=== PATIENT | female | born 1965 | race Caucasian/White ===

== ENCOUNTER 2021-09-06 12:45 | Outpatient (CLI) | payer OTHER, SELFPAY ==
--- NOTE | ~2021-09-06 | XR_ITS ---
EXAM: XR hip BI wo pelvis HISTORY: PAIN LOW BACK INTO BOTH HIPS. NO INJ, SURG RT 2009, LT 2014 COMPARISON: None available FINDINGS: Uncomplicated bilateral hip arthroplasties. Degenerative changes in the bilateral SI joint s and pubic symphysis. No fracture. IMPRESSION: No acute osseous finding in the pelvis or hips. No hardware complication. Reviewed, dictated and finalized at location K.
--- NOTE | ~2021-09-06 | XR_ITS ---
EXAM: XR lumbar spine 2-3V HISTORY: PAIN LOW BACK INTO BOTH HIPS. NO INJ, LEFT SIDE HURTS WORSE COMPARISON: None available FINDINGS: 6 nonrib-bearing lumbar-type vertebral bodies. Pedicles intact. 3 mm anterolisthesis of L5 on L6, otherwise normal vertebral body alignment. Vertebral body heights preserved. Multilevel disc narrowing and osteophytosis, severe at L3-4. Multilevel facet arthropathy. 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 Multilevel degenerative disc disease and facet arthropathy. Reviewed, dictated and finalized at location K. 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 Multilevel deg enerative disc disease and facet arthropathy.
== END 2021-09-06 12:46 | disposition home or self-care (01) ==
PROVIDERS: PCP Family Medicine; Visit Provider Nurse Practitioner Family
DX: M54.50 Low back pain, unspecified (principal); M25.551 Pain in right hip; M25.552 Pain in left hip; M51.36 Other intervertebral disc degeneration, lumbar region; Q76.49 Other congenital malformations of spine, not associated with scoliosis; Z96.643 Presence of artificial hip joint, bilateral
CPT/HCPCS: 72100; 73521

== ENCOUNTER 2021-10-25 12:30 | Outpatient (RCR) | payer OTHER, SELFPAY ==
--- NOTE | 2021-09-27 13:44 | PTOPEVAL ---
PHYSICAL THERAPY EVALUATION AND PLAN OF CARE Thank you for referring Syeda Christian to [facility].? The patient is scheduled to be seen for therapy? 2x/week for 4 weeks. Please review, sign, date and return this plan of care HARINDER. I agree with and certify that the following plan of care is medically necessary. Referring Physician Date Attending Provider: VIOLET Dumont Diagnosis low back pain, sciatica Onset 2months ago Subjective Information reports an acute on chronic Query Text:As Reported By Patient/ episode of low back pain that Family this time has persisted and even worsened. Muscle relaxors do not help. She has a 6th lumbar vertebrae and arthritic changes throughout. Most of the pain is on the left side of sacrum and she will get tingling all the way down the leg and pain, almost cramping, in the back of the leg and calf. Standing increases leg symptoms after just a couple of minutes. Walking can be better than standing still. has had bilateral hip replacement, left was performed second and she states that she was walking so terribly before the surgery. she is not working on losing weight to have the left knee replaced. Self Report Pain Assessment Left Spine, Lumbar Reported Pain Level 4 Pain Frequency Chronic,Continuous Greatest Pain Intensity 8 Pain Score Lumbar ROM Lumbar Flexion Active Mid Scherer Query Text:Hands to: Lumbar Comments reverse lumbopelvic rhythm; extension hinging at L2 Hip Strength Left Hip Flexion Strength 3 Fair Hip Extension Strength 3 Fair Hip Abduction Strength 3 Fair Hip Strength Comments generally poor motor recruitment secondary to pain Right Hip Flexion Strength 4 Good Hip Extension Strength 3+ Fair + Hip Abduction Strength 3+ Fair + Leg Length Discrepancy left leg appears shorter at ankle and knee and iliac crest is rotated anteriorly Palpation significant muscle spasm to left
--- NOTE | 2021-09-29 12:44 | PCPTNOTE ---
Patient called & cancelled scheduled appointment this date due to watching grandchild.
--- NOTE | 2021-10-19 14:42 | PCPTNOTE ---
Patient called & cancelled scheduled appointment this date due to not feeling well.
--- NOTE | 2021-10-25 13:06 | PTOPEVAL ---
PHYSICAL THERAPY DISCHARGE NOTE Thank you for referring Syeda Christian to [facility].?Please review, sign, date and return this plan of care HARINDER. I agree with and certify that the following plan of care is medically necessary. Referring Physician Date Attending Provider: Bindu Earl, VIOLET Diagnosis low back pain, sciatica Onset 2months ago Subjective Information States that she is feeling Query Text:As Reported By Patient/ pretty good. She is liking the Family shoe lift and it feels like it is really helping. She has been doing walking in the pool and exercises in the pool. Self Report Pain Assessment Left Spine, Lumbar Reported Pain Level 2 Pain Score Pain Score 2: Self Report Interventions Used Interventions Used By Clinicians Education,Exercise Pain Relief Interventions Used By Inactivity/Rest,Position Patient Change Cervical and Lumbar ROM Lumbar ROM Lumbar Flexion Active Mid Scherer Query Text:Hands to: Lumbar Comments reverse lumbopelvic rhythm; extension hinging at L2 Lower Extremity Muscle Strength Testing Hip Strength Left Hip Flexion Strength 4- Good - Hip Extension Strength 3+ Fair + Hip Abduction Strength 4- Good - Hip Strength Comments generally poor motor recruitment secondary to pain Right Hip Flexion Strength 5 Normal Hip Extension Strength 4 Good Hip Abduction Strength 4 Good Palpation continues to have moderate trigger points to left glutes; PT Clinical Summary Christine was referred to outpatient physical therapy with acute on chronic left sided low back pain with radicular symptoms to left calf. She is no longer experiencing radicular symptoms and reports ability to stand and wash dishes and walk. She presents with improved lumbar ROM and improved overall strength. She does continue to have a deficit to left LE. She is understanding of HEP performs it independently. She will d/c from PT at this time.
== END 2021-10-26 08:32 | disposition home or self-care (01) ==
LOC: ANHPT 12:30
PROVIDERS: PCP Family Medicine; Visit Provider Nurse Practitioner Family
DX: M54.32 Sciatica, left side (principal)
CPT/HCPCS: 97110; 97112; 97140; 97162

== ENCOUNTER 2022-07-09 16:59 | Outpatient (CLI) | payer OTHER, SELFPAY ==
--- NOTE | ~2022-07-09 | XR_ITS ---
EXAMINATION: XR chest 2V DATE: 07/09/2022 17:20 INDICATION: Chronic cough TECHNIQUE: Frontal and lateral views of the chest are obtained COMPARISON: None available FINDINGS: The lungs are free of acute opacities. No pleural effusion or pneumothorax. The cardiomedia stinal silhouette is normal. There is moderate thoracic spondylosis. Surgical clips in the right uppe r quadrant are likely from prior cholecystectomy. IMPRESSION: 1. No acute cardiopulmonary abnormality. Reviewed, dictated and finalized at location A. TRIMMER
== END 2022-07-09 17:00 | disposition home or self-care (01) ==
LOC: ANHIMG 17:01
PROVIDERS: PCP Family Medicine; Visit Provider Physician Assistant
DX: R05.3 Chronic cough (principal)
CPT/HCPCS: 71046

== ENCOUNTER 2022-09-25 11:00 | Outpatient (RCR) | payer OTHER, SELFPAY ==
--- NOTE | 2022-08-27 12:21 | STOPEVAL1 ---
Assessment and note entered by Ena Goodwin, ACOUSTICAL TILE PATTERNMAKER Evaluation Information Assessment Status Evaluation Diagnosis Dysphonia Onset approximately 6 months Subjective Information Patient reports she had COVID last November and with that, had a cough. She stated that those symptoms cleared up however she noted that it was after the COVID symptoms, she began noticing a voice problem. Due to the persistent voice disorder, she went to her primary care physician who sent her to the ENT who scoped her and found a vocal nodule that is contributing to voice disorder. Reported Pain Level Pain Score 0: Self Report Assessment ST Clinical Summary VOICE EVALUATION This patient was seen for a voice evaluation at the request of her physician. She reports that last summer, she contracted COVID and began to exhibit a frequent cough but her voice disorder was noted noticed until around [place] when a relative pointed out her voice sounded as if she had a cold. Patient then saw her primary care physician and then had an endoscopy to examine her vocal cords and she was diagnosed with one vocal nodule. Patient reports that she takes care of her disabled daughter, babysits two young grandchildren, and is training two puppies at this time, all of which contribute to constant speaking and yelling at the animals at times. Patient reports voice is both raspy and hoarse at all times with very infrequent and brief moments when she feels her voice sounded normal. Today the patient exhibited vocal loudness and pitch range to be within normal limits however her vocal quality was judged to be moderate hoarse and moderate-severe raspy. Also diplophonia was observed on several occasions. Patient was instructed in the use of vocal hygiene program, gastroesophageal reflux guidelines, and vocal cord/neck/shoulder relaxation techniques. Patient voiced good understanding of recommendations and reported that she does not follow these guidelines at this time but agreed to try. Patient will be seen
--- NOTE | 2022-08-28 16:53 | STOPEVAL1 ---
Assessment and note entered by Ena Goodwin, VALVE ASSEMBLER Assessment ST Clinical Summary VOICE EVALUATION This patient was seen for a voice evaluation at the request of her physician. She reports that last summer, she contracted COVID and began to exhibit a frequent cough but her voice disorder was noted noticed until around [place] when a relative pointed out her voice sounded as if she had a cold. Patient then saw her primary care physician and then had an endoscopy to examine her vocal cords and she was diagnosed with one vocal nodule. Patient reports that she takes care of her disabled daughter, babysits two young grandchildren, and is training two puppies at this time, all of which contribute to constant speaking and yelling at the animals at times. Patient reports voice is both raspy and hoarse at all times with very infrequent and brief moments when she feels her voice sounded normal. Today the patient exhibited vocal loudness and pitch range to be within normal limits however her vocal quality was judged to be moderate hoarse and moderate-severe raspy. Also diplophonia was observed on several occasions. Patient was instructed in the use of vocal hygiene program, gastroesophageal reflux guidelines, and vocal cord/neck/shoulder relaxation techniques. Patient voiced good understanding of recommendations and reported that she does not follow these guidelines at this time but agreed to try. Patient will be seen twice weekly for four weeks for direct voice treatment to instruct the patient in the use of vocal relaxation techniques while speaking. Patient agreed to continue direct Speech Therapy. Thank you for this referral. Plan of Care Interventions Treatment of Voice ST Services Indicated Yes Treatment Frequency and 2xwk/4weeks Duration These treatments will address the objective and functional deficits as defined above. The patient will be advanced safely and appropriately in order for the patient to
--- NOTE | 2022-09-13 15:36 | PCSTNOTE ---
Rehab treatment not completed this week as patient's has shingles and aj has chicken pox and patient did not want to expose staff and other patients to chicken pox virus. Resume next week.
--- NOTE | 2022-09-25 12:40 | STOPPROG ---
Assessment and note entered by Ena Goodwin, DELIVERY SPECIALIST Evaluation Information Assessment Status Progress Assessment ST Clinical Summary VOICE TREATMENT SESSION AND PROGRESS NOTE Patient was seen for a voice evaluation on 08/27 and then 3 treatment sessions to address moderate vocal hoarseness and moderate/severe raspy vocal quality. She had to miss several scheduled treatment sessions due to her own illness but then also for illness in the family, not wanting to risk infecting the elderly at this treatment facility. Patient was instructed in the use of a vocal hygiene program to reduce voice abuse and negative behaviors that could lend themselves to a poor voice quality, but also instructed in the use of gastroesophageal guidelines in order to prevent any risk for a hoarse voice due to reflux into the pharynx/larynx. Patient was instructed in the use of the yawn-sigh technique to promote easy onset of voicing and she was also instructed in the use of breathing/relaxation techniques, again, to reduce the stress on the voice/vocal cords. Patient reports she has considered all recommendations and practices them daily. Today, the patient was instructed in the use of changing pitch by elevating pitch to reduce the stress on the vocal cords and given 5-6 syllable sentences, patient was 80% accurate for clear speech with no observation of pitch breaks or squealing/raspy vocal quality. When sentence length was increased to 9-10 syllables, clear voice was noted only 20% of the time. Patient was instructed to, in general, keep sentences shorter in length, inhale, use easy onset including use of blowing or /h/ sound initially when speaking, and to break longer sentences in several parts as needed to avoid squeaking or the sound of a pitch break. She was given sentences of 5-9 words in length and requested to practice but to not overdo practicing as over-practicing may contribute to vocal cord irritation. Patient voiced understanding. Patient expressed that now that she has seen some improvement in her voicing (by raising the pitch level), she wants to continue one time weekly at this time to reinforce use of good voicing
--- NOTE | 2022-09-25 13:50 | OPREHPOC ---
Outpatient Therapy Plan of Care This is a Multidisciplinary Plan of Care that may contain components documented by all disciplines (PT, OT, and ST.) ST Problem 1 ST Problem #[address] Goal 1 Goal Demonstrate good understanding of vocal hygiene program, tasks to reduce symptoms of gastroesophageal reflux, and use of yawn-sigh and changing pitch techniques in order to reduce vocal cord irritation. Target Visit [address] Problem #[address] Goal 1 Goal Patient will utilize all components of clear speech including yawn-sigh technique and changing pitch technique to reduced stress on the vocal cords and therefore improving vocal quality 90% of the time in sentences 5-9 words in length. Target Visit 4 ST Goal 2 Goal Patient will utilize all components of clear speech including yawn-sigh technique and changing pitch technique to reduced stress on the vocal cords and therefore improving vocal quality 90% of the time at the conversational level. Target Visit 4
--- NOTE | 2022-10-09 11:59 | PCSTNOTE ---
Patientdid not show or call to cancel today's session/re-evaluation. Therapist contacted patient and left message but no response yet.
--- NOTE | 2022-11-01 13:10 | STOPDC ---
Assessment and note entered by Ena Goodwin SERVICE ORDER DISPATCHER CHIEF Evaluation Information Assessment Status Discharge - Pt Not Presen Assessment ST Clinical Summary DISCHARGE SUMMARY/NOT PRESENT This patient was seen for an initial voice evaluation on 08/27 secondary to presence of vocal nodule(s). Speech Therapy was recommended twice weekly for four weeks however her attendance was sporadic secondary to illness/family illnesses and other reasons. She was instructed in the use of vocal hygiene program, strategies to reduce evidence of gastroesophageal reflux, and then easy onset and yawn-sign strategies to reduce vocal tension. Patient voiced understanding, used her puppies and grandchildren as reasons why she could not consistently practice use of the strategies or techniques. She did return for a re- evaluation on 09/25 and she did see improvement when raising pitch was practiced. At that time she agreed to return one time weeklyx4 weeks however she never returned after that visit nor did she respond to speech pathologist's calls or contacts. She was discharged with goals not achieved. Plan of Care ST Services Indicated No
== END 2022-11-02 13:12 | disposition home or self-care (01) ==
LOC: ANHST 11:00
PROVIDERS: PCP Family Medicine; Visit Provider Otolaryngology
DX: J38.2 Nodules of vocal cords (principal)
CPT/HCPCS: 92507; 92524; 99199

== ENCOUNTER 2022-11-02 14:02 | Outpatient (CLI) | payer OTHER, SELFPAY ==
--- NOTE | 2022-11-02 14:07 | ECG_ITS ---
Measurements Intervals [place] Rate: 50 P: 40 TX: 141 QRS: -15 QRSD: 87 T: -4 QT: 425 QTc: 389 Interpretive Statements SINUS BRADYCARDIA LOW QRS VOLTAGE IN PRECORDIAL LEADS [QRS DEFLECTION < 1.0 mV IN CHEST LEADS] POOR R-WAVE PROGRESSION BORDERLINE ECG NO PREVIOUS ECG AVAILABLE FOR COMPARISON Electronically Signed On 11-02-2022 17:20:40 CDT by Kike Kline M.D.
== END 2022-11-02 14:03 | disposition home or self-care (01) ==
PROVIDERS: PCP Family Medicine; Visit Provider Otolaryngology
DX: R00.1 Bradycardia, unspecified (principal)
CPT/HCPCS: 93005

== ENCOUNTER 2022-11-05 04:02 | Day surgery (SDC) | payer OTHER, SELFPAY ==
[2022-10-30 08:43] VITALS: BMI 45.1
--- NOTE | 2022-10-30 08:50 | PC.NURSE ---
Report to the Outpatient Waiting Room, entrance under the green pavilion located off [facility], at time 6:30 on date 11/05/22. Planned Procedure Time: 8:30. Time changes happen often and if your time is changed the preop area will call you the afternoon before. - You and your visitor will be asked to self-screen and do not enter if you have any COVID symptoms. - A mask is optional within the hospital at this time. Patients may have clear liquids (water, carbonated beverages, clear teas, apple juice) until 3 hours prior to surgery (5:30) with a maximum of 20 ounces. - No food from midnight until time of surgery Take the following medications with a SIP of water the morning of surgery: LEXAPRO, METOPROLOL DO NOT STOP ANY OF YOUR OTHER PRESCRIPTION MEDICATIONS PRIOR TO SURGERY ?EXCEPT THE FOLLOWING Medications to discontinue per physician: VITAMINS/SUPPLEMENTS Date to take last dose: 11/01/22 Please no make-up, nail iranian, hairspray, perfume, deodorant, or body powder the day of surgery. No jewelry (including any body piercings) or valuables the day of surgery, leave them at home. Please take a shower or bath the night before, or the morning of, surgery with an antibacterial soap. Wear comfortable, loose fitting clothing. - Jewelry must be removed prior to entering the operating room. Rings and piercings that are not removed may be cut off. - The hospital will not accept responsibility for valuables. - Please leave all valuables, including medications, at home the day of surgery. If you are going home after surgery, a licensed caterpillar driver must drive you home. - NO public transportation without another adult if you receive anesthesia. - We recommend that an adult stay with you for 24 hours following discharge. - We also recommend that you do not drive, make important decision, drink alcoholic beverages, or take any drugs that were not prescribed by your health care provider for at least 24 hours after your discharge time. Follow any additional instructions given to you from your surgeon. If you or anyone in your household have experienced Covid symptoms in the past week, please notify your surgeon or the nurse liaison at the phone number below for possible testing. Telephone instructions given to PT - KENDALL DE LA TORRE and asked if any additional questions and then verbalized understanding. Patient advised to call surgeon office or pre surgery nurse liaison [phone] if any additional questions.
--- NOTE | 2022-11-02 17:26 | PM.IMHP ---
H&P: HPI History of Present Illness Date/Time: 11/02/22 17:26 Chief Complaint: Hoarse voice vocal cord cyst Narrative: planned procedure Review of Systems Review of Systems: All systems reviewed & are unremarkable except as noted in HPI and below [facility] Past Medical History Medical History Anxiety Depression Essential (primary) hypertension Gastroesophageal reflux disease without esophagitis HLD (hyperlipidemia) IFG (impaired fasting glucose) Osteoarthritis of left knee PCOS (polycystic ovarian syndrome) Primary osteoarthritis involving multiple joints Surgical History Surgical History History of arthroscopy of left knee (~1992) History of arthroscopy of right knee (~1993) History of cholecystectomy (~10/1991) History of total left hip arthroplasty (~02/2016) History of total right hip arthroplasty (~10/2010) Status post delivery (~07/1990) Twins Family History Family History Father Hypertension Depression Mother Cerebrovascular accident Family history of diabetes mellitus in first degree relative Family history of coronary artery disease Cancer Diabetes mellitus Hypertension Depression Sibling Alcoholism Depression Son Depression Social History Social History Smoking status: Never smoker Second hand tobacco smoke exposure: No Alcohol intake: never Substance use: never Substance use type: does not use Lack of Transportation: No Lack of Food: Never True Current Housing: I Have Housing Concerned About Future Housing: No Difficulty Paying Gas/Electric Bills: No Difficulty Paying for Meds: No Currently Unemployed: No Education: High School Diploma/GED Difficulty w/ Childcare or Family Care: No Living arrangements: with family Occupation/Education: unemployed Gender identity (if verbalized by the patient): Female Sexual Orientation (if Verbalized by the Patient): Straight or Heterosexual Spiritual care concerns: No Meds Home Medications and Allergies Home Medications Medication Instructions Recorded Confirmed Type pantoprazole 40 mg tablet,delayed 40 mg PO QAM #90 tabs 06/01/22 11/02/22 Rx release gabapentin 300 mg capsule 300 mg PO QHS #30 caps 06/26/22 11/02/22 Rx ergocalciferol (vitamin D2) 1,250 1,250 mcg PO WEEKLY #12 caps 06/29/22 11/02/22 Rx mcg (50,000 unit) capsule escitalopram oxalate 20 mg tablet 20 mg PO DAILY #90 tabs 08/20/22 11/02/22 Rx (Lexapro) meloxicam 15 mg tablet See Rx Instructions .Route 08/21/22 11/02/22 Rx .COMPLEX #90 tabs metoprolol succinate 25 mg 25 mg PO DAILY #90 tabs 10/15/22 11/02/22 Rx tablet,extended release 24 hr azelastine 137 mcg (0.1 %) nasal 1 spray intranasal Q12H #30 mL 11/02/22 11/02/22 Rx spray aerosol Allergies Allergy/AdvReac Type Severity Reaction Status Date / Time No Known Allergies Allergy Verified 11/02/22 15:04 Exam Narrative: normal ENT exam Assessment and Plan Assessment and plan (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 Total operative time of 30 minutes. Risks were discussed including bleeding infection damage to vocal cords damage to any surrounding structures damage to jaw dislocation of jaw damaged teeth. Persistent hoarse voice necessitating prolonged speech therapy vocal cord stricture scarring damage to vocal cord. Patient voiced understanding and agreed. (2) Hoarseness: Code(s): R49.0 - Dysphonia Status: Acute
[2022-11-05] VITALS (8 sets, daily range): BP systolic 110–155; BP diastolic 56–85; PULSE 54–78; RESP 13–20; TEMP 36.3–36.4; O2SAT 92–99
--- NOTE | 2022-11-05 07:07 | WPDANESEPPF ---
Anes - Initial Pre Proc Eval Procedure: Operation Date: 11/05/22 08:30 Proposed Procedures p Micro Laryngoscopy, Excision Right Vocal Cord Polyp - Srinivasan Amezcua MD Date/Time: 11/05/22 07:07 Surgeon: Srinivasan Amezcua MD Pre Op Diagnosis: right vocal cord polyp Patient Data Age: 57 Gender: F Height: 1.7 m Weight: 130.65 kg Allergies Allergy/AdvReac Type Severity Reaction Status Date / Time No Known Allergies Allergy Verified 11/05/22 08:05 Home Medications Medication Instructions Recorded Confirmed Type pantoprazole 40 mg tablet,delayed 40 mg PO QAM #90 tabs 06/01/22 11/02/22 Rx release gabapentin 300 mg capsule 300 mg PO QHS #30 caps 06/26/22 11/02/22 Rx ergocalciferol (vitamin D2) 1,250 1,250 mcg PO WEEKLY #12 caps 06/29/22 11/02/22 Rx mcg (50,000 unit) capsule escitalopram oxalate 20 mg tablet 20 mg PO DAILY #90 tabs 08/20/22 11/02/22 Rx (Lexapro) meloxicam 15 mg tablet See Rx Instructions .Route 08/21/22 11/02/22 Rx .COMPLEX #90 tabs metoprolol succinate 25 mg 25 mg PO DAILY #90 tabs 10/15/22 11/02/22 Rx tablet,extended release 24 hr azelastine 137 mcg (0.1 %) nasal 1 spray intranasal Q12H #30 mL 11/02/22 11/02/22 Rx spray aerosol Patient hx anesthesia problems: none Family hx anesthesia problems: none Results Review: All pre-operative results and documents have been reviewed as part of the pre-operative evaluation. [facility] Past Medical History Medical History Anxiety Depression Essential (primary) hypertension Gastroesophageal reflux disease without esophagitis HLD (hyperlipidemia) IFG (impaired fasting glucose) Osteoarthritis of left knee PCOS (polycystic ovarian syndrome) Primary osteoarthritis involving multiple joints Surgical History Surgical History History of arthroscopy of left knee (~1992) History of arthroscopy of right knee (~1993) History of cholecystectomy (~10/1991) History of total left hip arthroplasty (~02/2016) History of total right hip arthroplasty (~10/2010) Status post delivery (~07/1990) Twins Family History Family History Father Hypertension Depression Mother Cerebrovascular accident Family history of diabetes mellitus in first degree relative Family history of coronary artery disease Cancer Diabetes mellitus Hypertension Depression Sibling Alcoholism Depression Son Depression Social History Social History Smoking status: Never smoker Second hand tobacco smoke exposure: No Alcohol intake: never Substance use: never Substance use type: does not use Lack of Transportation: No Lack of Food: Never True Current Housing: I Have Housing Concerned About Future Housing: No Difficulty Paying Gas/Electric Bills: No Difficulty Paying for Meds: No Currently Unemployed: No Education: High School Diploma/GED Difficulty w/ Childcare or Family Care: No Living arrangements: with family Occupation/Education: unemployed Gender identity (if verbalized by the patient): Female Sexual Orientation (if Verbalized by the Patient): Straight or Heterosexual Spiritual care concerns: No Anes - Eval Final PreProcedure Day of Procedure 11/05/22 07:07 Patient weight: morbidly obese Heart: regular rate and rhythm Lungs: clear to auscultation Airway: Mallampati scale class III Neurological: alert and oriented Last oral intake: >/= 8 hours ASA classification: III Emergent: no Anesthetic plan: proceed Anesthesia type and monitoring: general ETT and standard monitoring Results Review: All pre-operative results and documents have been reviewed as part of the pre-operative evaluation. Informed Consent: The patient's anesthetic plan and its attendant risks and benefits were discuss
--- NOTE | 2022-11-05 07:22 | WPDHPUPDATE1 ---
History and Physical Update Update Date/Time: 11/05/22 07:22 History and Physical has been reviewed, including an updated exam of the patient. There are NO changes in the patient's condition. Risks, benefits, and alternatives have been discussed and questions answered. Patient agrees to proceed with procedure.
[2022-11-05] MEDS: LACTATED RINGERS 1,000 ML 30 ML IV CONT (08:00)
[2022-11-05] MEDS: OXYMETAZOLINE HCL 0.05% NAS 15 ML BTL (*BKC) 1 SPRAY XX (08:49)
--- NOTE | 2022-11-05 09:25 | P.OP_ITS ---
Procedure Note - Detailed Date of Procedure 11/05/22 Pre-op Diagnosis right vocal cord polyp/ cyst, or some voice hoarse not some Post-op Diagnosis Same Procedure Performed Microdirect laryngoscopy with excision of right vocal cord cyst Surgeon Srinivasan Amezcua MD Anesthesia General Indications see above Findings anterior based right vocal cord cyst excised with a small amount of squamous epithelium around its base. Description of Procedure Patient identified consent verified. Patient brought operating room. Time- out performed. General anesthesia induced endotracheal tube secured 1 size lower than normal. Patient prepped draped positioned. Procedure confirmed. Second time-out performed. Laryngoscope inserted into the patient's airway after the placement of a maxillary tooth mouth guard. Airway brought into view. Patient placed in suspension. Cyst visualized described above. Excise grasped with cup forceps facing to the right this was done under microscopic guidance cut with up-biting small scissors a small amount of epithelium was taken out. This was sent for pathologic analysis. Patient tolerated the procedure well this Afrin-soaked pledgets were placed for 5 minutes then removed cyst was gone. Deep structures were not damaged McIvor mouth or the laryngoscope was removed mouth gag removed patient tolerated the procedure very very well equipment was all accounted for. Blood loss less than 1 cc. I performed all dictated portions of procedure. Care the patient was given Anesthesiology. Patient taken to PACU. Estimated Blood Loss 1 Drains No Packing No Pathology Yes Complications No immediate complications Condition Stable Disposition PACU [facility] Billing Surgery - Charge Forward: Surgery Billing
== END 2022-11-05 10:38 | disposition home or self-care (01) ==
PROVIDERS: PCP Family Medicine; Visit Provider Otolaryngology
PROC: 0CJS8ZZ Inspection of Larynx, Via Natural or Artificial Opening Endoscopic (ICD-10-PCS; CPT 31541; principal; 2022-11-05 08:30)
DX: J38.3 Other diseases of vocal cords (principal); R49.0 Dysphonia; I10 Essential (primary) hypertension; E78.5 Hyperlipidemia, unspecified; E28.2 Polycystic ovarian syndrome; F41.9 Anxiety disorder, unspecified; F32.A Depression, unspecified; K21.9 Gastro-esophageal reflux disease without esophagitis; M15.9 Polyosteoarthritis, unspecified
CPT/HCPCS: 31541; 88305; A9270; J0330; J2250; J2405; J2704; J3010; J7120

== ENCOUNTER 2023-05-29 10:12 | Outpatient (CLI) | payer OTHER, SELFPAY ==
--- NOTE | ~2023-05-29 | MM_ITS ---
EXAMINATION: MM screening heather BI w zakia HISTORY: Screening mammogram TECHNIQUE: Craniocaudal and mediolateral oblique 3-D tomosynthesis images were obtained and synthetic 2-D images were generated. CAD analysis was submitted and interpreted. COMPARISON: 09/24/2018 BREAST PARENCHYMAL COMPOSITION: There are scattered areas of fibroglandular density. FINDINGS: No suspicious mass, calcification, or architectural distortion are identified in either blake ast to suggest malignancy. There has been no suspicious interval change. IMPRESSION: 1. No mammographic evidence of malignancy. 2. Recommend routine screening mammography in one year. BI-RADS Category 1: Negative Reviewed, dictated and finalized at location A. [employer]
== END 2023-05-29 10:13 | disposition home or self-care (01) ==
LOC: ANHIMG 10:14
PROVIDERS: PCP Family Medicine; Visit Provider Physician Assistant
DX: Z12.31 Encounter for screening mammogram for malignant neoplasm of breast (principal)
CPT/HCPCS: 77063; 77067

== ENCOUNTER 2024-02-01 11:11 | Outpatient (CLI) | payer OTHER, SELFPAY ==
[2024-02-01 11:39] LABS: Hemoglobin 13.3 g/dL (12.0-15.0)
[2024-02-01 11:47] LABS: Hemoglobin A1C 5.1 % (<5.7)
[2024-02-01 11:48] LABS: Albumin Level 3.8 g/dL (3.5-5.1); Estimated Glomerular Filt Rate > 60; Glucose 93 mg/dL (65-110)
== END 2024-02-01 11:12 | disposition home or self-care (01) ==
PROVIDERS: PCP Family Medicine; Visit Provider Orthopaedic Surgery
DX: R73.01 Impaired fasting glucose (principal); I10 Essential (primary) hypertension; E55.9 Vitamin D deficiency, unspecified
CPT/HCPCS: 36415; 82040; 82565; 82947; 83036; 85014; 85018

== ENCOUNTER 2024-02-06 09:00 | Outpatient (RCR) | payer OTHER, SELFPAY ==
--- NOTE | 2024-01-08 09:34 | OPREHPOC ---
Outpatient Therapy Plan of Care This is a Multidisciplinary Plan of Care that may contain components documented by all disciplines (PT, OT, and ST.) PT Problem 1 PT Problem #1 Knowledge Deficit PT Goal 1 Goal / Goal Update *indep with HEP *eduation for TKR post op PT protocol Target Visit 6 PT Problem 2 PT Problem #2 Pain PT Goal 1 Goal / Goal Update 1* pain L knee at worst of 8/10 with increased strengthening and activity Target Visit 6 PT Problem 3 PT Problem #3 Impaired Strength PT Goal 1 Goal / Goal Update increase strength of L hip and knee, to improve stability to knee joint and prepare for surgery 1* pt perform with 2# ankle wt, 15 reps of mat strengthening exercises 2* 2 minute walking test distance of 325' Target Visit 6
--- NOTE | 2024-01-08 09:34 | PTOPEVAL1 ---
Assessment and note entered by Roseanna Vizcaino, PT Evaluation Information Assessment Status Evaluation ICD-10 Condition Codes (PT) Repeated falls R29.6,Difficulty Walking R26.2,R26. 9,Weakness R53.1 Other ICD-10 Condition Codes ( M17.12 L knee OA PT) Subjective Information having more pain and weakness of L LE, have had 2 falls due to knee giving out; use cane PRN; have a wheeled walker, but not use it. to have TKR, but not yet scheduled; Activity: at home with family; assist with in home care of her disabled daughter and babysit 2 & 3 yr old grand children; trying to walk for fitness due to bariatric surgery have lost 60#; does not go into her basement for laundry due to knee giving out-- family does laundry. discussed aquatic therapy for fitness activity- she likes water exercises and did after her THR. Reported Pain Level Pain Score 0: Self Report Additional Pain Score Comments pain increase to 8/10 with walking 6-7 minutes; decrease pain: sit, rest have not been taking any pain meds/tylenol not help; is not using ice- instruct on PRN use does have swelling in knee- instruct on elevation and ice for swelling; Assessment PT Clinical Summary Malgorzata has the diagnosis of L knee OA and is planning to have a TKR, but not yet scheduled. Her walking is limited to about 6-7 minute tolerance due to pain and knee is buckling and giving out, caused her to fall 2x. She is using a cane and pushing her daughters' w/c for support with walking distances. With the evaluation; she has good ROM of knee, decreased strength of L LE--mat exercises 10-15 reps; 2 minute walking test distance of 275' with pain increase to 5/10; Skilled PT services are indicated for modalities to decrease pain, therapeutic exercises to increase L LE strength and education for HEP and to prep pt for TKR surgery, to have better outcome
--- NOTE | 2024-02-06 09:55 | PTOPDC ---
Assessment and note entered by [facility] Evaluation Information Assessment Status Discharge ICD-10 Condition Codes (PT) Repeated falls R29.6,Difficulty Walking R26.2, Weakness R53.1 Other ICD-10 Condition Codes ( M17.12 L knee OA PT) Subjective Information Pt. reports she is stronger since beginning therapy. She states that she is doing exercise at home daily. She reports that pain continues to fluctuate in the left knee and depends on how much standing she does. She reports that she will be undergoing knee replacement in April. She reports that she will continue with her HEP and is ready for discharge at this time. Reported Pain Level Pain Score 5: Self Report Assessment PT Clinical Summary Mrs. Christian attended a total of 6 treatment sessions focusing on mobility latter-day and l.e. strength. She demonstrates improved mobility and gait efficiency, despite continued pain. Educated pt. thoroughly in regards to importance of continued exercise to assist with improving her outcome with knee replacement. She is encouraged to continue with her HEP and will be discharged from our care at this time. Plan of Care PT Services Indicated No
== END 2024-02-06 15:09 | disposition home or self-care (01) ==
LOC: ANHPT 09:00
PROVIDERS: PCP Family Medicine; Visit Provider Orthopaedic Surgery
DX: M17.12 Unilateral primary osteoarthritis, left knee (principal)
CPT/HCPCS: 97110; 97161; 97530

== ENCOUNTER 2024-03-27 11:55 | Outpatient (CLI) | payer OTHER, SELFPAY ==
[2024-03-27 14:03] LABS: Basophils Absolute Auto 0.1 K/mm3 (0.0-0.1); Basophils Percent Auto 0.7 % (0.2-1.2); Eosinophils Absolute Auto 0.1 K/mm3 (0-0.3); Eosinophils Percent Auto 0.8 % (0-4.4); Hematocrit 39.8 % (37.0-47.0); Immature Granulocyte Absolute 0.03 K/mm3 (0.00-0.031); Immature Granulocyte Percent A 0.4 % (0-0.5); Lymphocytes Absolute Auto 0.78 K/mm3 (0.9-3.2); Lymphocytes Percent Auto 10.3 % (18.3-44.2); Mean Corpuscular HGB Conc 32.7 g/dl (32-36); Mean Corpuscular Hemoglobin 30.2 pg (26-34); Mean Corpuscular Volume 92.6 fl (80-100); Mean Platelet Volume 10.8 fl (7.4-10.4); Monocytes Absolute Auto 0.4 K/mm3 (0.1-0.6); Monocytes Percent Auto 5.4 % (2.6-8.5); Neutrophils Absolute Auto 6.2 K/mm3 (1.3-6.7); Neutrophils Percent Auto 82.4 % (45.5-73.1); Platelet Count Result 246 k/mm3 (150-375); Red Cell Distribution Width 14.9 % (11.5-14.5); White Blood Count 7.6 K/mm3 (4.5-10.0)
[2024-03-27 14:27] LABS: Albumin Level 4.1 g/dL (3.5-5.1); Estimated Glomerular Filt Rate > 60; Glucose 94 mg/dL (65-110)
[2024-03-27 15:03] LABS: Urine Cotinine NEGATIVE
[2024-03-27 15:16] LABS: MRSA (PCR) NOT DETECTED (NOT DETECTE)
== END 2024-03-27 11:56 | disposition home or self-care (01) ==
LOC: ANHSURGERY 12:05
PROVIDERS: PCP Family Medicine; Visit Provider Orthopaedic Surgery
DX: Z01.818 Encounter for other preprocedural examination (principal); M17.12 Unilateral primary osteoarthritis, left knee
CPT/HCPCS: 80307; 82040; 82565; 82947; 85025; 87641

== ENCOUNTER 2024-04-20 00:34 | Day surgery (SDC) | payer OTHER, SELFPAY ==
[2024-03-27 12:13] VITALS: BMI 36.3
--- NOTE | 2024-03-27 12:43 | PC.NURSE ---
Report to the Outpatient Waiting Room, entrance under the green pavilion located off [facility], at time ___10:00AM____ on date ____04/20/24___. Planned Procedure Time: ___12:00PM .? Time changes happen often and if your time is changed the preop area will call you the afternoon before. - You and your visitor will be asked to self-screen and do not enter if you have any COVID symptoms. Please call surgeon if you need to reschedule. - A mask is optional within the hospital at this time. Patients may have clear liquids (water, carbonated beverages, clear teas, apple juice) until 3 hours prior to surgery with a maximum of 20 ounces. - No food from midnight until time of surgery and no smoking. This includes no chewing gum, candy or mints. Take only the following medications with a SIP of water on the morning of surgery: ESCITALOPRAM, METOPROLOL DO NOT STOP ANY OF YOUR OTHER PRESCRIPTION MEDICATIONS PRIOR TO SURGERY EXCEPT THE FOLLOWING Medications to discontinue per physician ___HOLD ALL VITAMINS/SUPPLEMENTS 3 DAYS PRE-OP PER ANESTHESIA Date to take last dose 04/16/24 Please no make-up, nail djiboutian, hairspray, perfume, deodorant, or body powder the day of surgery.? No jewelry (including any body piercings) or valuables the day of surgery, leave them at home.? Please take a shower or bath the night before, or the morning of, surgery with an antibacterial soap.? Wear comfortable, loose fitting clothing.? - Jewelry must be removed prior to entering the operating room.? Rings and piercings that are not removed may be cut off. - The hospital will not accept responsibility for valuables.? - Please leave all valuables, including medications, at home the day of surgery. If you are going home after surgery, a licensed truck driver helper must drive you home.? - NO public transportation without another adult if you receive anesthesia. - We recommend that an adult stay with you for 24 hours following discharge. - We also recommend that you do not drive, make important decision, drink alcoholic beverages, or take any drugs that were not prescribed by your health care provider for at least 24 hours after your discharge time. Follow any additional instructions given to you from your surgeon. Telephone instructions given to ___PATIENT & SON and asked if any additional questions and then verbalized understanding. Patient advised to call surgeon office or pre surgery nurse liaison [phone] if any additional questions.
[2024-03-27 13:07] VITALS: BP 116/66; PULSE 65; RESP 16; TEMP 37.7; O2SAT 99
[2024-04-20] VITALS (9 sets, daily range): BP systolic 107–124; BP diastolic 58–67; PULSE 49–81; RESP 14–16; TEMP 36.8–36.9; O2SAT 92–100
--- NOTE | ~2024-04-20 | XR_ITS ---
EXAMINATION: [id number] DATE: 04/20/2024 17:07 DENSITOMETER READER INDICATION: Left knee arthroplasty TECHNIQUE: 2 views left knee FINDINGS: There is a left total knee arthroplasty in expected position. Subcutaneous gas with fluid and air in the joint are consistent with recent surgery. No evidence of periprosthetic fracture. IMPRESSION: 1. Recent left total knee arthroplasty. Reviewed, dictated and finalized at location B. ITOMETER READER
--- NOTE | 2024-04-20 07:50 | WPDANESEPPF ---
Anes - Initial Pre Proc Eval Procedure: Operation Date: 04/20/24 12:00 Proposed Procedures p Left Total Knee Arthroplasty - Max Zee MD Date/Time: 04/20/24 07:50 Surgeon: Max Zee MD Pre Op Diagnosis: primary OA left knee Patient Data Age: 59 Gender: F Height: 1.65 m Weight: 99.1 kg Last Vital Signs Temp 37.7 C H 03/27/24 13:07 Pulse 65 03/27/24 13:07 Resp 16 03/27/24 13:07 BP 116/66 03/27/24 13:07 Pulse Ox 99 03/27/24 13:07 O2 Del Method Room Air 03/27/24 13:07 Allergies Allergy/AdvReac Type Severity Reaction Status Date / Time No Known Allergies Allergy Verified 03/27/24 12:05 Home Medications ?Medication ?Instructions ?Recorded ?Confirmed ?Type pantoprazole 40 mg tablet,delayed 40 mg PO QAM #90 tabs 05/20/23 03/27/24 Rx release gabapentin 300 mg capsule 300 mg PO QHS #90 caps 12/16/23 03/27/24 Rx ergocalciferol (vitamin D2) 1,250 1,250 mcg PO WEEKLY #12 caps 01/21/24 03/27/24 Rx mcg (50,000 unit) capsule metoprolol tartrate 25 mg tablet 12.5 mg (1/2 x 25 mg) PO BID #90 02/24/24 03/27/24 Rx tabs acetaminophen 500 mg capsule 1,000 mg PO Q6H PRN Pain 03/27/24 03/27/24 History calcium carbonate (Calcium 500) 500 mg PO TID 03/27/24 03/27/24 History cetirizine 10 mg capsule 10 mg PO HS 03/27/24 03/27/24 History escitalopram oxalate 20 mg tablet 20 mg PO QAM 03/27/24 03/27/24 History (Lexapro) [id number]-[id number] 45 mg-folic 1 cap PO DAILY 03/27/24 03/27/24 History acid 800 mcg-vit K 120 mcg capsule (Bariatric Multivitamins) Patient hx anesthesia problems: none Family hx anesthesia problems: none Results Review: All pre-operative results and documents have been reviewed as part of the pre-operative evaluation. [facility] Past Medical History Medical History (Updated 04/20/24 @ 11:29 by Shahid Tran DO) Post-operative pain Osteoarthritis of left knee Anxiety Depression Gastroesophageal reflux disease without esophagitis HLD (hyperlipidemia) IFG (impaired fasting glucose) PCOS (polycystic ovarian syndrome) Primary osteoarthritis involving multiple joints Surgical History Surgical History (Updated 04/20/24 @ 07:51 by Shahid Tran DO) History of gastric bypass 10/2023 History of arthroscopy of right knee (~1993) History of arthroscopy of left knee (~1992) History of total left hip arthroplasty (~02/2016) History of total right hip arthroplasty (~10/2010) History of cholecystectomy (~10/1991) Status post delivery (~07/1990) Twins Family History Family History Father Hypertension Depression Mother Cerebrovascular accident Family history of diabetes mellitus in first degree relative Family history of coronary artery disease Cancer Diabetes mellitus Hypertension Depression Sibling Alcoholism Depression Son Depression Social History Social History Smoking status: Never smoker Second hand tobacco smoke exposure: No Alcohol intake: current Substance use: never Substance use type: does not use Do You Feel Safe in your Home?: Yes Lack of Transportation: No Lack of Food: Never True Current Housing: I Have Housing Concerned About Future Housing: No Difficulty Paying Gas/Electric Bills: No Difficulty Paying for Meds: No Currently Unemployed: No Education: High School Diploma/GED Difficulty w/ Childcare or Family Care: No Living arrangements: with family Additional living arrangements comments: [employer] Occupation/Education: unemployed Gender identity (if verbalized by the patient): Female Sexual Orientation (if Verbalized by the Patient): Straight or Heterosexual Spiritual care concerns: No Anes - Eval Final PreProcedure Day of Procedure 04/20/24 07:50 Patient weight: obese Heart: regular rate and rhythm Lungs: clear to auscultation Airway: Mallampati scale class II Neurological: alert and oriented Last oral intake: >/= 8 hours ASA classification: II Emergent: no Anesthetic plan: proceed Anesthesia type and monitoring: general LMA and standard monitoring Results Review: All pre-operative results and documents have been reviewed as part of the pre-operative evaluation. Informed Consent: The patient's anesthetic plan and its attendant risks and benefits were discussed with the patient/family/POA. Questions were solicited and answers provided to the satisfaction of the patient/family/POA.
[2024-04-20] MEDS: ACETAMINOPHEN 500 MG TABLET 1000 MG PO (11:00)
[2024-04-20] MEDS: LACTATED RINGERS 1,000 ML 30 ML IV CONT ×2 (11:15→14:52)
[2024-04-20] MEDS: TRANEXAMIC ACID 1,000MG/ISO100 1,000 MG/100 ML BAG 200 MG IVPB (11:15)
--- NOTE | 2024-04-20 12:04 | WPDHPUPDATE1 ---
History and Physical Update Update Date/Time: 04/20/24 12:04 History and Physical has been reviewed, including an updated exam of the patient. There are NO changes in the patient's condition. Risks, benefits, and alternatives have been discussed and questions answered. Patient agrees to proceed with procedure.
[2024-04-20] MEDS: SODIUM CHLORIDE 0.9% IV 37.7 ML, MORPHINE SULFATE INJ (*CRX) 2 MG, ROPivacaine HCL 1% 2... INFILTRATE (12:14)
[2024-04-20] MEDS: ceFAZolin 2 GM/D5W 50 ML 2 GM/50 ML BAG IVPB (12:14)
[2024-04-20] MEDS: GENTAMICIN BONE CEMENT REFOBACIN 1 EACH TOPICAL (13:57)
--- NOTE | 2024-04-20 16:00 | P.OP_ITS ---
Procedure Note - Detailed Date of Procedure 04/20/24 Pre-op Diagnosis Left knee degenerative arthritis. Post-op Diagnosis Same Procedure Performed Calipered, kinematically aligned total knee replacement left knee. Surgeon Max Zee MD [employer] Program Internship Sharmila Lanier PA-C Anesthesia General Findings According to the calipered kinematic alignment principles, the knee was balanced by the following verification checks incorporating 6 caliper measurements, using an insert goniometer to select the insert thickness, and adjusting the tibial resection following the kinematic alignment algorithm (see figure 160.10 published in [employer] chapter on kinematic alignment total knee a rthroplasty.) The steps verified the femoral and tibial components were kinematically aligned coincident to the patient's pre arthritic joint lines, which closely restored the pilot point tibial compartment forces and ligament laxities without ligament release. The deliciousacta CREATETHE GROUPK SperiKA knee, designed specifically for kinematic alignment, fit optimally. Partial PCL at the proximal tibia required. No other releases. The record of verification checks were documented and scanned into the chart. Distal Femoral Resection: Distal Medial 6 mm(cartilage worn), Distal Lateral 8 mm Target thickness of 8mm Unworn, 6mm Worn (No Cartilage). Posterior Femoral Resection: Posterior Medial 5 mm(cartilage worn), Posterior Lateral 7 mm. Target thickness of 7mm Unworn, 5mm Worn (No Cartilage). Description of Procedure General anesthesia was administered. A well-padded tourniquet was placed high on the thigh. The limb was prepped and draped in the usual sterile fashion. The limb was exsanguinated and the tourniquet inflated to 300 mmHgduring exposure and cementation. A longitudinal incision was created over the midline of the knee. Sharp dissection was taken through subcutaneous tissues. Electrocautery was used for hemostasis. A trivector approach to the knee joint was performed. The ACL, anterior horns of the menisci, and fat pad were excised, and a subperiosteal dissection was carried along the posterior medial border of the tibia. The thickness of the pilot point patella was measured with a caliper. The patella was resected using the oscillating saw. The best fitting anatomic patella button was selected. The fixation holes were drilled. When the patella and patella buttons combined thickness was thicker than the pilot point patella, the patella was recut. Starting midway between the top of the notch in the anterior femoral cortex, I drilled a 9 mm diameter hole parallel to the anterior cortex to minimize flexion of the femoral component and promote patella tracking. I verified the existence of a 5-10 mm bone bridge between the posterior aspect of the hole and the anterior limit of the intercondylar notch. An intraosseous positioning jayson was inserted 10 cm into the femur perpendicular to the distal joint line and parallel to the anterior cortex. I used a distal femoral referencing guide that compensated 2 mm when the cartila ge was worn on the distal medial femoral condyle, and 2 mm when the cartilage was worn on the distal lateral femoral condyle. The basis for setting the distal and posterior femoral resection guide is knowing that the varus and valgus grade II to IV Kellegren-Prem osteoarthritic knees have negligible bone wear at 0? and 90? and that the mean full-thickness cartilage wear approximates 2 mm. I measured the thickness of distal femoral resections with a caliper to +/- 0.5 mm. The thickness of each resection was adjusted to match the thickness of the respective condyle of the femoral component within 0.5 mm of target after compensating for cartilage wear and kerf. When the distal resection was 1-2 mm too thin, a recut guide was used to adjust the cut. When the distal resection was too thick, a 1 or 2 mm thick washer was fixed to the back of the 4-in-1 chamfer block to yomaira a corrective gap between the femoral component and distal femur. I set posterior femoral referencing guide at 0? orientation to position the pin holes for the 4 in 1 chamfer block. The michlele wing measured the width of the distal femoral resection and selected the size of the 4 in 1 chamfer block and femoral component. The AP sizer confirmed the size. I measured the thickness of the posterior femoral resections with a caliper before making the anterior and chamfer cuts. I adjusted the thicknesses of each resection to match the thickness of the respective condyle of the femoral component within +/-0.5 mm after compensating for cartilage wear and curve. When a posterior resection femoral resection was 1-2 mm too thick or thin a corrective correction was made by shifting or rotating the 4 in 1 chamfer block as needed. The chamfer block was secured in the correct position with compression screws. The anterior and chamfer femoral resections were made. These caliper measurements and corrections verified that the femoral component was set coincident with the patient's pre-arthritic distal and posterior femoral joint lines. I removed all the medial and lateral femoral and tibial osteophytes to restore the pre arthritic length of the medial and lateral collateral ligaments. I remigio AP lines along the major axis of the lateral tibial plateau in between the tibial spines which identified the flexion extension plane of the knee. A conventional extramedullary tibial resection guide was applied to the ankle. An michelle wing was placed medially in the saw slot. The varus valgus angle of the tibial resection guide was adjusted until the guide paralleled the proximal tibial articular surface after compensating for cartilage and bone wear. The slope of flexion extension angle of the tibial resection guide was adjusted until the michelle wing paralleled the slope of the medial tibia after compensating for wear. The AP axis of the tibial resection guide was adjusted parallel to the two lines. The proximal tibia was resected, partially releasing the insertion of the posterior cruciate ligament. The thickness of the medial and lateral lateral tibial condyle was measured at the base of the tibial spines. I visually verified the slope of the medial border of the resection was parallel to the patient's pre arthritic slope after compensating for cartilage and bone wear. I removed the remnants of the posterior horns of the menisci and posterior osteophytes and cauterized the inferior lateral genicular vessels. The Aquamantys bipolar device was also used to for additional hemostasis. When the knee had a preoperative flexion contracture of 20? or more I teased the capsule off the posterior femur with a curved 3 quarter-inch osteotome. I administered the posterior femoral periosteal injection by delivering 10 cc using a 20 gauge spinal needle at the most medial and 10 cc at the most lateral femoral spur surface which reduced the risk of injury to the posterior neurovascular structures. I followed 6 options in a decision tree to fine tune the varus valgus and posterior slope orientation of the tibial component to restore the patient's pre arthritic tibial joint line and limb alignment. First, I adjusted the varus- valgus orientation of the proximal tibia resection working in 1 degree to 2 degree increments until there was negligible medial and lateral lift off of the distal femoral and proximal tibial resection from the spacer block during a varus valgus laxity assessment in extension. I selected the largest anatomic shape trial tibial base plate that fit within the cortical boundary of the proximal tibial resection. The base plate was best fit parallel to the cortical boundary which set the Internal-external orientation of the anterior to posterior and medial to lateral positions. The best fit method set the AP axis of the tibial base plate and insert parallel to the flexion extension plane of the pre arthritic knee. I pinned the trial tibial base plate, prepared the cruciate slot, and fixed the base plate to the tibia with the cruciate stem. I inserted the trial femoral component. The knee was placed in full extension. Varus valgus laxity is of the knee with trial components were assessed. When asymmetric laxity was observed a 1-2 deg ree varus or valgus recut guide was used to fine tune the tibial resection until the laxity was 1 degree or less in full extension like the pilot point knee. The following steps determined the optimal insert thickness within +/-1 mm. First I inserted an insert goniometer that matched the thickness of the spacer block. I reduced the patella and then with the knee in maximum extension, I verified the knee hyperextended a few degrees and had negligible varus valgus laxity, like the pre arthritic knee. Next, I measured the external tibial orientation which was the angle the insert goniometer intersected the sagittal line on the medial condyle of the femoral trial component. Then with the knee in 15-30 degrees flexion I verified a 3-4 mm gap in the lateral compartment and no gap in the medial compartment during a 2nd varus valgus laxity test. Next, I placed the knee in 90? of flexion and the foot resting on the operating table and measured the internal tibial orientation. I repeated the steps until I identified the insert thickness that provided the highest external tibia orientation in extension and the highest internal tibial orientation at 90? flexion without anterior lift-off of the insert from the tibial base plate. The insert with this thickness was implanted. I applied a posterior drawer test with the tibia distracted by gravity and verified no posterior subluxation of the tibia relative to the femur. The patella remained centered on the trochlea and tracked well throughout the entire arc of flexion and extension. I used pulse lavage to clean the bony surfaces of debris and dried bone. I cemented the tibial, femoral, and patellar components using 1 bag of methylmethacrylate with Gentamycin, then rechecked the stability at full extension, 15-30 degrees, and 90? flexion and verified adventist of the entire arc of motion of the knee. The circulating nurse confirmed the sponge and needle counts were correct. I used pulse lavage to rinse the joint and wound. The extensor mechanism was closed with interrupted #1 Vicryl suture and #1 running Stratafix suture. The subcutaneous layer was closed with interrupted #1 Vicryl suture followed by 2-0 Stratafix and 3-0 Stratafix. Steri-Strips placed on the skin. Silver impregnated occlusive dressing applied to the wound. A light gauze wrap and Miguelito bandage were placed. The patient was transferred to the recovery room in stable condition. There were no complications. Implants Medacta GMK spheriKA Femoral component SpheriKA size 3, tibial component size 3, vitamin-E flex insert, thickness 14mm, Anatomic patella implant size 2. Estimated Blood Loss 200 Drains No Pathology None sent Complications No immediate complications Condition Stable Disposition PACU [facility] Billing Surgery - Charge Forward: Surgery Billing
--- OUTSIDE RECORDS SUMMARY | 2024-04-25 09:30 | XMS_ITS | Encounter Summary ---
Author Organization [facility] Address [address] [place] [address] Care Team Providers Care Last Scourer Name Role Phone Howard Damon MD Primary Care Provider [phone] Encounter Details Date Type Department Care Team (Latest Contact Info) Description 10/28/2023 Travel Social History Tobacco Use Types Packs/Day Years Used Date Smoking Tobacco: Never Smokeless Tobacco: Never Alcohol Use Standard Drinks/Week Comments Never 0 (1 standard drink = 0.6 oz pur e alcohol) AUDIT-C Answer Date Recorded Q1: How often do you have a drink containing alcohol? Never 10/28/2023 Q2: How many drinks containi ng alcohol do you have on a typical day when you are drinking? Patient does not drink Q3: How often do you have si x or more drinks on one occasion? Never 10/28/2023 Overall Financial Resource Strain (CARDIA) Answe r Date Recorded How hard is it for you to pa y for the very basics like food, housing, medical care, and heating? Not hard at all 10/28/2023 [facility] [employer] [facility] Occupat ional [facility] - Occupational Stress Questionnaire Answer Date Recorded Do you feel stress - tense, restless, nervous, or anxious, or unable to sleep at night because your mind is troubled all the time - these days? Not at all 10/28/2023 Hunger Vital Sign Answer Date Recorded Within the past 12 months, y ou worried that your food would run out before you got the money to buy more. Never true 10/28/19 Within the past 12 months, t he food you bought just didn't last and you didn't have money to get more. Never true 10/28/2023 PRAPARE - Transportation Answer Date Re corded In the past 12 months, has l ack of transportation kept you from medical appointments or from getting medications? No 10/05 In the past 12 months, has l ack of transportation kept you from meetings, work, or from getting things needed for daily living? No 10/28/2023 Housing Stability Vital Sign Answer Armando e Recorded In the last 12 months, was t here a time when you were not able to pay the mortgage or rent on time? No 10/28/2023 In the last 12 months, how many places have you lived? 1 10/28/2023 In the last 12 months, was t here a time when you did not have a steady place to sleep or slept in a half-way (including now)? No 10/28/2023 Sex and Gender Information Value Date Recorded Sex Assigned at Not on file Gender Identity Not on file Sexual Orientation Not on file documented as of this encounter Functional Status Functional Status Response Date of Assess ment Is person deaf or have serious hearing difficult y? No 10/28/2023 Is person blind or have serious difficulty seein g? No 10/28/2023 Does person have serious dif ficulty walking/climbing stairs? No 10/28/2023 Does person have difficulty dressing/bathing? No 10/28/2023 Does person have difficulty doing errands alone? No 10/28/2023 Cognitive Status Response Date of Assessm ent Does person have difficulty concentrating/remembering/making decisions? No 10/28/2023 documented as of this encounter Plan of Treatment Upcoming Encounters Date Type Department Care Team (Late st Contact Info) Description 05/01/2024 1:30 PM [employer] C[employer] INSULATOR Office Visit [facility] [address] [place] [address], [facility] [address] [place] [address] Melisa Fortune APRN-SOLAR ENERGY ADVISOR [id number] [facility] [address] [place] [address] 10/27/2024 1:30 PM CDT Office Visit [facility] [id number] [place] [address], [address] [place] [address] Melisa Fortune, ASSISTANT GUEST SERVICES MANAGER-SOLAR ENERGY ADVISOR [id number] [place] [id number] documented as of this encounter Visit Diagnoses Not on filedocumented in this encounter Care Teams Last Scourer Relationship Specialty Start Date End Date Howard Damon MD [address] [place] [address] PCP - General Family Medicine 03/08/23 documented as of this encounter
--- OUTSIDE RECORDS SUMMARY | 2024-04-25 09:30 | XMS_ITS | Encounter Summary ---
Author Organization [facility] Address [address] [place] [address] Care Team Providers Care Health Worker Name Role Phone Howard Damon MD Primary Care Provider [phone] Reason for Visit * Auth/Cert (Routine) Specialty Diagnoses / Procedures Referred By Contac t Referred To Contact Diagnoses Morbid (severe) obesity due to excess calories (HCC) Diaphragmatic hernia without obstruction or gangrene Procedures OK LAP GASTR RSTRCIV PROC; GASTR BYPS & THEODORA-EN-Y OK LAP PARAESOPHAG VAMSI REPAIR Referral ID Status Reason Start Date Expiration Date Visits Re quested Visits Authorized [id number] 1 1 Encounter Details Date Type Department Care Team (Late st Contact Info) Description 10/28/2023 10:30 AM CDT - 10/28/2023 1:40 PM CDT Surgery [facility] - Perioperative Surgery [address] [place] [address] [place] [address] [facility] [address] [place] [address] LAPAROSCOPIC GASTRIC BYPASS, LAPAROSCOPIC HIATAL HERNIA REPAIR Surgery Details Date/Time Status Location OR Service Patient Class Case Class Case Type Trauma Case? 10/28/2023 10:30 AM Posted [facility] MAIN OR OR 06 Bariatric Hoe Runner Admit Surgical Elective > 5 days Panel 1 Procedure LRB Anes Op Region Wound Class Comments LAPAROSCOPIC GASTRIC BYPASS, LAPAROSCOPIC HIATAL HERNIA REPAIR N/A General Abdomen Clean C ontaminated Surgeon Surgeon Role Service Panel Michael Pedraza MD Primary Bariatric 1 documented in this encounter Social History Tobacco Use Types Packs/Day Years [...] and heating? Not hard at all 10/28/2023 [facility] [place] [facility] - Occupational Stress [...] place to sleep or slept in a correction (including now)? No 10/28/2023 Sex and Gender Information Value Date Recorded Sex Assigned at Not on file Gender Identity Not on file Sexual Orientation Not on file documented as of this encounter Last Filed Vital Signs Vital Sign Reading Time Taken Comments Blood Pressure 147/92 10/28/2023 1:30 PM CDT Pulse 59 10/28/2023 1:30 PM CDT Temperature 36.1 ??C (96.9 ??F) 10/28/2023 12:52 PM C DT Respiratory Rate 15 10/28/2023 1:30 PM CDT Oxygen Saturation 99% 10/28/2023 1:30 PM CDT Inhaled Oxygen Concentration - - Weight 120.2 kg (265 lb) 10/28/2023 8:54 AM CDT Height 165.1 cm (5' 5 ) 10/28/2023 8:54 AM CDT Body Mass Index 44.1 10/28/2023 8:54 AM CDT documented in this encounter Functional Status Functional Status Response [...] No 10/28/2023 documented as of this encounter Discharge Summaries * Melisa Fortune APRN-CNP - 10/29/2023 2:57 PM CDT Images from the original note were not included. Physician Discharge Summary PCP: Howard Damon MD, Admit date: 10/28/2023 Discharge date: 10/29/2023 Admitting Physician: Michael Pedraza MD Attending Physician: Michael Pedraza MD Discharge Provider : REED Castro Admission weight: Weight: 120.2 kg (265 lb) (10/28/23853) Most recent weight: Weight: 120.2 kg (265 lb) (10/28/2354) 10/29/2023 [id number] Admitting Diagnosis Clinically Severe Obesity with multiple co-morbidities Body mass index is 44.1 kg/m??. Past Medical History: Diagnosis Date Cardiac arrhythmia tachycardia GERD (gastroesophageal reflux disease) Neuropathy Osteoarthritis Discharge Diagnosis: Same Consults : Hospitalist Diagnostic Studies UGI Principal Procedures Performed: 1. Laparoscopic Theodora-en-Y Gastric Bypass 2. Laparoscopic Hiatal Hernia Repair Hospital Course The patient underwent the procedures noted above on the day of admission. Following surgery, the patient was taken from the operating room to the recovery room, and later to hospital room. Vital signs were carefully monitored. The patient was started on a phase I bariatric diet. The patient underwent an UGI study which demonstrated no evidence of gastric leak or obstruction. Preoperative medication was administered when indicated by either an oral or parenteral route. Additional assessments of the patient's vital signs, laboratory values and level of pain were performed throughout the patient's hospitalization. The patient was also followed by a hospitalist to manage comorbid conditions. Onthe day of discharge, the patient was instructed on diet and medication, as well as on wound care. The patient was given a prescription for pain medication and told to take a PPI daily. Patient was educated and instructions given on vitamin supplement and when to begin. Showers were allowed, but the patient was told not to submerge in water. The patient was instructed on constipation management if needed. Finally, the patient was printed discharge instructions. We are to see the patient in the office in 1 week and this appointment has been arranged. The patient is to call if fever occurred, nausea persisted, emesis occurred or if there was excessive redenss at the wound sites. Patient Instructions Current Discharge Medication List START taking these medications Instructions Authorizing Provider acetaminophen 160 MG/5ML solution Commonly known as: Tylenol Take 31.25 mL by mouth every 8 hours REED Castro * magnesium hydroxide 400 MG/5ML suspension Commonly known as: Milk Of Magnesia Take 15 mL by mouth as needed REED Castro * magnesium hydroxide 400 MG/5ML suspension Commonly known as: Milk Of Magnesia Take 15 mL by mouth as needed for Constipation REED Castro metoprolol tartrate IR 25 MG tablet Commonly known as: Lopressor Quantity Dispensed: 30 tablet Take 0.5 (one-half) tablet by mouth 2 times daily Dana Lewis MD ondansetron (disintegrating) 4 MG tablet Commonly known as: Zofran ODT Quantity Dispensed: 20 tablet Take 1 (one) tablet by mouth every 6 hours as needed for Nausea/Vomiting Allow tablet to dissolve on the tongue REED Castro oxyCODONE 5 MG/5ML oral solution Commonly known as: Roxicodone Quantity Dispensed: 120 mL Take 5 mL by mouth every 6 hours as needed for Pain Michael Pedraza MD senna-docusate 8.6-50 MG tablet Commonly known as: Senokot-S Take 1 (one) tablet by mouth 2 times daily as needed for Constipation REED Castro * This list has 2 medication(s) that are the same as other medications prescribed for you. Read thedirections carefully, and ask your doctor or other care provider to review them with you. CONTINUE taking these medications which have NOT CHANGED Instructions Authorizing Provider cetirizine 10 MG tablet Commonly known as: ZyrTEC Take 1 (one) tablet by mouth once daily escitalopram 20 MG tablet Commonly known as: Lexapro Take 1 (one) tablet by mouth at bedtime gabapentin 300 MG capsule Commonly known as: Neurontin at bedtime pantoprazole EC 40 MG tablet Commonly known as: Protonix Take 1 (one) tablet by mouth at bedtime vitamin D (ergocalciferol) 1.25 MG (95103 UT) capsule Commonly known as: Drisdol Take 1 (one) capsule by mouth every 7 days Mondays STOP taking these medications meloxicam 15 MG tablet Commonly known as: Mobic metoprolol succinate XL 24hr 25 MG tablet Commonly known as: Toprol XL Discharge Procedure Orders Why you were hospitalized Order Specific Question Answer Comments Your discharge diagnosis is: Bariatric surgery status [V45.86.ICD-9-CM] Activity as tolerated -- Walk at least four times a day. -- If you are driving for longer than an hour, stop and walk for ten minutes every hour during the drive. No heavy lifting Do not lift anything over 15 pounds until cleared by Dr. Pedraza.. Shower with incision uncovered -- Remove dressings before showering, then replace dressing afterwards. -- Leave dressings off after 48 hours. No tub baths Until your incision(s) are completely healed. Incentive spirometer Continue to use your incentive spirometer four times a day for two more weeks. Return to work -- You may return to work after you are cleared by Dr. Pedraza.. Follow up with Primary Care Provider (PCP) Our records show your Primary Care Provider (PCP) is Howard Damon MD. Additional Scheduling Instructions: Readmission Risk Score: 4. End of Life Score: 3 Score Follow up Visit 0-18 Discharge Visit 5-10 days 19 or higher Discharge Visit within 5 days Post-Acute Care Facility Post-acute care team to determine timing of discharge visit Order Specific Question Answer Comments Follow Up Instructions for Patient: Within 5-10 Days from Discharge Follow up with provider Additional Scheduling Instructions: Readmission Risk Score: 4. End of Life Score: 3 Score Follow up Visit 0-18 Discharge Visit 5-10 days 19 or higher Discharge Visit within 5 days Post-Acute Care Facility Post-acute care team to determine timing of discharge visit Order Specific Question Answer Comments Follow Up Instructions for Patient: Other (See Comment) 1 week Medication instructions Upon discharge from the hospital you may take capsules and regular pills (nothing larger than the size of an aspirin). Bariatric vitamins Patient not to take bariatric multivitamin or calcium supplement until your 1 month follow up Ok to take Prilosec No aspirin or NSAID's Until cleared by Dr. Pedraza.. -- Aspirin may be found in other medications, such as Excedrin or Anacin. -- Non-steroidal Anti-inflammatories (NSAID's) are found in many other medications, such as ibuprofen, Motrin, Aleve, or naproxen. -- Please ask if you are unsure about any medications. For relief of pain Take prescribed pain medications for relief of pain or discomfort. Diet instructions No alcoholic drinks Until cleared by Dr. Pedraza. When to call your provider Call Dr. Pedraza if you have questions or concerns, or for any of the following issues: -- heart rate over 100 -- temperature higher than 101 F -- increased shortness of breath -- pain that gets worse or does not get better after taking your pain medication(s) as directed. Severe abdominal pain is defined as 8-10 on the pain scale. -- nausea or vomiting or cannot eat or drink -- bleeding from your incision or IV site -- if your incision or IV site looks infected (red, swollen, warm to the touch, or non-clear, foul-smelling drainage) documented in this encounter Discharge Instructions * Discharge Instructions* Katherine Manzo, RD/LD - 10/29/2023 10:06 AM CDT Bariatric Surgery Guidelines Daily Protein Goal: Men - 80 gm Daily Fluid Goal: 64 oz (includes protein drinks) Women - 60 gm In hospital start sipping slowly 1 to 2 oz/hour increasing to goal of 4 to 6 oz/hour Initial Diet Guidelines After Surgery: Ice chips/water when ordered by physician. Phase 1 diet once tolerating ice chips/water. Phase 1 Diet - Sugar-free Clear Liquids + Protein supplements(4-6oz/hr for 64oz daily) Includes clear broth, tea/coffee (only 2 cups of caffeine per day), sugar-free gelatin, sugar-free Crystal Light/Sukumar-Aid, sugar-free fruit ices, sugar-free popsicles, low-carbohydrate sports drinks (with 50 calories or less per serving), juice diluted 1:1 with water (limit to 3 servings daily - nocitrus), skim milk with protein powder and/or protein supplements, unsweetened soy or almond milk. At 1 to 1 ?? weeks (after follow-up appointment with MD): Phase 2 Diet - Semi-soft foods (3 meals per day - ?? cup food per meal) Includes cooked cereal ( cream of wheat, cream of rice or blended oatmeal), low- fat or fat-free cottage cheese, low-fat/low sugar yogurt, boiled/mashed potato, blended soups (chicken noodle, chicken rice, cream of chicken, cream of mushroom, turkey noodle, vegetarian vegetable, cream of potato, andcream of tomato), sugar-free pudding Refer to Bariatric Nutrition Guide for further information on diet progression. Vitamin/Mineral Supplementation (For Life) Multivitamin - Bariatric formula chewable multivitamin recommended. Gastric sleeve / Theodora-en-Y : 1/day multivitamin Duodenal Switch : 3/day capsule or 2/day chewable multivitamin Calcium Citrate 1500mg daily - take 500mg TID for optimal absorption. Additional B12 &/or Vitamin D may be needed depending on your lab values. NOTE: Begin vitamins when instructed by MD (typically 1 month post op). You may take regular pills and capsules as long as they are no bigger than a regular aspirin. Normal sized pills or capsules can be resumed after the first month per physician's order. Use chewable or open capsule if instructedto take multivitamin in first month. Additional herbs or supplements must be cleared by your physician. Reminders No alcohol for one year, unless directed otherwise by physician No carbonated beverages or flat soda No shredded coconut Avoid high fat foods and simple sugars Chew foods thoroughly and take small bites Stop drinking liquids 15 min. before meals and do not resume drinking until 30 min. after meals Eat protein foods first. Do not lie down 1 hour after eating Support Group: Saturday of the month from 5:30PM to 7:00PM Contact Information: [facility]: [phone] email: [email or web address]: [phone] Weight Management Program: [phone] [facility]: [phone] High Protein Supplements Options High Protein Supplement Calories* Carbohydrate* Protein* Acceptable for Lactose Intolerance Atkins Advantage (11 oz) (www.atkins.[employer]) 160 7 15 No Ensure Max Protein (11 oz) (www.abbottnutrition.com) 150 6 30 Yes Muscle Milk (14 oz) (www.DoYouBuzzacost.[employer] or Ynvisible) 170 11 25 Yes Optisource (8 oz) (www.Haoxiangni Jujube IndustrytorSKURA.[employer]) 200 12 24 Yes Bariatric Advantage High Protein Meal Replacement Powder 160 11 27 No Advanced Nutrition Slim Fast (11oz) (www.Smart Lunches.[employer] or Ynvisible) 180 7 20 Yes Fairlife Core Power 170 8 26 Yes Fairlife High Protein Shake 150 3 30 Yes Bariatric Advantage Clearly Protein (16.9 oz) ([facility] or Bariatric Advantage Website) 80 0 20 No Hejcpzk49 Water (dolredbwngbf63.[employer]) 70 7 15 Yes Premier Protein Shake (11oz) (CostGate2Play or Loudie) 160 5 30 No Unjury Protein Powder (per 1 Scoop) (www.unjury.[employer]) 100 3 21 Yes *Calories, Carbohydrate, and Protein amounts may vary slightly with each different flavor. Supplements must contain at least twice the protein amount as carbohydrate. High Protein Recipes High Protein Fruit Punch Instructions: In a sweeping compound blender, mix: 6 ounces sugar-free powdered fruit Drink (such as Crystal Light or Sugar-free Sukumar Aid) 2 scoops(ounce) protein powder 4 ice cubes This recipe provides: 110 calories 20 grams protein 4 grams carbohydrate High Protein Cream Soup Instructions: Mix: 1/3 cup nonfat dry milk powder 1 teaspoon chicken or beef bouillon 3 tablespoons protein powder Add enough hot water to equal 1 cup. Mix well. Eat soup when it is lukewarm. This recipe provides: 200calories 24grams protein 20 grams carbohydrate documented in this encounter Medications at Time of Discharge Medication Sig Dispensed Refills Start Date End Date acetaminophen (Tylenol) 160 MG/5ML solution Take 31.25 mL by mouth every 8 hours 10/29/2023 cetirizine (ZyrTEC) 10 MG tablet Take 1 (one) tablet by mouth once daily escitalopram (Lexapro) 20 MG tablet Take 1 (one) tablet by mouth at bedtime 02/08/2023 gabapentin (Neurontin) 300 MG capsule at bedtime 12/23/2022 metoprolol tartrate IR (Lopressor) 25 MG tablet Take 0.5 (one-half) tablet by mouth 2 times daily 30 tablet 10/29/2023 vitamin D, ergocalciferol, (Drisdol) 1.25 MG (24245 UT) capsule Take 1 (one) capsule by mouth every 7 days Mondays02/27/2023 magnesium hydroxide (Milk Of Magnesia) 400 MG/5ML suspension Take 15 mL by mouth as needed 10/29/2023 11/04/2023 magnesium hydroxide (Milk Of Magnesia) 400 MG/5ML suspension Take 15 mL by mouth as needed for Constipation 10/29/2023 11/04/2023 ondansetron, disintegrating, (Zofran ODT) 4 MG tablet DISSOLVE 1 TABLET ON THE TONGUE EVERY 6 HOURS NEEDED FOR NAUSEA AND VOMITING 20 tablet 10/29/2023 11/29/2023 ondansetron, disintegrating, (Zofran ODT) 4 MG tablet Take 1 (one) tablet by mouth every 6 hours as needed for Nausea/Vomiting Allow tablet to dissolve on the tongue 20 tablet 10/29/2023 11/29/2023 oxyCODONE (Roxicodone) 5 MG/5ML oral solutionIndications:M orbid obesity (HCC) Take 5 mL by mouth every 6 hours as needed for Pain 120 mL 10/29/2023 11/29/2023 pantoprazole EC (Protonix) 40 MG tablet Take 1 (one) tablet by mouth at bedtime 02/20/2023 11/29/2023 senna-docusate (Senokot-S) 8.6-50 MG tablet Take 1 (one) tablet by mouth 2 times daily as needed for Constipation 10/29/2023 11/04/2023 documented as of this encounter Progress Notes * Max Pettit PharmD - 10/29/2023 2:57 PM CDT Images from the original note were not included. Clinical Pharmacist Discharge Medication Reconciliation Review Patient's home medication list and inpatient orders were reviewed and compared to the discharge order summary and the AVS placed by the provider. Patients MAR, progress notes, recent labs, micro, vitals, procedural results, etc. reviewed as necessary. READMISSION RISK SCORE is 5 at 2:58 PM 10/29/2023. Readmission risk score > 18 are considered high risk for readmission. ASSESSMENT Medication discrepancies identified or potential areas for Intervention: None PLAN No medication adjustments were made after physician's discharge medication reconciliation. MEDICATION RECONCILIATION REVIEW * Dana Lewis MD - 10/29/2023 11:45 AM CDT Admit Date: 10/28/2023 8:16 AM Hospital Day: 1 Clinical Course 58 y/o admitted after LRYGB New Symptoms No new complaints Exam Vitals: 10/28/23 1507 10/28/23 1939 10/28/23 2331 10/29/23 0729 BP: 116/53 115/49 110/49 109/61 Pulse: 51 44 56 51 Resp: 17 17 18 18 Temp: 98 ??F (36.7 ??C) 97.4 ??F (36.3 ??C) 97.9 ??F (36.6 ??C) 97.9 ??F (36.6 ??C) SpO2: 96% 97% 93% 92% Weight: Height: General appearance: alert, cooperative, no distress Lungs: breath sounds normal and symmetric; no rales or wheezes Heart: regular rhythm, normal S1 and S2 Abdomen: soft without mass, appropriately tender Extremities: no clubbing, cyanosis or edema Data Intake/Output Summary (Last 24 hours) at 10/29/2023 1145 Last data filed at 10/29/2023 0836 Gross per 24 hour Intake 1450 ml Output 1200 ml Net 250 ml My review of labs, imaging, notes and other tests is significant for Recent Labs Component Name 10/29/23 1012 10/29/23 0207 10/16/23 1107 WBC 13.0* 10.8* 8.5 HGB 12.7 11.8* 13.1 HCT 38.9 35.7 40.7 PLTCOUNT 290 255 250 Recent Labs Component Name 10/29/23 0207 10/16/23 1107 SODIUM 139 142 POTASSIUM 4.5 4.4 CHLORIDE 109* 108* CO2 22 26 BUN 22 21 CREATININE 0.88 0.87 GLUCOSE 148* 86 CALCIUM 9.0 9.4 MEDICATIONS FOR CURRENT ENCOUNTER: SCHEDULED MEDICATIONS: And 0.9% NaCl IV 500 mL with multivitamin (Infuvite) 10 mL infusion, Intravenous, QDAY acetaminophen (Tylenol) solution 1,000 mg, Oral, q8h escitalopram (Lexapro) tablet 20 mg, Oral, AT BEDTIME gabapentin (Neurontin) capsule 300 mg, Oral, AT BEDTIME heparin injection 5,000 Units, Subcutaneous, BID hyoscyamine (Levsin SL) sublingual tablet 0.125 mg, Sublingual, q6h ketorolac (Toradol) injection 15 mg, Intravenous, q8h magnesium hydroxide (Milk Of Magnesia) suspension 15 mL, Oral, QDAY metoclopramide (Reglan) injection 10 mg, Intravenous, q6h metoprolol tartrate IR (Lopressor) tablet 12.5 mg, Oral, BID ondansetron (Zofran) injection 4 mg, Intravenous, q6h pantoprazole (Protonix) injection 40 mg, Intravenous, QDAY scopolamine (Transderm-Scop) 1 patch, Transdermal, q72h scopolamine patch placement confirmation, Transdermal, BID [COMPLETED] dexAMETHasone (Decadron) injection 10 mg, Intravenous, Once [COMPLETED] iopamidol (Isovue 370) 76 % contrast, Oral, Once CONTINUOUS MEDICATIONS: 0.45% NaCl with potassium chloride 20 mEq in 1000 mL premix infusion, Intravenous, Continuous PRN MEDICATIONS: acetaminophen (Tylenol) solution 500 mg, Oral, QDAY PRN oxyCODONE (Roxicodone) oral solution 5 mg, Oral, q6h PRN prochlorperazine (Compazine) injection 10 mg, Intravenous, q6h PRN Assessment and Plan Tachycardia - toprol XL changed to metoprolol 12.5 BID Neuropathy - gabapentin resumed Depression - lexapro resumed Morbid obesity Body mass index is 44.1 kg/m??. S/p lap gastric bypass 10/27 Follow post op orders DVT prophylaxis per surgeon preference Portions of this note were carried over from previous note, EHR template. I reviewed and updated asnecessary Peripheral IV Left Wrist (Active) Placement Date/Time: 10/28/23 0900 Size (Gauge): 18 G Orientation: Left Location: Wrist Site Prep: Chlorhexidine Local Anesthetic Used?: Injectable Technique: Anatomical Landmarks Number of days: 1 Procedural Site (Incision) Abdomen (Active) Date/Time: 10/28/23 1052 Location: Abdomen Multiple Sites: Laparoscopic Wound/Incision Description:trocar sites Number of days: 1 READMISSION RISK SCORE is 4 at 11:45 AM 10/29/2023. * Katherine Manzo RD/ROSEMARY - 10/29/2023 10:07 AM CDT Nutrition: Nutrition consult completed. Pt reports tolerating phase 1 diet. Bariatric diet education and nutrition guidelines per Weight Management Services discussed. See Education section for details. Diet order accuracy Current diet order: Bariatric Phase 1 Nutrition recommendation: agree with current nutrition order P.O.Intake for the past 48 hrs:% Meal Taken Av % Min: 0 % Max: 0 % Height: 165.1 cm (5' 5 ) Weight: 120.2 kg (265 lb) Body mass index is 44.1 kg/m??.BMI Range: Morbidly Obese Class 3 Laboratory values reviewed. Medications noted. No acute nutrition issues identified at this time. Recommendations: Continue Phase 1 diet Monitor nutrition per nutrition guidelines. * Max Pettit, Minh - 10/29/2023 9:52 AM CDT [facility] Pharmacy Services Admission Medication Review Syeda Christian is a 58 year old female I have reviewed patient's home medication list with the patient and the electronic medical record. The medication list review was after the physician has seen and acted upon, and is now ready for re-review/order by physician. Medication List Revisions Medications removed: meloxicam Medications were modified to correct dosage or frequencies: SIG added to cetirizine Thank you for the opportunity to take part of Syeda Christian's care. Max Pettit, Minh Bariatric Surgery Pharmacy Service Subjective Syeda Christian is a 58 year old female Height: 5' 5 (165.1 cm) Weight: 120.2 kg (265 lb) BMI (Calculated): 44.1 Type of Bariatric Surgery: LRYGB Recommendations Due to size restriction and absorption changes, it is recommend for the first four weeks postop, all medications be changed to liquid when possible, controlled release (CR/ER/XR, etc) products be changed to immediate release, and to crush medications larger than an aspirin or M&M. NSAIDS (otherthan aspirin for cardiac benefit) are not recommended post surgery in bariatric patients. Changes during inpatient admission -Recommend converting the following controlled release (CR, DR, XL) medications to immediate release (IR) formulations: metoprolol succinate 25 mg daily = metoprolol tartrate 12.5 mg BID -Recommend holding all vitamins from home medication list x 1 month. -Recommend opening the following capsules prior to administration due to size: gabapentin -All other home medications can be safely swallowed whole due to small size, and do not require adjustment for this admission. Education performed -Discussed above recommendations. -Use of daily bariatric MVI + UpCal calcium packets three times daily. Hold vitamins x 1 month post-op. Separate MVI and calcium by 2 hours. -Use of daily PPI. Patient already has this medication at home. -Importance of avoiding NSAIDs., Importance of avoiding any medications larger than the size of an aspirin or M&M, and prescription pain medication + common side effects will be discussed during discharge education class. -Importance of avoiding NSAIDs. Acetaminophen (Tylenol) should be the only OTC medication used for break-through pain. -Importance of avoiding any medications larger than the size of an aspirin or M&M. -Prescription pain medication + common side effects. Thank you for including pharmacy in the care of this patient, Max Pettit PharmD 10/29/2023 9:52 AM * Lauren Novak RN - 10/29/2023 8:42 AM CDT Problem: Pain/Discomfort Goal: Patient exhibits reduced pain/discomfort as evidenced by pain scores Outcome: Progressing Monitoring pain scores * Melisa Fortune APRN-GUSSET STITCHER - 10/29/2023 8:39 AM CDT Bariatric Surgery Progress Note Syeda Christian Admit Date: 10/28/2023 8:16 AM Hospital Day: 1 Follow Up for Procedure: 1. Laparoscopic Theodora-en-Y Gastric Bypass 2. Laparoscopic Hiatal Hernia Repair POD#1 Overnight Events: None Subjective: Pain well controlled with medications, no nausea or emesis, ambulated, Tolerating Phase I diet well Denies CP or SOB + flatus, no BM Data Vitals: 10/28/23 1507 10/28/23 1939 10/28/23 2331 10/29/23 0729 BP: 116/53 115/49 110/49 109/61 Pulse: 51 44 56 51 Resp: 17 17 18 18 Temp: 98 ??F (36.7 ??C) 97.4 ??F (36.3 ??C) 97.9 ??F (36.6 ??C) 97.9 ??F (36.6 ??C) SpO2: 96% 97% 93% 92% Weight: Height: Intake/Output Summary (Last 24 hours) at 10/29/2023 0840 Last data filed at 10/29/2023 0836 Gross per 24 hour Intake 1550 ml Output 1200 ml Net 350 ml My review of labs, imaging, notes and other tests shows no new significant findings. MEDICATIONS FOR CURRENT ENCOUNTER: SCHEDULED MEDICATIONS: And 0.9% NaCl IV 500 mL with multivitamin (Infuvite) 10 mL infusion, Intravenous, QDAY acetaminophen (Tylenol) solution 1,000 mg, Oral, q8h heparin injection 5,000 Units, Subcutaneous, BID hyoscyamine (Levsin SL) sublingual tablet 0.125 mg, Sublingual, q6h iopamidol (Isovue 370) 76 % contrast, Oral, Once ketorolac (Toradol) injection 15 mg, Intravenous, q8h magnesium hydroxide (Milk Of Magnesia) suspension 15 mL, Oral, QDAY metoclopramide (Reglan) injection 10 mg, Intravenous, q6h ondansetron (Zofran) injection 4 mg, Intravenous, q6h pantoprazole (Protonix) injection 40 mg, Intravenous, QDAY scopolamine (Transderm-Scop) 1 patch, Transdermal, q72h scopolamine patch placement confirmation, Transdermal, BID [COMPLETED] acetaminophen (Tylenol) tablet 1,000 mg, Oral, Once [COMPLETED] ceFAZolin (Ancef) 3 g in 0.9% NaCl IV 100 mL IVPB, Intravenous, Once [COMPLETED] dexAMETHasone (Decadron) injection 10 mg, Intravenous, Once CONTINUOUS MEDICATIONS: 0.45% NaCl with potassium chloride 20 mEq in 1000 mL premix infusion, Intravenous, Continuous PRN MEDICATIONS: acetaminophen (Tylenol) solution 500 mg, Oral, QDAY PRN oxyCODONE (Roxicodone) oral solution 5 mg, Oral, q6h PRN prochlorperazine (Compazine) injection 10 mg, Intravenous, q6h PRN Recent Labs Component Name 10/29/23 0207 10/16/23 1107 SODIUM 139 142 POTASSIUM 4.5 4.4 CHLORIDE 109* 108* CO2 22 26 BUN 22 21 CREATININE 0.88 0.87 GLUCOSE 148* 86 CALCIUM 9.0 9.4 Recent Labs Component Name 10/29/2310/15/24 1107 WBC 10.8* 8.5 HGB 11.8* 13.1 HCT 35.7 40.7 PLTCOUNT 255 250 UGI: pending Physical Exam A+O x 3, NAD ABD soft, ND, appropriate TTP, incisions C/D/I Neg BLE edema Assessment/Plan: S/P 1. Laparoscopic Theodora-en-Y Gastric Bypass 2. Laparoscopic Hiatal Hernia Repair POD #1 Neuro: PO pain control PULM: aggressive IS, ambulation, OOBTC CV: stable GI: Cont Phase I diet, PPI, UGI pending FEN: wean IVF : adequate UOP HEME: hgb dropped some from 13.1 to 11.8, no sign of active bleeding, will repeat CBC at 1000 ID: afebrile, no abx DVT: cont SCD and heparin Dispo: Keep in house, continue with pain and nausea management, await UGI results, monitor oral intake Melisa Fortune, DIRECT MARKETING SPECIALIST-GUSSET STITCHER * Nadine Chiu RN - 10/28/2023 3:30 PM CDT Care Coordination Initial Assessment Anticipated Discharge Date: 10/30/23 Transportation at Discharge: Family Anticipated level of care at discharge: Home Anticipated level of care provider: None Prior to admission level of care: Home Prior to admit provider: None Comments: LAPAROSCOPIC GASTRIC BYPASS, LAPAROSCOPIC HIATAL HERNIA REPAIR today Lives with: Alone Physical Limitations: None Requires Assistance With: None Preferred Pharmacy: [id number] - [address] [facility] [id number] [facility] [address] [facility] [id number] Advance Directive: No Advance Directive Information Given: Refused Information Would you like assistance on completing and executing or revising an Advance Directive?: No READMISSION RISK SCORE is 4 at 3:39 PM 10/28/2023. Met with patient Family Support (name and phone): Extended Emergency Contact Information Primary Emergency Contact: YUSUF CHRISTIAN Mobile Relation: Spouse Patient or customer support representative requests care coordination reach out to family or caregiver listed above regarding discharge planning and at time of discharge? Yes Patient/Family provided with list of resources? Yes Preferred Provider / High Quality Network List given?: No Reason for provider choice: Pt. choice - Physician driven Equipment at Home: None List DME pt. requires but does not have.: None Back Hoe Operator Referral: No Will continue to follow. For any questions or needs please contact: Automotive Sales Manager Name/Phone number: Nadine Chiu RN [phone] documented in this encounter H&P Notes * Michael Pedraza MD - 10/28/2023 7:16 AM CDT BARIATRIC EVALUATION HISTORY & PHYSICAL Height: 165.1 cm (5' 5 ) Weight: 120.2 kg (265 lb) BMI (Calculated): 44.1 Chief Complaint: Morbid Obesity HPI: Pt is a 58 year old year old female with a hx of morbid obesity who presents for surgical tx. Pt has attempted multiple weight loss regimens in the past including medical, exercise and dietary without longterm success. Pt has developed multiple comorbid conditions that include Gastroesophageal reflux disease, Heart trouble, Multiple arthropathies, Depression and Osteoarthritis. These comorbid condition(s) have progressively worsened due to the patients morbid obesity and no other contributing factors. Pt has now attained a BMI (Calculated): 44.1 and has failed multiple non surgical weight loss regimens for >5yrs. BMI: Body mass index is 44.1 kg/m??. Traphill body weight: 57 kg (125 lb 10.6 oz) Adjusted ideal body weight: 82.3 kg (181 lb 6.4 oz) Medical: no new medical changes Review of previous provider notes in [facility] Everywhere was performed on the day of service. Past Medical History: Diagnosis Date Cardiac arrhythmia tachycardia GERD (gastroesophageal reflux disease) Neuropathy Osteoarthritis Past Surgical History: Procedure Laterality Date Cholecystectomy, Laparoscopic ENDOSCOPY, UPPER 04/04/2023 ENDOSCOPY, UPPER N/A 04/04/2023 N/A; ESOPHAGOGASTRODUODENOSCOPY (EGD) DIAGNOSTIC HAND SURGERY Right Hip Replacement Bilateral KNEE, LATERAL RELEASE Bilateral LARYNGEAL POLYPECTOMY Tonsillectomy PATIENT MEDICAL HISTORY SCREENING: Morbid Obesity............................................. Yes Diabetes....................................................... No Hypertension................................................ No Hypercholesterolemia.................................. No Gastroesophageal reflux disease................ Yes - pantoprazole - once a day, long time, controls symptoms Sleep apnea................................................. No - tested negative COPD/Emphysema ..................................... No Asthma......................................................... No Dyspnea on exertion..................................... No Thyroid problems.......................................... No Renal Disease.............................................. No Chest pain.................................................... No Heart trouble................................................ Yes -beta mel for irregular heartbeat - tachycardia - treated by PCP Stress incontinence...................................... No Multiple arthropathies................................... Yes - left knee, hands, has had bilateralhip replacement, back Blood clots................................................... No Depression................................................... Yes -treated by pcp Anesthetic Complications............................. No Positive history of MRSA.............................. No Immune suppression medication.................. No Including, but not limited to prednisone, humira, methotrexate, plaquenil, imuran, sweeney, enbrel, remicade Significant Allergies...................................... No Other................................................. multivitamin, CBD oil FAMILY HISTORY SCREENING: Significant for obesity....................... Yes - mom - had VBG Blood clots........................................ No Anesthetic Complications................. No Other................................................. none Current Facility-Administered Medications Medication ceFAZolin (Ancef) 3 g in 0.9% NaCl IV 100 mL IVPB insulin regular human (HumuLIN R; NovoLIN R) 100 UNIT/ML injection 0-6 Units lactated ringers infusion lidocaine PF (Xylocaine MPF) 1 % injection 0.2 mL scopolamine (Transderm-Scop) 1 patch And scopolamine patch placement confirmation No Known Allergies Social History Smoking status: Never Smokeless tobacco: Never Alcohol use: Never Drug use: Never Sexual activity: Not on file Family History Problem Relation Name Age of Onset Diabetes - Type 2 Mother Renal Disease Mother Cancer - Breast Neg Hx Cancer - Thyroid Neg Hx All past medical, family, and social history was reviewed and updated today. Review of Systems: Constitutional: denies recent significant weight loss HEENT: Denies headaches, vision or auditory changes Cardiovascular: Denies chest pain, orthopnea or palpitations Respiratory: Denies cough, hemoptysis. Oxygen dependent : No Gastrointestinal: denies abdominal pain, no melena or hematemesis Genitourinary: denies hematuria, dysuria Musculoskeletal: denies muscle weakness, reports joint pains Endocrine: denies diabetes mellitus, denies thyroid issues Allergic / Immuno: Normal Neuro / Psych: hx of depression, denies SI/SA Skin: denies open wounds, skin infections Functional Health Status prior to surgery : Independent- The patient does not require assistance from another person for any ADLs.. Physical Examination: BP 125/86 (BP Location: Right arm, Patient Position: Sitting) Pulse 70 Temp 98.9 ??F (37.2 ??C)(Temporal) Resp 16 Ht 1.651 m (5' 5 ) Wt 120.2 kg (265 lb) SpO2 95% Constitutional: well-developed, well-nourished, and in no distress. ENMT: pink, mosit oral mucosa Head: Normocephalic and atraumatic. Eyes: EOM are normal. No scleral icterus. Neck: No tracheal deviation present. Pulmonary/Chest: Effort normal. No stridor. No respiratory distress. Abdominal: Soft, nontender, nondistended Musculoskeletal: Normal range of motion. Exhibits no tenderness. Neurological: Alert and oriented. Gross motor nerves intact. Skin: Skin is warm. No erythema. Psychiatric: Mood and affect normal. Recent Labs Component Name 10/16/23 1107 SODIUM 142 POTASSIUM 4.4 CHLORIDE 108* CO2 26 BUN 21 CREATININE 0.87 GLUCOSE 86 CALCIUM 9.4 Recent Labs Component Name 10/16/23 1107 WBC 8.5 HGB 13.1 HCT 40.7 PLTCOUNT 250 Risk / Benefits: Risks and benefits were reviewed with patient including but not limited to , blood clots of the extremities or the lungs, enteral leaks, hemorrhage, damage to organs, infections, non guaranteed weight loss results among others. There are also risks of vitamin deficiencies that can generate vitamin deficiency symptoms. There are also risks of additional procedures or operations in the perioperative and termite treater periods. Questions were answered. Surgical risks and benefits rediscussed today Covid Discussion: Because the nature of the virus is not yet completely understood, the risks associated with COVID-19 infections have not been fully identified and there may be additional risks which are not known atthis time. In addition, the impact of COVID-19 infections on the known risks associated with the vikki atment/procedure/surgery have not been identified and there may be additional or increased risks associated with the treatment/procedure/surgery that are not known at this time. Risks of surgery during COVID19 pandemic was discussed. Discussed that testing would be done prior to operation. Questions were answered. Bariatric Surgery Patient Education: The patient was informed of other factors that are necessary to achieve weight loss in addition to surgery. Specifically, the patient was informed of the different surgical procedures, including the duodenal switch, the theodora y gastric bypass, the sleeve gastrectomy and the adjustable gastric band. It was explained that bariatric surgery is part of the overall weight loss program which includes a low calorie nutritional program with nutritional and vitamin supplementation, a frequent and consistent exercise program and a social support program or network. The patient will experience successfuland termite treater weight loss when these components along with bariatric surgery are followed. The patient has had the above discussions with multiple program team members including surgeon, mechanical engineering professor, bariatric nurse and mental health broadcast operations manager and the patient will continue to have these discussions through the perioperative program. Impression: Morbid obesity with above listed comorbidities. Multiple failed diet attempts. Plan: Based on discussion with the patient and consideration of the patients medical history and diagnosis of morbid obesity the patient is an appropriate candidate for bariatric surgery. Recommendation isfor: Laparoscopic Gastric Bypass and Laparoscopic Hiatal Hernia Repair Pre-op Plan: Liquid Protein Diet: Yes for 1 Week Supervisor Waterproofing: Yes Additional Testing: Yes GI: hx of GERD, on PPI and morbid obesity with increased risk of silent heartburn and hiatal hernia -EGD: Milo - gastritis, EOE, HH 2 cm, hill 3, H pylori - NEG -UGI: no HH, no reflux, rapid transit to colon CV: hx of tachycardia, metabolic syndrome -pcp clearance Pulmonary: none Renal: none Endocrine: no diabetes Heme: no family hx of DVT / PE, no personal hx of DVT/PE, routine VTE risk -Standard post operative anticoagulation Other: none Psych/Social: -Pt has no history of drug use, alcohol use for greater than one year or treatment for alcohol or drug use for greater than one year -Pt has not smoked for at least 6 weeks Preoperative Labs: CBC, CMP, B1, B12 Preoperative weight loss: Yes -decrease from baseline as class, initial 288, final 275, DOS 265 Weight check at Class: Yes Comments: Hospitalist Consult: Yes Other Consults: No Schedule:any Standard incision, 2S, no patricio, 2 day stay Patient was seen today day of procedure Patient reports no new medical symptoms or changes since last seen in the office Planned procedure was discussed with patient and questions answered Patient voiced understanding of risks and benefits and is agreeable to proceed Michael Pedraza MD 10/28/2023 documented in this encounter Consult Notes * Jian Do MD - 10/28/2023 1:41 PM CDT Initial Hospitalist Consult Note Date of Consult: 10/28/2023 Patient's Primary Care Physician: Howard Damon MD Physician Requesting Consult: Michael Pedraza MD Reason for Consultation: Evaluation of patient's medical problems, Name: Syeda Christian Age: [age] year old Race: Sex: female Chief Complaint/History of Present Illness Patient is , a 58 year old female, who is being admitted to the surgical unit after a successful gastric bypass . Patient is sleepy. No complains of nausea or vomiting, chest pain or shortness of breath. No recentfevers or chills. No headache or blurred vision. No weight gain or loss. No falls, seizures or lossof consciousness . No cough with expectoration. No diplopia, tinnitus. No abdominal pain. Past Medical History: Diagnosis Date Cardiac arrhythmia tachycardia GERD (gastroesophageal reflux disease) Neuropathy Osteoarthritis Past Surgical History: Procedure Laterality Date Cholecystectomy, Laparoscopic ENDOSCOPY, UPPER 04/04/2023 ENDOSCOPY, UPPER N/A 04/04/2023 N/A; ESOPHAGOGASTRODUODENOSCOPY (EGD) DIAGNOSTIC HAND SURGERY Right Hip Replacement Bilateral KNEE, LATERAL RELEASE Bilateral LARYNGEAL POLYPECTOMY OTHER SURGERY 10/28/2023 LAPAROSCOPIC GASTRIC BYPASS, LAPAROSCOPIC HIATAL HERNIA REPAIR Tonsillectomy Family History Problem Relation Name Age of Onset Diabetes - Type 2 Mother Renal Disease Mother Cancer - Breast Neg Hx Cancer - Thyroid Neg Hx Social History Occupational History Not on file Tobacco Use Smoking status: Never Smokeless tobacco: Never Vaping Use Vaping Use: Never used Substance and Sexual Activity Alcohol use: Never Drug use: Never Sexual activity: Not on file Medications Prior to Admission Medication Sig Dispense Refill cetirizine (ZyrTEC) 10 MG tablet escitalopram (Lexapro) 20 MG tablet Take 1 (one) tablet by mouth at bedtime gabapentin (Neurontin) 300 MG capsule at bedtime meloxicam (Mobic) 15 MG tablet Take 1 (one) tablet by mouth once daily metoprolol succinate XL 24hr (Toprol XL) 25 MG tablet Take 1 (one) tablet by mouth at bedtime pantoprazole EC (Protonix) 40 MG tablet Take 1 (one) tablet by mouth at bedtime vitamin D, ergocalciferol, (Drisdol) 1.25 MG (49216 UT) capsule Take 1 (one) capsule by mouth every7 days Mondays No Known Allergies Review of Systems A 14 point review of systems was negative except as described in HPI. Exam Vitals: 10/28/23 1252 10/28/23 1300 10/28/23 1315 10/28/23 1330 BP: 141/65 128/88 142/74 147/92 Pulse: 63 61 54 59 Resp: 14 16 15 15 Temp: 96.9 ??F (36.1 ??C) SpO2: (!) 87% 93% 97% 99% Weight: Height: General appearance: sleepy, no distress Eyes: conjugate gaze, no redness ENT: overall appearance of nose and ears without deformity or lesions Neck supple Heart: regular rhythm, normal S1 and S2, without murmurs, Lungs: breath sounds shallow and symmetric; no wheezes Abdomen: soft, with normal bowel sounds Extremities: no cyanosis or edema BRAKE LININGS COATER. Grossly non-focal Psychiatric: Does not appear anxious Skin: no rashes Data I have reviewed the patient's labs and the review is significant for: Recent Labs Component Name 10/16/23 1107 WBC 8.5 HGB 13.1 HCT 40.7 PLTCOUNT 250 Recent Labs Component Name 10/16/23 1107 SODIUM 142 POTASSIUM 4.4 CHLORIDE 108* CO2 26 BUN 21 CREATININE 0.87 GLUCOSE 86 CALCIUM 9.4 Assessment and Plan Records available in chart ( paper and electronic) were reviewed. Home medications were reviewed GERD PPI Hypertension Hold oral medications Monitor BP Offer PRN NTP Neuropathy Gabapentin to resume tomorrow Depression SSRI on hold today Morbid obesity Body mass index is 44.1 kg/m??. S/p lap gastric bypass 10/27 Follow post op orders DVT prophylaxis per surgeon preference CC: Howard Damon MD, Michael Pedraza MD documented in this encounter OR Notes * Operative - Michael Pedraza MD - 10/28/2023 10:52 AM CDT [facility] Operative Report OPERATIVE REPORT PATIENT:Syeda Christian MR#: [id number] ADMIT DATE: 10/28/2023 8:16 AM DATE OF SURGERY: 10/28/2023 : 1965 PHYSICIAN: Michael Pedraza MD 58 yrs Body mass index is 44.1 kg/m??. PREOPERATIVE DIAGNOSES: Morbid Obesity, Body mass index is 44.1 kg/m??. Past Medical History: Diagnosis Date Cardiac arrhythmia tachycardia GERD (gastroesophageal reflux disease) Neuropathy Osteoarthritis POSTOPERATIVE DIAGNOSES: SAME PROCEDURES PERFORMED: 1. Laparoscopic Theodora-en-Y Gastric Bypass 2. Laparoscopic Hiatal Hernia Repair SURGEON: Michael Pedraza MD DOCUMENTATION SUPERVISOR: Patrick CASILLAS ANESTHESIA: General endotracheal. PROCEDURE: After informed consent was obtained the patient was brought to the operating suite. Pt was supine on the operating room table. After adequate general anesthesia was provided the patient was intubatedwithout complications. IV antibiotics were administered 1 hour prior to incision. Bilateral lower ex tremity sequential compression devices were placed. Patient was prepped and draped in the usual sterile fashion. A periumbilical incision was made and a 5 mm optical port was placed into the peritoneal cavity under direct vision using a 0-deg 5mm laparoscope. Pneumoperitoneum was obtained to 15 mmHg pressure. The laparoscope was reinserted and there was no blood, fluid, or evidence of intra-abdominal injury. Two additional 5mm ports were placed, one in the right upper quadrant and one in the left upper quadrant region. A 12-mm port was placed in the right mid abdomen. An abdominal wall block with liposomestabilized injectable suspension was placed in the preperitoneal space spanning the abdomen beginning in the right lateral abdomen and ending in the left abdomen. The transverse colon mesentery was elevated and ligament of Treitz identified. Beginning at the ligament of Treitz, the proximal jejunum was run for 100 cm and divided with the linear stapler and appropriate amount of mesentery taken down with the ultrasonic scalpel. The distal stump of the transected jejunum was run distally for another 150 cm and brought to the previous proximal staple line with a 2-0 silk stay suture. Using an ultrasonic scalpel, enterotomies were created in each limb of thebowel, and [id number] anastomosis was performed using a linear stapler. The common enterotomy wasclosed using a two layered 3-0 vicryl suture. The inner layer with full thickness tissue bites and the outer layer with running seromuscular lembert tissue approximation. The mesenteric defect was closed with running 2-0 silk sutures to approximate the edges of the mesentery from the base to the mesenteric edge of the small bowel. The omentum was elevated at its inferior edge and divided with an ultrasonic scalpel to the level of the transverse colon. The patient was now placed in steep reverse Trendelenburg position. The left lobe of the liver was elevated using a lizeth liver retractor that was placed through the abdominal wall through a subxiphoid incision. The angle of His was dissected bluntly without difficulty. There was a paraesophageal hiatal hernia that was moderate in size, noted upon inspection ofthe esophageal hiatus. The upper stomach and fundus appeared to be in the hernia, above the level of the diaphragm. Beginning at the gastrohepatic membrane, blunt dissection along with limited use ofthe ultrasonic scalpel was used to dissect out the hiatal hernia from its attachments. The right and left janeth were mobilized from the esophagus in a circumferential fashion. The hernia sac contents were reduced below the level of the diaphragm including bringing down the upper stomach. The dissection included mobilization of the mid and lower esophagus from the surrounding mediastinal structures. This allowed complete evaluation of what was a 3cm hiatal hernia defect. A posterior retroesophageal dissection was also performed to completely mobilize the distal esophagus into the abdomen by 2cmlength. The anterior and posterior vagus nerves were identified and preserved. 2-0 ethibond sutureswere placed anteriorly and posteriorly to approximate the right and left janeth and to close the hernia defect around the esophagus. This completed the hiatal hernia repair portion of the procedure. The gastric calibration tube was identified within the lumen of the stomach. With the aid of the anesthesiologist the calibration tube was moved up and down the upper segment of stomach along the lesser curve. The tube was used to approximate a distance of 5cm from the hiatus for the length of the future gastric pouch. The ultrasonic scalpel was the used to take down a limited amount of the gastrohepatic membrane along the lesser curve. Blunt dissection was then performed to create a retrogastric tunnel. The laparoscopic linear stapler was then introduced and articulated in a manner that the stapler was at an almost 90 deg angle to the calibration tubing within the upper stomach. This firstfiring created the lower aspect of the gastric pouch. Additional retrogastric dissection was performed to the previously dissected angle of his. Additional firings of the linear stapler were performed utilizing the gastric tube as a guide. The final staple firing was at the angle of his completely excluding the fundus of the stomach. There was no evidence of bleeding at the gastric staple line. The proximal theodora limb was then brought up and placed adjacent to the gastric pouch. A 3-0 vicryl suture was then used to create the outer and posterior suture layer of the gastrojejunostomy. The calibration tube was then pushed back and forth against the transverse edge of the gastric pouch stapleline to approximate the site and size of the gastrotomy. The ultrasonic scalpel was then used to create gastrotomy which as made about 15mm in size. The ultrasonic scalpel was used to create an enterotomy at the corresponding location of the theodora limb. The enterotomy and gastrotomy were then brought together to verify linear opposition with the calibration tube easily passing between both the new giulherme pouch and the theodora limb. The calibration tube was then withdrawn to just proximal to the gastrotomy. A 3-0 vicryl suture was then used to create the inner layer of the two layer gastrojejunostomyanastomosis beginning posteriorly. The suture was run circumferentially around the calibration tubewhich was positioned into the theodora limb as a guide. The previously placed outer vicryl suture was then used to complete the 2nd layer of the gastrojejunostomy anteriorly. The patient was placed in the supine position. A 2-0 silk suture was then used to close the petersens space defect created by the small intestinal theodora limb crossing the transverse colon. The closurebegan at the base of the transverse mesocolon and approximated the mesentery of the small bowel Theodora limb. The gastrojejunal anastomosis and pouch were submerged under saline solution and the calibration tube was withdrawn to just proximal to the newly formed GJ anastomosis for preparation of the leak test. Oxygen was insufflated at 1 liter per minute with the Theodora limb clamped distally. There was no evidence of air bubbles indicating no anastomotic leak. The irrigation fluid was suctioned. The liver retractor was removed. The trocars were removed under direct vision with no evidence of any bleeding. Pneumoperitoneum was expelled. [id number] port site fascia was closed with a 2-0 Vicryl suture using the transfascial suture passer. The skin incisions were closed using 4-0 vicryl suture in a subcuticular fashion. All sponge, needle, and instrument counts were correct at the end of the care. The patient tolerated the procedure well, and was taken to the recovery room in stable condition. The family was informed of the the findings. FINDINGS: Handsewn anastomosis performed using 3-0 vicryl suture two layers. No e/o leak on leak test. DRAINS: None EBL: <15 ml SPECIMEN: none COMPLICATIONS: None. Michael Pedraza MD documented in this encounter Plan of Treatment Upcoming Encounters Date Type Department Care Team (Late st Contact Info) Description 05/01/2024 1:30 PM CONTINUOUS PROCESS [employer] Office Visit [facility] [address] [place] [address], [address] [address] Melisa Fortune APRN-GUSSET STITCHER [id number] [address] [phone] 10/27/2024 1:30 PM CDT Office Visit [facility] [address] [place] [address], [address] [address] Melisa Fortune APRN-GUSSET STITCHER [address] [address] [phone] documented as of this encounter Procedures Procedure Name Priority Date/Time Associated Diagnosis Comments GLUCOSE - POINT OF CARE Routine 10/29/2023 11:03 AM CDT CBC W AUTO DIFFERENTIAL Timed 10/29/2023 10:12 AM CDT FL UGI SERIES Routine 10/29/2023 9:02 AM CDT Morbid obesity (HCC) GLUCOSE - POINT OF CARE Routine 10/29/2023 6:44 AM CDT VITAMIN D 25-HYDROXY AM Draw 10/29/2023 2:07 AM CDT CBC W AUTO DIFFERENTIAL AM Draw 10/29/2023 2:07 AM CDT BASIC METABOLIC PANEL (CALCIUM TOTAL) AM Draw 10/29/2023 2:07 AM CDT GLUCOSE - POINT OF CARE Routine 10/28/2023 3:06 PM CDT GLUCOSE - POINT OF CARE Routine 10/28/2023 1:21 PM CDT OK LAP GASTR RSTRCIV PROC; GASTR BYPS & THEODORA-EN-Y 10/28/2023 10:08 AM CDT documented in this encounter Results * (ABNORMAL) GLUCOSE - POINT OF CARE (10/29/2023 11:03 AM CDT) Glucose WB/POC 127(H) 70 - 106 mg/dL 10/29/2023 6:26 PM CDT [facility] Specimen Type Cap Fingerstick 2023 6:26 PM CDT [facility] Blood BLOOD SPECIMEN / Unknown 10/29/2023 11:03 AM CDT 10/29/2023 6:26 PM CDT Michael Pedraza MD LAB - POINT OF CARE ORDERABLES [facility] [address] [place] [address] * (ABNORMAL) CBC W AUTO DIFFERENTIAL (10/29/2023 10:12 AM CDT) WBC 13.0(H) 4.0 - 10.7 x10E9/L 10/29/2023 10:31 AM CDT [facility] RBC Count 4.43 3.90 - 5.20 x10E12/L 10/29/2023 10:31 AM CDT [facility] Hemoglobin 12.7 11.9 - 15.8 g/dL 10/29/2023 10:31 AM CDT [facility] Hematocrit 38.9 34.8 - 46.1 % 10/29/2023 10:31 AM CDT [facility] MCV 87.8 80.0 - 98.0 fL 10/29/2023 10:31 AM CDT [facility] MCH 28.7 26.7 - 33.6 pg 10/29/2023 10:31 AM CDT [facility] MCHC 32.6 31.7 - 36.3 g/dL 10/29/2023 10:31 AM CDT [facility] RDW-CV 14.0 11.3 - 14.8 % 10/29/2023 10:31 AM CDT [facility] Platelet Count 290 150 - 420 x10E9/L 10/29/2023 10:31 AM CDT [facility] MPV 10.2 7.8 - 11.4 fL 10/29/2023 10:31 AM T [facility] Neutrophil % 94.1(H) 41.0 - 74.0 % 10/29/2023 10:31 AM CDT [facility] Lymphocyte % 4.1(L) 17.0 - 47.0 % 10/29/2023 10:31 AM CDT [facility] Monocyte % 1.0(L) 3.0 - 11.0 % 10/29/2023 10:31 AM CDT [facility] Eosinophil % 0.2 0.0 - 7.0 % 10/29/2023 10:31 AM CDT [facility] Basophil % 0.3 0.0 - 1.6 % 10/29/2023 10:31 AM T [facility] Immature Granulocytes % 0.3 0.0 - 1.0 % 10/29/2023 10:31 AM CDT [facility] Neutrophil Absolute 12.28(H) 1.60 - 7.50 x10E9/L 10/29/2023 10:31 AM CDT [facility] Lymphocyte Absolute 0.53(L) 1.00 - 4.40 x10E9/L 10/29/2023 10:31 AM CDT [facility] Monocyte Absolute 0.13(L) 0.15 - 1.00 x10E9/L 10/29/2023 10:31 AM CDT [facility] Eosinophil Absolute 0.02 0.00 - 0.60 x10E9/L 10/29/2023 10:31 AM CDT [facility] Basophil Absolute 0.04 0.00 - 0.13 x10E9/L 10/29/2023 10:31 AM CDT [facility] Blood BLOOD SPECIMEN / Unknown Venipuncture / Unknown 10/29/2023 10:12 AM CDT 10/29/2023 10:24 AM CDT Michael Pedraza MD LAB - HEMATOLOGY ORD ERABLES [facility] [address] [place] [address] * FL UGI SERIES WO KUB (10/29/2023 9:02 AM CDT) Anatomical Region Laterality Modality Abdomen Radiographic Michell ging 10/29/2023 9:37 AM CDT Impressions 10/29/2023 9:39 AM CDT IMPRESSION: NO EVIDENCE OF ??LEAK OR OBSTRUCTION. > Interpreting Provider: Haroon Corona MD on 10/29/2023 9:39 AM Narrative 10/29/2023 9:39 AM CDT Fluoroscopic upper GI with KUB Indication: Morbid obesity, status post Theodora-en-Y gastric bypass surgery, gastric leak. Findings: Multiple fluoroscopic images of the upper GI tract were obtained following ingestion of water-soluble oral contrast media. There is no evidence of leak. There is prompt emptying into the Theodora loop. Theodora loop normal in shape and morphology. Jejunal-jejunal anastomosis widely patent. FLUOROSCOPY DOSE: ??5.27 1.02 minutes. Reference air kerma (ka,r). The total fluoroscopy time was 1.02 minutes. 3 fluoroscopic images were obtained. Cineradiography was also performed. Procedure Note Haroon Corona MD - 10/29/2023 Fluoroscopic upper GI with KUB Indication: Morbid obesity, status post Theodora-en-Y gastric bypasssurgery, gastric leak. Findings: Multiple fluoroscopic images of the upper GI tract were obtainedfollowing ingestion of water-soluble oral contrast media. There is no evidence of leak. There is prompt emptying into the Rouxloop. Theodora loop normal in shape and morphology. Jejunal-jejunal anastomosis widely patent. FLUOROSCOPY DOSE: 5.27 1.02 minutes. Reference air kerma (ka,r). Thetotal fluoroscopy time was 1.02 minutes. 3 fluoroscopic images were obtained. Cineradiography was also performed. IMPRESSION: NO EVIDENCE OF LEAK OR OBSTRUCTION. > Interpreting Provider: Haroon Corona MD on 10/29/2023 9:39 AM Michael Pedraza MD FLUOROSCOPY ORDERABL ES * GLUCOSE - POINT OF CARE (10/29/2023 6:44 AM CDT) Pathologist [facility] Glucose WB/POC 80 70 - 106 mg/dL 10/29/2023 6:45 AM CDT [facility] Specimen Type Cap Fingerstick 2023 6:45 AM CDT [facility] Blood BLOOD SPECIMEN / Unknown 10/29/2023 6:44 AM CDT 10/29/2023 6:45 AM CDT Michael Pedraza MD LAB - POINT OF CARE ORDERABLES [facility] [address] [place] [address] * (ABNORMAL) CBC W AUTO DIFFERENTIAL (10/29/2023 2:07 AM CDT) Pathologist [facility] WBC 10.8(H) 4.0 - 10.7 x10E9/L 10/29/2023 2:17 AM CDT [facility] RBC Count 4.08 3.90 - 5.20 x10E12/L 10/29/2023 2:17 AM CDT [facility] Hemoglobin 11.8(L) 11.9 - 15.8 g/dL 10/29/2023 2:17 AM CDT [facility] Hematocrit 35.7 34.8 - 46.1 % 10/29/2023 2:17 AM CDT [facility] MCV 87.5 80.0 - 98.0 fL 10/29/2023 2:17 AM CDT [facility] MCH 28.9 26.7 - 33.6 pg 10/29/2023 2:17 AM CDT [facility] MCHC 33.1 31.7 - 36.3 g/dL 10/29/2023 2:17 AM CDT [facility] RDW-CV 13.8 11.3 - 14.8 % 10/29/2023 2:17 AM CDT [facility] Platelet Count 255 150 - 420 x10E9/L 10/29/2023 2:17 AM CDT [facility] MPV 10.0 7.8 - 11.4 fL 10/29/2023 2:17 AM CDT [facility] Neutrophil % 88.9(H) 41.0 - 74.0 % 10/29/2023 2:17 AM CDT [facility] Lymphocyte % 5.7(L) 17.0 - 47.0 % 10/29/2023 2:17 AM CDT [facility] Monocyte % 4.6 3.0 - 11.0 % 10/29/2023 2:17 AM CDT [facility] Eosinophil % 0.3 0.0 - 7.0 % 10/29/2023 2:17 AM CDT [facility] Basophil % 0.2 0.0 - 1.6 % 10/29/2023 2:17 AM CDT [facility] Immature Granulocytes % 0.3 0.0 - 1.0 % 10/29/2023 2:17 AM CDT [facility] Neutrophil Absolute 9.57(H) 1.60 - 7.50 x10E9/L 10/29/2023 2:17 AM CDT [facility] Lymphocyte Absolute 0.61(L) 1.00 - 4.40 x10E9/L 10/29/2023 2:17 AM CDT [facility] Monocyte Absolute 0.49 0.15 - 1.00 x10E9/L 10/29/2023 2:17 AM CDT [facility] Eosinophil Absolute 0.03 0.00 - 0.60 x10E9/L 10/29/2023 2:17 AM CDT [facility] Basophil Absolute 0.02 0.00 - 0.13 x10E9/L 10/29/2023 2:17 AM CDT [facility] Blood BLOOD SPECIMEN / Unknown Venipuncture / Unknown 10/29/2023 2:07 AM CDT 10/29/2023 2:12 AM CDT Michael Pedraza MD LAB - HEMATOLOGY ORD SHEILA Performing Organization Address City/[facility]/ZIP Co de Phone Number [facility] [address] [place] [address] * (ABNORMAL) BASIC METABOLIC PANEL (CALCIUM TOTAL) (10/29/2023 2:07 AM CDT) [facility] Glucose 148(H) 70 - 105 mg/dL 10/29/2023 2:38 AM CDT [facility] Sodium 139 136 - 145 mmol/L 10/29/2023 2:38 AM CDT [facility] Potassium 4.5 3.5 - 5.1 mmol/L 10/29/2023 2:38 AM CDT [facility] Chloride 109(H) 98 - 107 mmol/L 10/29/2023 2:38 AM CDT [facility] CO2 22 22 - 29 mmol/L 10/29/2023 2:38 AM CDT [facility] Calcium 9.0 8.4 - 10.4 mg/dL 10/29/2023 2:38 AM CDT [facility] Anion Gap 8 6 - 16 mmol/L 10/29/2023 2:38 AM CDT [facility] BUN 22 7 - 26 mg/dL 10/29/2023 2:38 AM CDT [facility] Creatinine 0.88 0.57 - 1.11 mg/dL 10/29/2023 2:38 AM CDT [facility] eGFR by CKD-EPI 76(L) >=90 mL/min/1.7 3 m2 10/29/2023 2:38 AM CDT [facility] Blood BLOOD SPECIMEN / Unknown Venipuncture / Unknown 10/29/2023 2:07 AM CDT 10/29/2023 2:12 AM CDT Michael Pedraza MD LAB - CHEMISTRY JUAN JOSE JENSEN Performing Organization Address [facility]/ZIP Co de Phone Number [facility] [address] [place] [address] * VITAMIN D 25-HYDROXY (10/29/2023 2:07 AM CDT) [facility] Vitamin D, 25 Hydroxy 38.9 30 - 80 ng/mL 10/29/2023 4:43 AM CDT [facility] Blood BLOOD SPECIMEN / Unknown Venipuncture / Unknown 10/29/2023 2:07 AM CDT 10/29/2023 2:12 AM CDT Narrative [facility] - 10/29/2023 4:43 AM CDT Vitamin D Status: ?Deficiency ? <20 ? ng/mL ?Insufficiency ?? 20-30 ??ng/mL ?Sufficiency ? 30-100 ng/mL ?Toxicity ? >100 ?ng/mL Michael Pedraza MD LAB - CHEMISTRY ORDE CAMILA Performing Organization Address [facility] de Phone Number [facility] [address] [place] [address] * (ABNORMAL) GLUCOSE - POINT OF CARE (10/28/2023 3:06 PM CDT) [facility] Glucose WB/POC 148(H) 70 - 106 mg/dL 10/28/2023 4:24 PM CDT [facility] Specimen Type Cap Fingerstick 2023 4:24 PM CDT [facility] Blood BLOOD SPECIMEN / Unknown 10/28/2023 3:06 PM CDT 10/28/2023 4:24 PM CDT Michael Pedraza MD LAB - POINT OF CARE ORDERABLES Performing Organization Address [facility] de Phone Number [facility] [address] [place], [place] [phone] * (ABNORMAL) GLUCOSE - POINT OF CARE (10/28/2023 1:21 PM CDT) Glucose WB/POC 149(H) 70 - 106 mg/dL 10/28/2023 1:21 PM CDT [facility] Specimen Type Venous 10/28/2023 1:21 PM CDT [facility] Blood BLOOD SPECIMEN / Unknown 10/28/2023 1:21 PM CDT 10/28/2023 1:21 PM CDT Michael Pedraza MD LAB - POINT OF CARE ORDERABLES [facility] [address] [place] [address] documented in this encounter Visit Diagnoses Not on filedocumented in this encounter Administered Medications Inactive Administered Medications - up to 3 most recent administrations Medication Order MAR Action Action Date Dose Rate Site 0.45% NaCl with potassium chloride 20 mEq in 1000 mL premix infusion at 75 mL/hr, Intravenous, CONTINUOUS, Starting on Sat10/28/23 at 1445, Until Sat10/29/23 at 1558, Do not infuse at same time as other fluids., Post-op Rate Change 10/29/2023 8:07 AM CDT 75 mL/hr $ New Bag/Syringe 10/29/2023 2:10 AM CDT 150 mL /hr $ New Bag/Syringe 10/28/2023 3:19 PM CDT 150 mL /hr 0.9% NaCl injection PRN, Starting on Sat10/28/23 at 1052, Until Sat10/28/23 at 1252, Intra-op $ Given 10/28/2023 10:52 AM CDT 40 mL Operative Site 0.9% NaCl irrigation solution PRN, Starting on Sat10/28/23 at 1056, Until Sat10/28/23 at 1252, Intra-op $ Given 10/28/2023 10:56 AM CDT 3,000 mL Operative Site 0.9% NaCl IV 500 mL with multivitamin (Infuvite) 10 mL infusion 125 mL/hr, Intravenous, DAILY, First dose (after last modification) on Sat10/29/23 at 0900, Until Discontinued, To be run over 4 hours. Do not infuse at same time as other IV fluids. , Post-op $ New Bag/Syringe 10/29/2023 9:33 AM CDT 125 mL/hr 125 mL/hr acetaminophen (Tylenol) solution 1,000 mg 1,000 mg, Oral, EVERY 8 HOURS, First dose on Sat10/28/23 at 1445, Until Discontinued, Patient preference for lesser PRN pain meds may be honored when the patient requests a less strong medication, a lower dose, or a less intrusive route of administration when the lesser drug, dose and route have been ordered for the patient. This patient request must be documented in the MAR. If both oral and IV options are ordered for the same pain severity, give oral first unless patient cannot tolerate oral intake, Post-op $ Given 10/29/2023 6:06 AM CDT 1,000 mg $ Given 10/28/2023 9:51 PM CDT 1,000 mg $ Given 10/28/2023 3:20 PM CDT 1,000 mg BUPivacaine liposome (Exparel) 1.3 % injection PRN, Starting on Sat10/28/23 at 1052, Until Sat10/28/23 at 1252, Intra-op $ Given 10/28/2023 10:52 AM CDT 20 mL Operative Site heparin injection 5,000 Units 5,000 Units, Subcutaneous, 2 TIMES DAILY, First dose on Sat10/28/23 at 1445, Until Discontinued, Post-op $ Given 10/29/2023 8:04 AM CDT 5,000 Units Abdominal Tissue $ Given 10/28/2023 9:52 PM CDT 5,000 Units A bd Right Lower Quadrant hyoscyamine (Levsin SL) sublingual tablet 0.125 mg 0.125 mg, Sublingual, EVERY 6 HOURS, First dose on Sat10/28/23 at 1445, Until Discontinued, Post-op $ Given 10/29/2023 6:06 AM CDT 0.125 mg $ Given 10/29/2023 12:29 AM CDT 0.125 mg $ Given 10/28/2023 3:20 PM CDT 0.125 mg ketorolac (Toradol) injection 15 mg 15 mg, Intravenous, EVERY 8 HOURS, 6 doses, First dose on Sat10/28/23 at 1445, Last dose on Sat10/30/23 at 0600, Given 8 hours from preop celebrex Do not give if GFR <60 Dose not to exceed 60mg daily Patient preference for lesser PRN pain meds may be honored when the patient requests a less strong medication, a lower dose, or a less intrusive route of administration when the lesser drug, dose and route have been ordered for the patient. This patient request must be documented in the MAR. If both oral and IV options are ordered for the same pain severity, give oral first unless patient cannot tolerate oral intake, Post-op $ Given 10/29/2023 6:07 AM CDT 15 mg $ Given 10/28/2023 9:52 PM CDT 15 mg $ Given 10/28/2023 3:15 PM CDT 15 mg magnesium hydroxide (Milk Of Magnesia) suspension 15 mL 15 mL, Oral, DAILY, First dose on Sat10/29/23 at 0900, Until Discontinued, Shake well before using. $ Given 10/29/2023 12:21 PM CDT 15 mL metoclopramide (Reglan) injection 10 mg 10 mg, Intravenous, EVERY 6 HOURS, First dose on Sat10/28/23 at 1445, Until Discontinued, Inject undiluted IV slowly over 1 to 2 minutes., Post-op $ Given 10/28/2023 3:15 PM CDT 10 mg ondansetron (Zofran) injection 4 mg 4 mg, Intravenous, EVERY 6 HOURS, First dose on Sat10/28/23 at 1445, Until Discontinued, Administer over 2 to 5 minutes., Post-op $ Given 10/29/2023 8:04 AM CDT 4 mg $ Given 10/28/2023 3:15 PM CDT 4 mg oxyCODONE (Roxicodone) oral solution 5 mg 5 mg, Oral, EVERY 6 HOURS PRN, Severe Pain, Starting on Sat10/28/23 at 1443, Until Sat10/29/23 at 1558, Patient preference for lesser PRN pain meds may be honored when the patient requests a less strong medication, a lower dose, or a less intrusive route of administration when the lesser drug, dose and route have been ordered for the patient. This patient request must be documented in the MAR. If both oral and IV options are ordered for the same pain severity, give oral first unless patient cannot tolerate oral intake, Allow a repeat dose for severe pain? No, Post-op $ Given 10/28/2023 3:19 PM CDT 5 mg pantoprazole (Protonix) injection 40 mg 40 mg, Intravenous, DAILY, First dose on Sat10/28/23 at 1445, Until Discontinued, For every 40 mg of pantoprazole mix with 10 mL Normal Saline (final concentration = 4 mg/mL). Inject SLOWLY over 2 min., Post-op $ Given 10/29/2023 8:04 AM CD T 40 mg $ Given 10/28/2023 3:14 PM CDT 40 mg scopolamine (Transderm-Scop) 1 patch 1 patch, Administer over 72 Hours, EVERY 72 HOURS, First dose on Sat10/28/23 at 1445, Until Discontinued, Apply patch behind the ear, do not cut patch, only 1 patch should be worn at a time and remove old patch before applying new patch.This patch may contain metal and is not compatible with MRI. Notify radiology of patch location upon arrival to MRI. Each patch contains 1.5 mg scopolamine base and is formulated to deliver 1 mg of scopolamine over 72 hours. scopolamine patch placement confirmation Transdermal, 2 TIMES DAILY, First dose on Sat10/28/23 at 1445, Until Discontinued, Patient has a patch to be confirmed on transition to inpatient and 2 times daily., Pre-op documented in this encounter Active and Recently Administered Medications Times are shown in CDT. Scheduled Medication Order 10/27/2023 10/28/2023 10/29/2023 0.9% NaCl IV 500 mL with multivitamin (Infuvite) 10 mL infusion 125 mL/hr, Intravenous, DAILY, First dose (after last modification) on Sat10/29/23 at 0900, Until Discontinued, To be run over 4 hours. Do not infuse at same time as other IV fluids. , Post-op 0933 ($ New Bag/Syri nge - Provider: Lauren Novak RN) acetaminophen (Tylenol) solution 1,000 mg 1,000 mg, Oral, EVERY 8 HOURS, First dose on Sat10/28/23 at 1445, Until Discontinued, Patient preference for lesser PRN pain meds may be honored when the patient requests a less strong medication, a lower dose, or a less intrusive route of administration when the lesser drug, dose and route have been ordered for the patient. This patient request must be documented in the MAR. If both oral and IV options are ordered for the same pain severity, give oral first unless patient cannot tolerate oral intake, Post-op 1520 ($ Given - Provider: Lauren Novak RN)2151 ($ Given - Provider: Silvana Jacobs) 0606 ($ Given - Provider: Silvana Jacobs)1400 (Due) acetaminophen (Tylenol) tablet 1,000 mg (COMPLETED) 1,000 mg, Oral, ONCE, 1 dose, On Sat10/28/23 at 0830, Patient preference for lesser PRN pain meds may be honored when the patient requests a less strong medication, a lower dose, or a less intrusive route of administration when the lesser drug, dose and route have been ordered for the patient. This patient request must be documented in the MAR. If both oral and IV options are ordered for the same pain severity, give oral first unless patient cannot tolerate oral intake, Pre-op 0847 ($ Given - Provider: Luis M Smith RN) ceFAZolin (Ancef) 3 g in 0.9% NaCl IV 100 mL IVPB (COMPLETED) 3 g, at 200 mL/hr, Intravenous, ONCE, 1 dose, On Sat10/28/23 at 0830, Administer??within 60 minutes??before surgical incision to ensure adequate antibiotic concentration at surgical sites at the time of incision.??Antibiotic infusion must be completed ZERO-TEN minutes??prior to incision, Indication for anti-infective therapy: Surgical prophylaxis, Pre-op 1048 ($ New Bag/Syringe - Provider: Mckenna Oviedo APRN-AIRCONDITIONING ENGINEER) celecoxib (CeleBREX) capsule 400 mg (COMPLETED) 400 mg, Oral, PRE-OP ONCE, 1 dose, On Sat10/28/23 at 0830, Patient preference for lesser PRN pain meds may be honored when the patient requests a less strong medication, a lower dose, or a less intrusive route of administration when the lesser drug, dose and route have been ordered for the patient. This patient request must be documented in the MAR. If both oral and IV options are ordered for the same pain severity, give oral first unless patient cannot tolerate oral intake, Pre-op 0848 ($ Given - Provider: Luis M Smith RN) dexAMETHasone (Decadron) injection 10 mg (COMPLETED) 10 mg, Intravenous, ONCE, 1 dose, On Sat10/29/23 at 0600, Post-op 0607 ($ Given - Provider: Silvana Jacobs) dextrose 5 % 500 mL with multivitamin (Infuvite) 10 mL infusion (CANCELED) 125 mL/hr, Intravenous, DAILY, First dose on Sat10/28/23 at 2100, Until Discontinued, To be run over 4 hours. Do not infuse at same time as other IV fluids. , Post-op 2200 ($ New Bag/Syringe - Provider: Silvana Jacobs) escitalopram (Lexapro) tablet 20 mg 20 mg, Oral, AT BEDTIME, First dose on Sat10/29/23 at 2100, Until Discontinued famotidine (Pepcid) injection 20 mg (COMPLETED) 20 mg, Intravenous, PRE-OP ONCE, 1 dose, On Sat10/28/23 at 0830, Give morning of surgery. Dilute with 0.9% NaCl, D5W solution, or SWI to a volume of 5 to 10 mL and administer over at least 2 minutes., Pre-op 0848 ($ Given - Provider: Luis M Smith RN) gabapentin (Neurontin) capsule 300 mg 300 mg, Oral, AT BEDTIME, First dose on Sat10/29/23 at 2100, Until Discontinued heparin injection 5,000 Units (COMPLETED) 5,000 Units, Subcutaneous, PRE-OP ONCE, 1 dose, On Sat10/28/23 at 0830, Pre-op 0847 ($ Given - Provider: Luis M Smith RN) heparin injection 5,000 Units 5,000 Units, Subcutaneous, 2 TIMES DAILY, First dose on Sat10/28/23 at 1445, Until Discontinued, Post-op 1528 (Not Administered - Provider: Lauren Novak RN - Reason: See Comments)2152 ($ Given - Provider: Silvana Jacobs) 0804 ($ Given - Provider: Lauren Novak, BHAVESH) hyoscyamine (Levsin SL) sublingual tablet 0.125 mg 0.125 mg, Sublingual, EVERY 6 HOURS, First dose on Sat10/28/23 at 1445, Until Discontinued, Post-op 1520 ($ Given - Provider: Lauren Novak RN)1831 (Not Administered - Provider: Lauren Novak RN - Reason: See Comments - Comment: Just given at 1530) 0029 ($ Given - Provider: Silvana Jacobs)0606 ($ Given - Provider: Silvana Jacobs)1222 (Not Administered - Provider: Lauren Novak RN - Reason: Refused-Patient) iopamidol (Isovue 370) 76 % contrast (COMPLETED) Oral, ONCE, 1 dose, On Sat10/29/23 at 0700 0857 ($ Given - Cont rast - Provider: Sachi Gómez, RT(R)) ketorolac (Toradol) injection 15 mg 15 mg, Intravenous, EVERY 8 HOURS, 6 doses, First dose on Sat10/28/23 at 1445, Last dose on Sat10/30/23 at 0600, Given 8 hours from preop celebrex Do not give if GFR <60 Dose not to exceed 60mg daily Patient preference for lesser PRN pain meds may be honored when the patient requests a less strong medication, a lower dose, or a less intrusive route of administration when the lesser drug, dose and route have been ordered for the patient. This patient request must be documented in the MAR. If both oral and IV options are ordered for the same pain severity, give oral first unless patient cannot tolerate oral intake, Post-op 1515 ($ Given - Provider: Lauren Novak RN)2152 ($ Given - Provider: Silvana Jacobs) 0607 ($ Given - Provider: Silvana Jacobs)1400 (Due) magnesium hydroxide (Milk Of Magnesia) suspension 15 mL 15 mL, Oral, DAILY, First dose on Sat10/29/23 at 0900, Until Discontinued, Shake well before using. 1221 ($ Given - Provider: Lauren Novak, BHAVESH) metoclopramide (Reglan) injection 10 mg 10 mg, Intravenous, EVERY 6 HOURS, First dose on Sat10/28/23 at 1445, Until Discontinued, Inject undiluted IV slowly over 1 to 2 minutes., Post-op 1515 ($ Given - Provider: Lauren Novak RN)1831 (Not Administered - Provider: Lauren Novak RN - Reason: See Comments - Comment: Just given at 1530) 0030 (Not Administered - Provider: Silvana Jacobs - Reason: Refused-Patient)0540 (Not Administered - Provider: Silvana Jacobs - Reason: Refused-Patient)1222 (Not Administered - Provider: Lauren Novak RN - Reason: Refused-Patient) metoprolol tartrate IR (Lopressor) tablet 12.5 mg 12.5 mg, Oral, 2 TIMES DAILY, First dose on Sat10/29/23 at 1215, Until Discontinued 1222 (Not Administer ed - Provider: Lauren Novak RN - Reason: Refused-Patient) ondansetron (Zofran) injection 4 mg 4 mg, Intravenous, EVERY 6 HOURS, First dose on Sat10/28/23 at 1445, Until Discontinued, Administer over 2 to 5 minutes., Post-op 1515 ($ Given - Provider: Lauren oNvak RN)1831 (Not Administered - Provider: Lauren Novak RN - Reason: See Comments - Comment: Just given at 1530) 0030 (Not Administered - Provider: Silvana Jacobs - Reason: Refused-Patient)0540 (Not Administered - Provider: Silvana Jacobs - Reason: Refused-Patient)0804 ($ Given - Provider: Lauren Novak RN)1222 (Not Administered - Provider: Lauren Novak RN - Reason: Refused-Patient) pantoprazole (Protonix) injection 40 mg 40 mg, Intravenous, DAILY, First dose on Sat10/28/23 at 1445, Until Discontinued, For every 40 mg of pantoprazole mix with 10 mL Normal Saline (final concentration = 4 mg/mL). Inject SLOWLY over 2 min., Post-op 1514 ($ Given - Provider: Lauren Novak RN) 0804 ($ Given - Provider: Lauren Novak RN) scopolamine (Transderm-Scop) 1 patch(Linked Group 1) 1 patch, Administer over 72 Hours, PRE-OP ONCE, 1 dose, On Sat10/28/23 at 0830, Apply patch behind the ear, do not cut patch, only 1 patch should be worn at a time and remove old patch before applying new patch.This patch may contain metal and is not compatible with MRI. Notify radiology of patch location upon arrival to MRI. Each patch contains 1.5 mg scopolamine base and is formulated to deliver 1 mg of scopolamine over 72 hours. 0847 ($ Applied - Provider: Luis M Smith RN) 6827 (Due: Removed - Provider: Generic, Auto Release - Comment: Time automatically adjusted from order being discontinued) scopolamine (Transderm-Scop) 1 patch(Linked Group 2) 1 patch, Administer over 72 Hours, EVERY 72 HOURS, First dose on Sat10/28/23 at 1445, Until Discontinued, Apply patch behind the ear, do not cut patch, only 1 patch should be worn at a time and remove old patch before applying new patch.This patch may contain metal and is not compatible with MRI. Notify radiology of patch location upon arrival to MRI. Each patch contains 1.5 mg scopolamine base and is formulated to deliver 1 mg of scopolamine over 72 hours. 1528 (Not Administered - Provider: Lauren Novak RN - Reason: See Comments - Comment: Applied in pre-op) scopolamine patch placement confirmation(Linked Group 2) Transdermal, 2 TIMES DAILY, First dose on Sat10/28/23 at 1445, Until Discontinued, Patient has a patch to be confirmed on transition to inpatient and 2 times daily., Pre-op 1529 (*Reviewed - Provider: Lauren Novak RN)2201 (*Reviewed - Provider: Silvana Jacobs) 0840 (*Reviewed - Provider: Lauren Novak RN) Continuous Medication Order 10/27/2023 10/28/2023 10/29/2023 0.45% NaCl with potassium chloride 20 mEq in 1000 mL premix infusion at 75 mL/hr, Intravenous, CONTINUOUS, Starting on Sat10/28/23 at 1445, Until Sat10/29/23 at 1558, Do not infuse at same time as other fluids., Post-op 1519 ($ New Bag/Syringe - Provider: Lauren Novak RN)2201 (Paused - Provider: Silvana Jacobs) 0210 ($ New Bag/Syringe - Provider: Silvana Jacobs)0807 (Rate Change - Provider: Lauren Novak RN) lactated ringers infusion (CANCELED) at 20 mL/hr, Intravenous, CONTINUOUS, Starting on Sat10/28/23 at 0830, Until Sat10/28/23 at 1442, Pre-op 0848 ($ New Bag/Syringe - Provider: Luis M Smith RN)1022 (Paused - Provider: CAMI Abel - Comment: Switch to gravity)1023 (Restarted - Provider: CAMI Abel)1215 (Anesthesia Volume Adjustment - Provider: CAMI Abel) PRN Medication Order 10/27/2023 10/28/2023 10/29/2023 0.9% NaCl injection (CANCELED) PRN, Starting on Sat10/28/23 at 1052, Until Sat10/28/23 at 1252, Intra-op 1052 ($ Given - Provider: Michael Pedraza MD - Comment: mixed with 20ml exparel) 0.9% NaCl irrigation solution (CANCELED) PRN, Starting on Sat10/28/23 at 1056, Until Sat10/28/23 at 1252, Intra-op 1056 ($ Given - Provider: Michael Pedraza MD) acetaminophen (Tylenol) solution 500 mg 500 mg, Oral, DAILY PRN, Moderate Pain, for moderate breakthrough pain given 4 hours after previous scheduled dose of tylenol, Starting on Sat10/28/23 at 1443, Until Sat10/29/23 at 1558, for moderate breakthrough pain given 4 hours after previous scheduled dose of tylenol Patient preference for lesser PRN pain meds may be honored when the patient requests a less strong medication, a lower dose, or a less intrusive route of administration when the lesser drug, dose and route have been ordered for the patient. This patient request must be documented in the MAR. If both oral and IV options are ordered for the same pain severity, give oral first unless patient cannot tolerate oral intake, Post-op BUPivacaine liposome (Exparel) 1.3 % injection (CANCELED) PRN, Starting on Sat10/28/23 at 1052, Until Sat10/28/23 at 1252, Intra-op 1052 ($ Given - Provider: Michael Pedraza MD - Comment: mixed with 40ml NS) fentaNYL (PF) (Sublimaze) injection 25 mcg (CANCELED) 25 mcg, Intravenous, EVERY 10 MIN PRN, Mild Pain, 4 doses, Starting on Sat10/28/23 at 1248, Until Sat10/28/23 at 1442, Maximum total of 4 doses. If patient reaches max total dose, please consult anesthesiologist prior to further administration of pain meds. Hold pain meds if there are signs of hypoventilation. Patient preference for lesser PRN pain meds may be honored when the patient requests a less strong medication, a lower dose, or a less intrusive route of administration when the lesser drug, dose and route have been ordered for the patient. This patient request must be documented in the MAR. If both oral and IV options are ordered for the same pain severity, give oral first unless patient cannot tolerate oral intake, PACU 1317 ($ Given - Provider: Sharri Amanda, RN)1349 ($ Given - Provider: Sharri Amnada RN) ondansetron (Zofran) injection 4 mg (COMPLETED) 4 mg, Intravenous, ONCE PRN, Nausea/Vomiting, 1 dose, Starting on Sat10/28/23 at 1248, Until Sat10/28/23 at 1257, First choice, PACU 1257 ($ Given - Provider: Sharri Amanda RN) oxyCODONE (Roxicodone) oral solution 5 mg 5 mg, Oral, EVERY 6 HOURS PRN, Severe Pain, Starting on Sat10/28/23 at 1443, Until Sat10/29/23 at 1558, Patient preference for lesser PRN pain meds may be honored when the patient requests a less strong medication, a lower dose, or a less intrusive route of administration when the lesser drug, dose and route have been ordered for the patient. This patient request must be documented in the MAR. If both oral and IV options are ordered for the same pain severity, give oral first unless patient cannot tolerate oral intake, Allow a repeat dose for severe pain? No, Post-op 1519 ($ Given - Provider: Lauren Novak, BHAVESH) prochlorperazine (Compazine) injection 10 mg (COMPLETED) 10 mg, Intravenous, ONCE PRN, Nausea/Vomiting, 1 dose, Starting on Sat10/28/23 at 1248, Until Sat10/28/23 at 1308, Second choice, use if first choice was ineffective., PACU 1308 ($ Given - Provider: Sharri Amanda RN) prochlorperazine (Compazine) injection 10 mg 10 mg, Intravenous, EVERY 6 HOURS PRN, Nausea/Vomiting, Starting on Sat10/28/23 at 1443, Until Tu10/29/23 at 1558, Max intravenous rate = 5 mg/min, Post-op Linked Groups Order Group 1: scopolamine (Transderm-Scop) 1 patchJump to med 1 patch, Administer over 72 Hours, PRE-OP ONCE, 1 dose, On Sat10/28/23 at 0830, Apply patch behind the ear, do not cut patch, only 1 patch should be worn at a time and remove old patch before applying new patch.This patch may contain metal and is not compatible with MRI. Notify radiology of patch location upon arrival to MRI. Each patch contains 1.5 mg scopolamine base and is formulated to deliver 1 mg of scopolamine over 72 hours. And scopolamine patch placement confirmation (CANCELED) Transdermal, 2 TIMES DAILY, 730 doses, First dose on Sat10/28/23 at 0900, Last dose on Sat10/26/24 at 2100, Patient has a patch to be confirmed on transition to inpatient and 2 times daily., Pre-op Group 2: scopolamine (Transderm-Scop) 1 patchJump to med 1 patch, Administer over 72 Hours, EVERY 72 HOURS, First dose on Sat10/28/23 at 1445, Until Discontinued, Apply patch behind the ear, do not cut patch, only 1 patch should be worn at a time and remove old patch before applying new patch.This patch may contain metal and is not compatible with MRI. Notify radiology of patch location upon arrival to MRI. Each patch contains 1.5 mg scopolamine base and is formulated to deliver 1 mg of scopolamine over 72 hours. And scopolamine patch placement confirmationJump to med Transdermal, 2 TIMES DAILY, First dose on Sat10/28/23 at 1445, Until Discontinued, Patient has a patch to be confirmed on transition to inpatient and 2 times daily., Pre-op documented in this encounter Care Teams Health Worker Relationship Specialty Start Date End Date Howard Damon MD [address] [place] [address] PCP - General Family Medicine 03/08/23 documented as of this encounter
--- OUTSIDE RECORDS SUMMARY | 2024-04-25 09:30 | XMS_ITS | Patient Health Summary ---
Author Organization [facility] [employer] Address [address] [place] [address] Care Team Providers Care Scada Technician Name Role Phone Howard Damon MD Primary Care Provider [phone] Note from [facility],non-owned Affiliates and Associated Physician Practices is amultiple site organization consisting of ambulatory clinics and hospital sitesin [place], [place], [place] and [place]. This disclosure is being madepursuant to the Care Everywhere program and may not contain all information available regarding this patient. Last updated 18.[facility] [employer] Allergies No known active allergies Medications * Be aware that medications may not be up to date on this document. Alwaysverify current medications with the patient. * vitamin D, ergocalciferol, (Drisdol) 1.25 MG (45905 UT) capsule(Started 02/27/2023) Take 1 (one) capsule by mouth every 7 days Mondays * escitalopram (Lexapro) 20 MG tablet(Started 02/08/2023) Take 1 (one) tablet by mouth at bedtime * gabapentin (Neurontin) 300 MG capsule(Started 12/23/2022) at bedtime * cetirizine (ZyrTEC) 10 MG tablet Take 1 (one) tablet by mouth once daily * acetaminophen (Tylenol) 160 MG/5ML solution(Started 10/29/2023) Take 31.25 mL by mouth every 8 hours * metoprolol tartrate IR (Lopressor) 25 MG tablet(Started 10/29/2023) Take 0.5 (one-half) tablet by mouth 2 times daily * Wheat Dextrin (BENEFIBER DRINK MIX PO) * pantoprazole EC (Protonix) 40 MG tablet(Started 11/29/2023) Take 1 (one) tablet by mouth 2 times daily 3 refills by 11/28/2024 Active Problems Problem Noted Date Diagnosed Date Morbid obesity 10/28/2023 Social History Tobacco Use Types Packs/Day Years Used Date Smoking Tobacco: Never Smokeless Tobacco: Never Tobacco Cessation:Counseling Given: Not Answered Alcohol Use Standard Drinks/Week Comments Never 0 [...] and heating? Not hard at all 10/28/2023 [facility] - Occupational Stress [...] money to buy more. Never true 10/28/19 24 Within the past 12 months, t he [...] place to sleep or slept in a fpc (including now)? No 10/28/2023 Sex and Gender Information Value Date Recorded Sex Assigned at Not on file Gender Identity Not on file Sexual Orientation Not on file Last Filed Vital Signs Vital Sign Reading Time Taken Comments Blood Pressure 120/72 11/29/2023 11:05 AM CDT Pulse 92 11/29/2023 11:05 AM CDT Temperature 36.2 ??C (97.1 ??F) 11/29/2023 11:05 AM C DT Respiratory Rate 18 10/29/2023 12:12 PM CDT Oxygen Saturation 97% 11/29/2023 11:05 AM CDT Inhaled Oxygen Concentration - - Weight 113.9 kg (251 lb) 11/29/2023 11:05 AM CDT Height 165 cm (5' 4.96 ) 11/29/2023 11:05 AM CDT Body Mass Index 41.82 11/29/2023 11:05 AM CDT Procedures * GLUCOSE - POINT OF CARE(Performed 10/29/2023) * CBC W AUTO DIFFERENTIAL(Performed 10/29/2023) * FL UGI SERIES(Performed 10/29/2023) Performed for Morbid obesity (HCC) * GLUCOSE - POINT OF CARE(Performed 10/29/2023) * VITAMIN D 25-HYDROXY(Performed 10/29/2023) * CBC W AUTO DIFFERENTIAL(Performed 10/29/2023) * BASIC METABOLIC PANEL (CALCIUM TOTAL)(Performed 10/29/2023) * GLUCOSE - POINT OF CARE(Performed 10/28/2023) * GLUCOSE - POINT OF CARE(Performed 10/28/2023) * ENDOTRACHEAL TUBE NOTE(Performed 10/28/2023) * GA LAP GASTR RSTRCIV PROC; GASTR BYPS & THEODORA-EN-Y(Performed 10/28/2023) * EKG 12-LEAD(Performed 10/16/2023) Performed for Preop examination * COMPREHENSIVE METABOLIC PANEL(Performed 10/16/2023) Performed for Preop examination * CBC W AUTO DIFFERENTIAL(Performed 10/16/2023) Performed for Preop examination * VITAMIN B12(Performed 10/16/2023) Performed for Preop examination * VITAMIN B1(Performed 10/16/2023) Performed for Preop examination * HELICOBACTER PYLORI UREASE (STL)(Performed 04/04/2023) Performed for Preop examination * GA ED EGD FLEX TRANSORAL DX(Performed 04/04/2023) * EGD(Performed 04/04/2023) Performed for Morbid obesity (HCC), Preop testing, BMI 45.0-49.9, adult (HCC), Gastroesophageal reflux disease, unspecified whether esophagitis present * FL UGI W AIR CONTRAST(Performed 04/01/2023) Performed for Morbid obesity (HCC), Preop testing, BMI 45.0-49.9, adult (HCC), Gastroesophageal reflux disease, unspecified whether esophagitis present Results * (ABNORMAL) GLUCOSE - POINT OF CARE (10/29/2023 11:03 AM CDT) Only the most recent of4 resultswithin the time period is included. [facility] Glucose WB/POC 127(H) 70 - 106 mg/dL 10/29/2023 6:26 PM CDT [facility] Specimen Type Cap Fingerstick 2023 6:26 PM CDT [facility] Blood BLOOD SPECIMEN / Unknown 10/29/2023 11:03 AM CDT 10/29/2023 6:26 PM CDT Michael Pedraza MD LAB - POINT OF CARE ORDERABLES [facility] [address] [place] [address] * (ABNORMAL) CBC W AUTO DIFFERENTIAL (10/29/2023 10:12 AM CDT) Only the most recent of3 resultswithin the time period is included. [facility] WBC 13.0(H) 4.0 - 10.7 x10E9/L 10/29/2023 10:31 AM CDT [facility] RBC Count 4.43 3.90 - 5.20 x10E12/L 10/29/2023 10:31 AM CDT [facility] Hemoglobin 12.7 11.9 - 15.8 g/dL 10/29/2023 10:31 AM CDT [facility] Hematocrit 38.9 34.8 - 46.1 % 10/29/2023 10:31 AM CDT [facility] MCV 87.8 80.0 - 98.0 fL 10/29/2023 10:31 AM CDT [facility] MCH 28.7 26.7 - 33.6 pg 10/29/2023 10:31 AM CDT [facility] MCHC 32.6 31.7 - 36.3 g/dL 10/29/2023 10:31 AM CDT [facility] RDW-CV 14.0 11.3 - 14.8 % 10/29/2023 10:31 AM CDT [facility] Platelet Count 290 150 - 420 x10E9/L 10/29/2023 10:31 AM CDT [facility] MPV 10.2 7.8 - 11.4 fL 10/29/2023 10:31 AM CDT [facility] Neutrophil % 94.1(H) 41.0 - 74.0 % 10/29/2023 10:31 AM CDT [facility] Lymphocyte % 4.1(L) 17.0 - 47.0 % 10/29/2023 10:31 AM CDT [facility] Monocyte % 1.0(L) 3.0 - 11.0 % 10/29/2023 10:31 AM CDT [facility] Eosinophil % 0.2 0.0 - 7.0 % 10/29/2023 10:31 AM CDT [facility] Basophil % 0.3 0.0 - 1.6 % 10/29/2023 10:31 AM CDT [facility] Immature Granulocytes % 0.3 0.0 - 1.0 % 10/29/2023 10:31 AM CDT [facility] Neutrophil Absolute 12.28(H) 1.60 - 7.50 x10E9/L 10/29/2023 10:31 AM CDT [facility] Lymphocyte Absolute 0.53(L) 1.00 - 4.40 x10E9/L 10/29/2023 10:31 AM CDT [facility] Monocyte Absolute 0.13(L) 0.15 - 1.00 x10E9/L 10/29/2023 10:31 AM CDT [facility] Eosinophil Absolute 0.02 0.00 - 0.60 x10E9/L 10/29/2023 10:31 AM CDT [facility] Basophil Absolute 0.04 0.00 - 0.13 x10E9/L 10/29/2023 10:31 AM CDT [facility] Blood BLOOD SPECIMEN / Unknown Venipuncture / Unknown 10/29/2023 10:12 AM CDT 10/29/2023 10:24 AM CDT Michael Pedraza MD LAB - HEMATOLOGY ORD ERABLES [facility] [address] [place] [address] * FL UGI SERIES WO KUB (10/29/2023 [...] Michael Pedraza MD FLUOROSCOPY ORDERABL ES * VITAMIN D 25-HYDROXY (10/29/2023 2:07 AM CDT) Vitamin D, 25 Hydroxy 38.9 30 - 80 ng/mL 10/29/2023 4:43 AM CDT [facility] Blood BLOOD SPECIMEN / Unknown Venipuncture / Unknown 10/29/2023 2:07 AM CDT 10/29/2023 2:12 AM CDT Narrative [facility] - 10/29/2023 4:43 AM CDT Vitamin D Status: ?Deficiency ? <20 ? ng/mL ?Insufficiency ?? 20-30 ??ng/mL ?Sufficiency ? 30-100 ng/mL ?Toxicity ? >100 ?ng/mL Michael Pedraza MD LAB - CHEMISTRY JUAN JOSE JENSEN [facility] [address] [place] [address] * (ABNORMAL) BASIC METABOLIC PANEL (CALCIUM TOTAL) (10/29/2023 2:07 AM CDT) Glucose 148(H) 70 - 105 mg/dL 10/29/2023 2:38 AM CDT [facility] Sodium 139 136 - 145 mmol/L 10/29/2023 2:38 AM CDT [facility] Potassium 4.5 3.5 - 5.1 mmol/L 10/29/2023 2:38 AM CDT [facility] Chloride 109(H) 98 - 107 mmol/L 10/29/2023 2:38 AM CDT [facility] CO2 22 22 - 29 mmol/L 10/29/2023 2:38 AM CDT [facility] Calcium 9.0 8.4 - 10.4 mg/dL 10/29/2023 2:38 AM CDT [facility] Anion Gap 8 6 - 16 mmol/L 10/29/2023 2:38 AM CDT [facility] BUN 22 7 - 26 mg/dL 10/29/2023 2:38 AM CDT [facility] Creatinine 0.88 0.57 - 1.11 mg/dL 10/29/2023 2:38 AM CDT [facility] eGFR by CKD-EPI 76(L) >=90 mL/min/1.7 3 m2 10/29/2023 2:38 AM CDT [facility] Blood BLOOD SPECIMEN / Unknown Venipuncture / Unknown 10/29/2023 2:07 AM CDT 10/29/2023 2:12 AM CDT Michael Pedraza MD LAB - CHEMISTRY JUAN JOSE JENSEN [facility] Organization Address City/State/ZIP Co de Phone Number [facility] [address] [place] [address] * ETT LINE PERFORMABLE (10/28/2023 11:10 AM CDT) Narrative Mckenna Oviedo APRN-CRNA - 10/28/2023 11:10 AM CDT Mckenna Oviedo APRN-CRNA ? 10/28/2023 11:11 AM Endotracheal Tube Placement: ? Patient Location: OR. Intubation Event Date/Time: ??10/28/2023 10:37 AM Procedure: intubation ([id number]) Procedure Section: ?? Sedation: under general anesthesia. Indications for Airway Management: ??anesthesia Induction: standard IV Patient Position: ??sniffing Mask Ventilation: easy with oral airway. Blade Type: Chad Blade Size: 3 Laryngoscopy View: grade 1 (full cords) Intubation Adjuncts: stylet Tube: endotracheal tube Placement: oral Tube type: cuff - inflated Tube Size (MM): 7 Depth of Insertion (CM): 22 Measured From: teeth Cuff volume (mL): ??5 Cuff Inflated With: air Number of Attempts: 1. Placement Verified By: direct visualization, bilateral breath sounds, chest auscultation, CO2 monitor and CO2 detector Tube secured with: ??adhesive tape. Dentition unchanged? ??Yes Difficult Airway? ??No. Procedure Start Time: 10/28/2023 10:37 AM. Procedure End Time: 10/28/2023 11:11 AM. Procedure Total Time: 34 ??minutes. Staff Section ? Anesthesia Provider: Mckenna Oviedo APRN-YESENIA, Performed the procedure Anuel English DO GENERAL ANESTHESIA O RDERABLES * EKG 12-LEAD (10/16/2023 11:15 AM CDT) Ventricular Rate 52 BPM [facility] Atrial Rate 52 BPM [facility] P-R Interval 140 ms [facility] QRS Duration ms 86 ms [facility] Q-T Interval ms 428 ms [facility] QTC Calculation (Bezet) 398 ms [facility] Calculated P [place] 28 degrees [facility] Calculated R [place] -21 degrees [facility] Calculated T [place] -12 degrees [facility] Interpretation EKG Sinus bradycardia Cannot rule out Anterior infarct , age undetermined Abnormal ECG No previous ECGs available Confirmed by ANTIONE RAMIREZ MD ([id number]) on 10/17/2023 1:33:40 PM [facility] 10/16/2023 11:1 5 AM CDT 10/17/2023 1:33 PM CDT Joy Loving DO ECG ORDERABLES [facility] * VITAMIN B1 (10/16/2023 11:07 AM CDT) Vitamin B1 Whole Blood 128.6 66.5 - 200.0 nmol/L 10/20/2023 11:06 PM CDT [facility] ([facility]) Blood BLOOD SPECIMEN / Unknown Venipuncture / Unknown 10/16/2023 11:07 AM CDT 10/16/2023 11:17 AM CDT Narrative [facility] ([facility]) - 10/20/2023 11:06 PM CDT Test(s) [id number]-Nyk. B1, Whole Blood was developed and its performance characteristics determined by [facility]. It has not been cleared or approved by the Food and Drug Administration. Performed at: ??01 - [facility] ??[id number] Cooler Deliverer: Erinn Gomez MD, Phone: ??[phone] Michael Pedraza MD LAB - CHEMISTRY [facility]AN JOSE JENSEN [facility]) [address] [place] [address] * (ABNORMAL) COMPREHENSIVE METABOLIC PANEL (10/16/2023 11:07 AM CDT) Glucose 86 70 - 105 mg/dL 10/16/2023 11:52 AM CDT [facility] Sodium 142 136 - 145 mmol/L 10/16/2023 11:52 AM CDT [facility] Potassium 4.4 3.5 - 5.1 mmol/L 10/16/2023 11:52 AM T [facility] Chloride 108(H) 98 - 107 mmol/L 10/16/2023 11:52 AM CDT [facility] CO2 26 22 - 29 mmol/L 10/16/2023 11:52 AM CDT [facility] Calcium 9.4 8.4 - 10.4 mg/dL 10/16/2023 11:52 AM T [facility] Anion Gap 8 6 - 16 mmol/L 10/16/2023 11:52 AM CDT [facility] BUN 21 7 - 26 mg/dL 10/16/2023 11:52 AM CDT [facility] Creatinine 0.87 0.57 - 1.11 mg/dL 10/16/2023 11:52 AM T [facility] Alkaline Phosphatase 44 40 - 150 U/L 10/16/2023 11:52 AM CDT [facility] ALT 14 0 - 55 U/L 10/16/2023 11:52 AM [facility] AST 15 5 - 34 U/L 10/16/2023 11:52 AM CDT [facility] Protein Total 6.6 6.4 - 8.3 gm/dL 10/16/2023 11:52 AM CDT [facility] Albumin 3.5 3.4 - 5.0 gm/dL 10/16/2023 11:52 AM CDT [facility] Bilirubin Total 0.5 0.2 - 1.2 mg/dL 10/16/2023 11:52 AM CDT [facility] eGFR by CKD-EPI 77(L) >=90 mL/min/1.7 3 m2 10/16/2023 11:52 AM CDT [facility] Blood BLOOD SPECIMEN / Unknown Venipuncture / Unknown 10/16/2023 11:07 AM CDT 10/16/2023 11:17 AM CDT Michael Pedraza MD LAB - CHEMISTRY JUAN JOSE JENSEN Performing Organization Address [facility] Co de Phone Number [facility] [address] [place] [address] * (ABNORMAL) VITAMIN B12 (10/16/2023 11:07 AM CDT) Vitamin B12 953(H) 213 - 816 pg/mL 10/16/2023 12:16 PM CDT [facility] Blood BLOOD SPECIMEN / Unknown Venipuncture / Unknown 10/16/2023 11:07 AM CDT 10/16/2023 11:17 AM CDT Michael Pedraza MD LAB - CHEMISTRY ORDRichi JENSEN Performing Organization Address [facility] Co de Phone Number [facility] [address] [place] [address] * HELICOBACTER PYLORI UREASE (STL) (04/04/2023 8:46 AM MANAGER MEETING) Helicobacter pylori Urease Initial Negative Negative 04/05/2023 9:43 AM MANAGER MEETING [facility] Helicobacter pylori Urease Final Negative Negative 04/05/2023 9:43 AM MANAGER MEETING [facility] Comment:This is an appended report. These results have been appended to a previously preliminary verified report. Microbiology GASTRIC ANTRAL BIOPSY SPECIMEN / Unknown 04/04/2023 8:46 AM MANAGER MEETING 04/04/2023 1:24 PM MANAGER MEETING Michael Pedraza MD LAB - MICROBIOLOGY O RDERABLES [facility] [address] [place] [address] * EGD (04/04/2023 8:21 AM MANAGER MEETING) Report Endoscopy POC __ _ Patient Name: Syeda Christian ?Procedure Date: 04/04/2023 8:21 AM ? Date of : 1965 ? Admit Type: Outpatient Age: 58 ? Gender: Female Attending MD: Michael Pedraza MD, ?? __ _ Procedure: ? Upper GI endoscopy Indications: ? Heartburn Providers: ? Michael Pedraza MD (Doctor) Referring MD: ?Hwoard Damon MD (Referring MD) Medicines: ? Monitored Anesthesia Care Complications: ? No immediate complications. __ _ Estimated Blood Loss: ? Estimated blood loss: none. Procedure: ? Pre-Anesthesia Assessment: ? - Prior to the procedure, a History and Physical was ? performed, and patient medications and allergies were ? reviewed. The patient's tolerance of previous ? anesthesia was also reviewed. The risks and benefits ? of the procedure and the sedation options and risks ? were discussed with the patient. All questions were ? answered, and informed consent was obtained. Prior ? Anticoagulants: The patient has taken no anticoagulant ? or antiplatelet agents. ASA Grade Assessment: III - A ? patient with severe systemic disease. After reviewing ? the risks and benefits, the patient was deemed in ? satisfactory condition to undergo the procedure. ? After obtaining informed consent, the endoscope was ? passed under direct vision. Throughout the procedure, ? the patient's blood pressure, pulse, and oxygen ? saturations were monitored continuously. The Endoscope ? was introduced through the mouth, and advanced to the ? second part of duodenum. The upper GI endoscopy was ? accomplished without difficulty. The patient tolerated ? the procedure well. ? Findings: ? The Z-line was regular and was found 36 cm from the incisors. ? Esophagogastric landmarks were identified: the Z-line was found at 36 cm ? and the site of hiatal narrowing was found at 38 cm from the incisors. ? The gastroesophageal flap valve was visualized endoscopically and ? classified as Hill Grade III (minimal fold, loose to endoscope, hiatal ? hernia likely). ? A 2 cm hiatal hernia was present. ? Mucosal changes including ringed esophagus were found in the lower third ? of the esophagus. ? Localized mild inflammation was found in the gastric antrum. Biopsies ? were taken with a cold forceps for Helicobacter pylori testing using ? CLOtest. Estimated blood loss: none. ? The first portion of the duodenum and second portion of the duodenum ? were normal. __ _ ? Impression: ?- Z-line regular, 36 cm from the incisors. ? - Esophagogastric landmarks identified. ? - Gastroesophageal flap valve classified as Hill Grade ? III (minimal fold, loose to endoscope, hiatal hernia ? likely). ? - 2 cm hiatal hernia. ? - Esophageal mucosal changes suggestive of ? eosinophilic esophagitis. ? - Gastritis. Biopsied. ? - Normal first portion of the duodenum and second ? portion of the duodenum. Recommendation: ?- Discharge patient to home. ? - Resume previous diet. ? - Continue present medications. ? - Await pathology results. ? Procedure Code(s): ? --- Professional --- ? 75024, Esophagogastroduode noscopy, flexible, transoral; with biopsy, ? single or multiple ? --- Technical --- ? 90989, Esophagogastroduode noscopy, flexible, transoral; with biopsy, ? single or multiple Diagnosis Code(s): ? --- Professional --- ? K44.9, Diaphragmatic hernia without obstruction or gangrene ? K22.89, Other specified disease of esophagus ? K29.70, Gastritis, unspecified, without bleeding ? R12, Heartburn ? --- Technical --- ? K44.9, Diaphragmatic hernia without obstruction or gangrene ? K22.89, Other specified disease of esophagus ? K29.70, Gastritis, unspecified, without bleeding ? R12, Heartburn CPT copyright 2020 [employer]. All rights reserved. The codes documented in this report are preliminary and upon family law legal assistant review may be revised to meet current compliance requirements. Michael Pedraza _ Michael Pedraza MD 04/04/2023 8:48:09 AM This report has been signed electronically. Number of Addenda: 0 Note Initiated On: 04/04/2023 8:21 AM [facility] 04/04/2023 8:21 AM MANAGER MEETING Narrative Procedure Note Michael Pedraza MD - 04/04/2023 8:48 AM CST EGD completed. Gastritis. Hill 3 valve, EOE, 2 cm HH. Biopsiespending. A full PDF copy of the report with photos is in the results and/or mediatab for your review. Please refer to this for full details of theprocedure. Pt to have Hiatal hernia repair added on to primary procedure Pt to follow up to discuss surgical options Michael Pedraza MD Michael Pedraza MD GI PROCEDURE ORDERAB LES [facility] [place] [address] * FL UGI W AIR CONTRAST (04/01/2023 10:20 AM MANAGER MEETING) Anatomical Region Laterality Modality Abdomen Radiographic Michell ging 04/01/2023 11:0 0 AM MANAGER MEETING Impressions 04/01/2023 1:20 PM MANAGER MEETING IMPRESSION: 1. Unremarkable upper GI examination. No abnormality is identified. > Interpreting Provider: Ayad Araya DO on 04/01/2023 1:20 PM Narrative 04/01/2023 1:20 PM MANAGER MEETING PROCEDURE: ??FL UGI SERIES DATE/TIME OF EXAM: ??04/01/2023 10:36 AM CLINICAL INFORMATION: Preoperative bariatric surgery. COMPARISON: None. TECHNIQUE: Patient ingested effervescent crystals. Fluoroscopic spot and cine images were obtained during the procedure. ??Patient subsequently drank thick and thin barium in various positions. 2 and 20 images including video format. 1 minute 40 seconds of fluoroscopy time. FINDINGS: Esophagus distended normally. No fixed narrowing, mucosal irregularity or annular constricting mass. No generalized esophageal dilation or focal diverticulum. No laryngeal penetration or tracheal aspiration was identified. Normal gastroesophageal junction. No hiatal hernia or gastroesophageal reflux was identified during the examination. Stomach distended appropriately. No rugal fold thickening. The duodenal sweep is unremarkable. No small bowel fold thickening. There is rapid transit to the colon with progression of contrast to the level of the splenic flexure. FLUOROSCOPY DOSE: ??13.01 mGy Reference air kerma (ka,r). Procedure Note Ayad Araya DO - 04/03/2023 PROCEDURE: FL UGI SERIES DATE/TIME OF EXAM: 04/01/2023 10:36 AM CLINICAL INFORMATION: Preoperative bariatric surgery. COMPARISON: None. TECHNIQUE: Patient ingested effervescent crystals. Fluoroscopic spot and cineimages were obtained during the procedure. Patient subsequently drank thickand thin barium in various positions. 2 and 20 images including video format. 1 minute 40 seconds offluoroscopy time. FINDINGS: Esophagus distended normally. No fixed narrowing, mucosal irregularityor annular constricting mass. No generalized esophageal dilation or focal diverticulum. No laryngeal penetration or tracheal aspiration was identified. Normal gastroesophageal junction. No hiatal hernia or gastroesophageal reflux was identified during the examination. Stomach distended appropriately. No rugal fold thickening. The duodenal sweep is unremarkable. No small bowel fold thickening. There is rapid transit to the colon with progression of contrast to the level of the splenic flexure. FLUOROSCOPY DOSE: 13.01 mGy Reference air kerma (ka,r). IMPRESSION: 1. Unremarkable upper GI examination. No abnormality is identified. > Interpreting Provider: Ayad Araya DO on 04/01/2023 1:20 PM Michael Pedraza MD FLUOROSCOPY ORDERABL ES Care Teams Scada Technician Relationship Specialty Start Date End Date Howard Damon MD [address] [place] [address] PCP - General Family Medicine 03/08/23
--- OUTSIDE RECORDS SUMMARY | 2024-04-25 09:30 | XMS_ITS | Encounter Summary ---
Author Organization [facility] Address [address] [place] [address] Phone Care Team Providers Care Block Operator Name Role Phone Howard Damon MD Primary Care Provider Encounter Details Date Type Department Care Team (Late st Contact Info) Description 11/28/2020 11:40 AM CDT Telemedicine [facility] Diabetes and Nutrition Services [address] [facility] [address] [facility] [address] [place] [address] Joy Angeles MD [address] [place], [place] [id number] Weight loss counseling, encounter for (Primary Dx); Metabolic and nutritional disorder; Class 3 severe obesity due to excess calories without serious comorbidity with body mass index (BMI) of 45.0 to 49.9 in adult (HCC) Social History Tobacco Use Types Packs/Day Years Used Date Smoking Tobacco: Never Alcohol Use Standard Drinks/Week Comments Yes 0 (1 standard drink = 0.6 oz pur e alcohol) Comments Unknown Sex and Gender Information Value Date Recorded Sex Assigned at Not on file Legal Sex 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 1 pen 11/28/2020 12/31/2020 documented in this encounter Progress Notes * Joy Angeles MD - 11/28/2020 11:40 AM CDT This was a telemedicine visit with Syeda K Landrybertha alone which took place via Real-time video connection (InTouch, Zoom or similar). During the visit, I was located at home and the patient was located at home in the state of [place]. The patient visit started at 11:45 AM and ended at 12:05 PM. My totalencounter time on 11/28/2020 was 22 minutes which was spent in the activities documented in the note. This includes time spent prior to the visit and after the visit in direct care of the patient. This time does not include time spent in any separately reportable services.. The patient: has been informed that the visit may not be secure and acknowledged the information. The option of participating in a telephone or video visit during the [facility] [place] [address] emergencywas explained to them. After being given an opportunity to ask questions about and discuss this type of visit, they verbally consented to proceeding with the telephone/video visit and understand thatthis service replaces an office visit. Visit #/CC: Medical weight management follow-up. Interval History: Doing well. Weight is down -- 285 lb. Current Diet: LCLG. Has been tracking. Still working on getting enough protein. Weight Loss Medications: Metformin recently stopped by PCP -- pt was concerned because of mom's history of CKD. Physical Activity: Same No Known Allergies Current Outpatient Medications Medication Sig Dispense Refill ??? ascorbic acid (ascorbic acid with jon hips) 500 mg tablet,chewable Take 1 tab by oral route two times daily until finished. 30 0 ??? docusate sodium (COLACE) 100 mg capsule take 1 capsule by oral route twice daily as needed for constipation 30 1 ??? escitalopram (LEXAPRO) 20 mg tablet take 1 tablet by oral route every day 0 0 ??? HYDROcodone-acetaminophen (NORCO) 5-325 mg per tablet take 1-2 tablets by oral route ever 4-6 hours PRN 43 0 ??? meloxicam (MOBIC) 15 mg tablet take 1 tablet by oral route every day 30 1 ??? metoprolol (LOPRESSOR) 50 mg tablet take 1 tablet by oral route 2 times every day with meals 0 0 ??? naproxen (NAPROSYN) 500 mg tablet take 1 tablet by oral route every day with food 90 3 ??? promethazine (PHENERGAN) 25 mg tablet take 1 tablet by oral route every 4 - 6 hours as needed 30 1 No current facility-administered medications for this visit. Medical Conditions Diagnosis ??? Weight loss counseling, encounter for ??? Metabolic and nutritional disorder ??? Primary osteoarthritis of knee ??? Class 3 severe obesity due to excess calories without serious comorbidity with body mass index (BMI) of 45.0 to 49.9 in adult ([facility]) ??? Fatigue Review of Systems Constitutional: Negative for chills, fever and malaise/fatigue. Respiratory: Negative for shortness of breath. Cardiovascular: Negative for chest pain and palpitations. Gastrointestinal: Negative for abdominal pain, nausea and vomiting. Neurological: Negative for headaches. Psychiatric/Behavioral: Negative for depression and suicidal ideas. There were no vitals taken for this visit. Physical Exam Constitutional: No distress. Pulmonary/Chest: Effort normal. No respiratory distress. Neurological: Alert and oriented; normal speech Psychiatric: Mood and affect normal. Assessment and Plan: Weight loss counseling, encounter for Reviewed calorie restriction based on BMR as previously detailed. Reviewed recommendation/goal of >/= 150 minutes/week moderate-intensity aerobic exercise. Asked to keep detailed food diary for at least 1 week and bring to next visit and/or continue tracking on phone. Metabolic and nutritional disorder Reviewed labs with her. Continue low-carb (<150 g/day), low-glycemic diet. Discussed options andwill add GLP-1 analog. Discussed risks, benefits, alternatives, potential side effects. No personalor family history of MTC or MEN2. Reviewed dosing/titration. Referred to websites for additional ins tructions/info/video. Start semaglutide. Reviewed importance of adequate protein intake of 1-1.2 g/kg IBW/day. Class 3 severe obesity due to excess calories without serious comorbidity with body mass index (BMI) of 45.0 to 49.9 in adult ([facility]) Obesity is improving with lifestyle modifications. Commended on weight loss to date and discussed anticipated health benefits/risk reduction with this degree (~5%) of loss. Diet interventions: as noted. Regular aerobic exercise program discussed. Pharmacotherapy as ordered. documented in this encounter Miscellaneous Notes * Assessment & Plan Note - Joy Angeles MD - 11/28/2020 12:24 PM CDT Associated Problem(s): Class 3 severe obesity due to excess calories without serious comorbidity with body mass index (BMI) of 45.0 to 49.9 in adult (HCC) Obesity is improving with lifestyle modifications. Commended on weight loss to date and discussed anticipated health benefits/risk reduction with this degree (~5%) of loss. Diet interventions: as noted. Regular aerobic exercise program discussed. Pharmacotherapy as ordered. * Assessment & Plan Note - Joy Angeles MD - 11/28/2020 12:23 PM CDT Associated Problem(s): Metabolic and nutritional disorder Reviewed labs with her. Continue low-carb (<150 g/day), low-glycemic diet. Discussed options andwill add GLP-1 analog. Discussed risks, benefits, alternatives, potential side effects. No personalor family history of MTC or MEN2. Reviewed dosing/titration. Referred to websites for additional ins tructions/info/video. Start semaglutide. Reviewed importance of adequate protein intake of 1-1.2 g/kg IBW/day. * Assessment & Plan Note - Joy Angeles MD - 11/28/2020 12:22 PM CDT Associated Problem(s): Weight loss counseling, encounter for Reviewed calorie restriction based on BMR as previously detailed. Reviewed recommendation/goal of >/= 150 minutes/week moderate-intensity aerobic exercise. Asked to keep detailed food diary for at least 1 week and bring to next visit and/or continue tracking on phone. documented in this encounter Plan of Treatment Not on file documented as of this encounter Visit Diagnoses Diagnosis Weight loss counseling, encounter for- Primary Metabolic and nutritional disorder Class 3 severe obesity due to excess calories without serious comorbidity with body mass index (BMI) of 45.0 to 49.9 in adult (HCC) documented in this encounter Care Teams Block Operator Relationship Specialty Start Date End Date Howard Damon MD [address] [facility] [address] [place] [address] PCP - General Family Medicine 08/21/18 documented as of this encounter
--- OUTSIDE RECORDS SUMMARY | 2024-04-25 09:30 | XMS_ITS | Encounter Summary ---
Author Organization [facility] Address [address] [place] [address] Care Team Providers Care Multiskill Operator Name Role Phone Howard Damon MD Primary Care Provider [phone] Encounter Details Date Type Department Care Team (Latest Contact Info) Description 08/09/2023 Travel Social History Tobacco Use Types Packs/Day Years Used Date Smoking Tobacco: Never Smokeless Tobacco: Never Alcohol Use Standard Drinks/Week Comments Never 0 (1 standard drink = 0.6 oz pur e alcohol) Sex and Gender Information Value Date Recorded Sex Assigned at Not on file Gender Identity Not on file Sexual Orientation Not on file documented as of this encounter Plan of Treatment Upcoming Encounters Date Type Department Care Team (Late st Contact Info) Description 05/01/2024 1:30 PM TOUR SALES REPRESENTATIVE Office Visit [facility] Health Weight Management Services [address] [place] [address] Melisa Fortune, HYSTER DRIVER-COMPENSATION SPECIALIST [address] [address] 10/27/2024 1:30 PM CDT Office Visit [facility] Weight [facility] [address] [place] [address] Melisa Fortune APRN-COMPENSATION SPECIALIST [address] [address] [address] documented as of this encounter Visit Diagnoses Not on filedocumented in this encounter Care Teams Multiskill Operator Relationship Specialty Start Date End Date Howard Damon MD [address] [place] [address] PCP - General Family Medicine 03/08/23 documented as of this encounter
--- OUTSIDE RECORDS SUMMARY | 2024-04-25 09:30 | XMS_ITS | Encounter Summary ---
Author Organization [facility] Address [address] [facility] [place] [address] Care Team Providers Care Supervisor Crack Off Name Role Phone Howard Damon MD Primary Care Provider [phone] Reason for Visit * Radiology Services (Routine) - Closed Specialty Diagnoses / Procedures Referred By Francineac t Referred To Contact Diagnoses Morbid obesity (HCC) Preop testing BMI 45.0-49.9, adult (HCC) Gastroesophageal reflux disease, unspecified whether esophagitis present Procedures FL UGI W AIR CONTRAST [place] [address] [place] [address] Referral ID Status Reason Start Date Expiration Date Visits Re quested Visits Authorized [id number] Closed 03/08/2023 03/07/2024 1 1 Encounter Details Date Type Department Care Team (Latest Contact Info) Description 04/01/2023 10:00 AM MAJOR APPLIANCE ASSEMBLY SUPERVISOR - 04/01/2023 11:59 PM MAJOR APPLIANCE ASSEMBLY SUPERVISOR Hospital Encounter [facility] Imaging Services - Radiology [id number] [place] [address] [place] [address] [place] [address] Discharge Disposition: Home or Self Care Social History Tobacco Use Types Packs/Day Years Used Date Smoking Tobacco: Never Smokeless Tobacco: Never Sex and Gender Information Value Date Recorded Sex Assigned at Not on file Gender Identity Not on file Sexual Orientation Not on file documented as of this encounter Medications at Time of Discharge Medication Sig Dispensed Refills Start Date End Date escitalopram (Lexapro) 20 MG tablet Take 1 (one) tablet by mouth at bedtime 02/08/2023 gabapentin (Neurontin) 300 MG capsule at bedtime 12/23/2022 vitamin D, ergocalciferol, (Drisdol) 1.25 MG (90559 UT) capsule Take 1 (one) capsule by mouth every 7 days Mondays02/27/2023 meloxicam (Mobic) 15 MG tablet Take 1 (one) tablet by mouth once daily 02/08/2023 10/29/2023 metoprolol succinate XL 24hr (Toprol XL) 25 MG tablet Take 1 (one) tablet by mouth at bedtime 01/19/2023 10/29/2023 pantoprazole EC (Protonix) 40 MG tablet Take 1 (one) tablet by mouth at bedtime 02/20/2023 11/29/2023 documented as of this encounter Plan of Treatment Upcoming Encounters Date Type Department Care Team (Late st Contact Info) Description 05/01/2024 1:30 PM MAJOR APPLIANCE ASSEMBLY SUPERVISOR Office Visit [facility] Management Services [address] [place] [address], [address] [address] Melisa Fortune, ANIMAL CONTROL OFFICER-CORPORATE RECYCLING MANAGER [address] [address] 10/27/2024 1:30 PM CDT Office Visit [facility] [address] [place] [address], [address] [address] Melisa Fortune, ANIMAL CONTROL OFFICER-CORPORATE RECYCLING MANAGER [address] [place] [address] documented as of this encounter Procedures Procedure Name Priority Date/Time Associated Diagnosis Comments FL UGI W AIR CONTRAST Routine 04/01/2023 10:20 AM MAJOR APPLIANCE ASSEMBLY SUPERVISOR Morbid obesity (HCC) Preop testing BMI 45.0-49.9, adult (HCC) Gastroesophageal reflux disease, unspecified whether esophagitis present documented in this encounter Results * FL UGI W AIR CONTRAST (04/01/2023 10:20 AM MAJOR APPLIANCE ASSEMBLY SUPERVISOR) Anatomical Region Laterality Modality Abdomen Radiographic Michell ging 04/01/2023 11:0 0 AM MAJOR APPLIANCE ASSEMBLY SUPERVISOR Impressions 04/01/2023 1:20 PM MAJOR APPLIANCE ASSEMBLY SUPERVISOR IMPRESSION: 1. Unremarkable upper GI examination. No abnormality is identified. > Interpreting Provider: Ayad Araya DO on 04/01/2023 1:20 PM Narrative 04/01/2023 1:20 PM MAJOR APPLIANCE ASSEMBLY SUPERVISOR PROCEDURE: ??FL UGI SERIES DATE/TIME OF EXAM: [...] PM Michael Pedraza MD FLUOROSCOPY ORDERABL ES documented in this encounter Visit Diagnoses Diagnosis Morbid obesity (HCC) Morbid obesity Preop testing Preoperative examination, unspecified BMI 45.0-49.9, adult (HCC) Body Mass Index 45.0-49.9, adult Gastroesophageal reflux disease, unspecified whether esophagitis present documented in this encounter Care Teams Supervisor Crack Off Relationship Specialty Start Date End Date Howard Damon MD [address] [place] [address] PCP - General Family Medicine 03/08/23 documented as of this encounter
--- OUTSIDE RECORDS SUMMARY | 2024-04-25 09:30 | XMS_ITS | Encounter Summary ---
Author Organization [facility] Address [address] [place] [address] Care Team Providers Care Data Keyer Name Role Phone Howard Damon MD Primary Care Provider [phone] Reason for Visit * Reason Onset Date Comments Encounter Opened In Error 03/26/2023 Encounter Details Date Type Department Care Team ([facility] Contact Info) Description 03/26/2023 Telephone [facility] Weight Management Services [address] [facility] [address] [place] [address] Michael Pedraza MD [address] [place] [address] Encounter Opened In Error Social History Tobacco Use Types Packs/Day Years Used Date Smoking Tobacco: Never Smokeless Tobacco: Never Sex and Gender Information Value Date Recorded Sex Assigned at Not on file Gender Identity Not on file Sexual Orientation Not on file documented as of this encounter Miscellaneous Notes * Telephone Encounter - Daphne Winters - 03/26/2023 2:29 PM CST Syeda Gino encounter was opened in error. Please disregard any activity associated with this encounter. GER CASE MANAGEMENT documented in this encounter Plan of Treatment Upcoming Encounters Date Type Department Care Team (Late Contact Info) Description 05/01/2024 1:30 PM MANAGER CASE MANAGEMENT Office Visit [facility] [address] [facility] [place] [address] Melisa Fortune, DIAGNOSTIC RADIOLOGIST-HOTEL FRONT DESK CLERK [address] [place] [phone] 10/27/2024 1:30 PM CDT Office Visit [facility] Weight Management [facility] [address] [facility] [place] [address] Melisa Fortune, DIAGNOSTIC RADIOLOGIST-HOTEL FRONT DESK CLERK [address] [place] [phone] documented as of this encounter Visit Diagnoses Diagnosis ERRONEOUS ENCOUNTER--DISREGARD- Primary documented in this encounter Care Teams Data Keyer Relationship Specialty Start Date End Date Howard Damon MD [address] [place] [address] PCP - General Family Medicine 03/08/23 documented as of this encounter
--- OUTSIDE RECORDS SUMMARY | 2024-04-25 09:30 | XMS_ITS | Encounter Summary ---
Author Organization [facility] Address [address] [place] [address] Care Team Providers Care Jail Manager Name Role Phone Howard Damon MD Primary Care Provider [phone] Reason for Visit * Auth/Cert (Routine) Specialty Diagnoses / Procedures Referred By Contac t Referred To Contact Diagnoses Morbid (severe) obesity due to excess calories (HCC) Diaphragmatic hernia without obstruction or gangrene Procedures [place] LAP GASTR RSTRCIV PROC; GASTR BYPS & THEODORA-EN-Y [place] LAP PARAESOPHAG VAMSI REPAIR Referral ID Status Reason Start Date Expiration Date Visits Re quested Visits Authorized [id number] 1 1 Encounter Details Date Type Department Care Team (Late st Contact Info) Description 10/28/2023 10:24 AM CDT Anesthesia Event [facility] - Perioperative Surgery [address] [place] [address] Anuel English, DO [address] [place] [id number] Mckenna Oviedo APRN-AGENCY DIRECTOR [address] [place] [address] Anesthesia Record Procedure Summary Procedure Name Responsible Anesthesiologist Anesthesia Start Time Anesthesia Stop Time LAPAROSCOPIC GASTRIC BYPASS, LAPAROSCOPIC HIATAL HERNIA REPAIR (Abdomen) Anuel English DO 10/28/23 1024 10/28/23 1259 Events Date Time Event Comment 10/28/2023 0850 1024 An Start 1028 An Start Data 1031 PT Reassessment 1033 Stop ABX 1035 An Induction 1037 An Intubation 1052 Timeout Anesthesia part icipated in timeout at the time documented in the record by nursing. 1248 An Emergence 1248 Extubation 1249 Electnc Sig This record is electronically signed by the providers listed under staff. 1249 an stop data 1249 ANPTO2 1259 An Stop Meds Name Total midazolam 2 mg/2mL injection 2 mg fentaNYL 100 mcg/2mL injection 100 mcg lidocaine 1% (PF) injection (50 mg/5mL) 50 mg propofol 200 mg/20mL injection 200 mg rocuronium 50 mg/5mL injection 80 mg ondansetron 4 mg/2mL injection 8 mg dexamethasone 4 mg/mL injection 8 mg ceFAZolin (Ancef) 3 g in 0.9% NaCl IV 10 0 mL IVPB 3 g sugammadex 200 mg/2mL injection 200 mg lactated ringers infusion 1,000 mL * Agents Name Exp. Sevoflurane Exp. N2O O2 Flow - Auxiliary Insp. Sevoflurane * Blood No blood administrations on file. Lines, Drains, and Airways Type Details Placement Removal Peripheral IV Date: 10/28/23; Time : 0900; Orientation: Left; Location: Wrist; Gauge: 18 G 10/28/23 0900 by Luis M Smith RN 10/29/23 1228 by Lauren Novak RN ETT Date: 10/28/23; Time : 1037; Placed By: CAMI Abel; Vent: easy with oral airway mask; Induction: Standard IV; Blade Type: Chad; Blade Size: 3; Laryngoscopy View: Grade 1 (full cords); Intubation Adjuncts: Stylet; Tube: Endotracheal Tube; Placement: Oral; Tube Type: Cuffed-inflated; Tube Size(mm): 7 MM; Depth of Insertion: 22 CM; Measured From: teeth; Attempts: 1; Cuff Infated: Air; Cuff Vol(mL): 5 mL; Verified By: Direct visualization, Bilateral breath sounds, Chest Auscultation, CO2 Monitor, CO2 Detector 10/28/23 1037 by Mckenna Oviedo APRN-CRNA 10/28/23 1248 by Mckenna Oviedo APRN-CRNA Procedural Site (Incision) 10/28/23; 1052; Abdomen; Laparoscopic; trocar sites; 10/29/23; 205710/28/23 1052 by Jennifer Garcia RN 10/29/232057 by Generic, Auto Release documented in this encounter Social History Tobacco [...] and heating? Not hard at all 10/28/2023 [facility] [place] [facility] - Occupational Stress [...] place to sleep or slept in a fdc (including now)? No 10/28/2023 Sex and Gender [...] No 10/28/2023 documented as of this encounter Progress Notes * Mckenna Oviedo APRN-CRNA - 10/28/2023 12:59 PM CDT ANESTHESIA POSTOP EVALUATION NOTE Procedure: LAPAROSCOPIC GASTRIC BYPASS, LAPAROSCOPIC HIATAL HERNIA REPAIR (Abdomen) Syeda Christian is a 58 year old female Patient Vitals for the past 6 hrs: BP Temp Pulse Resp SpO2 Pain Rating Score #1 Pain Scale/Observation 10/28/23 0854 125/86 98.9 ??F (37.2 ??C) 70 16 95 % 0 N Anesthesia Type: general ETT * No Diagnosis Codes entered * Mental Status: awake, alert and oriented Neuro Status: No numbness, tingling or visual disturbances Respiratory Function: natural Cardiac Function: stable Postop Pain: adequate Postop Hydration: adequate Postop Nausea: none Assessment: no apparent anesthetic complications, patient tolerated procedure well and no evidence of recall Patient Disposition: Release from Anesthesia Care NOTABLE EVENTS: No notable events documented. * Anuel English DO - 10/28/2023 8:49 AM CDT ANESTHESIA PREOPERATIVE EVALUATION NOTE Procedure: LAPAROSCOPIC GASTRIC BYPASS, LAPAROSCOPIC HIATAL HERNIA REPAIR (Abdomen) Vitals: No data found. LMP: No LMP recorded. Patient is postmenopausal. OB Status: Postmenopausal ANESTHESIA PRE-EVALUATION NOTE Physical Exam: Orientation X3 Airway/Mallampati Score: III Mouth Opening Distance: 3 fingerwidths Neck ROM: full TM Distance: > 3 FB Teeth: normal and chipped Heart: normal - S1 S2 Lungs: clear to ausculation bilaterally Abdomen Exam: obese Review of Systems: History of anesthetic complications: No Sleep Apnea Risk: Yes, Large neck circumference Malignant Hyperthermia: No GERD: No Recent Chest Pain: No Shortness of Breath: No AICD/Pacemaker: No Renal Disease: No Diagnostic Tests: Lab(s) reviewed: Yes. ANESTHESIA PLAN ASA Score: 3 NPO Status: No solids since midnight and No liquids within 2 hours Anesthesia Plan: general ETT Planned Induction: intravenous Planned Postop Destination: PACU Anesthetic plan was discussed with: patient Anesthetic Plan discussion was: Consented The patient's procedural Anesthetic Plan was discussed with the anesthesiologist. BMI, Height, Weight Tobacco History Estimated body mass index is 45.92 kg/m?? as calculated from the following: Height as of 10/16/23: 1.65 m (5' 4.96 ). Weight as of 10/16/23: 125 kg (275 lb 9.6 oz). Social History Tobacco Use Smoking Status Never Smokeless Tobacco Never Alcohol History Drug History Social History Substance and Sexual Activity Alcohol Use Never Social History Substance and Sexual Activity Drug Use Never Outpatient Medications: Inpatient Medications: No outpatient medications have been marked as taking for the 10/28/23 encounter (Hospital Encounter). Current Facility-Administered Medications Medication Dose Last Admin ceFAZolin 3 g insulin regular (HumuLIN R; NovoLIN R) 100 units/mL subcutaneous injection 0-6 Units lactated ringers New Bag at 10/28/23 0848 lidocaine 0.2 mL scopolamine 1 patch 1 patch at 10/28/23 0847 And scopolamine patch placement confirmation Allergies: No Known Allergies Relevant Problems Problem List: There are no problems to display for this patient. 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 Patient is postmenopausal. Postmenopausal OB History No obstetric history on file. Covid Vaccine: Lab Results: Recent Labs Component Name 10/16/23 1107 WBC 8.5 RBC 4.55 HCT 40.7 HGB 13.1 PLTCOUNT 250 MCV 89.5 MCH 28.8 MCHC 32.2 MPV 10.0 Recent Labs Component Name 10/16/23 1107 SODIUM 142 POTASSIUM 4.4 CALCIUM 9.4 CHLORIDE 108* CO2 26 GLUCOSE 86 BUN 21 CREATININE 0.87 No results found for requested labs within last 120 days. Recent Labs Result Component Current Result Albumin 3.5 (10/16/2023) Alkaline Phosphatase 44 (10/16/2023) ALT 14 (10/16/2023) Anion Gap 8 (10/16/2023) AST 15 (10/16/2023) Bilirubin Total 0.5 (10/16/2023) eGFR by CKD-EPI 77 (L) (10/16/2023) documented in this encounter Procedure Notes * Mckenna Oviedo APRN-CRNA - 10/28/2023 11:10 AM CDTAssociated Order(s): ETT Placement Endotracheal Tube Placement: Patient Location: OR. Intubation Event Date/Time: 10/28/2023 10:37 AM Procedure: intubation (09075) Procedure Section: Sedation: under general anesthesia. Indications for Airway Management: anesthesia Induction: standard IV Patient Position: sniffing Mask Ventilation: easy with oral airway. Blade Type: Chad Blade Size: 3 Laryngoscopy View: grade 1 (full cords) Intubation Adjuncts: stylet Tube: endotracheal tube Placement: oral Tube type: cuff - inflated Tube Size (MM): 7 Depth of Insertion (CM): 22 Measured From: teeth Cuff volume (mL): 5 Cuff Inflated With: air Number of Attempts: 1. Placement Verified By: direct visualization, bilateral breath sounds, chest auscultation, CO2 monitor and CO2 detector Tube secured with: adhesive tape. Dentition unchanged? Yes Difficult Airway? No. Procedure Start Time: 10/28/2023 10:37 AM. Procedure End Time: 10/28/2023 11:11 AM. Procedure Total Time: 34 minutes. Staff Section Anesthesia Provider: Mckenna Oviedo APRN-CRNA, Performed the procedure documented in this encounter Miscellaneous Notes * Anesthesia Transfer of Care - Mckenna Oviedo YUSEF-AGENCY DIRECTOR - 10/28/2023 12:55 PM CDT ANESTHESIA TRANSFER OF CARE NOTE Today's Date: 10/28/2023 Date of : 1965 Patient: Syeda Christian Procedure(s): LAPAROSCOPIC GASTRIC BYPASS, LAPAROSCOPIC HIATAL HERNIA REPAIR Surgeon(s): Primary: Michael Pedraza MD Preop Diagnosis: * No Diagnosis Codes entered * Pre-op Meds (From admission, onward) Start Stop Status Route Frequency Ordered 10/28/23 0830 acetaminophen (Tylenol) tablet 1,000 mg 10/28/23 0847 Completed PO ONCE 10/28/23 0822 10/28/23 1248 albuterol-ipratropium (Duo-Neb) nebulizer solution 3 mL -- Verified IN EVERY 4 HOURS PRN 10/28/23 1248 10/28/23 0830 ceFAZolin (Ancef) 3 g in 0.9% NaCl IV 100 mL IVPB 10/28/23 1048 Completed IV ONCE 10/28/23 0822 10/28/23 0830 celecoxib (CeleBREX) capsule 400 mg 10/28/23 0848 Completed PO PRE-OP ONCE 10/28/23 0822 10/28/23 1042 dexAMETHasone (Decadron) injection -- Sent IV PRN 10/28/23 1102 10/28/23 1248 diphenhydrAMINE (Benadryl) injection 25 mg -- Verified IV ONCE PRN 10/28/23 1248 10/28/23 0830 famotidine (Pepcid) injection 20 mg 10/28/23 0848 Completed IV PRE-OP ONCE 10/28/23 0822 10/28/23 1030 fentaNYL (PF) (Sublimaze) injection -- Sent IV PRN 10/28/23 1102 10/28/23 1248 fentaNYL (PF) (Sublimaze) injection 25 mcg -- Verified IV EVERY 10 MIN PRN 10/28/23 1248 10/28/23 1248 fentaNYL (PF) (Sublimaze) injection 50 mcg -- Verified IV EVERY 10 MIN PRN 10/28/23 1248 10/28/23 0830 heparin injection 5,000 Units 10/28/23 0847 Completed SC PRE-OP ONCE 10/28/23 0822 10/28/23 1248 hydrALAZINE (Apresoline) injection 5 mg -- Verified IV POST-OP MULTIPLE 10/28/23 1248 10/28/23 0822 insulin regular human (HumuLIN R; NovoLIN R) 100 UNIT/ML injection 0-6 Units -- Verified IV EVERY 2 HOURS PRN 10/28/23 0822 10/28/23 1248 insulin regular human (HumuLIN R; NovoLIN R) 100 UNIT/ML injection 0-6 Units -- Verified IV ONCE PRN 10/28/23 1248 10/28/23 1248 labetalol (Normodyne; Trandate) injection 5 mg -- Verified IV POST-OP MULTIPLE 10/28/23 1248 10/28/23 0830 lactated ringers infusion 10/27/24 0829 Dispensed IV CONTINUOUS 10/28/23 0822 10/28/23 1300 lactated ringers infusion -- Dispensed IV CONTINUOUS 10/28/23 1248 10/28/23 1035 lidocaine PF (Xylocaine MPF) 1 % injection -- Sent IV PRN 10/28/23 1102 10/28/23 0830 lidocaine PF (Xylocaine MPF) 1 % injection 0.2 mL 10/28/23 2029 Verified INFILTRATION PRE-OP ONCE 10/28/23 0822 10/28/23 1026 midazolam (Versed) injection -- Sent IV PRN 10/28/23 1101 10/28/23 1248 morphine injection 2 mg -- Verified IV EVERY 15 MIN PRN 10/28/23 1248 10/28/23 1248 naloxone (Narcan) injection 0.04 mg -- Verified IV POST-OP MULTIPLE 10/28/23 1248 10/28/23 1239 ondansetron (Zofran) injection -- Sent IV PRN 10/28/23 1258 10/28/23 1248 ondansetron (Zofran) injection 4 mg 10/28/23 1257 Completed IV ONCE PRN 10/28/23 1248 10/28/23 1248 prochlorperazine (Compazine) injection 10 mg -- Verified IV ONCE PRN 10/28/23 1248 10/28/23 1035 propofol (Diprivan) injection -- Sent IV PRN 10/28/23 1102 10/28/23 1121 rocuronium (Zemuron) injection -- Sent IV PRN 10/28/23 1124 10/28/23 0830 scopolamine (Transderm-Scop) 1 patch See Hyperspace for full Linked Orders Report. 10/31/23 0847 Dispensed TD PRE-OP ONCE 10/28/23 0822 10/28/23 0900 scopolamine patch placement confirmation See Hyperspace for full Linked Orders Report. 10/27/24 0859 Verified TD 2 TIMES DAILY 10/28/23 0822 10/28/23 1239 sugammadex (Bridion) injection -- Sent IV PRN 10/28/23 1258 * No Diagnosis Codes entered * . No Known Allergies Vitals: No data found. Lines, Drains, and Airways Type Details Placement Removal Peripheral IV Date: 10/28/23; Time: 0900; Orientation: Left; Location: Wrist; Gauge: 18 G; Locals: Injectable 10/28/23 0900 by Luis M Smith RN ETT Date: 10/28/23; Time: 1037; Placed By: CAMI Abel; Vent: easy with oral airway mask; Induction: Standard IV; Blade Type: Chad; Blade Size: 3; Laryngoscopy View: Grade 1 (fullcords); Intubation Adjuncts: Stylet; Tube: Endotracheal Tube; Placement: Oral; Tube Type: Cuffed-inflated; Tube Size(mm): 7 MM; Depth of Insertion: 22 CM; Measured From: teeth; Attempts: 1; Cuff Infated: Air; Cuff Vol(mL): 5 mL; Verified By: Direct visualization, Bilateral breath sounds, Chest Auscultation, CO2 Monitor, CO2 Detector 10/28/23 1037 by Mckenna Oviedo APRN-CRNA 10/28/23 1248 by Mckenna Oviedo APRN-CRNA Intraprocedure I/O Totals Intake lactated ringers infusion 1000.00 mL ceFAZolin (Ancef) 3 g in 0.9% NaCl IV 100 mL IVPB 100.00 mL Total Intake 1100 mL Patient Transfer Location: PACU Transport Airway: spontaneous respirations and supplemental O2 Complications: None Handoff Given? Yes Checklist or Protocol - The rogers handoff elements that must be included in the transfer of care checklist include: 1. Identification of patient. 2. Identification of responsible practitioner (PACU nurse or advanced practitioner). 3. Discussion of pertinent medical history. 4. Discussion of the surgical/procedure course (procedure, reason for surgery, procedure performed). 5. Intraoperative anesthetic management and issue/concerns. 6. Expectations/Plans for the early post-procedure period. 7. Opportunity for questions and acknowledgement of understanding of report from the receiving PACUteam. CAMI Abel documented in this encounter Plan of Treatment Upcoming Encounters Date Type Department Care Team (Late st Contact Info) Description 05/01/2024 1:30 PM [employer] Office Visit [facility] [address] [place] [address], [address] [place] [id number] Melisa Fortune APRN-AFTER SCHOOL COUNSELOR [address] [address] [address] [address] [place] [address] 10/27/2024 1:30 PM CDT Office Visit [facility] [address] [place] [address], [address] [place] [address] Melisa Fortune APRN-AFTER SCHOOL COUNSELOR [address] [facility] [address] [address] [place] [address] documented as of this encounter Procedures Procedure Name Priority Date/Time Associated Diagnosis Comments ENDOTRACHEAL TUBE NOTE Routine 10/28/2023 11:10 AM CDT documented in this encounter Results * ETT LINE PERFORMABLE (10/28/2023 11:10 AM CDT) Narrative Mckenna Oviedo APRN-CRNA - 10/28/2023 11:10 AM CDT Mckenna Oviedo APRN-CRNA ? 10/28/2023 11:11 AM Endotracheal Tube Placement: ? Patient Location: OR. Intubation Event Date/Time: ??10/28/2023 10:37 AM Procedure: intubation (45915) Procedure Section: ?? Sedation: under general anesthesia. [...] Anuel English DO GENERAL ANESTHESIA O RDERABLES documented in this encounter Visit Diagnoses Not on filedocumented in this encounter Administered Medications Inactive Administered Medications - up to 3 most recent administrations Medication Order MAR Action Action Date Dose Rate Site ceFAZolin (Ancef) 3 g in 0.9% NaCl IV 100 mL IVPB 3 g, at 200 mL/hr, Intravenous, ONCE, 1 dose, On Sat10/28/23 at 0830, Administer??within 60 minutes??before surgical incision to ensure adequate antibiotic concentration at surgical sites at the time of incision.??Antibiotic infusion must be completed ZERO-TEN minutes??prior to incision, Indication for anti-infective therapy: Surgical prophylaxis, Pre-op $ New Bag/Syringe 10/28/2023 10:48 AM CDT 3 g dexAMETHasone (Decadron) injection Intravenous, PRN, Starting on Sat10/28/23 at 1042, Until Sat10/28/23 at 1259, Anesthesia Intra-op $ Given 10/28/2023 10:42 AM CDT 8 mg fentaNYL (PF) (Sublimaze) injection Intravenous, PRN, Starting on Sat10/28/23 at 1030, Until Sat10/28/23 at 1259, Anesthesia Intra-op $ Given 10/28/2023 11:40 AM CDT 50 mcg $ Given 10/28/2023 10:30 AM CDT 50 mcg lactated ringers infusion at 20 mL/hr, Intravenous, CONTINUOUS, Starting on Sat10/28/23 at 0830, Until Sat10/28/23 at 1442, Pre-op Restarted 10/28/2023 10:23 AM CDT $ New Bag/Syringe 10/28/2023 8:48 AM CDT 20 mL/ hr lidocaine PF (Xylocaine MPF) 1 % injection Intravenous, PRN, Starting on Sat10/28/23 at 1035, Until Sat10/28/23 at 1259, Anesthesia Intra-op $ Given 10/28/2023 10:35 AM CDT 50 mg midazolam (Versed) injection Intravenous, PRN, Starting on Sat10/28/23 at 1026, Until Sat10/28/23 at 1259, Anesthesia Intra-op $ Given 10/28/2023 10:26 AM CDT 2 mg ondansetron (Zofran) injection Intravenous, PRN, Starting on Sat10/28/23 at 1239, Until Sat10/28/23 at 1259, Anesthesia Intra-op $ Given 10/28/2023 12:39 PM CDT 8 mg propofol (Diprivan) injection Intravenous, PRN, Starting on Sat10/28/23 at 1035, Until Sat10/28/23 at 1259, Anesthesia Intra-op $ Given 10/28/2023 10:35 AM CDT 200 mg rocuronium (Zemuron) injection Intravenous, PRN, Starting on Sat10/28/23 at 1121, Until Sat10/28/23 at 1259, Anesthesia Intra-op $ Given 10/28/2023 12:08 PM CDT 10 mg $ Given 10/28/2023 11:21 AM CDT 20 mg $ Given 10/28/2023 10:35 AM CDT 50 mg sugammadex (Bridion) injection Intravenous, PRN, Starting on Sat10/28/23 at 1239, Until Sat10/28/23 at 1259, Anesthesia Intra-op $ Given 10/28/2023 12:39 PM CDT 200 mg documented in this encounter Care Teams Jail Manager Relationship Specialty Start Date End Date Howard Damon MD [address] [place] [address] PCP - General Family Medicine 03/08/23 documented as of this encounter
--- OUTSIDE RECORDS SUMMARY | 2024-04-25 09:30 | XMS_ITS | Encounter Summary ---
Author Organization [facility] Address [address] [place] [address] Care Team Providers Care Cook Fast Food Name Role Phone Howard Damon MD Primary Care Provider [phone] Encounter Details Date Type Department Care Team (Latest Contact Info) Description 10/16/2023 10:27 AM CDT - 10/16/2023 11:59 PM CDT Hospital Encounter [facility] [address] [place] [address] [place] [address] [place] [address] Discharge Disposition: Home or Self [...] Sign Reading Time Taken Comments Blood Pressure 109/77 10/16/2023 11:24 AM CDT Pulse 58 10/16/2023 11:24 AM CDT Temperature 36.5 ??C (97.7 ??F) 10/16/2023 11:24 AM C DT Respiratory Rate - - Oxygen Saturation 98% 10/16/2023 11:24 AM CDT Inhaled Oxygen Concentration - - Weight - - Height - - Body Mass Index - - documented in this encounter Discharge Instructions * Patient Instructions* Jessi Ferrell RN - 10/16/2023 11:33 AM CDT Date of surgery: 10/28/23 Arrival Time: 830am Time of surgery: 1030am You will be notified if your arrival time changes Please report to the [facility] Building. Take the elevators across from outpatient registration to the second floor, exit left out of the elevator and enter the Outpatient Surgery waiting room on the left hand side. Sign in and be seated. Bring a copy of your living will or power of county attorney form if we do not have a current copy. Day of surgery instructions Do not eat or drink anything after midnight unless directed by your surgeon (no gum, mints, or candy). You may brush your teeth, swish and spit. No tobacco products after midnight and avoid alcohol 24 hours prior to surgery. If you use a CPAP/BiPAP machine, please bring it with you on the day of surgery (for overnight stay). If you use home oxygen continuously or intermittently, please bring your home O2 tank with you to the hospital. Do not bring or wear jewelry (including body piercings). Leave valuables at home Bring your eyeglasses. Do not wear contacts. Take a shower using the antibacterial soap, following the instructions given. Dress in clean clothing appropriate to wear after your surgery. Arrange for a responsible adult to bring you to the hospital, and to drive you home. 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 Leave weapons at home (pocket knives, sharps, guns, pepper spray, etc.). If you are having any problems on the day of surgery, please call the Ambulatory Surgery desk at [phone]. When you arrive to the hospital the day of your surgery you will enter the [facility]. Masking optional and no longer required. VISITOR GUIDELINES: Visiting hours once/if you are admitted to the hospital after surgery are from 8AM-8PM. PREOPERATIVE CHLORHEXIDINE (CHG) ? BATHING INSTRUCTIONS Before surgery, you can play an important role in your own health. Because skin is not sterile,we need to be sure that your skin is as free of germs as possible before surgery. You can reduce the number of germs on your skin by carefully washing before surgery. Following these instructions will help you be sure that your skin is clean before surgery IMPORTANT: You will need to shower with a special soap called Chlorohexidine gluconate (CHG) ?. A common brand name for this soap is Hibiclens, but any brand is acceptable to use. The soap will come in a liquid. This may be purchased at any local pharmacy. If you are allergic to Chlorohexidine use Dial antibacterial soap for your shower/bath. Shower or bathe with CHG? the night before and the morning of surgery. Do not shave the area of your body where surgery will be performed. Wash your hair usual with your normal shampoo. Rinse your hair and body thoroughly after you shampoo remove all shampoo residues. Apply the CHG? to the entire body ONLY FROM THE NECK DOWN. Do not use CHG? near your eyes or ears to avoid permanent injury to those areas. Wash thoroughly, paying special attention to the area where surgery will be performed. Turn the water off to prevent rinsing the soap off too soon. Wash your body gently for five (5) minutes. Do not scrub your skin too hard. Do not wash with your regular soap after CHG? is used. Turn the water back on and rinse your body thoroughly. Pat yourself dry with a clean, soft towel. Do not use lotion, cream, or powder. Make sure clean linens are on your bed the night prior to surgery. Wear clean clothes. Repeat this process the morning of surgery using ONLY CHG soap. * Not to be used by people allergic to Chlorhexidine INCENTIVE SPIROMETER The following provides an overview of how you will use the spirometer after your surgery. Our goal is for you to become familiar with usage prior to your surgery date, as this improves the ability touse properly. Please attempt to use 2-3 times daily in the week leading up to your surgery date. DO NOT bring this spirometer with you the day of surgery, as you will be provided a new one after your surgery. Using your incentive spirometer after surgery will help your lungs clear and will help keep your lungs active throughout the recovery process, as if you were performing your daily activities. How to use the incentive spirometer: 1. Sit on the edge of your bed if possible, or sit up as far as you can in bed. 2. Hold the incentive spirometer in an upright position. 3. Place the mouthpiece in your mouth and seal your lips tightly around it. 4. Breathe in slowly and as deeply as possible. Notice the blue piston rising toward the top of thecolumn. The blue indicator on the right should float between the two blue arrows. 5. Hold your breath as long as possible. Then exhale slowly and allow the piston to fall to fall tothe bottom of the column. 6. Rest for a few seconds and repeat steps one to 5 at least 10 times every hour. 7. Position the blue indicator on the left side of the spirometer to show your best effort. Use theindicator as a goal to work toward during each slow deep breath. 8. After each set of 10 deep breaths. Cough to be sure your lungs are clear. If you have an incision, support your incision when coughing by placing a pillow firmly against it. 9. Once you are able to get out of bed safely, take frequent walks and practice the cough. Medication Instructions for Surgery Current Outpatient Medications Medication Sig Note Dispense Refill cetirizine (ZyrTEC) 10 MG tablet escitalopram (Lexapro) 20 MG tablet Take 1 (one) tablet by mouth at bedtime gabapentin (Neurontin) 300 MG capsule at bedtime meloxicam (Mobic) 15 MG tablet Take 1 (one) tablet by mouth once daily 10/16/2023: Stop 10 days before surgery metoprolol succinate XL 24hr (Toprol XL) 25 MG tablet Take 1 (one) tablet by mouth at bedtime pantoprazole EC (Protonix) 40 MG tablet Take 1 (one) tablet by mouth at bedtime vitamin D, ergocalciferol, (Drisdol) 1.25 MG (20326 UT) capsule Take 1 (one) capsule by mouth every7 days Mondays If you are taking any NSAIDs (Advil, Ibuprofen, Naproxen, Aleve, Motrin, Meloxicam, etc.), please stop 10 days prior to surgery as these are considered blood thinning medications. documented in this encounter Medications at Time [...] 10/29/2023 vitamin D, ergocalciferol, (Drisdol) 1.25 MG (00275 UT) capsule Take 1 (one) capsule by mouth every 7 days Mondays02/27/2023 magnesium hydroxide (Milk Of Magnesia) 400 MG/5ML suspension Take 15 mL by mouth as needed 10/29/2023 11/04/2023 magnesium hydroxide (Milk Of Magnesia) 400 MG/5ML suspension Take 15 mL by mouth as needed for Constipation 10/29/2023 11/04/2023 meloxicam (Mobic) 15 MG tablet Take 1 (one) tablet by mouth once daily 02/08/2023 10/29/2023 metoprolol succinate XL 24hr (Toprol XL) 25 MG tablet Take 1 (one) tablet by mouth at bedtime 01/19/2023 10/29/2023 ondansetron, disintegrating, (Zofran ODT) 4 MG tablet Take 1 (one) tablet by mouth every 6 hours as needed for Nausea/Vomiting Allow tablet to dissolve on the tongue 20 tablet 10/29/2023 11/29/2023 pantoprazole EC (Protonix) 40 MG tablet Take 1 (one) tablet by mouth at bedtime 02/20/2023 11/29/2023 senna-docusate (Senokot-S) 8.6-50 MG tablet Take 1 (one) tablet by mouth 2 times daily as needed for Constipation 10/29/2023 11/04/2023 documented as of this encounter Plan of Treatment Upcoming Encounters Date Type Department Care Team (Late st Contact Info) Description 05/01/2024 1:30 PM HARDWOOD FLOOR SANDER Office Visit [facility] [address] [place] [address], [place] [id number] Melisa Fortune, CO DIRECTOR-WORKERS COMPENSATION SPECIALIST [address] [facility] [address] [place] [address] 10/27/2024 1:30 PM CDT Office Visit [facility] [address] [facility], [address] [place], [place] [id number] Melisa Fortune APRN-WORKERS COMPENSATION SPECIALIST [address] [facility] [address] [place] [address] documented as of this encounter Procedures Procedure Name Priority Date/Time Associated Diagnosis Comments EKG 12-LEAD Routine 10/16/2023 11:15 AM CDT Preop examination VITAMIN B1 Routine 10/16/2023 11:07 AM CDT Preop examination CBC W AUTO DIFFERENTIAL Routine 10/16/2023 11:07 AM CDT Preop examination COMPREHENSIVE METABOLIC PANEL Routine 10/16/2023 11:07 AM CDT Preop examination VITAMIN B12 Routine 10/16/2023 11:07 AM CDT Preop examination documented in this encounter Results * EKG 12-LEAD (10/16/2023 11:15 AM CDT) Ventricular Rate 52 BPM [facility] Atrial Rate 52 BPM [facility] P-R Interval 140 ms [facility] QRS Duration ms 86 ms [facility] Q-T Interval ms 428 ms [facility] QTC Calculation (Bezet) 398 ms [facility] Calculated P [place] 28 degrees [facility] Calculated R [place] -21 degrees [facility] Calculated T [place] -12 degrees [facility] Interpretation EKG Sinus bradycardia Cannot rule out Anterior infarct , age undetermined Abnormal ECG No previous ECGs available Confirmed by ANTIONE RAMIREZ MD ([id number]) on 10/17/2023 1:33:40 PM [facility] 10/16/2023 11:1 5 AM CDT 10/17/2023 1:33 PM CDT Joy Radha Louis DO ECG ORDERABLES [facility] * (ABNORMAL) COMPREHENSIVE METABOLIC PANEL (10/16/2023 11:07 AM CDT) Glucose 86 70 - 105 mg/dL 10/16/2023 11:52 AM CDT [facility] Sodium 142 136 - 145 mmol/L 10/16/2023 11:52 AM CDT [facility] Potassium 4.4 3.5 - 5.1 mmol/L 10/16/2023 11:52 AM CDT [facility] Chloride 108(H) 98 - 107 mmol/L 10/16/2023 11:52 AM CDT [facility] CO2 26 22 - 29 mmol/L 10/16/2023 11:52 AM CDT [facility] Calcium 9.4 8.4 - 10.4 mg/dL 10/16/2023 11:52 AM CDT [facility] Anion Gap 8 6 - 16 mmol/L 10/16/2023 11:52 AM CDT [facility] BUN 21 7 - 26 mg/dL 10/16/2023 11:52 AM CDT [facility] Creatinine 0.87 0.57 - 1.11 mg/dL 10/16/2023 11:52 AM CDT [facility] Alkaline Phosphatase 44 40 - 150 U/L 10/16/2023 11:52 AM CDT [facility] ALT 14 0 - 55 U/L 10/16/2023 11:52 AM CDT [facility] AST 15 5 - 34 U/L 10/16/2023 11:52 AM CDT [facility] Protein Total 6.6 6.4 - 8.3 gm/dL 10/16/2023 11:52 AM CDT [facility] Albumin 3.5 3.4 - 5.0 gm/dL 10/16/2023 11:52 AM CDT [facility] Bilirubin Total 0.5 0.2 - 1.2 mg/dL 10/16/2023 11:52 AM CDT [facility] eGFR by CKD-EPI 77(L) >=90 mL/min/1.7 3 m2 10/16/2023 11:52 AM CDT [facility] Blood BLOOD SPECIMEN / Unknown Venipuncture / Unknown 10/16/2023 11:07 AM CDT 10/16/2023 11:17 AM CDT Michael Pedraza MD LAB - CHEMISTRY [facility] JOSE [facility]ENS[facility] Organization Address City/State/ZIP Co de Phone Number [facility] [address] [place] [address] * (ABNORMAL) CBC W AUTO DIFFERENTIAL (10/16/2023 11:07 AM CDT) WBC 8.5 4.0 - 10.7 x10E9/L 10/16/2023 11:27 AM CDT [facility] RBC Count 4.55 3.90 - 5.20 x10E12/L 10/16/2023 11:27 AM CDT [facility] Hemoglobin 13.1 11.9 - 15.8 g/dL 10/16/2023 11:27 AM CDT [facility] Hematocrit 40.7 34.8 - 46.1 % 10/16/2023 11:27 AM CDT [facility] MCV 89.5 80.0 - 98.0 fL 10/16/2023 11:27 AM CDT [facility] MCH 28.8 26.7 - 33.6 pg 10/16/2023 11:27 AM CDT [facility] MCHC 32.2 31.7 - 36.3 g/dL 10/16/2023 11:27 AM CDT [facility] RDW-CV 13.8 11.3 - 14.8 % 10/16/2023 11:27 AM CDT [facility] Platelet Count 250 150 - 420 x10E9/L 10/16/2023 11:27 AM CDT [facility] MPV 10.0 7.8 - 11.4 fL 10/16/2023 11:27 AM CDT [facility] Neutrophil % 78.3(H) 41.0 - 74.0 % 10/16/2023 11:27 AM CDT [facility] Lymphocyte % 12.5(L) 17.0 - 47.0 % 10/16/2023 11:27 AM CDT [facility] Monocyte % 5.7 3.0 - 11.0 % 10/16/2023 11:27 AM CDT [facility] Eosinophil % 2.2 0.0 - 7.0 % 10/16/2023 11:27 AM CDT [facility] Basophil % 0.9 0.0 - 1.6 % 10/16/2023 11:27 AM CDT [facility] Immature Granulocytes % 0.4 0.0 - 1.0 % 10/16/2023 11:27 AM CDT [facility] Neutrophil Absolute 6.63 1.60 - 7.50 x10E9/L 10/16/2023 11:27 AM CDT [facility] Lymphocyte Absolute 1.06 1.00 - 4.40 x10E9/L 10/16/2023 11:27 AM CDT [facility] Monocyte Absolute 0.48 0.15 - 1.00 x10E9/L 10/16/2023 11:27 AM CDT [facility] Eosinophil Absolute 0.19 0.00 - 0.60 x10E9/L 10/16/2023 11:27 AM CDT [facility] Basophil Absolute 0.08 0.00 - 0.13 x10E9/L 10/16/2023 11:27 AM CDT [facility] Blood BLOOD SPECIMEN / Unknown Venipuncture / Unknown 10/16/2023 11:07 AM CDT 10/16/2023 11:17 AM CDT Michael Pedraza MD LAB - HEMATOLOGY ORD ERABLES Performing Organization Address City/State/[facility] Co de Phone Number [facility] [address] [place] [address] * (ABNORMAL) VITAMIN B12 (10/16/2023 11:07 AM CDT) [facility] Vitamin B12 953(H) 213 - 816 pg/mL 10/16/2023 12:16 PM CDT [facility] Blood BLOOD SPECIMEN / Unknown Venipuncture / Unknown 10/16/2023 11:07 AM CDT 10/16/2023 11:17 AM CDT Michael Pedraza MD LAB - CHEMISTRY JUAN JOSE JENSEN [facility] [address] [place] [id number] * VITAMIN B1 (10/16/2023 11:07 AM CDT) Vitamin B1 Whole Blood 128.6 66.5 - 200.0 nmol/L 10/20/2023 11:06 PM CDT [facility] ([facility]) Blood BLOOD SPECIMEN / Unknown Venipuncture / Unknown 10/16/2023 11:07 AM CDT 10/16/2023 11:17 AM CDT Narrative [facility] ([facility]) - 10/20/2023 11:06 PM CDT Test(s) [id number]. B1, Whole Blood was developed and its performance characteristics determined by [facility]. It has not been cleared or approved by the Food and Drug Administration. Performed at: ??01 - [facility] ??[id number] Immersion Metalcleaner: Erinn Gomez MD, Phone: ??[phone] Michael Pedraza MD LAB - CHEMISTRY JUAN JOSE JENSEN Performing Organization Address [facility] Co de Phone Number [facility] ([facility]) [address] [place] [address] documented in this encounter Visit Diagnoses Diagnosis Preop examination- Primary Preoperative examination, unspecified documented in this encounter Care Teams Cook Fast Food Relationship Specialty Start Date End Date Howard Damon MD [address] [place] [address] PCP - General Family Medicine 03/08/23 documented as of this encounter
--- OUTSIDE RECORDS SUMMARY | 2024-04-25 09:30 | XMS_ITS | Encounter Summary ---
Author Organization [facility] Address [address] [place] [address] Care Team Providers Care Provider Relations Manager Name Role Phone Howard Damon MD Primary Care Provider [phone] Encounter Details Date Type Department Care Team (Latest Contact Info) Description 05/17/2023 Travel Social History Tobacco Use Types Packs/Day [...] st Contact Info) Description 05/01/2024 1:30 PM FERMENTATION OPERATOR Office Visit [facility] [address] [place] [address] Melisa Fortune, MACHINE CANDLE MOLDER-TELEPHONE OPERATORS SUPERVISOR [address] [address] [address] 10/27/2024 1:30 PM CDT Office Visit [facility] [address] [place] [address] Melisa Fortune APRN-TELEPHONE OPERATORS SUPERVISOR [address] [address] [address] documented as of this encounter Visit Diagnoses Not on filedocumented in this encounter Care Teams Provider Relations Manager Relationship Specialty Start Date End Date Howard Damon MD [address] [place] [address] PCP - General Family Medicine 03/08/23 documented as of this encounter
--- OUTSIDE RECORDS SUMMARY | 2024-04-25 09:30 | XMS_ITS | Clinical Summary ---
Author Organization [facility] Care Team Providers Care Service Tech/Welder Name Role Phone Unavailable Primary Care Provider Unavailabl e Medications escitalopram (LEXAPRO) 20 MG Tablet Take 1 Tab by mouth daily. 30 Tab 5 03/18/2015 Active Social History Tobacco Use Types Packs/Day Years Used Date Smoking Tobacco: Never Assessed Comments Unknown Sex and Gender Information Value Date Recorded Sex Assigned at Not on file Legal Sex Female 10:13 PM CDT Gender Identity Not on file Sexual Orientation Not on file Plan of Treatment Health Maintenance Due Date Last Done Comments Hepatitis C Virus (HCV) Screening 1965 TdaP Immunization 1964 Hepatitis B Immunization (1 of 3 - 19+ 3-dose series) 1983 Pap Smear 1985 Cervical Cancer Screening (CCS) 1994 HPV/Cotest 1994 Colonoscopy 2009 Colorectal Cancer Screening 2009 Cologuard 2014 Immunochemical Fecal Occult Blood 2014 Mammogram 2014 Zoster Immunization (1 of 2) 2014 SARS-COV-2 Immunization ( season) 2023 Influenza Immunization (Seas on Ended) 2024 Meningococcal Immunization (ACWY) Aged Out No longer eligible based on patient's age to complete this topic Pneumococcal Immunization Combined Aged Out No longer eligible based on patient's age to complete this topic Rotavirus Immunization Aged Out No lo nger eligible based on patient's age to complete this topic
--- OUTSIDE RECORDS SUMMARY | 2024-04-25 09:30 | XMS_ITS | Encounter Summary ---
Author Organization [facility] Address [address] [place] [address] Care Team Providers Care Technical Internship Name Role Phone Howard Damon MD Primary Care Provider [phone] Reason for Visit * Reason Comments Diet Encounter Details Date Type Department Care Team (Latest Contact Info) Description 03/08/2023 12:15 PM CDT Clinical Support [facility] [address] [place] [address] [phone] Morbid obesity (HCC) Social History Tobacco Use Types Packs/Day Years Used Date Smoking Tobacco: Never Smokeless Tobacco: Never Sex and Gender Information Value Date Recorded Sex Assigned at Not on file Gender Identity Not on file Sexual Orientation Not on file documented as of this encounter Last Filed Vital Signs Vital Sign Reading Time Taken Comments Blood Pressure - - Pulse - - Temperature - - Respiratory Rate - - Oxygen Saturation - - Inhaled Oxygen Concentration - - Weight 131 kg (288 lb 12.8 oz) 03/08/2023 11:41 AM CDT Height 165 cm (5' 4.96 ) 03/08/2023 11:41 AM CDT Body Mass Index 48.12 03/08/2023 11:41 AM CDT documented in this encounter Progress Notes * Alona Garcia RD/PATIENCE - 03/08/2023 11:40 AM CDT Weight Management Medical Nutrition Therapy Session 1 Date: 03/08/2023 Patient: Syeda Christian Date of : 1965 (58 year old) PCP Physician: Howard Damon MD Referring Physician: Michael Pedraza MD Assessment: Pt planning RYGB or sleeve-dependent on testing. She Does not smoke and very rarely drinks alcohol, does not drink soda. She drinks 16 oz of coffee with creamer-aware to find a sugar freeversion which she plans to try out various ones. Water intake is about 40 oz but she is aware of 64oz goal- discussed questions surrounding using the sugar free packets. She has a protein shake she likes but does not meet the criteria by one carb gram. Discussed other options such as Premier, Fairlife, and Core Power, along with protein powders. She does not typically eat breakfast-discussed using a protein shake to replace for the missed meal. She does not like ugandan yogurt, avocado, oatmeal, eggs, chacho, rice. She likes most fruits and vegetables-as long as they are raw and not cooked. She uses unsweet vanilla almond milk. Discussed rogers diet principles, balanced bariatric plate, provided bariatric nutrition guide. B: none, coffee L: protein bar, low sugar/fat yogurt D: something fixed at home or picked up Past Medical History: Diagnosis Date ??? GERD (gastroesophageal reflux disease) ??? Osteoarthritis Diets patient has tried: Calorie Counting and Medications(Phentermine)- was going to try Ozempic but was not covered under insurance. Patient participates in exercise: 0 times per week Patient is participating in the following exercise program: ADLs-walks the dogs around the block and walking around the house-she needs a knee replacement which makes it difficult to walk for long periods of time Pertinent Nutrition Medications: Reviewed Pertinent Nutrition Labs: Reviewed Clinical Data: Height: 165 cm (5' 4.96 ) Weight: 131 kg (288 lb 12.8 oz) BMI (Calculated): 48.12 Diagnostic Statement: Obesity related to excess energy intake and decreased physical activity AEB elevated BMI. Interventions: Bariatric Nutrition Guide provided and reviewed, including: previous food records, proper eating habits/behavior modification tips, adequate hydration, no alcohol/carbonation, protein requirements, recommended protein supplements, portion control and goals Materials Provided: Bariatric Nutrition Guide, Food and Activity Guide, Support Group Schedule, High Protein Liquid Supplement Handout, Fitness Center Membership Information and Vitamin Option Handout Behavior and Lifestyle Modifications Discussed: Eat 3 meals daily with 1-2 high protein snacks as needed Choose low fat/low sugar items Eat 60-80 gm protein per day Eliminate caloric beverages, carbonated beverages and limit caffeine Perform 30 minutes of cardiovascular exercise per day, most days of the week as able and approved by physician Do not graze between meals Incorporate fruits and vegetables Include whole grain foods Take 15-20 minutes to eat meals Reduce stress and emotional eating Portion control Recipe modifications/cooking methods Monitoring: Pt encouraged to call RD with questions and/or concerns. Pt verbalizes understanding of expectation of gradual weight loss or weight maintenance prior to surgery. Evaluation of Overall Compliance Potential: Good Pt very pleasant, receptive, making positive changes, verbalized understanding of nutrition education. Asked appropriate questions prn. Pt has reviewed pre-operative weight management contract, and verbalizes understanding of program expectations: yes Goals for this month: 1. Start looking for sugar free creamer 2. Add a protein shake to breakfast Nutritional Review ?? Cleared, no additional RD visits required ___ ?? Not cleared, additional RD visit(s) required ___ ?? Continue with Medically Managed Diet visits _x__ ?? Bariatric Case Conference review required ___ Session Information Session date: 03/08/2023 Session total minutes: [address]/PATIENCE documented in this encounter Plan of Treatment Upcoming Encounters Date Type Department Care Team (Late st Contact Info) Description 05/01/2024 1:30 PM RETAIL BUSINESS ANALYST Office Visit [facility] [address] [place] [address], [address] [id number] Melisa Fortune, YUSEF-MANUFACTURING TEST ENGINEER [id number] [place] [phone] 10/27/2024 1:30 PM CDT Office Visit [facility] [address] [place] [address], [address] [place] [address] Melisa Fortune APRN-MANUFACTURING TEST ENGINEER [id number] [place] [phone] documented as of this encounter Visit Diagnoses Diagnosis Morbid obesity (HCC)- Primary Morbid obesity documented in this encounter Care Teams Technical Internship Relationship Specialty Start Date End Date Howard Damon MD [address] [place] [address] PCP - General Family Medicine 03/08/23 documented as of this encounter
--- OUTSIDE RECORDS SUMMARY | 2024-04-25 09:30 | XMS_ITS | Encounter Summary ---
Author Organization [facility] Address [address] [facility] [place] [address] Care Team Providers Care Poly Area Supervisor Name Role Phone Howard Damon MD Primary Care Provider [phone] Encounter Details Date Type Department Care Team (Latest Contact Info) Description 03/08/2023 Travel Social History Tobacco Use Types Packs/Day Years Used Date Smoking Tobacco: Never Smokeless Tobacco: Never Sex and Gender Information Value Date Recorded Sex Assigned at Not on file Gender Identity Not on file Sexual Orientation Not on file documented as of this encounter Plan of Treatment Upcoming Encounters Date Type Department Care Team (Late st Contact Info) Description 05/01/2024 1:30 PM RESIDENT SERVICE COORDINATOR Office Visit [facility] [address] [place] [phone] Melisa Fortune, NAIL SETTER-COMPUTER METEOROLOGIST [address] [phone] 10/27/2024 1:30 PM CDT Office Visit [facility] [id number] [place] [address], [address] [address] Melisa Fortune, NAIL SETTER-COMPUTER METEOROLOGIST [address] [phone] documented as of this encounter Visit Diagnoses Not on filedocumented in this encounter Care Teams Poly Area Supervisor Relationship Specialty Start Date End Date Howard Damon MD [address] [place], [place] [id number] PCP - General Family Medicine 03/08/23 documented as of this encounter
--- OUTSIDE RECORDS SUMMARY | 2024-04-25 09:30 | XMS_ITS | Encounter Summary ---
Author Organization [facility] Address [address] [place] [address] Phone Care Team Providers Care Pipe Finisher Name Role Phone Howard Damon MD Primary Care Provider Encounter Details Date Type Department Care Team (Late st Contact Info) Description 09/29/2020 10:20 AM CDT Telemedicine [facility] [address] [facility] [address] [place] [address] Joy Angeles MD [address] [place], [place] [id number] Weight loss counseling, encounter for (Primary Dx); Metabolic and nutritional disorder; Class 3 severe obesity due to excess calories without serious comorbidity with body mass index (BMI) of 45.0 to 49.9 in adult (CMS/HCC); Fatigue, unspecified type; Family history of diabetes mellitus Social History Tobacco Use Types Packs/Day Years Used Date Smoking Tobacco: Never Alcohol Use Standard Drinks/Week Comments Yes 0 (1 standard drink = 0.6 oz pur e alcohol) Comments Unknown Sex and Gender Information Value Date Recorded Sex Assigned at Not on file Legal 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 Gender Identity Not on file Sexual Orientation Not on file documented as of this encounter Last Filed Vital Signs Vital Sign Reading Time Taken Comments Blood Pressure - - Pulse - - Temperature - - Respiratory Rate - - Oxygen Saturation - - Inhaled Oxygen Concentration - - Weight 135.6 kg (299 lb) 09/29/2020 10:34 AM CDT Height 170.2 cm (5' 7 ) 09/29/2020 10:47 AM CDT Body Mass Index 46.83 09/29/2020 10:34 AM CDT documented in this encounter Patient Instructions * Patient Instructions* Joy Angeles MD - 09/29/2020 10:20 AM CDT Food: Your daily energy expenditure is about 2600 kilocalories per day. Calorie restriction - 1900 kcal/day to lose approximately 1 lb per week; 1100 kcal/day to lose about 2 lb per week Carbohydrates - no more than 150 grams/day Protein requirement - at least 75 grams/day [x] Low glycemic [] Low sodium (< 2000 mg/day) [] Low fat [] Mediterranean [x] Diabetic Physical Activity: Medication: Other: Please call [phone] to schedule a follow up appointment in 1-2 months. Both virtual andin-office visits are available. Labs should be done in the AM, fasting. Orders are in the system for [facility]. Food/Activity Tracking Apps -- My Fitness Pal; Lose It; Pyramid Analytics Calorie Quinn - Book, Pili, Website (www.International Youth Organization) Christina Martinez - ???The Complete Book of Food Counts?? ARE YOU INTERESTED IN PARTICIPATING IN A WEIGHT LOSS STUDY? The [facility] at the [facility] conducts a wide array of clinical studies evaluating approaches to diet, nutrition and disease prevention. We are currently recruiting subjects for multiple clinical trials. If you are interested please call [phone]. Useful Websites: [] [facility] Surgery [facility] -- https://weightlosssurgery.[facility] [place] [place]/ -- clickon ???Am I a Candidate?? and then ???Attending a seminar?? [] [facility]ariat[facility] Endoscopy Program -- https://gastro.[facility] [place]/patient-care/bariatric-endoscopy/ [] [place] Diabetes Association - www.diabetes.org * search for ???glycemic index?? , ???protein sources?? , ???diabetes superfoods?? and more [] [place] [employer] - www.health.[place].edu ??? A Good Guide to Good Carbs -- the Glycemic Index ??? Glycemic Index for 60+ Foods ??? https://www.[facility] er.[place].edu/nutritionsource/healthy-weight/diet-reviews/ [] Up to Date - Current, reliable information on a variety of topics https://www.[employer]B ([place]/contents/yegrb-vg-qglqblug/patient-education [] [facility] Body Weight Commanding Officer Motorized Squad -- https://www.niddk.nih.gov/health-information/weight-management/eldj-sbcoiy-icmwl er [] Bearch resources https://www.Radialogica.ConnectToHome/MyPlate https://www.Simpirica Spine.gov/media/blog//qpxuxpy-ulqbby-ubpudn https://www.fns.usda.gov/cnpp/jpolzob-nvvewnhxil-aiwjgkmuh Https://www.Radialogica.gov/myplatekitchen https://www.fda.gov/food/gpq-yfekyqxjp-zqalt-label/nhu-vankewcqkr-ohg-use-nutrit xmj-lywcl-oeivl [] Cookbook - ???Good and Cheap: Eat Well on $4/Day?? ; Ayaka Israel https://www.DataParenting/cookbooks/ Meal Prep/Delivery Services ??? Pure Plates -- https://Advanced Accelerator Applications/ ??? Fit Flavors -- https://Infogram.MashON/ ??? Metabolic Meals -- https://www.PROVENTIX SYSTEMSals.MashON/ documented in this encounter Progress Notes * Joy Angeles MD - 09/29/2020 10:20 AM CDT This was a telemedicine visit with Syeda sanabria which took place via Real-time video connection (Chicisimouch, Zoom or similar). During the visit, I was located at home and the patient was located at home in the [facility]. The patient visit started at 10:25 AM and ended at 11:05 AM. My totalencounter time on 09/29/2020 was 45 minutes which was spent in the activities [...] a telephone or video visit during the [facility] [place] [address] emergencywas explained to them. After being given an opportunity to ask questions about and discuss this type of visit, they verbally consented to proceeding with the telephone/video visit and understand thatthis service replaces an office visit. CC: Wants to lose weight in order to improve current health conditions and prevent development of new problems. Has been unsuccessful or had weight regain with prior attempts at weight loss. Referredby orthopedic surgeon -- needs to get down to 250-260 lb in order to have knee replacement. See scanned new patient information/history packet for additional details. Medical, family histories reviewed and updated. Weight history, eating habits, physical activity, sleep history all reviewed. Weight History: Normal weight/similar to peers as a child. Started to gain weight/struglle with herweight after her first at age 19. Gained 60/75/30 lb with pregnancies (2nd was twins), noGDM. Takes metformin for PCOS. Current weight is her highest -- has been at or close to this weightfor a few years. Previous Diets/Weight Loss Programs: see packet Current/Past Weight Loss Medications: Physical Activity/Exercise: No routine exercise -- in significant part limited by pain. Surgery planned: Current Outpatient Medications Medication Sig Dispense Refill [...] No current facility-administered medications for this visit. No Known Allergies Patient Active Problem List Diagnosis ??? Weight loss counseling, encounter for ??? Metabolic and nutritional disorder ??? Primary osteoarthritis of knee ??? Class 3 severe obesity due to excess calories without serious comorbidity with body mass index (BMI) of 45.0 to 49.9 in adult (CMS/HCC) ??? Fatigue Past Medical History: Diagnosis Date ??? HX OTHER MEDICAL abnormal heartbeat Past Surgical History: Procedure Laterality Date ??? SECTION 1990 section ??? HIP ARTHROPLASTY Right 2010 Hip arthroplasty ??? OTHER SURGICAL HISTORY cmc arthroplasty No family history on file. Social History Tobacco Use Smoking Status Never Smoker Social History Substance and Sexual Activity Alcohol Use Yes The patient-completed Review of Systems was reviewed and was scanned as an attachment to this encounter. Not rested in the AM -- says she only snores when she has a cold. Wakes 1-2 times to use BR. Cough -- chronic, persistent -- has been told it is due to acid reflux. Heartburn has been very well-controlled with pantoprazole -- only has Sx with very spicy food; cough has not improved with PPI. Cough worse when she is hot; sometimes at night. Rapid HR -- Holter years ago -- heart races when she is stressed, etc. Ht 170.2 cm (5' 7 ) Wt 135.6 kg (299 lb) BMI 46.83 kg/m?? Physical Exam Constitutional: Well-developed, well-nourished, and in no distress. HENT: Head: Normocephalic. Eyes: Conjunctivae are normal. Pulmonary/Chest: Effort normal. No respiratory distress. Neurological: Alert and oriented to person, place, and time. Normal speech; CN grossly intact Skin: No rash noted. Psychiatric: Mood and affect normal. Assessment and Plan: Calculated Energy Needs Using Equations Weight Used for Equation Calculations (RD Determined): 135.6 kg (299 lb) Height: 170.2 cm (5' 7 ) [place]- [place] Jeor Equation (Overweight or Obese Patients): 1978 [place] Equation: 1985 Activity Factor: 1.3 Total Energy Needs using [place]-St. Jeor: 2572.7 Total Energy Needs using [place]: 2581.8 Weight loss counseling, encounter for .Discussed that significant health benefits/risk reduction may be seen with even 5% weight loss. Discussed that weight loss will require calorie deficit. Calculated basal metabolic rate and estimatedtotal energy expenditure; discussed 500-1000 kcal/day deficit to lose 1-2 lb per week. Asked to keep detailed food diary for at least 1 week and bring to next visit. Discussed relatively small, although significant, role of exercise in weight loss; greater importance in weight maintenance as shown in Look Ahead study and National Weight Control Registry. Discussed recommendation/goal for 150 minutes per week moderate- intensity aerobic exercise. Metabolic and nutritional disorder Labs. Discussed increased risk for DM in setting of obesity and FHx DM. Discussed insulin resistance including effect on weight and risk for progression to diabetes. Recommended low-carb, low-glycemic diet; choose whole grains and avoid more highly processed carbohydrates. Discussed potential benefits of this w/r/t gut microbiome. Referred to ADA and Hidden Radio websites for additional information on topics including glycemic index/carbohydrate choices, protein sources. Reviewed importance of adequate protein intake of 1-1.2 g/kg IBW/day. Primary osteoarthritis of knee Discussed potential for diminished pain, improved function and reduced progression with weight loss. Class 3 severe obesity due to excess calories without serious comorbidity with body mass index (BMI) of 45.0 to 49.9 in adult (CMS/[facility]) Obesity is unchanged. General weight loss/lifestyle modification strategies discussed (elicit support from others; identify saboteurs; non-food rewards, etc). Diet interventions: as noted. Informal exercise measures discussed, e.g. taking stairs instead of elevator. Regular aerobic exercise program discussed. More detailed recommendations pending review of labs, food record. Fatigue Labs. Consider sleep study. documented in this encounter Miscellaneous Notes * Assessment & Plan Note - Joy Angeles MD - 09/29/2020 11:00 AM CDT Associated Problem(s): Fatigue Labs. Consider sleep study. * Assessment & Plan Note - Joy Angeles MD - 09/29/2020 10:55 AM CDT Associated Problem(s): Class 3 severe obesity due to excess calories without serious comorbidity with body mass index (BMI) of 45.0 to 49.9 in adult (HCC) Obesity is unchanged. General weight loss/lifestyle modification strategies discussed (elicit support from others; identify saboteurs; non-food rewards, etc). Diet interventions: as noted. Informal exercise measures discussed, e.g. taking stairs instead of elevator. Regular aerobic exercise program discussed. More detailed recommendations pending review of labs, food record. * Assessment & Plan Note - Joy Angeles MD - 09/29/2020 10:53 AM CDT Associated Problem(s): Primary osteoarthritis of knee Discussed potential for diminished pain, improved function and reduced progression with weight loss. * Assessment & Plan Note - Joy Angeles MD - 09/29/2020 10:52 AM CDT Associated Problem(s): Metabolic and nutritional disorder Labs. Discussed increased risk for DM in setting of obesity and FHx DM. Discussed insulin resistance including effect on weight and risk for progression to diabetes. Recommended low-carb, low-glycemic diet; choose whole grains and avoid more highly processed carbohydrates. Discussed potential benefits of this w/r/t gut microbiome. Referred to ADA and [employer] websites for additional information on topics including glycemic index/carbohydrate choices, protein sources. Reviewed importance of adequate protein intake of 1-1.2 g/kg IBW/day. * Assessment & Plan Note - Joy Angeles MD - 09/29/2020 10:51 AM CDT Associated Problem(s): Weight loss counseling, encounter for .Discussed that significant health benefits/risk reduction may be seen with even 5% weight loss. Discussed that weight loss will require calorie deficit. Calculated basal metabolic rate and estimatedtotal energy expenditure; discussed 500-1000 kcal/day deficit to lose 1-2 lb per week. Asked to keep detailed food diary for at least 1 week and bring to next visit. Discussed relatively small, although significant, role of exercise in weight loss; greater importance in weight maintenance as shown in Look Ahead study and National Weight Control Registry. Discussed recommendation/goal for 150 minutes per week moderate- intensity aerobic exercise. documented in this encounter Plan of Treatment Not on file documented as of this encounter Procedures Procedure Name Priority Date/Time Associated Diagnosis Comments THYROID FUNCTION CASCADE Routine 10/01/2020 10:45 AM CDT Metabolic and nutritional disorder Class 3 severe obesity due to excess calories without serious comorbidity with body mass index (BMI) of 45.0 to 49.9 in adult ([facility]) Fatigue, unspecified type Family history of diabetes mellitus VITAMIN D 25 HYDROXY Routine 10/01/2020 10:45 AM CDT Metabolic and nutritional disorder Class 3 severe obesity due to excess calories without serious comorbidity with body mass index (BMI) of 45.0 to 49.9 in adult ([facility]) Fatigue, unspecified type Family history of diabetes mellitus INSULIN, TOTAL Routine 10/01/2020 10:45 AM CDT Metabolic and nutritional disorder Class 3 severe obesity due to excess calories without serious comorbidity with body mass index (BMI) of 45.0 to 49.9 in adult ([facility]) Fatigue, unspecified type Family history of diabetes mellitus CBC WITHOUT DIFFERENTIAL Routine 10/01/2020 10:45 AM CDT Metabolic and nutritional disorder Class 3 severe obesity due to excess calories without serious comorbidity with body mass index (BMI) of 45.0 to 49.9 in adult ([facility]) Fatigue, unspecified type Family history of diabetes mellitus HEMOGLOBIN A1C Routine 10/01/2020 10:45 AM CDT Metabolic and nutritional disorder Class 3 severe obesity due to excess calories without serious comorbidity with body mass index (BMI) of 45.0 to 49.9 in adult ([facility]) Fatigue, unspecified type Family history of diabetes mellitus FOLATE Routine 10/01/2020 10:45 AM CDT Metabolic and nutritional disorder Class 3 severe obesity due to excess calories without serious comorbidity with body mass index (BMI) of 45.0 to 49.9 in adult (CMS/HCC) Fatigue, unspecified type Family history of diabetes mellitus FERRITIN Routine 10/01/2020 10:45 AM CDT Metabolic and nutritional disorder Class 3 severe obesity due to excess calories without serious comorbidity with body mass index (BMI) of 45.0 to 49.9 in adult ([facility]) Fatigue, unspecified type Family history of diabetes mellitus VITAMIN B12 Routine 10/01/2020 10:45 AM CDT Metabolic and nutritional disorder Class 3 severe obesity due to excess calories without serious comorbidity with body mass index (BMI) of 45.0 to 49.9 in adult ([facility]) Fatigue, unspecified type Family history of diabetes mellitus LIPID PANEL Routine 10/01/2020 10:45 AM CDT Metabolic and nutritional disorder Class 3 severe obesity due to excess calories without serious comorbidity with body mass index (BMI) of 45.0 to 49.9 in adult ([facility]) Fatigue, unspecified type Family history of diabetes mellitus COMPREHENSIVE METABOLIC PANEL Routine 10/01/2020 10:45 AM CDT Metabolic and nutritional disorder Class 3 severe obesity due to excess calories without serious comorbidity with body mass index (BMI) of 45.0 to 49.9 in adult ([facility]) Fatigue, unspecified type Family history of diabetes mellitus documented in this encounter Results * CBC without differential (10/01/2020 10:45 AM CDT) WBC 8.1 3.8 - 10.8 Thousand/uL [facility] RBC, POC 4.32 3.80 - 5.10 Million/uL [facility] Hgb 12.4 11.7 - 15.5 g/dL [facility] Hct 38.1 35.0 - 45.0 % [facility] MCV 88.2 80.0 - 100.0 fL [facility] MCH 28.7 27.0 - 33.0 pg [facility] MCHC 32.5 32.0 - 36.0 g/dL [facility] Rdw 13.7 11.0 - 15.0 % [facility] Platelets 300 140 - 400 Thousand/uL [facility] MPV 10.3 7.5 - 12.5 fL [facility] Blood specimen (specimen) 10/01/2020 10:45 AM CDT 10/01/2020 10:53 AM CDT Narrative [facility] - 10/04/2020 12:12 PM CDT FASTING:YES FASTING: YES Joy Angeles MD LAB BLOOD ORDERABLES Fin al Result Performing Organization Address [facility] Co de Phone Number [facility] [address] [place] [address] * Ferritin (10/01/2020 10:45 AM CDT) [facility] Ferritin 31 16 - 232 ng/mL [facility] Blood specimen (specimen) 10/01/2020 10:45 AM CDT 10/01/2020 10:53 AM CDT Narrative [facility] - 10/04/2020 12:12 PM CDT FASTING:YES FASTING: YES Joy Angeles MD LAB BLOOD ORDERABLES Fin al Result Performing Organization Address [facility] Co de Phone Number [facility] [address] [place] [address] * Folate (10/01/2020 10:45 AM CDT) Folate, Serum 11.3 ng/mL [facility] Comment: ? Reference Range ? Low: ? <3.4 ? Borderline: ?3.4-5.4 ? Normal: ?>5.4 Blood specimen (specimen) 10/01/2020 10:45 AM CDT 10/01/2020 10:53 AM CDT Narrative [facility] - 10/04/2020 12:12 PM CDT FASTING:YES FASTING: YES Joy Angeles MD LAB BLOOD ORDERABLES Fin al Result Performing Organization Address [place] de Phone Number [facility] [address] [place] [address] * TSH reflex to free T4 (10/01/2020 10:45 AM CDT) [facility] TSH 1.60 0.40 - 4.50 mIU/L [facility] Blood specimen (specimen) 10/01/2020 10:45 AM CDT 10/01/2020 10:53 AM CDT Narrative [facility] - 10/04/2020 12:12 PM CDT FASTING:YES FASTING: YES Joy Angeles MD LAB BLOOD ORDERABLES Fin al Result Performing Organization Address [facility] de Phone Number [facility] [address] [place] [address] * Vitamin B12 (10/01/2020 10:45 AM CDT) Pathologist [facility] Vitamin B12 749 200 - 1,100 pg/mL [facility] Blood specimen (specimen) 10/01/2020 10:45 AM CDT 10/01/2020 10:53 AM CDT Narrative [facility] - 10/04/2020 12:12 PM CDT FASTING:YES FASTING: YES Joy Angeles MD LAB BLOOD ORDERABLES Fin al Result Performing Organization Address [facility]/ZIP Co de Phone Number ALIYA [facility] [address] [place] [address] * (ABNORMAL) Vitamin D 25 hydroxy (10/01/2020 10:45 AM CDT) Pathologist [facility] Vitamin D 25-OH 17(L) 30 - 100 ng/mL [facility] Comment: Vitamin D Status ? 25-OH Vitamin D: Deficiency: ?<20 ng/mL Insufficiency: ? 20 - 29 ng/mL Optimal: ? > or = 30 ng/mL For 25-OH Vitamin D testing on patients on D2-supplementation and patients for whom quantitation of D2 and D3 fractions is required, the [facility]TM) 25-OH VIT D, (D2,D3), LC/MS/MS is recommended: order code 31876 (patients >2yrs). See Note 1 Note 1 For additional information, please refer to http://education.iMove.MashON/faq/VEL593 (This link is being provided for informational/ educational purposes only.) Blood specimen (specimen) 10/01/2020 10:45 AM CDT 10/01/2020 10:53 AM CDT Narrative [facility] - 10/04/2020 12:12 PM CDT FASTING:YES FASTING: YES Joy Angeles MD LAB BLOOD ORDERABLES Fin al Result Performing Organization Address City/[facility]/ZIP Co de Phone Number ALIYA [facility] [address] [facility] [place] [address] * (ABNORMAL) Lipid panel (10/01/2020 10:45 AM CDT) Cholesterol 208(H) <200 mg/dL [facility] HDL 42(L) > OR = 50 mg/dL [facility] Triglycerides 110 <150 mg/dL [facility] LDL 143(H) mg/dL (calc) [facility] Comment: Reference range: <100 Desirable range <100 mg/dL for primary prevention; ?? <70 mg/dL for patients with CHD or diabetic patients with > or = 2 CHD risk factors. LDL-C is now calculated using the Ramses calculation, which is a validated novel method providing better accuracy than the Friedewald equation in the estimation of LDL-C. He ZEE et al. MONALISA. 2013;310(19): 0014-8825 (http://education.MeBeam/faq/VNG380) Chol/HDL ratio 5.0(H) <5.0 (calc) [facility] Non-HDL, (LDL+VLDL) 166(H) <130 mg/dL (calc) [facility] Comment: For patients with diabetes plus 1 major ASCVD risk factor, treating to a non-HDL-C goal of <100 mg/dL (LDL-C of <70 mg/dL) is considered a therapeutic option. Blood specimen (specimen) 10/01/2020 10:45 AM CDT 10/01/2020 10:53 AM CDT Narrative [facility] - 10/04/2020 12:12 PM CDT FASTING:YES FASTING: YES us Joy Angeles MD LAB BLOOD ORDERABLES Fin al Result ALIYA [facility] [address] [place] [address] * Insulin, total (10/01/2020 10:45 AM CDT) Pathologist [facility] INSULIN 9.9 uIU/mL [facility] Comment: ? Reference Range ??< or = 19.6 ? Risk: ? Optimal ?< or = 19.6 ? Moderate ? NA ? High ? >19.6 ? Adult cardiovascular event risk category ? cut points (optimal, moderate, high) ? are based on [employer] population ? data from 04/2011. ? This insulin assay shows strong cross-reactivity for some insulin analogs (lispro, aspart, and glargine) and much lower cross-reactivity with others (detemir, glulisine). Blood specimen (specimen) 10/01/2020 10:45 AM CDT 10/01/2020 10:53 AM CDT Narrative [facility] - 10/04/2020 12:12 PM CDT FASTING:YES FASTING: YES Joy Angeles MD LAB BLOOD ORDERABLES Fin al Result Performing Organization Address [facility] Co de Phone Number [facility] [address] [place] [address] * Hemoglobin A1c (10/01/2020 10:45 AM CDT) Hgb A1C 5.3 <5.7 % of total Hgb [facility] Comment: ? Your request to have a duplicate copy faxed has been acknowledged. ?Queued to: ??[id number] Blood specimen (specimen) 10/01/2020 10:45 AM CDT 10/01/2020 10:53 AM CDT Narrative [facility] - 10/04/2020 12:12 PM CDT FASTING:YES FASTING: YES Joy Angeles MD LAB BLOOD ORDERABLES Fin al Result [facility] [address] [place] [address] * (ABNORMAL) Comprehensive metabolic panel (10/01/2020 10:45 AM CDT) Glucose 87 65 - 99 mg/dL [facility] Comment: ? Fasting reference interval BUN 20 7 - 25 mg/dL [facility] Creatinine 0.78 0.50 - 1.05 mg/dL [facility] Comment: For patients >49 years of age, the reference limit for Creatinine is approximately 13% higher for people identified as -[place]. eGFR NON-AFR. SYRIAN 85 > OR = 60 mL/min/1 .73m2 [facility] EGFR 98 > OR = 60 mL/min/1 .73m2 [facility] BUN/creat ratio NOT APPLICABLE 6 - 22 (calc) [facility] Sodium 143 135 - 146 mmol/L [facility] Potassium, pl 4.5 3.5 - 5.3 mmol/L [facility] Chloride 108 98 - 110 mmol/L [facility] CO2 28 20 - 32 mmol/L [facility] Calcium 8.9 8.6 - 10.4 mg/dL [facility] Protein, sr 6.0(L) 6.1 - 8.1 g/dL [facility] Albumin 3.7 3.6 - 5.1 g/dL [facility] GLOBULIN 2.3 1.9 - 3.7 g/dL (calc) [facility] Alb/glob ratio 1.6 1.0 - 2.5 (calc) [facility] Bilirubin, total 0.3 0.2 - 1.2 mg/dL [facility] Alk phos 46 37 - 153 U/L [facility] AST 12 10 - 35 U/L [facility] ALT (SGPT) 10 6 - 29 U/L [facility] Blood specimen (specimen) 10/01/2020 10:45 AM CDT 10/01/2020 10:53 AM CDT Narrative [facility] - 10/04/2020 12:12 PM CDT FASTING:YES FASTING: YES us Joy Angeles MD LAB BLOOD ORDERABLES Fin al Result [facility] [address] [place] [address] documented in this encounter Visit Diagnoses Diagnosis Weight loss counseling, encounter for- Primary Metabolic and nutritional disorder Class 3 severe obesity due to excess calories without serious comorbidity with body mass index (BMI) of 45.0 to 49.9 in adult (HCC) Fatigue, unspecified type Family history of diabetes mellitus documented in this encounter Care Teams Pipe Finisher Relationship Specialty Start Date End Date Howard Damon MD [address] [place] [address] [address] PCP - General Family Medicine 08/21/18 documented as of this encounter
--- OUTSIDE RECORDS SUMMARY | 2024-04-25 09:30 | XMS_ITS | Encounter Summary ---
Author Organization [facility] Address [address] [facility] [place] [address] Care Team Providers Care Baseball Hand Sewer Name Role Phone Howard Damon MD Primary Care Provider [phone] Reason for Visit * Reason Onset Date Comments Surgery Scheduling 10/08/2023 Encounter Details Date Type Department Care Team (Late st Contact Info) Description 10/08/2023 Telephone [facility] Management Services [id number] [place] [address] [address] [place] [address] [place] [address] [facility] [address] [place] [address] Surgery Scheduling Social History Tobacco Use Types Packs/Day Years [...] encounter Miscellaneous Notes * Telephone Encounter - Flora Chandler RN - 10/08/2023 2:18 PM CDT Called to discuss surgery dates and verify surgery type with patient. Patient is now scheduled for laparoscopic Agapito-en-Y gastric bypass with hiatal hernia repair by Michael Pedraza MD on 10/28/23 at [facility]. Patient to schedule SEC appointment for evaluation and testing, given centralized schedulingphone number: [phone]. Patient is scheduled to attend preoperative education class presented by bariatric team on 10/16/23. Instructed of 1 week liquid diet requirement- to start 10/21/23 . Instructed patient to start bariatric MVI with liquid diet or 1 week before surgery. Instructed patient preop consult weight was 288. Instructed patient that they will be weighed on class day and that they are expected to be below or at preop consult weight. Reminded pt to stop any blood thinners to include plavix, asa, coumadin, omega3, fish oil, NSAIDS 5-7 days prior to surgery, except for prescribed daily dose of asa 81mg. Patient aware to stop Mobic one week before surgery. Reminded female patients should be avoided for 18 months following surgery, and must stopEstrogen containing control 2 weeks before and 4 weeks after surgery. Instructed pt to write 1- 4 (or 5 if needs 2nd consult) 1. Surgery date 10/28/23 2. Pre op class date 10/16/23 3. SEC date TBD 4. Pre op liquid diet start date 10/21/23 5. 2nd consult if required 10/16/23 Pt denies questions at this time. The following clearances/testing were obtained on this patient: PCP Clearance is in [employer] on 04/18/23 documented in this encounter Plan of Treatment Upcoming Encounters Date Type Department Care Team (Late st Contact Info) Description 05/01/2024 1:30 PM FINANCIAL COMPLIANCE OFFICER Office Visit [facility] [address] [place] [address], [address] [address] Melisa Fortune APRN-STATEMENT PROCESSOR [address] [place] [address] 10/27/2024 1:30 PM CDT Office Visit [facility] [address] [place] [address], [address] [address] Melisa Fortune APRN-STATEMENT PROCESSOR [address] [place] [address] documented as of this encounter Visit Diagnoses Not on filedocumented in this encounter Care Teams Baseball Hand Sewer Relationship Specialty Start Date End Date Howard Damon MD [address] [place] [address] PCP - General Family Medicine 03/08/23 documented as of this encounter
--- OUTSIDE RECORDS SUMMARY | 2024-04-25 09:30 | XMS_ITS | Encounter Summary ---
Author Organization [facility] Address [address] [facility] [place] [address] Care Team Providers Care Pastry Assistant Name Role Phone Howard Damon MD Primary Care Provider [phone] Reason for Visit * Reason Onset Date Comments ECG 10/18/2023 Encounter Details Date Type Department Care Team (Late st Contact Info) Description 10/18/2023 [facility]phone [facility] [place] [id number] [place] [address] [address] [place] [address] Radha Mar, RN ECG Social History Tobacco Use Types Packs/Day Years [...] encounter Miscellaneous Notes * Telephone Encounter - Radha Mar RN - 10/18/2023 9:57 AM CDT ----- Message from Ajit Pereyra MD sent at 10/18/2023 9:44 AM CDT ----- EKG and chart reviewed. Proceed to surgery. Ajit Pereyra MD ----- Message ----- From: Jessi Ferrell RN Sent: 10/17/2023 5:17 PM CDT To: hc Pat Optimization Nurse Pool; # Please review abnormal EKG and reply once reviewed. History:HTN Prior Testing:yes PCP Clearance: Cardiac Clearance: Was patient instructed to get PCP clearance at SEC visit?no documented in this encounter Plan of Treatment Upcoming Encounters Date Type Department Care Team (Late st Contact Info) Description 05/01/2024 1:30 PM EARLY CHILDHOOD Office Visit [facility] [address] [place] [address], [address] [place] [address] Melisa Fortune, COLLECTIONS CURATOR-HEALTH SAFETY SPECIALIST [address] [place] [address] 10/27/2024 1:30 PM CDT Office Visit [facility] [id number] [place] [address], [address] [place] [address] Melisa Fortune, COLLECTIONS CURATOR-HEALTH SAFETY SPECIALIST [address] [place] [address] documented as of this encounter Visit Diagnoses Not on filedocumented in this encounter Care Teams Pastry Assistant Relationship Specialty Start Date End Date Howard Damon MD [address] [place] [address] PCP - General Family Medicine 03/08/23 documented as of this encounter
--- OUTSIDE RECORDS SUMMARY | 2024-04-25 09:30 | XMS_ITS | Encounter Summary ---
Author Organization [facility] Address [address] [facility] [place] [address] Care Team Providers Care Director Trade Name Role Phone Howard Damon MD Primary Care Provider [phone] Encounter Details Date Type Department Care Team (Latest Contact Info) Description 11/29/2023 Travel Social History Tobacco Use Types Packs/Day [...] and heating? Not hard at all 10/28/2023 [facility] Occupat ional Health - Occupational Stress [...] st Contact Info) Description 05/01/2024 1:30 PM DIRECTOR OF PROMOTIONS Office Visit [facility] Health Weight Management Services [address] [place] [address], [facility] [address] [place] [address] Melisa Fortune APRN-FIELD SUPPORT ENGINEER [address] [facility] [address] [place] [address] 10/27/2024 1:30 PM CDT Office Visit [facility] Health Weight Management Services [address] [place] [address], [address] [place] [address] Melisa Fortune, DOVETAILER-FIELD SUPPORT ENGINEER [address] [place] [phone] documented as of this encounter Visit Diagnoses Not on filedocumented in this encounter Care Teams Director Trade Relationship Specialty Start Date End Date Howard Damon MD [address] [place] [address] PCP - General Family Medicine 03/08/23 documented as of this encounter
--- OUTSIDE RECORDS SUMMARY | 2024-04-25 09:30 | XMS_ITS | Encounter Summary ---
Author Organization [facility] Address [address] [facility] [place] [address] Care Team Providers Care Secondary Special Education Teacher Name Role Phone Howard Damon MD Primary Care Provider [phone] Reason for Visit * Reason Onset Date Comments Diet 11/12/2023 Encounter Details Date Type Department Care Team (Late st Contact Info) Description 11/12/2023 Telephone [facility] Management Services [address] [place] [address], [facility] [address] [place] [address] Alona Garcia, RAFY/ROSEMARYN Diet Social History Tobacco Use Types Packs/Day Years [...] and heating? Not hard at all 10/28/2023 [facility] - Occupational Stress [...] place to sleep or slept in a prison (including now)? No 10/28/2023 Sex and Gender [...] No 10/28/2023 documented as of this encounter Miscellaneous Notes * Telephone Encounter - Alona Garcia RD/PATIENCE - 11/12/2023 2:52 PM CDT Called patient post operatively to check on status. Reviewed recommended fluid and protein goals. Confirmed follow up appointment. Pt denied further questions. Pt verbalized understanding of all instructions given. documented in this encounter Plan of Treatment Upcoming Encounters Date Type Department Care Team (Late st Contact Info) Description 05/01/2024 1:30 PM APPOINTMENT MANAGER Office Visit [facility] Services [address] [facility], [address] [place] [address] Melisa Fortune APRN-CREATIVE ENGAGEMENT DIRECTOR [address] [place] [address] 10/27/2024 1:30 PM CDT Office Visit [facility] [address] [facility], [address] [place] [address] Melisa Fortune AUTOMATION QA ANALYST-CREATIVE ENGAGEMENT DIRECTOR [address] [place] [address] documented as of this encounter Visit Diagnoses Not on filedocumented in this encounter Care Teams Secondary Special Education Teacher Relationship Specialty Start Date End Date Howard Damon MD [address] [place] [address] PCP - General Family Medicine 03/08/23 documented as of this encounter
--- OUTSIDE RECORDS SUMMARY | 2024-04-25 09:30 | XMS_ITS | Encounter Summary ---
Author Organization [facility] Address [address] [place] [address] Phone Care Team Providers Care Record Systems Analyst Name Role Phone Howard Damon MD Primary Care Provider Reason for Visit * Reason Onset Date Comments Prior Auth 01/02/2021 Encounter Details Date Type Department Care Team (Late st Contact Info) Description 01/02/2021 Telephone [facility] [address] [facility] [address] [place] [phone] Laura Mao LPN Prior Auth Social History Tobacco Use Types Packs/Day Years Used Date Smoking Tobacco: Never Alcohol Use Standard Drinks/Week Comments Yes 0 (1 standard drink = 0.6 oz pur e alcohol) Comments Unknown Sex and Gender Information Value Date Recorded Sex Assigned at Not on file Legal Sex Female 3:12 AM QUARRY MANAGER Gender Identity Not on file Sexual Orientation Not on file documented as of this encounter Miscellaneous Notes * Telephone Encounter - Joy Angeles MD - 02/20/2021 6:47 AM CDT Reviewed -- will discuss at upcoming appointment * Telephone Encounter - Laura Rae LPN - 01/30/2021 1:24 PM CDT Please see below * Telephone Encounter - Rena Lerner CPhT - 01/30/2021 11:38 AM CDT For this medication the patient has to have a diagnosis of type 2 diabetes. Any other diagnosis are not covered under the plan. * Telephone Encounter - Joy Angeles MD - 01/29/2021 6:13 PM CDT Diagnosis is insulin resistance. Is there an exclusion in the absence of a diagnosis of diabetes? * Telephone Encounter - Laura Rae LPN - 01/10/2021 10:52 AM CDT See Denial below * Telephone Encounter - Shelby Shah MA - 01/04/2021 11:36 AM CDT [facility] Oliveriobelsus 3mg Prior Auth Status: Denied [employer] is non coverage for weight loss. * Telephone Encounter - Shelby Shah MA - 01/02/2021 1:05 PM CDT Called [facility] for form * Telephone Encounter - Laura Rae LPN - 01/02/2021 11:53 AM CDT PA needed for [facility] [phone] documented in this encounter Plan of Treatment Not on file documented as of this encounter Visit Diagnoses Not on filedocumented in this encounter Care Teams Record Systems Analyst Relationship Specialty Start Date End Date Howard Damon MD [address] [facility] [address] [place] [id number] PCP - General Family Medicine 08/21/18 documented as of this encounter
--- OUTSIDE RECORDS SUMMARY | 2024-04-25 09:30 | XMS_ITS | Encounter Summary ---
Author Organization [facility] Address [address] [facility] [place] [address] Care Team Providers Care Airplane Pilot Photogrammetry Name Role Phone Howard Damon MD Primary Care Provider [phone] Encounter Details Date Type Department Care Team (Late st Contact Info) Description 04/26/2023 10:00 AM PIGMENT WEIGHER Video Visit [facility] [address] [place] [address], [facility] [address] [place] [address] Morbid obesity (HCC) Social History Tobacco Use Types Packs/Day Years Used Date Smoking Tobacco: Never Smokeless Tobacco: Never Alcohol Use Standard Drinks/Week Comments Never 0 (1 standard drink = 0.6 oz pur e alcohol) Sex and Gender Information Value Date Recorded Sex Assigned at Not on file Gender Identity Not on file Sexual Orientation Not on file documented as of this encounter Progress Notes * Dominga Murguia, [facility] - 04/25/2023 11:49 AM CST Today's visit was conducted virtually. The patient has given verbal consent to have today's visit conducted virtually and understands the risks, benefits and alternatives associated with telemedicine. Patient location: Home This encounter was performed using: audio and video Total time spent on visit on date of encounter is: 45 minutes spent in medical discussion. Name: Syeda Christian Date of : 63 Surgeon: Michael Pedraza Date: 04/26/23 Reason for visit: Pre-Surgery Psychological Evaluation, Completion Surgical decision: RYGB Current Weight: 284 lbs 12.8 oz per last OV BMI: 47.45 per last OV Weight and Drpyyc-Ussn-Ayequbm History: Family Hx of Obesity: yes on maternal side especially. Mother had bariatric surgery twice but gained all of her weight back Patient Obese since: After having her first born. She gained 60 lbs and was very difficult to get that weight off afterwards. This is also when she discovered she had PCOS. High school weight: Size 16 Heaviest Weight Since 20: 301 lbs Lowest weight in the past 2-3 years: 271 lbs Previous Weight Loss Efforts: seeing a drawing tender, counting carbs and calories, protein drinks, exercise in pool, restriction Most Weight Ever lost: 50 lbs, when she had to have her second hip replacement as it was required (she got down to 250 lbs and this was about 7 years ago) Exercise and other sources of physical activity: she tries to walk as much as she can but it is difficult with her knee pain. Provider suggested chair exercises and she does have sport bands The patient feels that the biggest contributor to her weight issue was traveling a lot with her kids. She noted that her son played select ball since second grade up through college and this led to alot of eating out. She noted even when they were home, there was a lot of fast food due to their schedules. The pt feels that the biggest barrier to losing weight on her own is the foods that her family likes her to cook. She noted she is too tired to cook something different for herself but is hopeful that as she loses weight, she wont be so tired and she will have more energy to do the things she needs to, such as cooking for herself. She noted her family likes a lot of fried foods and greasyfoods. She noted her one son who lives with her knows how to cook and eat healthy and he is planning to help the pt with healthy meals. When asked how the surgery is going to be different from any previous attempts at weight loss, the pt stated that it will be different because it will help with portion sizes and she feels that it will help her to look at what she is eating better now too. Per RD note, Pt appears to be making positive changes towards surgery. Pt states she has read through the entire Nutrition Guide. She states she has tried some protein shakes and enjoys several flavors of Premier, which she has been trying to have for breakfast. She has switched to a sugar-free creamer and has been working to increase her intake of water, 40-45 oz per day. Pt notes she does not drink as much water as she had initially thought. She has been eating more at home and trying to be more aware of how she is eating. Discussed protein requirements, protein bars, high protein foods, measuring protein intake, and navigating holiday, social events, etc. after surgery. All pt questionswere answered at this time. ?? B: protein shake L: protein bar, adult lunchable, yogurt, fruit D: chicken, burger no bun, raspberries, lunch meat, cheese The pt stated she is needing to work on slowing down her eating. She is drinking crystal light and propel. She does not like breakfast so she is now having a protein shake instead of skipping it. Pt stated she used to be a grazer but does not often snack any longer. She has used a written food journal but was not consistent. She tries to weigh herself every Saturday morning. Patterns of Distorted Eating: Enemas/Laxatives/Diuretic Misuse: never Purging/induced Vomiting: never Anorexia/Restricting: never Emotional Eating: Denies but occasionally with boredom Food screenin. Within the past 12 months, you worried that your food would run out before you got the money to buy more: Never 2. Within the past 12 months, the food you bought just didn't last and you didn't have the money toget some more: Never Realistic verse unrealistic expectations for weight loss, the surgery and adjustment after surgery were discussed. Making manageable, realistic changes was encouraged. The concept of backsliding and the reasons how a backslide could occur were discussed with patient.Keeping a food journal, taking pictures, meal planning, weighing regularly and attending support groups were suggested as strategies for preventing or reducing backsliding behaviors. Patient was informed about possible hair thinning, loose skin and recommended post op recommended appointments. Patient is not currently and has been counseled to avoid for a minimum of one (1) year following bariatric surgery. Surgery Perspective/Understanding: Patient appears informed regarding the post-op dietary requirements and appears to have ample understanding of the consequences of not following all post-op requirements exactly as prescribed. She reports realistic surgical goals and expectations; and appears to understand the surgical logistics and risks associated with the bariatric surgery. Mental Status Patient appearance: appropriate Orientation: Time, Place, Person, Situation Behavior: Within normal limits Speech: appropriate Affect: appropriate Mood: euthymic Memory: in tact Mental Awareness: clear Intelligence: average Attitude: cooperative Attention: focused Reasoning: good Judgement: good Impulse Control: good Insight: good Self-perception: realistic Thought Process: Logical Thought Content: Within Normal Limits DSM-5: E66.01 Obesity Summery/Recommendations Patient appears to be a low surgical risk and an appropriate candidate for this surgery based on this interview. Patient noted no current compliance issues or any anticipated issues that would prevent adherence to protocol after surgery. There do not appear to be any contraindications. Psychological Clearance is therefore granted. Dominga Murguia LPC, [facility] Licensed Professional Counselor Board Certified Bariatric Counselor Psychological Review ?? Cleared_X_ ?? Not cleared, additional visit(s) required ___ ?? Bariatric Case Conference review required ___ ?? Follow up scheduled ____ ENT WEIGHER documented in this encounter Plan of Treatment Upcoming Encounters Date Type Department Care Team (Late st Contact Info) Description 05/01/2024 1:30 PM PIGMENT WEIGHER Office Visit [facility] [address] [place] [address], [address] [address] Melisa Fortune, YUSEF-ASSET PROTECTION PROFESSIONAL [address] [address] 10/27/2024 1:30 PM CDT Office Visit [facility] [address] [place] [address], [address] [address] Melisa Fortune, YUSEF-ASSET PROTECTION PROFESSIONAL [address] [place] [address] documented as of this encounter Visit Diagnoses Diagnosis Morbid obesity (HCC)- Primary Morbid obesity documented in this encounter Care Teams Airplane Pilot Photogrammetry Relationship Specialty Start Date End Date Howard Damon MD [address] [place] [address] PCP - General Family Medicine 03/08/23 documented as of this encounter
--- OUTSIDE RECORDS SUMMARY | 2024-04-25 09:30 | XMS_ITS | Encounter Summary ---
Author Organization [facility] Address [address] [facility] [place] [address] Care Team Providers Care Power Bender Operator Name Role Phone Howard Damon MD Primary Care Provider [phone] Reason for Visit * Reason Onset Date Comments Pre Authorization 10/11/2023 DOS UPDATE Encounter Details Date Type Department Care Team (Late st Contact Info) Description 10/11/2023 Telephone [facility] Management Services [address] [facility] [address] [place] [address] Amarilis Dowell Pre Authorization (DOS UPDATE) Social History Tobacco Use Types Packs/Day Years [...] encounter Miscellaneous Notes * Telephone Encounter - Amarilis Dowell - 10/11/2023 3:26 PM CDT I was transferred to a nurse by the name of Michael and had to leave a voicemail to update dos to 10/28/23. Auth# [id number] I left my phone and fax# to return call and send new letter documented in this encounter Plan of Treatment Upcoming Encounters Date Type Department Care Team (Late Contact Info) Description 05/01/2024 1:30 PM QUALITATIVE RESEARCHER Office Visit [facility] Management Services [address] [facility], [address] [place] [address] Melisa Fortune, CONTACT LENS BLOCKER AND CUTTER-FINGERNAIL TECHNICIAN [address] [place] [address] 10/27/2024 1:30 PM CDT Office Visit [facility] Services [address] [facility], [address] [place] [address] Melisa Fortune, CONTACT LENS BLOCKER AND CUTTER-FINGERNAIL TECHNICIAN [address] [facility] [address] [place] [phone] documented as of this encounter Visit Diagnoses Not on filedocumented in this encounter Care Teams Power Bender Operator Relationship Specialty Start Date End Date Howard Damon MD [address] [place] [address] PCP - General Family Medicine 03/08/23 documented as of this encounter
--- OUTSIDE RECORDS SUMMARY | 2024-04-25 09:30 | XMS_ITS | Clinical Summary ---
Author Organization [facility] [address] Address [address] [place] [address] Care Team Providers Care Cotton Bag Clipper Name Role Phone Howard Damon MD Primary Care Provider Allergies No known active allergies Medications metoprolol (LOPRESSOR) 50 mg tablet take 1 tablet by oral route 2 times every day with meals 0 0 4 Active escitalopram (LEXAPRO) 20 mg tablet take 1 tablet by oral route every day 0 0 4 Active meloxicam (MOBIC) 15 mg tablet take 1 tablet by oral route every day 30 1 5 Active promethazine (PHENERGAN) 25 mg tablet take 1 tablet by oral route every 4 - 6 hours as needed 30 1 6 Active docusate sodium (COLACE) 100 mg capsule take 1 capsule by oral route twice daily as needed for constipation 30 1 6 Active HYDROcodone-eric taminophen (NORCO) 5-325 mg per tablet take 1-2 tablets by oral route ever 4-6 hours PRN 43 0 6 Active ascorbic acid (ascorbic acid with jon hips) 500 mg tablet,chewable Take 1 tab by oral route two times daily until finished. 30 0 6 Active naproxen (NAPROSYN) 500 mg tablet take 1 tablet by oral route every day with food 90 3 6 Active semaglutide (Rybelsus) 3 mg tablet Take 1 tablet (3 mg total) by mouth daily 30 tablet 1 Active Active Problems Problem Noted Date Diagnosed Date Weight loss counseling, encounter for 09/29/2020 Assessment & Plan (11/28/2020 12:22 PM CDT): Reviewed calorie restriction based on BMR as previously detailed. Reviewed recommendation/goal of >/= 150 minutes/week moderate-intensity aerobic exercise. Asked to keep detailed food diary for at least 1 week and bring to next visit and/or continue tracking on phone. Assessment & Plan (09/29/2020 10:51 AM CDT): .Discussed that significant health benefits/risk reduction may be seen with even 5% weight loss. Discussed that weight loss will require calorie deficit. Calculated basal metabolic rate and estimated total energy expenditure; discussed 500-1000 kcal/day deficit to lose 1-2 lb per week. Asked to keep detailed food diary for at least 1 week and bring to next visit. Discussed relatively small, although significant, role of exercise in weight loss; greater importance in weight maintenance as shown in Look Ahead study and National Weight Control Registry. Discussed recommendation/goal for 150 minutes per week moderate-intensity aerobic exercise. Metabolic and nutritional disorder 09/29/2020 Overview (11/28/2020): H/O PCOS FEDE-IR 2.1 Assessment & Plan (11/28/2020 12:23 PM CDT): Reviewed labs with her. Continue low-carb (<150 g/day), low-glycemic diet. Discussed options and will add GLP-1 analog. Discussed risks, benefits, alternatives, potential side effects. No personal or family history of MTC or MEN2. Reviewed dosing/titration. Referred to websites for additional instructions/info/video. Start semaglutide. Reviewed importance of adequate protein intake of 1-1.2 g/kg IBW/day. Assessment & Plan (09/29/2020 10:52 AM CDT): Labs. Discussed increased risk for DM in setting of obesity and FHx DM. Discussed insulin resistance including effect on weight and risk for progression to diabetes. Recommended low-carb, low-glycemic diet; choose whole grains and avoid more highly processed carbohydrates. Discussed potential benefits of this w/r/t gut microbiome. Referred to ADA and [employer] [facility] websites for additional information on topics including glycemic index/carbohydrate choices, protein sources. Reviewed importance of adequate protein intake of 1-1.2 g/kg IBW/day. Primary osteoarthritis of knee 09/29/2020 Assessment & Plan (09/29/2020 10:53 AM CDT): Discussed potential for diminished pain, improved function and reduced progression with weight loss. Class 3 severe obesity due t o excess calories without serious comorbidity with body mass index (BMI) of 45.0 to 49.9 in adult 09/29/2020 Assessment & Plan (11/28/2020 12:24 PM CDT): Obesity is improving with lifestyle modifications. Commended on weight loss to date and discussed anticipated health benefits/risk reduction with this degree (~5%) of loss. Diet interventions: as noted. Regular aerobic exercise program discussed. Pharmacotherapy as ordered. Assessment & Plan (09/29/2020 10:56 AM CDT): Obesity is unchanged. General weight loss/lifestyle modification strategies discussed (elicit support from others; identify saboteurs; non-food rewards, etc). Diet interventions: as noted. Informal exercise measures discussed, e.g. taking stairs instead of elevator. Regular aerobic exercise program discussed. More detailed recommendations pending review of labs, food record. Fatigue 09/29/2020 Assessment & Plan (09/29/2020 11:01 AM CDT): Labs. Consider sleep study. Surgical History Surgery Date Site/Laterality Comments HIP ARTHROPLASTY 2010 Right Hip arthroplasty SECTION 1990 section OTHER SURGICAL HISTORY cmc arthroplasty Medical History Medical History Date Comments Hx Other Medical abnormal heartb eat Family History Medical History Relation Name Comments Diabetes Mother chronic kidney disease Mother Relation Name Status Comments Mother Social History Tobacco Use Types Packs/Day Years Used Date Smoking Tobacco: Never Alcohol Use Standard Drinks/Week Comments Yes 0 (1 standard drink = 0.6 oz pur e alcohol) Personal Safety Answer Date Recorded Getting School Help Needed Not on file 07/20 Comments Unknown Sex and Gender Information Value Date Recorded Sex Assigned at Not on file 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 Gender Identity Not on file Sexual Orientation Not on file Obstetrics History Last Filed Vital Signs Vital Sign Reading Time Taken Comments Blood Pressure 93/52 03/01/2016 11:19 AM CDT Pulse 53 03/01/2016 11:19 AM CDT Temperature - - Respiratory Rate - - Oxygen Saturation 95% 03/01/2016 11:19 AM CDT Inhaled Oxygen Concentration - - Weight 135.6 kg (299 lb) 09/29/2020 10:34 AM CDT Height 170.2 cm (5' 7 ) 09/29/2020 10:47 AM CDT Body Mass Index 46.83 09/29/2020 10:34 AM CDT Plan of Treatment Not on file Insurance [employer] SIG [id number] [facility] Care Teams Cotton Bag Clipper Relationship Specialty Start Date End Date Howard Damon MD [address] [facility] [address] [place] [address] PCP - General Family Medicine 08/21/18
--- OUTSIDE RECORDS SUMMARY | 2024-04-25 09:30 | XMS_ITS | Encounter Summary ---
Author Organization [facility] Address [address] [place] [address] Care Team Providers Care Framing Mill Operator Helper Name Role Phone Howard Damon MD Primary Care Provider [phone] Reason for Visit * Reason Onset Date Comments Diet 11/25/2023 Encounter Details Date Type Department Care Team (Late st Contact Info) Description 11/25/2023 Telephone [facility] [address] [place] [id number] Alona Garcia, RAFY/ROSEMARYN Diet Social History [...] and heating? Not hard at all 10/28/2023 [facility] - Occupational Stress [...] place to sleep or slept in a [place] [facility] [place] facility (including now)? No 10/28/2023 Sex and Gender [...] Telephone Encounter - Alona Garcia RD/PATIENCE - 11/25/2023 1:41 PM CDT Pt called with question about moving to the next phase-today is the start of Week 5 for Phase 3. Confirmed to go ahead and move forward with Phase 3 if she is tolerating everything on Phase 2. Pt hasfollow up with surgeon on 11/28. documented in this encounter Plan of Treatment Upcoming Encounters Date Type Department Care Team (Late st Contact Info) Description 05/01/2024 1:30 PM CEMENT STORAGE WORKER Office Visit [facility] [id number] [place] [address], [address] [place] [address] Melisa Fortune, PULP DRIER FIRER-CABLE ARMORER [address] [place] [address] 10/27/2024 1:30 PM CDT Office Visit [facility] [address] [facility], [address] [place] [address] Melisa Fortune, PULP DRIER FIRER-CABLE ARMORER [address] [place] [address] documented as of this encounter Visit Diagnoses Not on filedocumented in this encounter Care Teams Framing Mill Operator Helper Relationship Specialty Start Date End Date Howard Damon MD [address] [place] [address] PCP - General Family Medicine 03/08/23 documented as of this encounter
--- OUTSIDE RECORDS SUMMARY | 2024-04-25 09:30 | XMS_ITS | Encounter Summary ---
Author Organization [facility] Address [address] [place] [address] Phone Care Team Providers Care Streetcar Motorman Name Role Phone Howard Damon MD Primary Care Provider Reason for Visit * Reason Onset Date Comments review labs 10/05/2020 Encounter Details Date Type Department Care Team (Late st Contact Info) Description 10/05/2020 Telephone [facility] [address] [place] [address] Karli Licea RMA review labs Social History Tobacco Use Types Packs/Day Years Used Date Smoking Tobacco: Never Alcohol Use Standard Drinks/Week Comments Yes 0 (1 standard drink = 0.6 oz pur e alcohol) Comments Unknown Sex and Gender Information Value Date Recorded Sex Assigned at Not on file 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 Please advise. documented in this encounter Plan of Treatment Not on file documented as of this encounter Visit Diagnoses Not on filedocumented in this encounter Care Teams Streetcar Motorman Relationship Specialty Start Date End Date Howard Damon MD [address] [facility] [address] [place] [address] PCP - General Family Medicine 08/21/18 documented as of this encounter
--- OUTSIDE RECORDS SUMMARY | 2024-04-25 09:30 | XMS_ITS | Encounter Summary ---
Author Organization [facility] Address [address] [place] [address] Care Team Providers Care Upholstery Bundler Name Role Phone Howard Damon MD Primary Care Provider [phone] Reason for Referral * (Routine) - Open Specialty Diagnoses / Procedures Referred By Simona rojas Referred To Contact Procedures Follow up with provider Melisa Fortune APRN-CNP [address] [facility] [address] [place] [address] [place] [address] [facility] [address] [place] [address] Referral ID Status Reason Start Date Expiration Date Visits Re quested Visits Authorized [id number] Open 10/29/2023 10/28/2024 1 1 Reason for Visit * Auth/Cert (Routine) Specialty Diagnoses / Procedures Referred By Simona rojas Referred To Contact Diagnoses Morbid (severe) obesity due to excess calories (HCC) Diaphragmatic hernia without obstruction or gangrene Procedures [place] LAP GASTR RSTRCIV PROC; GASTR BYPS & THEODORA-EN-Y [place] LAP PARAESOPHAG VAMSI REPAIR Referral ID Status Reason Start Date Expiration Date Visits Re quested Visits Authorized [id number] 1 1 Encounter Details Date Type Department Care Team (Latest Contact Info) Description 10/28/2023 8:16 AM CDT - 10/29/2023 2:57 PM CDT Hospital Encounter [facility] 2S SURG/BARIATRIC [address] [place] [address] [place] [address] [place] [address] Surgery General Discharge Disposition: Home or Self Care Social [...] and heating? Not hard at all 10/28/2023 [facility] - Occupational Stress [...] Sign Reading Time Taken Comments Blood Pressure 116/67 10/29/2023 12:12 PM CDT Pulse 51 10/29/2023 12:12 PM CDT Temperature 37 ??C (98.6 ??F) 10/29/2023 12:12 PM CDT Respiratory Rate 18 10/29/2023 12:12 PM CDT Oxygen Saturation 99% 10/29/2023 12:12 PM CDT Inhaled Oxygen Concentration - - [...] Pedraza MD Discharge Provider : REED Castro Kopsie Admission weight: Weight: 120.2 kg (265 lb) (10/28/23853) Most recent weight: Weight: 120.2 kg (265 lb) (10/28/23853) 10/29/2023 [id number] Admitting Diagnosis Clinically Severe Obesity with [...] at bedtime vitamin D (ergocalciferol) 1.25 MG (90258 UT) capsule Commonly known as: Drisdol Take [...] 1 ?? weeks (after follow-up appointment with ): Phase 2 Diet - Semi-soft foods (3 [...] to 7:00PM Contact Information: DOMINICK Crooks Dietitians: [phone] email: [email or web address] [facility] Express Pharmacy: [phone] Weight Management Program: [phone] [facility] Program: [phone] High Protein Supplements Options High Protein Supplement Calories* Carbohydrate* Protein* Acceptable for Lactose Intolerance Atkins Advantage (11 oz) (www.atkins.Blue Badge Style) 160 7 15 No Ensure Max Protein (11 oz) (www.abbottnutrition.com) 150 6 30 Yes Muscle Milk (14 oz) (www.Gigaomacost.Blue Badge Style or 9GAG) 170 11 25 Yes Optisource (8 oz) (www.My Study Rewards.Blue Badge Style) 200 12 24 Yes Bariatric Advantage High Protein Meal Replacement Powder 160 11 27 No Advanced Nutrition Slim Fast (11oz) (www.Zeetl or 9GAG) 180 7 20 Yes Fairlife Core Power 170 8 26 Yes Fairlife High Protein Shake 150 3 30 Yes Bariatric Advantage Clearly Protein (16.9 oz) ([facility] or Bariatric Advantage Website) 80 0 20 No Ikjwevr71 Water (utisuqehwspq54.Blue Badge Style) 70 7 15 Yes Premier Protein Shake (11oz) ([employer]co or Guru's) 160 5 30 No Unjury Protein Powder (per 1 Scoop) (www.Amara) 100 3 21 Yes *Calories, Carbohydrate, and Protein amounts may vary slightly with each different flavor. Supplements must contain at least twice the protein amount as carbohydrate. High Protein Recipes High Protein Fruit Punch Instructions: In a hair blender, mix: 6 ounces sugar-free powdered fruit [...] 10/29/2023 vitamin D, ergocalciferol, (Drisdol) 1.25 MG (18194 UT) capsule Take 1 (one) capsule by [...] 4 at 11:45 AM 10/29/2023. * Katherine Manzo, RAFY/LD - 10/29/2023 10:07 AM CDT Nutrition: Nutrition [...] Monitor nutrition per nutrition guidelines. * Max Pettit PharmD - 10/29/2023 9:52 AM CDT [facility] Pharmacy Services Admission Medication Review Syeda Christian [...] Progressing Monitoring pain scores * Melisa Fortune APRN-HUMAN INSIGHTS LEAD ADS MARKETING - 10/29/2023 8:39 AM CDT Bariatric Surgery [...] CALCIUM 9.0 9.4 Recent Labs Component Name 10/29/23 0207 10/16/23 1107 WBC 10.8* 8.5 HGB 11.8* 13.1 [...] UGI results, monitor oral intake Melisa Fortune, FLOOR TRADER-HUMAN INSIGHTS LEAD ADS MARKETING * Nadine Chiu RN - 10/28/2023 3:30 [...] None Requires Assistance With: None Preferred Pharmacy: [id number] - [address] [facility] [phone] [facility] [address] [facility] [address] Advance Directive: No Advance Directive Information Given: Refused Information Would you like assistance on completing and executing or revising an Advance Directive?: No READMISSION RISK SCORE is 4 at 3:39 PM 10/28/2023. Met with patient Family Support (name and phone): Extended Emergency Contact Information Primary Emergency Contact: YUSUF CHRISTIAN Mobile Relation: Spouse Patient or liability claims representative requests care coordination reach out to family or caregiver listed above regarding discharge planning and at time of discharge? Yes Patient/Family provided with list of resources? Yes Preferred Provider / High Quality Network List given?: No Reason for provider choice: Pt. choice - Physician driven Equipment at Home: None List DME pt. requires but does not have.: None First Responder Referral: No Will continue to follow. For any questions or needs please contact: Community Product Specialist Name/Phone number: Nadine Chiu RN [phone] documented in this encounter H&P Notes * [...] past including medical, exercise and dietary without residential success. Pt has developed multiple comorbid conditions that include Gastroesophageal reflux disease, Heart trouble, Multiple arthropathies, Depression and Osteoarthritis. These comorbid condition(s) have progressively worsened due to the patients morbid obesity and no other contributing factors. Pt has now attained a BMI (Calculated): 44.1 and has failed multiple non surgical weight loss regimens for >5yrs. BMI: Body mass index is 44.1 kg/m??. Diggs body weight: 57 kg (125 lb 10.6 oz) Adjusted ideal body weight: 82.3 kg (181 lb 6.4 oz) Medical: no new medical changes Review of previous provider notes in [facility]/Care Everywhere was performed on the day of [...] procedures or operations in the perioperative and residential periods. Questions were answered. Surgical risks and [...] or network. The patient will experience successfuland bed bug exterminator weight loss when these components along with bariatric surgery are followed. The patient has had the above discussions with multiple program team members including surgeon, law instructor, bariatric nurse and mental health staff accountant and the patient will continue to have [...] Liquid Protein Diet: Yes for 1 Week Floor Care Technician: Yes Additional Testing: Yes GI: hx of GERD, on PPI and morbid obesity with increased risk of silent heartburn and hiatal hernia -EGD: Schwoerer - gastritis, EOE, HH 2 cm, hill [...] bedtime vitamin D, ergocalciferol, (Drisdol) 1.25 MG (86338 UT) capsule Take 1 (one) capsule by [...] bowel sounds Extremities: no cyanosis or edema HAND FINISHER. Grossly non-focal Psychiatric: Does not appear anxious [...] Pedraza MD - 10/28/2023 10:52 AM CDT [facility] Operative Report OPERATIVE REPORT PATIENT:Syeda Christian MR#: [id number] ADMIT DATE: 10/28/2023 8:16 AM DATE OF [...] Hiatal Hernia Repair SURGEON: Michael Pedraza MD MINE BOSS: Patrick CASILLAS ANESTHESIA: General endotracheal. PROCEDURE: After [...] created in each limb of thebowel, and pxri-mg-ghci anastomosis was performed using a linear stapler. [...] tube easily passing between both the new guilherme pouch and the theodora limb. The calibration [...] evidence of any bleeding. Pneumoperitoneum was expelled. [id number] port site fascia was closed with a [...] st Contact Info) Description 05/01/2024 1:30 PM HOUSEKEEPER HEAD Office Visit [facility] [address] [place] [address], [address] [address] Melisa Fortune APRN-CNP [address] [place] [phone] 10/27/2024 1:30 PM CDT Office Visit [facility] [address] [place] [address], [address] [address] Melisa Fortune APRN-HUMAN INSIGHTS LEAD ADS MARKETING [address] [place] [phone] documented as of this encounter Procedures [...] OF CARE Routine 10/28/2023 1:21 PM CDT [place] LAP GASTR RSTRCIV PROC; GASTR BYPS & THEODORA-EN-Y 10/28/2023 10:08 AM CDT documented in this encounter Results * (ABNORMAL) GLUCOSE - POINT OF CARE (10/29/2023 11:03 AM CDT) Glucose WB/POC 127(H) 70 - 106 mg/dL 10/29/2023 6:26 PM CDT [facility] Specimen Type Cap Fingerstick 2023 6:26 PM CDT [facility] Blood BLOOD SPECIMEN / Unknown 10/29/2023 11:03 AM CDT 10/29/2023 6:26 PM CDT Michael Pedraza MD LAB - POINT OF CARE ORDERABLES [facility] [address] [place] [address] * (ABNORMAL) CBC W AUTO DIFFERENTIAL (10/29/2023 10:12 AM CDT) WBC 13.0(H) 4.0 - 10.7 x10E9/L 10/29/2023 10:31 AM CDT [facility] RBC Count 4.43 3.90 - 5.20 x10E12/L 10/29/2023 10:31 AM CDT [facility] Hemoglobin 12.7 11.9 - 15.8 g/dL 10/29/2023 10:31 AM CDT [facility] Hematocrit 38.9 34.8 - 46.1 % 10/29/2023 10:31 AM CDT [facility] MCV 87.8 80.0 - 98.0 fL 10/29/2023 10:31 AM CDT [facility] MCH 28.7 26.7 - 33.6 pg 10/29/2023 10:31 AM CDT [facility] MCHC 32.6 31.7 - 36.3 g/dL 10/29/2023 10:31 AM CDT [facility] RDW-CV 14.0 11.3 - 14.8 % 10/29/2023 10:31 AM CDT [facility] Platelet Count 290 150 - 420 x10E9/L 10/29/2023 10:31 AM CDT [facility] MPV 10.2 7.8 - 11.4 fL 10/29/2023 10:31 AM CDT [facility] Neutrophil % 94.1(H) 41.0 - 74.0 % 10/29/2023 10:31 AM CDT [facility] Lymphocyte % 4.1(L) 17.0 - 47.0 % 10/29/2023 10:31 AM CDT [facility] Monocyte % 1.0(L) 3.0 - 11.0 % 10/29/2023 10:31 AM CDT [facility] Eosinophil % 0.2 0.0 - 7.0 % 10/29/2023 10:31 AM CDT [facility] Basophil % 0.3 0.0 - 1.6 % 10/29/2023 10:31 AM CDT [facility] Immature Granulocytes % 0.3 0.0 - 1.0 % 10/29/2023 10:31 AM CDT [facility] Neutrophil Absolute 12.28(H) 1.60 - 7.50 x10E9/L 10/29/2023 10:31 AM CDT [facility] Lymphocyte Absolute 0.53(L) 1.00 - 4.40 x10E9/L 10/29/2023 10:31 AM CDT [facility] Monocyte Absolute 0.13(L) 0.15 - 1.00 x10E9/L 10/29/2023 10:31 AM CDT [facility] Eosinophil Absolute 0.02 0.00 - 0.60 x10E9/L 10/29/2023 10:31 AM CDT [facility] Basophil Absolute 0.04 0.00 - 0.13 x10E9/L 10/29/2023 10:31 AM CDT [facility] Blood BLOOD SPECIMEN / Unknown Venipuncture / Unknown 10/29/2023 10:12 AM CDT 10/29/2023 10:24 AM CDT Michael Pedraza MD LAB - HEMATOLOGY ORD ERABLES [facility] [address] [place] [address] * FL UGI SERIES WO KUB (10/29/2023 [...] OF CARE (10/29/2023 6:44 AM CDT) Pathologist [facility] Glucose WB/POC 80 70 - 106 mg/dL 10/29/2023 6:45 AM CDT [facility] Specimen Type Cap Fingerstick 2023 6:45 AM CDT [facility] Blood BLOOD SPECIMEN / Unknown 10/29/2023 6:44 AM CDT 10/29/2023 6:45 AM CDT Michael Pedraza MD LAB - POINT OF CARE ORDERABLES [facility] [address] [place] [address] * (ABNORMAL) CBC W AUTO DIFFERENTIAL (10/29/2023 2:07 AM CDT) WBC 10.8(H) 4.0 - 10.7 x10E9/L 10/29/2023 2:17 AM CDT [facility] RBC Count 4.08 3.90 - 5.20 x10E12/L 10/29/2023 2:17 AM CDT [facility] Hemoglobin 11.8(L) 11.9 - 15.8 g/dL [...] - 420 x10E9/L 10/29/2023 2:17 AM CDT [facility] MPV 10.0 7.8 - 11.4 fL 10/29/2023 2:17 AM CDT [facility] Neutrophil % 88.9(H) 41.0 - 74.0 % 10/29/2023 2:17 AM CDT [facility] Lymphocyte % 5.7(L) 17.0 - 47.0 % 10/29/2023 2:17 AM CDT [facility] Monocyte % 4.6 3.0 - 11.0 % 10/29/2023 2:17 AM CDT [facility] Eosinophil % 0.3 0.0 - 7.0 % 10/29/2023 2:17 AM CDT [facility] Basophil % 0.2 0.0 - 1.6 % 10/29/2023 2:17 AM CDT [facility] Immature Granulocytes % 0.3 0.0 - 1.0 % 10/29/2023 2:17 AM CDT [facility] Neutrophil Absolute 9.57(H) 1.60 - 7.50 x10E9/L 10/29/2023 2:17 AM CDT [facility] Lymphocyte Absolute 0.61(L) 1.00 - 4.40 x10E9/L 10/29/2023 2:17 AM CDT [facility] Monocyte Absolute 0.49 0.15 - 1.00 x10E9/L 10/29/2023 2:17 AM CDT [facility] Eosinophil Absolute 0.03 0.00 - 0.60 x10E9/L 10/29/2023 2:17 AM CDT [facility] Basophil Absolute 0.02 0.00 - 0.13 x10E9/L 10/29/2023 2:17 AM CDT [facility] Blood BLOOD SPECIMEN / Unknown Venipuncture / Unknown 10/29/2023 2:07 AM CDT 10/29/2023 2:12 AM CDT Michael Pedraza MD LAB - HEMATOLOGY ORD ERABLES [facility] [address] [place] [address] * (ABNORMAL) BASIC METABOLIC PANEL (CALCIUM TOTAL) (10/29/2023 2:07 AM CDT) Glucose 148(H) 70 - 105 mg/dL 10/29/2023 2:38 AM CDT [facility] Sodium 139 136 - 145 mmol/L 10/29/2023 2:38 AM CDT [facility] Potassium 4.5 3.5 - 5.1 mmol/L 10/29/2023 2:38 AM CDT [facility] Chloride 109(H) 98 - 107 mmol/L 10/29/2023 2:38 AM CDT [facility] CO2 22 22 - 29 mmol/L 10/29/2023 2:38 AM CDT [facility] Calcium 9.0 8.4 - 10.4 mg/dL 10/29/2023 2:38 AM CDT [facility] Anion Gap 8 6 - 16 mmol/L 10/29/2023 2:38 AM CDT [facility] BUN 22 7 - 26 mg/dL 10/29/2023 2:38 AM CDT [facility] Creatinine 0.88 0.57 - 1.11 mg/dL 10/29/2023 2:38 AM T [facility] eGFR by CKD-EPI 76(L) >=90 mL/min/1.7 3 m2 10/29/2023 2:38 AM CDT [facility] Blood BLOOD SPECIMEN / Unknown Venipuncture / Unknown 10/29/2023 2:07 AM CDT 10/29/2023 2:12 AM CDT Michael Pedraza MD LAB - CHEMISTRY JUAN JOSE JENSEN Performing Organization Address [facility] Co de Phone Number [facility] [address] [place] [address] * VITAMIN D 25-HYDROXY (10/29/2023 2:07 AM CDT) Vitamin D, 25 Hydroxy 38.9 30 - 80 ng/mL 10/29/2023 4:43 AM CDT [facility] Blood BLOOD SPECIMEN / Unknown Venipuncture / Unknown 10/29/2023 2:07 AM CDT 10/29/2023 2:12 AM CDT Narrative [facility] - 10/29/2023 4:43 AM CDT Vitamin D Status: ?Deficiency ? <20 ? ng/mL ?Insufficiency ?? 20-30 ??ng/mL ?Sufficiency ? 30-100 ng/mL ?Toxicity ? >100 ?ng/mL Michael Pedraza MD LAB - CHEMISTRY JUAN JOSE JENSEN Performing Organization Address [facility] Co de Phone Number [facility] [address] [place] [address] * (ABNORMAL) GLUCOSE - POINT OF CARE (10/28/2023 3:06 PM CDT) Glucose WB/POC 148(H) 70 - 106 mg/dL 10/28/2023 4:24 PM CDT [facility] Specimen Type Cap Fingerstick 2023 4:24 PM CDT [facility] Blood BLOOD SPECIMEN / Unknown 10/28/2023 3:06 PM CDT 10/28/2023 4:24 PM CDT Michael Pedraza MD LAB - POINT OF CARE ORDERABLES Performing Organization Address City/[facility]/ZIP Co de Phone Number [facility] [address] [place] [address] * (ABNORMAL) GLUCOSE - POINT OF CARE (10/28/2023 1:21 PM CDT) Glucose WB/POC 149(H) 70 - 106 mg/dL 10/28/2023 1:21 PM CDT [facility] Specimen Type Venous 10/28/2023 1:21 PM CDT [facility] Blood BLOOD SPECIMEN / Unknown 10/28/2023 1:21 PM CDT 10/28/2023 1:21 PM CDT Michael Pedraza MD LAB - POINT OF CARE ORDERABLES Performing Organization Address [facility] Co de Phone Number [facility] [address] [place] [address] documented in this encounter Visit Diagnoses Diagnosis Morbid obesity (HCC)- Primary Morbid obesity Morbid obesity (HCC) Morbid obesity documented in this encounter Administered Medications Inactive Administered [...] PM CDT 150 mL /hr 0.9% NaCl IV 500 mL with multivitamin [...] Given 10/28/2023 3:20 PM CDT 1,000 mg acetaminophen (Tylenol) tablet 1,000 mg 1,000 mg, Oral, ONCE, 1 dose, On [...] unless patient cannot tolerate oral intake, Pre-op $ Given 10/28/2023 8:47 AM CDT 1,000 mg celecoxib (CeleBREX) capsule 400 mg 400 mg, Oral, PRE-OP ONCE, 1 dose, [...] unless patient cannot tolerate oral intake, Pre-op $ Given 10/28/2023 8:48 AM CDT 400 mg dexAMETHasone (Decadron) injection 10 mg 10 mg, Intravenous, ONCE, 1 dose, On Sat10/29/23 at 0600, Post-op $ Given 10/29/2023 6:07 AM CDT 10 mg dextrose 5 % 500 mL with multivitamin (Infuvite) 10 mL infusion 125 mL/hr, Intravenous, DAILY, First dose on Sat10/28/23 at 2100, Until Discontinued, To be run over 4 hours. Do not infuse at same time as other IV fluids. , Post-op $ New Bag/Syringe 10/28/2023 10:00 PM CDT 125 mL/hr 125 mL/hr famotidine (Pepcid) injection 20 mg 20 mg, Intravenous, PRE-OP ONCE, 1 dose, On Sat10/28/23 at 0830, Give morning of surgery. Dilute with 0.9% NaCl, D5W solution, or SWI to a volume of 5 to 10 mL and administer over at least 2 minutes., Pre-op $ Given 10/28/2023 8:48 AM CDT 20 mg fentaNYL (PF) (Sublimaze) injection 25 mcg 25 mcg, Intravenous, EVERY 10 MIN PRN, [...] unless patient cannot tolerate oral intake, PACU $ Given 10/28/2023 1:49 PM CDT 25 mcg $ Given 10/28/2023 1:17 PM CDT 25 mcg heparin injection 5,000 Units 5,000 Units, Subcutaneous, PRE-OP ONCE, 1 dose, On Sat10/28/23 at 0830, Pre-op $ Given 10/28/2023 8:47 AM CDT 5,000 Units Abdominal Tissue heparin injection 5,000 Units 5,000 Units, Subcutaneous, [...] Given 10/28/2023 3:20 PM CDT 0.125 mg iopamidol (Isovue 370) 76 % contrast Oral, ONCE, 1 dose, On Sat10/29/23 at 0700 $ Given - Contrast 10/29/2023 8:57 AM CDT 50 mL Mouth ketorolac (Toradol) injection 15 mg 15 mg, [...] Given 10/28/2023 3:15 PM CDT 15 mg lactated ringers infusion at 20 mL/hr, Intravenous, CONTINUOUS, Starting on Sat10/28/23 at 0830, Until Sat10/28/23 at 1442, Pre-op Restarted 10/28/2023 10:23 AM CDT $ New Bag/Syringe 10/28/2023 8:48 AM CDT 20 mL/ hr magnesium hydroxide (Milk Of Magnesia) suspension 15 [...] (Zofran) injection 4 mg 4 mg, Intravenous, ONCE PRN, Nausea/Vomiting, 1 dose, Starting on Sat10/28/23 at 1248, Until Sat10/28/23 at 1257, First choice, PACU $ Given 10/28/2023 12:57 PM CDT 4 mg ondansetron (Zofran) injection 4 mg 4 [...] Given 10/28/2023 3:14 PM CDT 40 mg prochlorperazine (Compazine) injection 10 mg 10 mg, Intravenous, ONCE PRN, Nausea/Vomiting, 1 dose, Starting on Sat10/28/23 at 1248, Until Sat10/28/23 at 1308, Second choice, use if first choice was ineffective., PACU $ Given 10/28/2023 1:08 PM CDT 10 mg scopolamine (Transderm-Scop) 1 patch 1 patch, Administer over 72 Hours, PRE-OP [...] 1 mg of scopolamine over 72 hours. $ Applied 10/28/2023 8:47 AM CDT 1 patch Behind Right Ear scopolamine (Transderm-Scop) 1 patch 1 patch, Administer [...] ($ New Bag/Syringe - Provider: Mckenna Oviedo APRN-INSEAM TRIMMER) celecoxib (CeleBREX) capsule 400 mg (COMPLETED) 400 [...] Jacobs) 0804 ($ Given - Provider: Lauren Novak RN) hyoscyamine (Levsin SL) sublingual tablet 0.125 mg [...] Applied - Provider: Luis M Smith RN) 1457 (Due: Removed - Provider: Generic, Auto Release [...] Silvana Jacobs)0807 (Rate Change - Provider: Lauren Novak, BHAVESH) lactated ringers infusion (CANCELED) at 20 mL/hr, Intravenous, CONTINUOUS, Starting on Sat10/28/23 at 0830, Until Sat10/28/23 at 1442, Pre-op 0848 ($ New Bag/Syringe - Provider: Luis M Smith, BHAVESH)1022 (Paused - Provider: CAMI Abel - Comment: [...] PACU 1317 ($ Given - Provider: Sharri Amanda RN)1349 ($ Given - Provider: Sharri Amanda RN) ondansetron (Zofran) injection 4 mg (COMPLETED) [...] Post-op 1519 ($ Given - Provider: Lauren Novak RN) prochlorperazine (Compazine) injection 10 mg (COMPLETED) 10 mg, Intravenous, ONCE PRN, Nausea/Vomiting, 1 dose, Starting on Sat10/28/23 at 1248, Until Sat10/28/23 at 1308, Second choice, use if first choice was ineffective., PACU 1308 ($ Given - Provider: Sharri Amanda RN) prochlorperazine (Compazine) injection 10 mg 10 mg, Intravenous, EVERY 6 HOURS PRN, Nausea/Vomiting, Starting on Sat10/28/23 at 1443, Until Sat10/29/23 at 1558, Max intravenous rate = 5 [...] Pre-op documented in this encounter Care Teams Upholstery Bundler Relationship Specialty Start Date End Date Howard Damon MD [address] [place] [address] PCP - General Family Medicine 03/08/23 documented as of this encounter
--- OUTSIDE RECORDS SUMMARY | 2024-04-25 09:30 | XMS_ITS | Encounter Summary ---
Author Organization [facility] Address [address] [place] [address] Care Team Providers Care Machine Cleaner Name Role Phone Howard Damon MD Primary Care Provider [phone] Encounter Details Date Type Department Care Team (Late st Contact Info) Description 05/17/2023 9:00 AM BOLTING MACHINE OPERATOR Office Visit [facility] Weight Management Services [id number] [place] [address] [address] [place] [address] [place] [address] [facility] [address] [place] [address] Morbid obesity (HCC) (Primary Dx); Preop testing; BMI 45.0-49.9, adult (HCC) Social History Tobacco Use Types [...] Sign Reading Time Taken Comments Blood Pressure 128/68 05/17/2023 9:00 AM BOLTING MACHINE OPERATOR Pulse 61 05/17/2023 9:00 AM BOLTING MACHINE OPERATOR Temperature 36.3 ??C (97.3 ??F) 05/17/2023 9:00 AM CS T Respiratory Rate - - Oxygen Saturation 94% 05/17/2023 9:00 AM BOLTING MACHINE OPERATOR Inhaled Oxygen Concentration - - Weight 128.8 kg (284 lb) 05/17/2023 9:00 AM BOLTING MACHINE OPERATOR Height - - Body Mass Index 45.1 05/10/2023 4:52 PM BOLTING MACHINE OPERATOR documented in this encounter Progress Notes * Michael Pedraza MD - 05/17/2023 9:00 AM CST BARIATRIC EVALUATION HISTORY & PHYSICAL Weight: 128.8 kg (284 lb) Chief Complaint: Morbid Obesity HPI: Pt is a 58 year old year old female with a hx of morbid obesity who presents for surgical tx. Pt has attempted multiple weight loss regimens in the past including medical, exercise and dietary without organizational psychologist success. Pt has developed multiple comorbid conditions that include Gastroesophageal reflux disease, Heart trouble, Multiple arthropathies, Depression and Osteoarthritis. These comorbid condition(s) have progressively worsened due to the patients morbid obesity and no other contributing factors. Pt has now attained a and has failed multiple non surgical weight loss regimens for >5yrs. BMI: Body mass index is 45.1 kg/m??. Seibert body weight: 60.5 kg (133 lb 7.1 oz) Adjusted ideal body weight: 87.8 kg (193 lb 10.7 oz) Medical: no new medical changes Review of previous provider notes in [facility] Everywhere was performed on the day of service. Past Medical History: Diagnosis Date ??? Cardiac arrhythmia ??? GERD (gastroesophageal reflux disease) ??? Neuropathy ??? Osteoarthritis Past Surgical History: Procedure Laterality Date ??? Cholecystectomy, Laparoscopic ??? ENDOSCOPY, UPPER 04/04/2023 ??? ENDOSCOPY, UPPER N/A 04/04/2023 N/A; ESOPHAGOGASTRODUODENOSCOPY (EGD) DIAGNOSTIC ??? Hip Replacement Bilateral PATIENT MEDICAL HISTORY SCREENING: Morbid Obesity............................................. Yes [...] No Anesthetic Complications................. No Other................................................. none Current Outpatient Medications Medication ??? escitalopram (Lexapro) 20 MG tablet ??? gabapentin (Neurontin) 300 MG capsule ??? meloxicam (Mobic) 15 MG tablet ??? metoprolol succinate XL 24hr (Toprol XL) 25 MG tablet ??? pantoprazole EC (Protonix) 40 MG tablet ??? vitamin D, ergocalciferol, (Drisdol) 1.25 MG (60515 UT) capsule No current facility-administered medications for this visit. No Known Allergies Social History Smoking status: Never Smokeless tobacco: Never Alcohol use: Never Drug use: Never Sexual activity: Not on file Family History Problem Relation Name Age of Onset ??? Diabetes - Type 2 Mother ??? Renal Disease Mother ??? Cancer - Breast Neg Hx ??? Cancer - Thyroid Neg Hx All past [...] person for any ADLs.. Physical Examination: BP 128/68 (BP SITE: LEFT ARM, BP POSITION: SITTING, BP Cuff Size: XL) Pulse 61 Temp 97.3 ??F (36.3 ??C) (Temporal) Wt 128.8 kg (284 lb) SpO2 94% Constitutional: well-developed, well-nourished, and in no distress. [...] No erythema. Psychiatric: Mood and affect normal. No results for input(s): SODIUM , POTASSIUM , CHLORIDE , CO2 , BUN , CREATININE , GLUCOSE , CALCIUM in the last 45099 hours. No results for input(s): WBC , HGB , HCT , PLTCOUNT in the last 85671 hours. Risk / Benefits: Risks and benefits were [...] procedures or operations in the perioperative and organizational psychologist periods. Questions were answered. Surgical risks and [...] surgical procedures, including the duodenal switch, the michael y gastric bypass, the sleeve gastrectomy and the adjustable gastric band. It was explained that bariatric surgery is part of the overall weight loss program which includes a low calorie nutritional program with nutritional and vitamin supplementation, a frequent and consistent exercise program and a social support program or network. The patient will experience successfuland long-term weight loss when these components along with bariatric surgery are followed. The patient has had the above discussions with multiple program team members including surgeon, hat finisher, bariatric nurse and mental health remediation technician and the patient will continue to have [...] Liquid Protein Diet: Yes for 1 Week Conservation Science Teacher: Yes Additional Testing: Yes GI: hx of [...] Yes -decrease from baseline as class, initial 288 Weight check at Class: Yes Comments: Hospitalist Consult: Yes Other Consults: No Schedule:any Standard incision, 2S, no patricio, 2 day stay Michael Pedraza MD 05/17/2023 ING MACHINE OPERATOR documented in this encounter Plan of Treatment Upcoming Encounters Date Type Department Care Team (Late st Contact Info) Description 05/01/2024 1:30 PM BOLTING MACHINE OPERATOR Office Visit [facility] Weight Management Services [address] [place] [address], [address] [place] [address] Melisa Fortune APRN-SURFACE MINER [address] [place] [address] 10/27/2024 1:30 PM CDT Office Visit [facility] Weight Management Services [address] [place] [address], [address] [place] [address] Melisa Fortune APRN-[address] [place] [address] documented as of this encounter Visit Diagnoses Diagnosis Morbid obesity (HCC)- Primary Morbid obesity Preop testing Preoperative examination, unspecified BMI 45.0-49.9, adult (HCC) Body Mass Index 45.0-49.9, adult documented in this encounter Care Teams Machine Cleaner Relationship Specialty Start Date End Date Howard Damon MD [address] [place] [id number] PCP - General Family Medicine 03/08/23 documented as of this encounter
--- OUTSIDE RECORDS SUMMARY | 2024-04-25 09:30 | XMS_ITS | Clinical Summary ---
Author Organization [facility] [employer] Address [address] [place] [address] Care Team Providers Care Pot Runner Name Role Phone Howard Damon MD Primary Care Provider [phone] Source Comments Communication [employer],non-owned Affiliates and Associated Physician Practices is amultiple site organization consisting of ambulatory clinics and hospital sitesin [place], [place], [place] and [place]. This disclosure is being madepursuant to the Care Everywhere program and may not contain all information available regarding this patient. Last updated 18.[employer] Allergies No known active allergies Medications * Be aware that medications may not be up to date on this document. Alwaysverify current medications with the patient. Medication Sig Dispensed Refills Start Date End Date Status vitamin D, ergocalciferol, (Drisdol) 1.25 MG (81544 UT) capsule Take 1 (one) capsule by mouth every 7 days Mondays02/27/2023 Active escitalopram (Lexapro) 20 MG tablet Take 1 (one) tablet by mouth at bedtime 02/08/2023 Active gabapentin (Neurontin) 300 MG capsule at bedtime 12/23/2022 Active cetirizine (ZyrTEC) 10 MG tablet Take 1 (one) tablet by mouth once daily Active acetaminophen (Tylenol) 160 MG/5ML solution Take 31.25 mL by mouth every 8 hours 10/29/2023 Active metoprolol tartrate IR (Lopressor) 25 MG tablet Take 0.5 (one-half) tablet by mouth 2 times daily 30 tablet 10/29/2023 Active Wheat Dextrin (BENEFIBER DRINK MIX PO) Active pantoprazole EC (Protonix) 40 MG tablet Take 1 (one) tablet by mouth 2 times daily 60 tablet 3 11/29/2023 Active Active Problems Problem Noted Date Diagnosed Date Morbid obesity 10/28/2023 Family History Medical History Relation Name Comments Diabetes - Type 2 Mother Renal Disease Mother Cancer - Breast Neg Hx Cancer - Thyroid Neg Hx Relation Name Status Comments Father Alive Mother Alive Social History Tobacco Use Types Packs/Day Years [...] and heating? Not hard at all 10/28/2023 [facility] [place] of Occupat ional Health - Occupational Stress [...] place to sleep or slept in a [facility] (including now)? No 10/28/2023 Sex and Gender [...] Mass Index 41.82 11/29/2023 11:05 AM CDT Plan of Treatment Upcoming Encounters Date Type Department Care Team (Late st Contact Info) Description 05/01/2024 1:30 PM CLINICAL ENGINEERING MANAGER Office Visit [facility] Health Weight Management Services [address] [place] [address], [address] [address] Melisa Fortune, CASINO FLOOR PERSON-E/M ENGINEER [address] [place] [address] 10/27/2024 1:30 PM CDT Office Visit [facility] Weight Management Services [address] [place] [address], [address] [place], [place] [id number] Melisa Fortune, CASINO FLOOR PERSON-E/M ENGINEER [address] [place] [address] Health Maintenance Due Date Last Done Comments COLOGUARD (AGES 45-75) - COLON CA SCREENING 1965 COLON MONITORING 1965 COLONOSCOPY - COLON CA SCREENING 1964 CT COLONOGRAPHY - COLON CA SCREENING 1965 Colorectal Cancer Screening 1965 FIT - COLON CA SCREENING 1965 FLEX SIG - COLON CA SCREENING 1965 LIPID TESTING 1965 MAMMOGRAM 1965 PAP SMEAR 1964 HIV SCREENING 1979 HEPATITIS C SCREENING 02/27/1982 DTAP/TDAP/TD VACCINES (1 - Tdap) 1983 ZOSTER VACCINE (1 of 2) 2014 DEPRESSION SCREENING 05/06/2023 COVID-19 VACCINE (1 - season) 2024 INFLUENZA VACCINE (#1) 2024 Respiratory Syncytial Virus (RSV) Vaccine Pt: or over 60 yrs (1 - Risk 60-74 years 1-dose series) 2024 SCREENING FOR DIABETES 10/28/2026 , 10/29/2023, 10/29/2023, Additional history exists HEPATITIS B VACCINE Aged Out No longe r eligible based on patient's age to complete this topic HIB VACCINE Aged Out No longer eligi ble based on patient's age to complete this topic HPV VACCINE Aged Out No longer eligi ble based on patient's age to complete this topic MENINGOCOCCAL VACCINE Aged Out No laura cherri eligible based on patient's age to complete this topic PNEUMOCOCCAL VACCINE Aged Out No long er eligible based on patient's age to complete this topic Procedures Procedure Name Priority Date/Time Associated Diagnosis Comments BASIC METABOLIC PANEL (CALCIUM TOTAL) AM Draw 10/29/2023 2:07 AM CDT from Last 3 Months or Most Recently Relevant to Health Maintenance Results * (ABNORMAL) BASIC METABOLIC PANEL (CALCIUM TOTAL) (10/29/2023 2:07 AM CDT) Glucose 148(H) 70 - 105 mg/dL 10/29/2023 2:38 AM CDT [facility] Sodium 139 136 - 145 mmol/L 10/29/2023 2:38 AM CDT [facility] Potassium 4.5 3.5 - 5.1 mmol/L 10/29/2023 2:38 AM CDT [facility] Chloride 109(H) 98 - 107 mmol/L 10/29/2023 2:38 AM CDT [facility] CO2 22 22 - 29 mmol/L 10/29/2023 2:38 AM CDT [facility] Calcium 9.0 8.4 - 10.4 mg/dL 10/29/2023 2:38 AM CDT [facility] Anion Gap 8 6 - 16 mmol/L 10/29/2023 2:38 AM CDT [facility] BUN 22 7 - 26 mg/dL 10/29/2023 2:38 AM CDT [facility] Creatinine 0.88 0.57 - 1.11 mg/dL 10/29/2023 2:38 AM CDT [facility] eGFR by CKD-EPI 76(L) >=90 mL/min/1.7 3 m2 10/29/2023 2:38 AM CDT [facility] Blood BLOOD SPECIMEN / Unknown Venipuncture / Unknown 10/29/2023 2:07 AM CDT 10/29/2023 2:12 AM CDT Michael Pedraza MD LAB - CHEMISTRY JUAN JOSE [facility] Organization Address City/State/ZIP Co de Phone Number [facility] [address] [place] [phone] from Last 3 Months or Most Recently Relevant to Health Maintenance Advance Directives * Full Code (Latest Code Status on File) Date Activated Date Inactivated Comments 10/28/2023 2:43 PM 10/29/2023 3:58 PM Care Teams Pot Runner Relationship Specialty Start Date End Date Howard Damon MD [address] [place], [place] [id number] PCP - General Family Medicine 03/08/23
--- OUTSIDE RECORDS SUMMARY | 2024-04-25 09:30 | XMS_ITS | Encounter Summary ---
Author Organization [facility] Address [address] [place] [address] Care Team Providers Care Gaming Cage Worker Name Role Phone Howard Damon MD Primary Care Provider [phone] Reason for Referral * Procedure (Routine) - Closed Specialty Diagnoses / Procedures Referred By Simona rojas Referred To Contact Gastroenterology Diagnoses Morbid obesity (HCC) Preop testing BMI 45.0-49.9, adult (HCC) Gastroesophageal reflux disease, unspecified whether esophagitis present Procedures EGD NM ED EGD FLEX TRANSORAL DX NM EGD FLEX TRANSORAL [place] [address] [place] [address] Referral ID Status Reason Start Date Expiration Date Visits Re quested Visits Authorized [id number] Closed 03/08/2023 03/07/2024 1 1 ET COMPANY MEMBER Reason for Visit * Auth/Cert (Routine) Specialty Diagnoses / Procedures Referred By Simona rojas Referred To Contact Procedures NM ED EGD FLEX TRANSORAL DX ESOPHAGOGASTRODUODENOSCOPY (EGD) DIAGNOSTIC Referral ID Status Reason Start Date Expiration Date Visits Re quested Visits Authorized [id number] 1 1 Encounter Details Date Type Department Care Team (Latest Contact Info) Description 04/04/2023 7:35 AM BALLET COMPANY MEMBER - 04/04/2023 9:25 AM BALLET COMPANY MEMBER Hospital Encounter [facility] - Endoscopy Services [address] [place] [address] [place] [address] [place] [id number] Surgery General Discharge Disposition: Home or Self [...] Sign Reading Time Taken Comments Blood Pressure 142/91 04/04/2023 9:00 AM BALLET COMPANY MEMBER Pulse 49 04/04/2023 9:05 AM BALLET COMPANY MEMBER Temperature 36.7 ??C (98 ??F) 04/04/2023 8:00 AM BALLET COMPANY MEMBER Respiratory Rate 18 04/04/2023 9:05 AM [employer]LET COMPANY MEMBER Oxygen Saturation 94% 04/04/2023 9:05 AM BALLET COMPANY MEMBER Inhaled Oxygen Concentration - - Weight 130.6 kg (288 lb) 04/04/2023 8:00 AM BALLET COMPANY MEMBER Height 165.1 cm (5' 5 ) 04/04/2023 8:00 AM [employer]LET [employer] MEMBER Body Mass Index 47.93 04/04/2023 8:00 AM BALLET COMPANY MEMBER documented in this encounter Medications at Time of Discharge Medication Sig Dispensed Refills Start Date End Date escitalopram (Lexapro) 20 MG tablet Take 1 (one) tablet by mouth at bedtime 02/08/2023 gabapentin (Neurontin) 300 MG capsule at bedtime 12/23/2022 vitamin D, ergocalciferol, (Drisdol) 1.25 MG (35636 UT) capsule Take 1 (one) capsule by [...] 02/20/2023 11/29/2023 documented as of this encounter H&P Notes * Michael Pedraza MD - 04/04/2023 7:47 AM CST ENDOSCOPY PRE-PROCEDURE MEDICAL HISTORY & PHYSICAL Syeda Christian 04/04/2023 There were no vitals taken for this visit. Past Medical History: Diagnosis Date ??? GERD (gastroesophageal reflux disease) ??? Osteoarthritis Past Surgical History: Procedure Laterality Date ??? Cholecystectomy, Laparoscopic ??? Hip Replacement Bilateral No current facility-administered medications on file prior to encounter. Current Outpatient Medications on File Prior to Encounter Medication Sig Dispense Refill ??? escitalopram (Lexapro) 20 MG tablet Take 1 (one) tablet by mouth once daily ??? gabapentin (Neurontin) 300 MG capsule TAKE 1 CAPSULE BY MOUTH EVERY DAY AT BEDTIME ??? meloxicam (Mobic) 15 MG tablet Take 1 (one) tablet by mouth once daily ??? metoprolol succinate XL 24hr (Toprol XL) 25 MG tablet Take 1 (one) tablet by mouth once daily ??? pantoprazole EC (Protonix) 40 MG tablet Take 1 (one) tablet by mouth every morning ??? vitamin D, ergocalciferol, (Drisdol) 1.25 MG (26424 UT) capsule Take 1 (one) capsule by mouth No Known Allergies Physicial Exam: General appearance: alert, cooperative, no distress Lungs: exam not performed Heart: exam not performed Abdomen: soft without mass, non-tender, with normal bowel sounds Extremities: no clubbing, no cyanosis ASA Evaluation and Anesthesia Plan: Anesthesia administered per Anesthesia Department Indication(s) for Procedure: Heartburn Procedure Planned: EGD Michael Pedraza MD [employer] MEMBER documented in this encounter Procedure Notes * Michael Pedraza MD - 04/04/2023 8:48 AM CSTAssociated Order(s): EGD EGD completed. Gastritis. Hill 3 valve, EOE, 2 cm HH. Biopsies pending. A full PDF copy of the report with photos is in the results and/or media tab for your review. Please refer to this for full details of the procedure. Pt to have Hiatal hernia repair added on to primary procedure Pt to follow up to discuss surgical options Michael Pedraza MD [employer] MEMBER documented in this encounter Plan of Treatment Upcoming Encounters Date Type Department Care Team (Late st Contact Info) Description 05/01/2024 1:30 PM BALLET COMPANY MEMBER Office Visit [facility] Weight Management Services [id number] [place] [address], [address] [place] [address] Melisa Fortune CARDING MACHINE FEEDER-AMMUNITION SPECIALIST [address] [place] [address] 10/27/2024 1:30 PM CDT Office Visit [facility] Weight Management Services [id number] [place] [address], [address] [place] [address] Melisa Fortune APRN-AMMUNITION SPECIALIST [address] [place] [address] documented as of this encounter Procedures Procedure Name Priority Date/Time Associated Diagnosis Comments HELICOBACTER PYLORI UREASE (STL) STAT 04/04/2023 8:46 AM [employer]LET COMPANY MEMBER Preop examination NM ED EGD FLEX TRANSORAL DX 04/04/2023 8:40 AM [employer]LET [employer] MEMBER EGD Routine 04/04/2023 8:21 AM [employer] MEMBER Morbid obesity (HCC) Preop testing BMI 45.0-49.9, adult (HCC) Gastroesophageal reflux disease, unspecified whether esophagitis present documented in this encounter Results * HELICOBACTER PYLORI UREASE (STL) (04/04/2023 8:46 AM BALLET COMPANY MEMBER) Helicobacter pylori Urease Initial Negative Negative 04/05/2023 9:43 AM BALLET COMPANY MEMBER [facility] Helicobacter pylori Urease Final Negative Negative 04/05/2023 9:43 AM BALLET [employer] MEMBER [facility] Comment:This is an appended report. These results have been appended to a previously preliminary verified report. Microbiology GASTRIC ANTRAL BIOPSY SPECIMEN / Unknown 04/04/2023 8:46 AM [employer]LET [employer] MEMBER 04/04/2023 1:24 PM BALLET [employer] MEMBER Michael Pedraza MD LAB - MICROBIOLOGY O RDERABLES [facility] [address] [facility] [address] [facility] [address] * EGD (04/04/2023 8:21 AM BALLET COMPANY MEMBER) Report Endoscopy POC __ _ Patient Name: Syeda Christian ?Procedure Date: 04/04/2023 8:21 AM ? Date of : 1965 ? Admit Type: Outpatient Age: 58 ? Gender: Female Attending MD: Michael Pedraza MD, ?? __ _ Procedure: ? Upper GI endoscopy Indications: ? Heartburn Providers: ? Michael Pedraza MD (Doctor) Referring MD: ?Howard Damon MD (Referring MD) Medicines: ? Monitored [...] Procedure Code(s): ? --- Professional --- ? 40860, Esophagogastroduode noscopy, flexible, transoral; with biopsy, ? single or multiple ? --- Technical --- ? 80435, Esophagogastroduode noscopy, flexible, transoral; with biopsy, ? [...] bleeding ? R12, Heartburn CPT copyright 2020 [employer]. All rights reserved. The codes documented in this report are preliminary and upon jewelry department supervisor review may be revised to meet current compliance requirements. Michael Pedraza _ Michael Pedraza MD 04/04/2023 8:48:09 AM This report has been signed electronically. Number of Addenda: 0 Note Initiated On: 04/04/2023 8:21 AM [facility] 04/04/2023 8:21 AM [employer] MEMBER Narrative Procedure Note Michael Pedraza MD - [...] Michael Pedraza MD GI PROCEDURE ORDERAB LES [facility] [place] [address] documented in this encounter Visit Diagnoses Diagnosis Morbid obesity (HCC) Morbid obesity Preop testing Preoperative examination, unspecified BMI 45.0-49.9, adult (HCC) Body Mass Index 45.0-49.9, adult Gastroesophageal reflux disease, unspecified whether esophagitis present Preop examination Preoperative examination, unspecified documented in this encounter Administered Medications Inactive Administered Medications - up to 3 most recent administrations Medication Order MAR Action Action Date Dose Rate Site 0.9% NaCl infusion at 20 mL/hr, Intravenous, CONTINUOUS, Starting on Cassandra 04/04/23 at 0800, Until Cassandra 04/04/23 at 1025, Pre-procedure (GI) $ New Bag/Syringe 04/04/2023 8:23 AM [employer] MEMBER 0.9% NaCl injection 3 mL 3 mL, Intracatheter, PRE-PROCEDURE MULTIPLE, Starting on Cassandra 04/04/23 at 0751, Until Cassandra 04/04/23 at 1025, For Saline Lock flushes if one is inserted for Bronchoscopy/Endoscopy procedure., Pre-procedure (GI) documented in this encounter Active and Recently Administered Medications Times are shown in [employer]. Scheduled Medication Order 04/02/2023 04/03/2023 04/04/2023 0.9% NaCl injection 3 mL 3 mL, Intracatheter, PRE-PROCEDURE MULTIPLE, Starting on Cassandra 04/04/23 at 0751, Until Cassandra 04/04/23 at 1025, For Saline Lock flushes if one is inserted for Bronchoscopy/Endoscopy procedure., Pre-procedure (GI) Continuous Medication Order 04/02/2023 04/03/2023 04/04/2023 0.9% NaCl infusion at 20 mL/hr, Intravenous, CONTINUOUS, Starting on Cassandra 04/04/23 at 0800, Until Cassandra 04/04/23 at 1025, Pre-procedure (GI) 0823 ($ New Bag/Syri nge - Provider: CAMI Chamorro)0845 (Anesthesia Volume Adjustment - Provider: CAMI Chamorro) documented in this encounter Care Teams Gaming Cage Worker Relationship Specialty Start Date End Date Howard Damon MD [address] [place] [address] PCP - General Family Medicine 03/08/23 documented as of this encounter
--- OUTSIDE RECORDS SUMMARY | 2024-04-25 09:30 | XMS_ITS | Encounter Summary ---
Author Organization [facility] Health Address [address] [place] [address] Care Team Providers Care Rate And Cost Analyst Name Role Phone Howard Damon MD Primary Care Provider [phone] Encounter Details Date Type Department Care Team (Late st Contact Info) Description 10/29/2023 Orders Only [facility] Management Services [address] [facility] [address] [place] [address] [place] [address] [facility] [address] [place] [address] Morbid (severe) obesity due to excess calories (HCC) Social History Tobacco Use Types Packs/Day [...] and heating? Not hard at all 10/28/2023 [facility] [place] of Occupat ional Health - Occupational Stress [...] place to sleep or slept in a skilled nursing (including now)? No 10/28/2023 Sex and Gender [...] st Contact Info) Description 05/01/2024 1:30 PM OPTOMETRIST OWNER Office Visit [facility] Weight Management Services [address] [facility], [address] [place] [address] Melisa Fortune, MARKETING PROJECT LEAD-CAFE COOK [address] [place] [address] 10/27/2024 1:30 PM CDT Office Visit [facility] Services [address] [facility], [address] [place] [address] Melisa Fortune, MARKETING PROJECT LEAD-CAFE COOK [address] [place] [address] documented as of this encounter Visit Diagnoses Diagnosis Morbid (severe) obesity due to excess calories (HCC) documented in this encounter Care Teams Rate And Cost Analyst Relationship Specialty Start Date End Date Howard Damon MD [address] [place] [address] PCP - General Family Medicine 03/08/23 documented as of this encounter
--- OUTSIDE RECORDS SUMMARY | 2024-04-25 09:30 | XMS_ITS | Encounter Summary ---
Author Organization [facility] Address [address] [place] [address] Care Team Providers Care Test Eng Name Role Phone Howard Damon MD Primary Care Provider [phone] Reason for Referral * Procedure (Routine) - Closed Specialty Diagnoses / Procedures Referred By Contac t Referred To Contact Gastroenterology Diagnoses Morbid obesity (HCC) Preop testing BMI 45.0-49.9, adult (HCC) Gastroesophageal reflux disease, unspecified whether esophagitis present Procedures EGD RI ED EGD FLEX TRANSORAL DX RI EGD FLEX TRANSORAL [place] [address] [place] [address] Referral ID Status Reason Start Date Expiration Date Visits Re quested Visits Authorized [id number] Closed 03/08/2023 03/07/2024 1 1 Reason for Visit * Reason Comments Pre-op Consult Encounter Details Date Type Department Care Team (Late st Contact Info) Description 03/08/2023 11:00 AM CDT Office Visit [facility] Weight Management Services [address] [facility], [address] [place] [address] [place] [address] [place] [address] Morbid obesity (HCC) (Primary Dx); Preop testing; BMI 45.0-49.9, adult (HCC); Gastroesophageal reflux disease, unspecified whether esophagitis present Social History Tobacco Use Types Packs/Day Years Used Date Smoking Tobacco: Never Smokeless Tobacco: Never Tobacco Cessation:Counseling Given: Not Answered Sex and Gender Information Value Date Recorded Sex Assigned at Not on file Gender Identity Not on file Sexual Orientation Not on file documented as of this encounter Last Filed Vital Signs Vital Sign Reading Time Taken Comments Blood Pressure 141/81 03/08/2023 10:55 AM CDT Pulse 52 03/08/2023 10:55 AM CDT Temperature 36.6 ??C (97.8 ??F) 03/08/2023 10:55 AM C DT Respiratory Rate 18 03/08/2023 10:55 AM CDT Oxygen Saturation 98% 03/08/2023 10:55 AM CDT Inhaled Oxygen Concentration - - Weight 131 kg (288 lb 12.8 oz) 03/08/2023 10:55 AM CDT Height 165 cm (5' 4.96 ) 03/08/2023 10:55 AM CDT Body Mass Index 48.12 03/08/2023 10:55 AM CDT documented in this encounter Progress Notes * Michael Pedraza MD - 03/08/2023 11:00 AM CDT BARIATRIC EVALUATION HISTORY & PHYSICAL Height: 165 cm (5' 4.96 ) Weight: 131 kg (288 lb 12.8 oz) BMI (Calculated): 48.12 Chief Complaint: Morbid Obesity HPI: Pt is a 58 year old year old female with a hx of morbid obesity who presents for surgical tx. Pt has attempted multiple weight loss regimens in the past including medical, exercise and dietary without rn long term care success. Pt has developed multiple comorbid conditions that include Gastroesophageal reflux disease, Heart trouble, Multiple arthropathies, Depression and Osteoarthritis. These comorbid condition(s) have progressively worsened due to the patients morbid obesity and no other contributing factors. Pt has now attained a BMI (Calculated): 48.12 and has failed multiple non surgical weight loss regimens for >5yrs. BMI: Body mass index is 48.12 kg/m??. [place] body weight: 56.9 kg (125 lb 7.4 oz) Adjusted ideal body weight: 86.5 kg (190 lb 12.8 oz) Medical: no new medical changes Review of previous provider notes in [facility] Everywhere was performed on the day of service. Past Medical History: Diagnosis Date ??? GERD (gastroesophageal reflux disease) ??? Osteoarthritis Past Surgical History: Procedure Laterality Date ??? Cholecystectomy, Laparoscopic ??? Hip Replacement Bilateral PATIENT MEDICAL HISTORY [...] ??? vitamin D, ergocalciferol, (Drisdol) 1.25 MG (63919 UT) capsule No current facility-administered medications for this visit. No Known Allergies Social History Smoking status: Not on file Smokeless tobacco: Not on file Alcohol use: Not on file Drug use: Unknown Sexual activity: Not on file Family History Problem Relation Name Age of Onset ??? Diabetes - Type 2 Mother ??? Cancer - Breast Neg Hx [...] person for any ADLs.. Physical Examination: BP 141/81 (BP SITE: LEFT ARM, BP POSITION: SITTING) Pulse 52 Temp 97.8 ??F (36.6 ??C) (Temporal) Resp 18 Ht 1.65 m (5' 4.96 ) Wt 131 kg (288 lb 12.8 oz) SpO2 98% Constitutional: well-developed, well-nourished, and in no distress. [...] , GLUCOSE , CALCIUM in the last 18668 hours. No results for input(s): WBC , HGB , HCT , PLTCOUNT in the last 31048 hours. Risk / Benefits: Risks and benefits [...] procedures or operations in the perioperative and rn long term care periods. Questions were answered. Covid Discussion: Because the nature of the [...] or network. The patient will experience successfuland penitentiary weight loss when these components along with bariatric surgery are followed. The patient has had the above discussions with multiple program team members including surgeon, band saw operator, bariatric nurse and mental health chemical equipment controller and the patient will continue to have these discussions through the perioperative program. Impression: Morbid obesity with above listed comorbidities. Multiple failed diet attempts. Plan: Based on discussion with the patient and consideration of the patients medical history and diagnosis of morbid obesity the patient is an appropriate candidate for bariatric surgery. Recommendation isfor: Laparoscopic Sleeve Gastrectomy and Laparoscopic Gastric Bypass Pre-op Plan: Liquid Protein Diet: Yes for 1 Week Multiple Drum Sander: Yes Additional Testing: Yes GI: hx of GERD, on PPI and morbid obesity with increased risk of silent heartburn and hiatal hernia -EGD: Schwoerer -UGI: ordered CV: hx of tachycardia, metabolic syndrome -pcp [...] patricio, 2 day stay Michael Pedraza MD 03/08/2023 documented in this encounter Plan of Treatment Upcoming Encounters Date Type Department Care Team (Late st Contact Info) Description 05/01/2024 1:30 PM GENERAL SALES MANAGER Office Visit [facility] Weight Management Services [address] [facility], [facility] [address] [place] [address] Melisa Fortune, TAPER PRINTED CIRCUIT LAYOUT-LOCAL GOVERNMENT LEGISLATOR [address] [facility] [address] [place] [address] 10/27/2024 1:30 PM CDT Office Visit [facility] Weight Management Services [address] [facility], [address] [place] [address] Melisa Fortune APRN-LOCAL GOVERNMENT LEGISLATOR [address] [facility] [address] [place] [address] documented as of this encounter Results * EGD (04/04/2023 8:21 AM GENERAL SALES MANAGER) Report Endoscopy POC __ _ Patient Name: Syeda Christian ?Procedure Date: 04/04/2023 8:21 AM ? Date of : 1965 ? Admit Type: Outpatient Age: 58 ? Gender: Female Attending MD: Michael Pedraza MD, ?? __ _ Procedure: ? Upper GI endoscopy Indications: ? Heartburn Providers: ? Michael Pedraza MD (Doctor) Referring MD: ?Hoawrd Damon MD (Referring MD) Medicines: ? Monitored [...] Procedure Code(s): ? --- Professional --- ? 62600, Esophagogastroduode noscopy, flexible, transoral; with biopsy, ? single or multiple ? --- Technical --- ? 51796, Esophagogastroduode noscopy, flexible, transoral; with biopsy, ? [...] bleeding ? R12, Heartburn CPT copyright 2020 [employer]. All rights reserved. The codes documented in this report are preliminary and upon director long term care review may be revised to meet current compliance requirements. Michael Pedraza _ Michael Pedraza MD 04/04/2023 8:48:09 AM This report has been signed electronically. Number of Addenda: 0 Note Initiated On: 04/04/2023 8:21 AM [facility] 04/04/2023 8:21 AM GENERAL SALES MANAGER Narrative Procedure Note Michael Pedraza MD - [...] Michael Pedraza MD GI PROCEDURE ORDERAB LES Performing Organization Address City/State/[facility] Co de Phone Number [facility] [place] [address] documented in this encounter Visit Diagnoses Diagnosis Morbid obesity (HCC)- Primary Morbid obesity Preop testing Preoperative examination, unspecified BMI 45.0-49.9, adult (HCC) Body Mass Index 45.0-49.9, adult Gastroesophageal reflux disease, unspecified whether esophagitis present Morbid obesity (HCC) Morbid obesity Preop testing Preoperative examination, unspecified BMI 45.0-49.9, adult (HCC) Body Mass Index 45.0-49.9, adult Gastroesophageal reflux disease, unspecified whether esophagitis present Preop examination Preoperative examination, unspecified documented in this encounter Care Teams Test Eng Relationship Specialty Start Date End Date Howard Damon MD [address] [place] [address] PCP - General Family Medicine 03/08/23 documented as of this encounter
--- OUTSIDE RECORDS SUMMARY | 2024-04-25 09:30 | XMS_ITS | Encounter Summary ---
Author Organization [facility] Address [address] [place] [address] Phone Care Team Providers Care Test Engineering Manager Name Role Phone Howard Damon MD Primary Care Provider Reason for Visit * Reason Onset Date Comments Prior Auth 11/30/2020 Encounter Details Date Type Department Care Team (Late st Contact Info) Description 11/30/2020 Telephone [facility] Diabetes and Nutrition Services [address] [facility] [address] [place] [address] Joy Angeles MD [address] [place], [place] [id number] Prior Auth Social History Tobacco Use Types Packs/Day Years Used Date Smoking Tobacco: Never Alcohol Use Standard Drinks/Week Comments Yes 0 (1 standard drink = 0.6 oz pur e alcohol) Comments Unknown Sex and Gender Information Value Date Recorded Sex Assigned at Not on file Legal Sex Female 3:12 AM DIRECTOR OF CONTRACTS Gender Identity Not on file Sexual Orientation Not on file documented as of this encounter Miscellaneous Notes * Telephone Encounter - Shelby Shah MA - 11/30/2020 9:43 AM CDT Duplicate request * Telephone Encounter - Sarah Padilla MA - 11/30/2020 8:16 AM CDT PA request [employer] MCKEON: [id number] documented in this encounter Plan of Treatment Not on file documented as of this encounter Visit Diagnoses Not on filedocumented in this encounter Care Teams Test Engineering Manager Relationship Specialty Start Date End Date Howard Damon MD [address] [facility] [address] [place] [id number] PCP - General Family Medicine 08/21/18 documented as of this encounter
--- OUTSIDE RECORDS SUMMARY | 2024-04-25 09:30 | XMS_ITS | Encounter Summary ---
Author Organization [facility] Address [address] [facility] [place] [address] Care Team Providers Care Claim Auditor Name Role Phone Howard Damon MD Primary Care Provider [phone] Reason for Visit * Reason Comments Diet Encounter Details Date Type Department Care Team (Late st Contact Info) Description 04/08/2023 4:15 PM PUMPMAN Video Visit [facility] Weight Management Services [address] [facility], [address] [place] [address] Morbid obesity (HCC) Social History Tobacco Use [...] - Inhaled Oxygen Concentration - - Weight 129.2 kg (284 lb 12.8 oz) 04/09/2023 6:03 AM PUMPMAN stated Height 165 cm (5' 4.96 ) 04/09/2023 6:03 AM PUMPMAN Body Mass Index 47.45 04/09/2023 6:03 AM PUMPMAN documented in this encounter Progress Notes * Destiny Duran RD/PATIENCE - 04/09/2023 6:03 AM CST Today's visit was conducted virtually. The patient has given verbal consent to have today's visit conducted virtually and understands the risks, benefits and alternatives associated with telemedicine. Patient location: Home This encounter was performed using: audio and video Total time spent on visit on date of encounter is: 45 minutes with 45 minutes spent in medical discussion. Weight Management Medical Nutrition Therapy Session 2 Date: 04/09/2023 Patient: Syeda Christian Date of : 1965 (58 year old) PCP Physician: Howard Damon MD Referring Physician: Michael Pedraza MD Progress towards previous goals: 1. Start looking for sugar free creamer- goal met 2. Add a protein shake to breakfast- goal met ?? Assessment: Pt planning RNY. 4 lb weight loss from previous visit / 4 lb net weight loss from initial RD visit. Pt appears to be making positive changes towards surgery. Pt states she has read through the entire Nutrition Guide. She states she has tried some protein shakes and enjoys several flavors of Premier, which she has been trying to have for breakfast. She has switched to a sugar- free creamer and has been working to increase [...] social events, etc. after surgery. All pt questions were answered at this time. B: protein shake L: protein bar, adult lunchable, yogurt, fruit D: chicken, burger no bun, raspberries, lunch meat, cheese Past Medical History: Diagnosis Date ??? Cardiac arrhythmia ??? GERD (gastroesophageal reflux disease) ??? Neuropathy ??? Osteoarthritis Patient participates in exercise: 0 times per week Patient is participating in the following exercise program: ADLs Pertinent Nutrition Medications: Reviewed Pertinent Nutrition Labs: Reviewed Clinical Data: Height: 165 cm (5' 4.96 ) Weight: 129.2 kg (284 lb 12.8 oz) (stated) BMI (Calculated): 47.[address] visit: 288.8 Diagnostic Statement: Obesity related to excess energy intake and decreased physical activity AEB elevated BMI. Interventions: Bariatric Nutrition Guide provided and reviewed, including: previous food records, proper eating habits/behavior modification tips, adequate hydration, protein requirements, high protein foods, recommended protein supplements and goals Materials Provided: Bariatric Nutrition Guide, Support Group Schedule, High Protein Liquid Supplement Handout, Fitness Center Membership Information and Vitamin Option Sheet Behavior and Lifestyle Modifications Discussed: Eat 3 meals daily with 1-2 high protein snacks as needed Choose low fat/low sugar items Eat 60-80+ gm protein per day Eliminate caloric beverages, [...] surgery. Evaluation of Overall Compliance Potential: Good Goals for this month: 1. Increase water to 64 oz 2. Track protein intake, aim for at least 80 grams per day 3. Eat slowly, take 20 minutes to consume a meal 4. Sample protein bars Nutritional Review ?? Cleared, no additional RD visits required ___ ?? Not cleared, additional RD visit(s) required ___ ?? Continue with Medically Managed Diet visits __x_ ?? Bariatric Case Conference review required ___ Session Information Session date: 04/09/2023 Session total minutes: [address]/PATIENCE MAN documented in this encounter Plan of Treatment Upcoming Encounters Date Type Department Care Team (Late st Contact Info) Description 05/01/2024 1:30 PM PUMPMAN Office Visit [facility] Weight Management Services [address] [place] [address], [address] [address] Melisa Fortune, ENTERTAINMENT DIRECTOR-ACCOUNTING SYSTEMS ANALYST [address] [place] [address] 10/27/2024 1:30 PM CDT Office Visit [facility] Weight Management Services [address] [place] [address], [address] [place] [address] Melisa Fortune APRN-ACCOUNTING SYSTEMS ANALYST [address] [place] [address] documented as of this encounter Visit Diagnoses Diagnosis Morbid obesity (HCC)- Primary Morbid obesity documented in this encounter Care Teams Claim Auditor Relationship Specialty Start Date End Date Howard Damon MD [address] [place] [address] PCP - General Family Medicine 03/08/23 documented as of this encounter
--- OUTSIDE RECORDS SUMMARY | 2024-04-25 09:30 | XMS_ITS | Encounter Summary ---
Author Organization [facility] Address [address] [facility] [place] [address] Care Team Providers Care Purchasing Clerk Name Role Phone Howard Damon MD Primary Care Provider [phone] Reason for Visit * Reason Comments Post-Op Encounter Details Date Type Department Care Team ([facility] Contact Info) Description 11/04/2023 10:40 AM CDT Office Visit [facility] Weight Management Services [address] [place] [address] [address] [place] [address] Melisa Fortune, PATIENT OMBUDSPERSON-[facility] [address] [facility] [address] [place] [address] Morbid obesity (HCC) (Primary Dx); Bariatric surgery status Social History Tobacco Use Types Packs/Day Years [...] and heating? Not hard at all 10/28/2023 [facility] [place] of Occupat ional Health - Occupational Stress [...] place to sleep or slept in a retirement (including now)? No 10/28/2023 Sex and Gender Information Value Date Recorded Sex Assigned at Not on file Gender Identity Not on file Sexual Orientation Not on file documented as of this encounter Last Filed Vital Signs Vital Sign Reading Time Taken Comments Blood Pressure 128/84 11/04/2023 10:44 AM CDT Pulse 62 11/04/2023 10:44 AM CDT Temperature 36.3 ??C (97.3 ??F) 11/04/2023 1 0:44 AM CDT Respiratory Rate - - Oxygen Saturation 99% 11/04/2023 10: 44 AM CDT Inhaled Oxygen Concentration - - Weight 119.4 kg (263 lb 3.2 oz) 024 10:44 AM CDT Height 165 cm (5' 4.96 ) 11/04/2023 10: 44 AM CDT Body Mass Index 43.85 11/04/2023 10:44 AM CDT documented in this encounter Functional [...] as of this encounter Progress Notes * Melisa Fortune, PATIENT OMBUDSPERSON-CRYSTAL SLICER - 11/04/2023 7:07 AM CDT Bariatric Surgery Clinic Note Syeda Christian CC: Morbid Obesity Previous Procedure: 1. Laparoscopic Agapito-en-Y Gastric Bypass 2. Laparoscopic Hiatal Hernia Repair (Milo) Date of Procedure: 10/28/2023 Initial Weight: 265 Todays Weight: 263 Weight Lost: 2 IBW: 154 EBW: 111 % of EBW loss 2% Subjective: Patient is here today for their 1 week post surgery follow up She reports overall she is doing well She is getting in all of the protein She is getting in all of the fluids She has not started on the recommended daily vitamins as instructed She has been up and ambulating. She denies any fevers, CP or SOB She denies any nausea, vomiting or reflux. She has started on the PPI as instructed Abdominal pain is minimal-taking Tylenol as needed She is moving her bowels without difficulty. Taking Benefiber daily Incisions: C/D/I Patient took about 0 doses of Roxicodone She took Zofran the first 2 days she was home, but none the last few days Data Vitals: 11/04/23 1044 BP: 128/84 Pulse: 62 Temp: 97.3 ??F (36.3 ??C) SpO2: 99% Weight: 119.4 kg (263 lb 3.2 oz) Height: 1.65 m (5' 4.96 ) BMI (Calculated): 43.85 Pain Assessment Pain Score: Zero Current Outpatient Medications Medication acetaminophen (Tylenol) 160 MG/5ML solution cetirizine (ZyrTEC) 10 MG tablet escitalopram (Lexapro) 20 MG tablet gabapentin (Neurontin) 300 MG capsule metoprolol tartrate IR (Lopressor) 25 MG tablet ondansetron, disintegrating, (Zofran ODT) 4 MG tablet oxyCODONE (Roxicodone) 5 MG/5ML oral solution pantoprazole EC (Protonix) 40 MG tablet vitamin D, ergocalciferol, (Drisdol) 1.25 MG (35917 UT) capsule Wheat Dextrin (BENEFIBER DRINK MIX PO) No current facility-administered medications for this visit. Recent Labs Component Name 10/29/23 0207 10/16/23 1107 SODIUM 139 142 POTASSIUM 4.5 4.4 CHLORIDE 109* 108* CO2 22 26 BUN 22 21 CREATININE 0.88 0.87 GLUCOSE 148* 86 CALCIUM 9.0 9.4 Recent Labs Component Name 10/29/23 1012 10/29/23 0207 10/16/23 1107 WBC 13.0* 10.8* 8.5 HGB 12.7 11.8* 13.1 HCT 38.9 35.7 40.7 PLTCOUNT 290 255 250 Physical Exam A+O x 3, NAD CTA B/L RRR ABD soft, ND, NT, incisions C/D/I, no e/o hernias Neg BLE edema Assessment/Plan: Pt s/p 1. Laparoscopic Agapito-en-Y Gastric Bypass 2. Laparoscopic Hiatal Hernia Repair (Milo) - we reviewed postoperative complications following bariatric surgery and when to call the office. Patient is to advance to phase 2 of the diet - phase 2 diet was reviewed. We discussed ways to achieve protein and fluids goals - patient is to continue on phase 2 diet for 3 weeks until seen back in the office - we discussed signs and symptoms of dehydration and when to call the office Incisional pain - pain has overall improved - patient is off pain medication - continue with ICE pack PRN - continue with abdominal binder - patient is to call the office with any worsening abdominal pain. Constipation : - add fiber daily - add stool softener 1-2 per day - add MOM or miralax daily PRN Patient is to advance activity to include light cardio,light weights and no heavy lifting over 15 lbs for the next 3 weeks until seen in the office. Patient is not to start on the recommended daily vitamins until the 1 month visit Vitamin D 50,000 units once a week for 12 weeks Patient is to follow up with PCP in 1-2 week Patient is to RTC in 3 weeks REED Castro documented in this encounter Plan of Treatment Upcoming Encounters Date Type Department Care Team (Late st Contact Info) Description 05/01/2024 1:30 PM TRAFFIC CONTROLLER CABLE Office Visit [facility] Weight Management Services [address] [place] [address], [address] [place] [address] Melisa Fortune APRN-CNP [address] [place] [address] 10/27/2024 1:30 PM CDT Office Visit [facility] Weight Management Services [address] [place] [address], [address] [place] [address] Melisa Fortune APRN-CNP [address] [place] [address] documented as of this encounter Visit Diagnoses Diagnosis Morbid obesity (HCC)- Primary Morbid obesity Bariatric surgery status documented in this encounter Care Teams Purchasing Clerk Relationship Specialty Start Date End Date Howard Damon MD [address] [place] [address] PCP - General Family Medicine 03/08/23 documented as of this encounter
--- OUTSIDE RECORDS SUMMARY | 2024-04-25 09:30 | XMS_ITS | Encounter Summary ---
Author Organization [facility] Address [address] [facility] [place] [address] Care Team Providers Care Equal Opportunity Counselor Name Role Phone Howard Damon MD Primary Care Provider [phone] Reason for Visit * Reason Comments Post-Op Encounter Details Date Type Department Care Team ([facility] Contact Info) Description 11/29/2023 11:00 AM CDT Office Visit [facility] Weight Management Services [id number] [place] [address] [address] [place] [address] [place] [address] [facility] [address] [place] [address] Morbid obesity (HCC) (Primary Dx); S/P bariatric surgery; Postoperative follow-up Social History Tobacco Use Types Packs/Day Years [...] and heating? Not hard at all 10/28/2023 [facility] [place] [facility] Occup[facility] ional [facility] - Occupational Stress [...] place to sleep or slept in a intermediate (including now)? No 10/28/2023 Sex and Gender [...] 11/29/2023 11:05 AM C DT Respiratory Rate - - Oxygen Saturation 97% 11/29/2023 11:05 AM CDT Inhaled Oxygen Concentration - - Weight 113.9 kg (251 lb) 11/29/2023 11:05 AM CDT Height 165 cm (5' 4.96 ) 11/29/2023 11:05 AM CDT Body Mass Index 41.82 11/29/2023 11:05 AM CDT documented in this encounter Functional [...] as of this encounter Progress Notes * Michael Pedraza MD - 11/29/2023 11:00 AM CDT Bariatric Surgery Clinic Note Syeda Mere Gino Height: 165 cm (5' 4.96 ) Weight: 113.9 kg (251 lb) BMI (Calculated): 41.82 Surgery: Laparoscopic Agapito-en-Y Gastric Bypass Laparoscopic hiatal hernia repair Date of Surgery: 10/28/23 Initial weight: 265 Today's weight: Weight: 113.9 kg (251 lb); Body mass index is 41.82 kg/m??. Total weight loss: 14 IBW: 154 EBW: 111 % of EBWL: 13% % of TBWL: 5% CC: Syeda Christian is here today for a 1 month postoperative follow up visit. Patient reports that overall they doing well Patient is happy with their weight loss and surgery she is getting in all of their protein she is getting in all of their fluids she has started the recommended vitamins as instructed. Patient denies any nausea, vomiting or abdominal pain. Patient denies any reflux and is continued on PPI. she is moving bowels Patient is continued on lexapro, neurontin, metoprolol, protonix, zyrtec Patient has been taken off none Current Outpatient Medications Medication acetaminophen (Tylenol) 160 MG/5ML solution cetirizine (ZyrTEC) 10 MG tablet escitalopram (Lexapro) 20 MG tablet gabapentin (Neurontin) 300 MG capsule metoprolol tartrate IR (Lopressor) 25 MG tablet pantoprazole EC (Protonix) 40 MG tablet vitamin D, ergocalciferol, (Drisdol) 1.25 MG (94144 UT) capsule Wheat Dextrin (BENEFIBER DRINK MIX PO) No current facility-administered medications for this visit. Past Medical History: Diagnosis Date Cardiac arrhythmia tachycardia GERD (gastroesophageal reflux disease) Neuropathy Osteoarthritis Review of Systems: HEENT: Normal Cardiovascular: Normal Respiratory: Normal Gastrointestinal: see above Genitourinary: Normal Musculoskeletal: Normal Skin / Breast / Axillae: Normal Endocrine: Normal Allergic / Immuno: Normal Neuro / Psych: Normal Has the patient been readmitted to the hospital since the last follow up ? Has the patient had any post bariatric surgical operations or interventions performed since the last follow up? Physical Exam: BP 120/72 Pulse 92 Temp 97.1 ??F (36.2 ??C) (Temporal) Ht 1.65 m (5' 4.96 ) Wt 113.9 kg (251 lb) SpO2 97% General: Awake, alert, oriented to person,place and time. In no distress Neck: Supple, no JVD Lung: nonlabored breathing Abdomen: Soft, nontender, nondistended, no hernias, incisions c/d/i Extremities: No edema x4, no erythema Assessment / Plan: S/P gastric bypass and HHR: Postoperative: -no issues Morbid Obesity: Diet: - Patient will be advanced to phase 3 of the diet. - phase 3 was reviewed and questions answered. - Continue with 80 gms of protein, 64 oz fluid daily - Eat slowly, taking 30 minutes to finish a meal - Drink liquid protein between meals for hunger - Follow dietary restrictions and progress through the diet phases as instructed Support Groups: Encouraged to attended Vitamins: - start/continue with the recommended daily bariatric multivitamin, - start/continue with Ca with D, 2087-0807 mg daily - continue on the prilosec 20 mg daily For the first 6 months Exercise: No further restrictions as far as surgery is concerned. We discussed how this will assistwith continued weight loss and maintaining weight loss Labs / malabsorption : Will be checked at 6 months, 1 year and then annually Malabsorption: managed with serial lab work and vitamin supplementation -labs ordered GERD: None but on PPI for 6 months HTN: On metoprolol - followed by pcp Other: Having left knee issues, ok with work up for replacement - if patient is started on ASA or celebrexwill need to be on PPI twice a day - Follow up: In 5 months with routine labs Michael Pedraza MD documented in this encounter Plan of Treatment Upcoming Encounters Date Type Department Care Team (Late st Contact Info) Description 05/01/2024 1:30 PM POLICE DEPARTMENT SECRETARY Office Visit [facility] Health Weight Management Services [address] [place] [address], [facility] [address] [place] [address] Melisa Fortune, PIERCING ARTIST-ORGANIZATIONAL DEVELOPMENT SPECIALIST [address] [place] [address] 10/27/2024 1:30 PM CDT Office Visit [facility] Health Weight Management Services [address] [facility], [address] [place] [address] Melisa Fortune APRN-ORGANIZATIONAL DEVELOPMENT SPECIALIST [address] [facility] [address] [address] [place] [address] documented as of this encounter Visit Diagnoses Diagnosis Morbid obesity (HCC)- Primary Morbid obesity S/P bariatric surgery Bariatric surgery status Postoperative follow-up Follow-up examination, following unspecified surgery documented in this encounter Care Teams Equal Opportunity Counselor Relationship Specialty Start Date End Date Howard Damon MD [address] [place] [address] PCP - General Family Medicine 03/08/23 documented as of this encounter
--- OUTSIDE RECORDS SUMMARY | 2024-04-25 09:30 | XMS_ITS | Encounter Summary ---
Author Organization [facility] Address [address] [place] [address] Care Team Providers Care Consumer Loan Specialist Name Role Phone Howard Damon MD Primary Care Provider [phone] Reason for Visit * Auth/Cert (Routine) Specialty Diagnoses / Procedures Referred By Contac t Referred To Contact Procedures ID ED EGD FLEX TRANSORAL DX ESOPHAGOGASTRODUODENOSCOPY (EGD) DIAGNOSTIC Referral ID Status Reason Start Date Expiration Date Visits Re quested Visits Authorized [id number] 1 1 Encounter Details Date Type Department Care Team (Late st Contact Info) Description 04/04/2023 8:34 AM RUNNER MAN Anesthesia Event [facility] [address] [place] [address] Howard Mcghee MD [address] [place] [address] Zaid Giron, SECURITY GUARD SUPERVISOR-HIDE TRIMMER [address] [place] [address] Anesthesia Record Procedure Summary Procedure Name Responsible Anesthesiologist Anesthesia Start Time Anesthesia Stop Time ESOPHAGOGASTRODUODENOSCOPY ( EGD) DIAGNOSTIC Howard Mcghee MD 04/04/23 0834 04/04/23 0847 Events Date Time Event Comment 04/04/2023 0804 0834 An Start 0835 Out OR Start Data 0835 PT Reassessment 0835 Electnc Sig This record is electronically signed by the providers listed under staff. 0840 Timeout Anesthesia part icipated in timeout at the time documented in the record by nursing. 0847 Out OR Stop Data 0847 An Stop Meds Name Total propofol (DIPRIVAN) injection 10mg/ml (E NDO USE) 12 mL 0.9% NaCl infusion 300 mL * Agents Name Exp. N2O O2 * Blood No blood administrations on file. Lines, Drains, and Airways Type Details Placement Removal Peripheral IV Date: 04/04/23; Time : 08; Orientation: Right; Placed By: Louis PATTERSON; Tolerance: Well 04/04/23 0812 by Jacquelyn Ronquillo RN 04/04/23 0908 by Taryn Montemayor RN documented in this encounter Social History Tobacco [...] as of this encounter Progress Notes * Zaid Giron APRN-CRNA - 04/04/2023 8:52 AM CST ANESTHESIA POSTOP EVALUATION NOTE Procedure: ESOPHAGOGASTRODUODENOSCOPY (EGD) DIAGNOSTIC Syeda Christian is a 58 year old female Patient Vitals for the past 6 hrs: BP Temp Pulse Resp SpO2 Pain Rating Score #1 Pain Scale/Observation Pulse - (SPO2/Cuff) 04/04/23 0800 101/72 98 ??F (36.7 ??C) 69 19 97 % 0 N 56 bpm 04/04/23 0837 -- -- -- -- 99 % -- -- -- 04/04/23 0841 129/92 -- -- -- -- -- -- -- 04/04/23 0842 -- -- -- -- 100 % -- -- -- 04/04/23 0845 -- -- -- -- 100 % -- -- -- Anesthesia Type: MAC * No Diagnosis Codes entered * Mental Status: awake, alert, oriented, arousable, sufficiently recovered from acute administration of anesthesia to participate in the evaluation, neurologic status has returned to preoperative leveland neurologic status has returned to expected level of consciousness Neuro Status: No numbness, tingling or visual disturbances Respiratory Function: natural Cardiac Function: stable Postop Pain: adequate Postop Hydration: adequate Postop Nausea: none Assessment: no apparent anesthetic complications, patient tolerated procedure well and no evidence of recall Patient Disposition: Release from Anesthesia Care NOTABLE EVENTS: No notable events documented. ER MAN * Manuel Munson MD - 04/04/2023 8:01 AM CST ANESTHESIA PREOPERATIVE EVALUATION NOTE Procedure: ESOPHAGOGASTRODUODENOSCOPY (EGD) DIAGNOSTIC Vitals: No data found. LMP: No LMP recorded. OB Status: unknown ANESTHESIA PRE-EVALUATION NOTE The patient is a current non-smoker. Physical Exam: Orientation X3 Airway/Mallampati Score: II Mouth Opening Distance: 3 fingerwidths Neck ROM: full TM Distance: > 3 FB Teeth: normal Heart: regular rate rhythm Lungs: normal Abdomen Exam: obese Review of Systems: History of anesthetic complications: No Sleep Apnea Risk: No Malignant Hyperthermia: No GERD: No Poor Exercise Tolerance: No Recent Chest Pain: No ANESTHESIA PLAN ASA Score: 3 NPO Status: No solids since midnight Anesthesia Plan: MAC Planned Induction: intravenous Planned Postop Destination: endo Anesthetic plan was discussed with: patient Anesthetic Plan discussion was: Consented BMI, Height, Weight Tobacco History Estimated body mass index is 48.12 kg/m?? as calculated from the following: Height as of 03/08/23: 1.65 m (5' 4.96 ). Weight as of 03/08/23: 131 kg (288 lb 12.8 oz). Social History Tobacco Use Smoking Status Never Smokeless Tobacco Never Alcohol History Drug History Social History Substance and Sexual Activity Alcohol Use None Social History Substance and Sexual Activity Drug Use Never Outpatient Medications: Inpatient Medications: No outpatient medications have been marked as taking for the 04/04/23 encounter (Hospital Encounter). Current Facility-Administered Medications Medication Dose Last Admin ??? 0.9% NaCl IV ??? 0.9% NaCl 3 mL Allergies: No Known Allergies Relevant Problems Problem List: There are no problems to display for this patient. Medical History: Past Medical History: Diagnosis Date ??? GERD (gastroesophageal reflux disease) ??? Osteoarthritis Surgical History: Past Surgical History: Procedure Laterality Date ??? Cholecystectomy, Laparoscopic ??? Hip Replacement Bilateral WASTE RECYCLER Status: No LMP recorded. unknown OB History No obstetric history on file. Covid Vaccine: Lab Results: No results found for requested labs within last 120 days. No results found for requested labs within last 120 days. ER MAN documented in this encounter Miscellaneous Notes * Anesthesia Transfer of Care - Zaid Giron APRN-YESENIA - 04/04/2023 8:48 AM CST ANESTHESIA TRANSFER OF CARE NOTE Today's Date: 04/04/2023 Date of : 1965 Patient: Syeda Christian Procedure(s): ESOPHAGOGASTRODUODENOSCOPY (EGD) DIAGNOSTIC Surgeon(s): Primary: Michael Pedraza MD Preop Diagnosis: * No Diagnosis Codes entered * Pre-op Meds (From admission, onward) Start Stop Status Route Frequency Ordered 04/04/23 0800 0.9% NaCl infusion 04/03/24 0759 Dispensed IV CONTINUOUS 04/04/23 0751 04/04/23 0751 0.9% NaCl injection 3 mL 04/03/24 0750 Dispensed IK PRE-PROCEDURE MULTIPLE 04/04/23 0751 * No Diagnosis Codes entered * . No Known Allergies Vitals: Patient Vitals for the past 3 hrs: BP Temp Pulse Resp SpO2 Pain Rating Score #1 04/04/23 0845 -- -- -- -- 100 % -- 04/04/23 0842 -- -- -- -- 100 % -- 04/04/23 0841 129/92 -- -- -- -- -- 04/04/23 0837 -- -- -- -- 99 % -- 04/04/23 0800 101/72 98 ??F (36.7 ??C) 69 19 97 % 0 Lines, Drains, and Airways Type Details Placement Removal Peripheral IV Date: 04/04/23; Time: 811; Orientation: Right; Location: Hand; Placed By: Louis PATTERSON; Gauge: 20 Gauge; Locals: None; Tolerance: Well 04/04/23 08 by Jacquelyn Ronquillo RN Intraprocedure I/O Totals Intake propofol (DIPRIVAN) injection 10mg/ml (ENDO USE) 12.00 mL 0.9% NaCl infusion 300.00 mL Total Intake 312 mL Patient Transfer Location: Endo Recovery Transport Airway: spontaneous respirations Complications: None Handoff Given? Yes Checklist or [...] of report from the receiving PACUteam. CAMI Chamorro ER MAN documented in this encounter Plan of Treatment Upcoming Encounters Date Type Department Care Team (Late st Contact Info) Description 05/01/2024 1:30 PM RUNNER MAN Office Visit [facility] Weight Management Services [address] [place] [address], [address] [address] Melisa Fortune APRN-WARP PICKER [phone] [place] [phone] 10/27/2024 1:30 PM CDT Office Visit [facility] Weight Management Services [address] [place] [address], [address] [place] [address] Melisa Fortune APRN-WARP PICKER [address] [place] [phone] documented as of this encounter Visit Diagnoses Not on filedocumented in this encounter Administered Medications Inactive Administered Medications - up to 3 most recent administrations Medication Order MAR Action Action Date Dose Rate Site 0.9% NaCl infusion at 20 mL/hr, Intravenous, CONTINUOUS, Starting on Cassandra 04/04/23 at 0800, Until Cassandra 04/04/23 at 1025, Pre-procedure (GI) $ New Bag/Syringe 04/04/2023 8:23 AM RUNNER MAN propofol (Diprivan) injection Intravenous, CONTINUOUS PRN, Starting on Cassandra 04/04/23 at 0841, Until Cassandra 04/04/23 at 0847, Anesthesia Intra-op $ New Bag/Syringe 04/04/2023 8:41 AM RUNNER MAN documented in this encounter Care Teams Consumer Loan Specialist Relationship Specialty Start Date End Date Howard Damon MD [address] [place] [address] PCP - General Family Medicine 03/08/23 documented as of this encounter
--- OUTSIDE RECORDS SUMMARY | 2024-04-25 09:30 | XMS_ITS | Encounter Summary ---
Author Organization [facility] Address [address] [place] [address] Phone Care Team Providers Care Steel Shot Header Operator Name Role Phone Howard Damon MD Primary Care Provider Encounter Details Date Type Department Care Team (Late st Contact Info) Description 12/31/[address] [facility] [address] [facility] [address] [place] [phone] Joy Angeles MD [address] [place] [address] Social History Tobacco Use Types Packs/Day Years Used Date Smoking Tobacco: Never Alcohol Use Standard Drinks/Week Comments Yes 0 (1 standard drink = 0.6 oz pur e alcohol) Comments Unknown Sex and Gender Information Value Date Recorded Sex Assigned at Not on file Legal Sex Female 3:12 AM DAIRY MACHINE OPERATOR FARMWORKER Gender Identity Not on file Sexual Orientation Not on file documented as of this encounter Ordered Prescriptions Prescription Sig Dispense Quantity Refills Last Filled Start Date End Date semaglutide (Rybelsus) 3 mg tablet Take 1 tablet (3 mg total) by mouth daily 30 tablet 12/31/2020 documented in this encounter Plan of Treatment Not on file documented as of this encounter Visit Diagnoses Not on filedocumented in this encounter Discontinued Medications Medication Sig Discontinue Reason Start Date End Da te semaglutide (OZEMPIC) 0.25 mg or 0.5 mg(2 mg/1.5 mL) pen injector injection Inject 0.25 mg under the skin every 7 days for 30 days, THEN 0.5 mg every 7 days. 11/28/2020 12/31/2020 documented as of this encounter Care Teams Steel Shot Header Operator Relationship Specialty Start Date End Date Howard Damon MD [address] [facility] [address] [place] [address] PCP - General Family Medicine 08/21/18 documented as of this encounter
--- OUTSIDE RECORDS SUMMARY | 2024-04-25 09:30 | XMS_ITS | Encounter Summary ---
Author Organization [facility] Address [address] [facility] [place] [address] Care Team Providers Care Sweep Molder Name Role Phone Howard Damon MD Primary Care Provider [phone] Reason for Visit * Reason Comments Diet Encounter Details Date Type Department Care Team (Late st Contact Info) Description 05/10/2023 4:15 PM LINE PALLETIZER Video Visit [facility] Weight Management Services [address] [facility], [address] [place] [address] Morbid obesity (HCC) Social History [...] - Inhaled Oxygen Concentration - - Weight - - Height 169 cm (5' 6.54 ) 05/10/2023 4:52 PM LINE PALLETIZER Body Mass Index - - documented in this encounter Progress Notes * Destiny Duran RD/PATIENCE - 05/10/2023 4:53 PM CST Today's visit was conducted virtually. The patient has given verbal consent to have today's visit conducted virtually and understands the risks, benefits and alternatives associated with telemedicine. Patient location: Home This encounter was performed using: audio and video Total time spent on visit on date of encounter is: 30 minutes with 30 minutes spent in medical discussion. Weight Management Medical Nutrition Therapy Session 3 Date: 05/10/2023 Patient: Syeda Christian Date of : 1965 (58 year old) PCP Physician: Howard Damon MD Referring Physician: Michael Pedraza MD Progress towards previous goals: 1. Increase water to 64 oz- goal met 2. Track protein intake, aim for at least 80 grams per day- goal not 3. Eat slowly, take 20 minutes to consume a meal- progressing 4. Sample protein bars- goal met?? Assessment: Pt planning RNY. 1 lb weight loss from previous visit / 5 lb net weight loss loss from initial RD visit. Pt continues to make positive changes towards surgery. She has increased her intake of water to 64 oz per day and continues to have a protein shake in the mornings for breakfast. Shehas been setting a reminder on her phone to help her to remember to drink water. Pt has started a food journal which has been helping to keep her accountable. She has not necessarily been tracking her protein intake buy plans to start. She has tried out some protein bars and enjoys Pure Protein. Plan to discuss vitamins and minerals at next appointment. All pt questions were answered at this time. Past Medical History: Diagnosis Date ??? Cardiac arrhythmia ??? GERD (gastroesophageal reflux disease) ??? Neuropathy ??? Osteoarthritis Patient participates in exercise: 0 times per week Patient is participating in the following exercise program: ADLs Pertinent Nutrition Medications: Reviewed Pertinent Nutrition Labs: Reviewed Clinical Data: Height: 169 cm (5' 6.54 ) Weight from Initial RD visit: 288.8 Diagnostic Statement: Obesity related to excess energy intake and decreased physical activity AEB elevated BMI. Interventions: Bariatric Nutrition Guide provided and reviewed, including: previous food records, proper eating habits/behavior modification tips, adequate hydration, protein requirements, high protein foods and recommended protein supplements Materials Provided: Bariatric Nutrition Guide, Support Group [...] Potential: Good Goals for this month: 1. Track protein intake, aim for at least 80 grams per day Nutritional Review ?? Cleared, no additional RD visits required ___ ?? Not cleared, additional RD visit(s) required ___ ?? Continue with Medically Managed Diet visits __x_ ?? Bariatric Case Conference review required ___ Session Information Session date: 05/10/2023 Session total minutes: [address]/PATIENCE PALLETIZER documented in this encounter Plan of Treatment Upcoming Encounters Date Type Department Care Team (Late st Contact Info) Description 05/01/2024 1:30 PM LINE PALLETIZER Office Visit [facility] Weight Management Services [address] [place] [address], [address] [address] Melisa Fortune, DIESEL FLEET MECHANIC-WAFER FABRICATOR [address] [facility] [address] [place] [phone] 10/27/2024 1:30 PM CDT Office Visit [facility] Weight Management Services [address] [place] [address], [address] [address] Melisa Fortune, DIESEL FLEET MECHANIC-WAFER FABRICATOR [address] [phone] documented as of this encounter Visit Diagnoses Diagnosis Morbid obesity (HCC)- Primary Morbid obesity documented in this encounter Care Teams Sweep Molder Relationship Specialty Start Date End Date Howard Damon MD [address] [place] [address] PCP - General Family Medicine 03/08/23 documented as of this encounter
--- OUTSIDE RECORDS SUMMARY | 2024-04-25 09:30 | XMS_ITS | Encounter Summary ---
Author Organization [facility] Address [address] [place] [address] Phone Care Team Providers Care Mycology Teacher Name Role Phone Howard Damon MD Primary Care Provider Encounter Details Date Type Department Care Team (Late st Contact Info) Description 11/29/2020 Telephone [facility] Diabetes and Nutrition Services [address] [facility] [address] [place] [phone] Kamala Calloway RMA Social History Tobacco Use Types Packs/Day Years Used Date Smoking Tobacco: Never Alcohol Use Standard Drinks/Week Comments Yes 0 (1 standard drink = 0.6 oz pur e alcohol) Comments Unknown Sex and Gender Information Value Date Recorded Sex Assigned at Not on file Legal Sex Female 3:12 AM CARDIOLOGY RN Gender Identity Not on file Sexual Orientation Not on file documented as of this encounter Miscellaneous Notes * Telephone Encounter - Joy Angeles MD - 12/31/2020 1:15 PM CDT Rx sent for Rybelsus. * Telephone Encounter - Kamala Calloway RMA - 12/05/2020 4:08 PM CDT Forward message to provider. * Telephone Encounter - Shelby Shah MA - 11/30/2020 9:46 AM CDT Spoke Carry with [facility] and I was informed that Ozempic was denied on Saturday because injectables are not covered under patient pharmacy benefits. * Telephone Encounter - Shelby Shah MA - 11/30/2020 9:45 AM CDT Called [facility] for Prior Auth form * Telephone Encounter - Kamala Calloway RMA - 11/29/2020 2:41 PM CDT Pa needed for ozempic [id number] documented in this encounter Plan of Treatment Not on file documented as of this encounter Visit Diagnoses Not on filedocumented in this encounter Care Teams Mycology Teacher Relationship Specialty Start Date End Date Howard Damon MD [address] [address] PCP - General Family Medicine 08/21/18 documented as of this encounter
--- OUTSIDE RECORDS SUMMARY | 2024-04-25 09:30 | XMS_ITS | Encounter Summary ---
Author Organization [facility] Address [address] [place] [address] Care Team Providers Care Power Barker Operator Name Role Phone Howard Damon MD Primary Care Provider [phone] Reason for Visit * Reason Onset Date Comments Follow-up 10/23/2023 Encounter Details Date Type Department Care Team (Late Contact Info) Description 10/23/2023 Telephone [facility] [address] [place] [address], [facility] [address] [place] [address]/ROSEMARY Follow-up Social History Tobacco Use Types Packs/Day Years [...] encounter Miscellaneous Notes * Telephone Encounter - Flavio Wang RD/LD - 10/23/2023 12:35 PM CDT Called patient to check on status of the 1 week pre-operative high protein liquid diet prior to scheduled surgery. Reviewed the pre-operative high protein liquid diet, bariatric multivitamin and calcium citrate recommendations, and daily fluid requirement of 64 ounces. Patient verbalized understanding. documented in this encounter Plan of Treatment Upcoming Encounters Date Type Department Care Team (Late Contact Info) Description 05/01/2024 1:30 PM PAINTER SPRING Office Visit [facility] [id number] [place], [place] [address], [address] [place] [address] Melisa Fortune, AMBULANCE DISPATCHER-PATIENTS TRANSPORTER [address] [place] [address] 10/27/2024 1:30 PM CDT Office Visit [facility] [address] [facility], [address] [place], [place] [id number] Melisa Fortune, AMBULANCE DISPATCHER-PATIENTS TRANSPORTER [address] [place] [address] documented as of this encounter Visit Diagnoses Not on filedocumented in this encounter Care Teams Power Barker Operator Relationship Specialty Start Date End Date Howard Damon MD [address] [place] [address] PCP - General Family Medicine 03/08/23 documented as of this encounter
--- OUTSIDE RECORDS SUMMARY | 2024-04-25 09:30 | XMS_ITS | Encounter Summary ---
Author Organization [facility] Address [address] [place] [address] Care Team Providers Care Audio Engineer Name Role Phone Howard Damon MD Primary Care Provider Encounter Details Date Type Department Care Team (Latest Contact Info) Description 08/09/2023 10:45 AM CDT Clinical Support [facility] [address] [place] [address] Morbid obesity (HCC) Social History Tobacco [...] - Inhaled Oxygen Concentration - - Weight 124.9 kg (275 lb 6.4 oz) 024 10:52 AM CDT Height 165 cm (5' 4.96 ) 08/09/2023 10: 52 AM CDT Body Mass Index 45.89 08/09/2023 10:52 AM CDT documented in this encounter Progress Notes * Alona Garcia RD/PATIENCE - 08/09/2023 11:09 AM CDT Weight Management Medical Nutrition Therapy Session 6 Date: 08/09/2023 Patient: Syeda Christian Date of : 1965 (58 year old) PCP Physician: Howard Damon MD Referring Physician: Michael Pedraza MD Assessment: Pt planning RYGB. 1.4 lb weight gain from previous visit / 12.6 lb net weight loss. Syeda continues to make positive changes towards surgery. She continues focusing on mindful eating habits and eating the proteins first. She continues to get in adequate protein and fluid intake. Discussed post op diet progression and steps moving forward with surgery. B: protein shake+benefiber, fruit L: ham and cheese, fruit, tuna, yogurt D: chicken, turkey, beef, burger, brats, veggies, fruit S: protein bar or fruit Past Medical History: Diagnosis Date ??? Cardiac arrhythmia ??? GERD (gastroesophageal reflux disease) ??? Neuropathy ??? Osteoarthritis Patient participates in exercise: 0 times per week Patient is participating in the following exercise program: ADLs Pertinent Nutrition Medications: Reviewed Pertinent Nutrition Labs: Reviewed Clinical Data: Height: 165 cm (5' 4.96 ) Weight: 124.9 kg (275 lb 6.4 oz) BMI (Calculated): 45.[address] visit: 288 Diagnostic Statement: Obesity related to excess energy intake and decreased physical activity AEB elevated BMI. Interventions: Bariatric Nutrition Guide provided and reviewed, including: previous food records, proper eating habits/behavior modification tips, adequate hydration, no alcohol/carbonation, protein requirements and post surgery diet progression Materials Provided: Bariatric Nutrition Guide, Support Group Schedule, High Protein Liquid Supplement Handout, and Vitamin Option Sheet Behavior and Lifestyle [...] of nutrition education. Asked appropriate questions prn. Nutritional Review ?? Cleared, no additional RD visits required _x__ ?? Not cleared, additional RD visit(s) required ___ ?? Continue with Medically Managed Diet visits ___ ?? Bariatric Case Conference review required ___ Session Information Session date: 08/09/2023 Session total minutes: [address]/PATIENCE documented in this encounter Plan of Treatment Upcoming Encounters Date Type Department Care Team (Late st Contact Info) Description 05/01/2024 1:30 PM DEICER INSPECTOR PNEUMATIC Office Visit [facility] [address] [place] [address], [address] [place] [address] Melisa Fortune, SPRINKLER INSTALLER-CHEMIST ASSISTANT [address] [facility] [address] [place] [address] 10/27/2024 1:30 PM CDT Office Visit [facility] [address] [place] [address], [address] [place] [address] Melisa Fortune APRN-CHEMIST ASSISTANT [address] [facility] [address] [place] [address] documented as of this encounter Visit Diagnoses Diagnosis Morbid obesity (HCC)- Primary Morbid obesity documented in this encounter Care Teams Audio Engineer Relationship Specialty Start Date End Date Howard Damon MD [address] [place] [address] PCP - General Family Medicine 03/08/23 documented as of this encounter
--- OUTSIDE RECORDS SUMMARY | 2024-04-25 09:30 | XMS_ITS | Referral Summary ---
Author Organization [facility] Address [address] [place] [address] Care Team Providers Care Cash Posting Representative Name Role Phone Howard Damon MD Primary Care Provider [phone] Source Comments [facility],non-owned Affiliates and Associated Physician Practices is amultiple site organization consisting of ambulatory clinics and hospital sitesin [place], [place], [place]. This disclosure is being madepursuant to the Care Everywhere program and may not contain all information available regarding this patient. Last updated 18.[facility] Allergies No known active allergies Medications * Be aware that medications may not be up to date on this document. Alwaysverify current medications with the patient. Medication Sig Dispensed Refills Start Date End Date Status vitamin D, ergocalciferol, (Drisdol) 1.25 MG (52575 UT) capsule Take 1 (one) capsule by [...] and heating? Not hard at all 10/28/2023 [facility] - Occupational [...] place to sleep or slept in a longterm (including now)? No 10/28/2023 Sex and Gender [...] Mass Index 41.82 11/29/2023 11:05 AM CDT Functional Status Functional Status Response Date of [...] person have difficulty concentrating/remembering/making decisions? No 10/28/2023 Plan of Treatment Upcoming Encounters Date Type Department Care Team (Late st Contact Info) Description 05/01/2024 1:30 PM BUSINESS LEADER Office Visit [facility] Weight Management Services [address] [place] [address], [facility] [address] [place] [address] Melisa Fortune APRN-TANK TRUCK DRIVER [address] [facility] [address] [place] [address] 10/27/2024 1:30 PM CDT Office Visit [facility] Management Services [address] [place] [address], [address] [place] [address] Melisa Fortune, [facility] [address] [facility] [address] [place] [address] Procedures Procedure Name Priority Date/Time Associated Diagnosis Comments BASIC METABOLIC PANEL (CALCIUM TOTAL) AM Draw 10/29/2023 2:07 AM CDT from Last 3 Months or Most Recently Relevant to Health Maintenance Results * (ABNORMAL) BASIC METABOLIC PANEL (CALCIUM TOTAL) (10/29/2023 2:07 AM CDT) Glucose 148(H) 70 - 105 mg/dL 10/29/2023 2:38 AM CDT [facility] Sodium 139 136 - 145 mmol/L 10/29/2023 2:38 AM CDT [facility] Potassium 4.5 3.5 - 5.1 mmol/L 10/29/2023 2:38 AM CDT [facility] Chloride 109(H) 98 - 107 mmol/L 10/29/2023 2:38 AM CDT [facility] CO2 22 22 - 29 mmol/L 10/29/2023 2:38 AM CDT [facility] Calcium 9.0 8.4 - 10.4 mg/dL 10/29/2023 2:38 AM CDT [facility] Anion Gap 8 6 - 16 mmol/L 10/29/2023 2:38 AM CDT [facility] BUN 22 7 - 26 mg/dL 10/29/2023 2:38 AM CDT [facility] Creatinine 0.88 0.57 - 1.11 mg/dL 10/29/2023 2:38 AM CDT [facility] eGFR by CKD-EPI 76(L) >=90 mL/min/1.7 3 m2 10/29/2023 2:38 AM CDT [facility] Blood BLOOD SPECIMEN / Unknown Venipuncture / Unknown 10/29/2023 2:07 AM CDT 10/29/2023 2:12 AM CDT Michael Pedraza MD LAB - CHEMISTRY [facility] Organization Address City/State/ZIP Co de Phone Number [facility] [address] [place] [address] from Last 3 Months or Most Recently Relevant to Health Maintenance Advance Directives * Full Code (Latest Code Status on File) Date Activated Date Inactivated Comments 10/28/2023 2:43 PM 10/29/2023 3:58 PM Care Teams Cash Posting Representative Relationship Specialty Start Date End Date Howard Damon MD [address] [place], [place] [id number] PCP - General Family Medicine 03/08/23
--- OUTSIDE RECORDS SUMMARY | 2024-04-25 09:30 | XMS_ITS | Encounter Summary ---
Author Organization [facility] Address [address] [facility] [place] [address] Care Team Providers Care Air Duct Mechanic Name Role Phone Howard Damon MD Primary Care Provider [phone] Encounter Details Date Type Department Care Team (Latest Contact Info) Description 10/16/2023 12:00 PM CDT Clinical Support [facility] Weight Management Services [address] [place] [address] [address] [place] [address] Morbid obesity (HCC) Social History [...] as of this encounter Progress Notes * Flora Chandler RN - 10/22/2023 4:13 PM CDT Patient has completed the educational class with the BHAVESH Prater, Health Educator and/or another qualified S staff. Reviewed items include: Surgical risk factors Pre-operative high protein liquid diet and rationale reviewed Reviewed topic of weight gain at pre op class visit and day of surgery: This may result in completing more dietary education, increasing the number of weeks for the high protein liquid diet, another consult with the surgeon, and /or surgery cancellation Pre-operative bathing instructions with antibacterial wash as directed by SEC Required items to bring with patient day of surgery Pre-operative admission Operating room process Recovery room process Post-operative care on the nursing floor Discharge instruction for home care: ambulation, IS, activity level Phase 1 - 6 diet discussed Vitamin supplements Follow up appointments scheduled- 1 week, 1 month, 6 month, and 1 year Support group, Facebook and resources discussed When to call the office, signs and symptoms of complications provided, and the numbers to call Weight Management's Surgical Pre-operative Questionnaire reviewed discussed and collected Weight Management's contract reviewed, signed, and collected Information on Medic Alert bracelet discussed Discussed causes of nausea, vomiting, and dumping ENERGY protocol discussed and questions answered BSTOP - D protocol discussed and educational handout given to patient Surgery date and pre op diet reviewed individually with patient. Instructed to get Surgery Evaluation Center appointment as soon as possible, if not already completed- notified patient of failure to get labs could postpone surgery. Pt denies questions at this time. Pt is given contact information for [facility] Weight Management Services to call for any questions or concerns. Supplement samples offered documented in this encounter Plan of Treatment Upcoming Encounters Date Type Department Care Team (Late st Contact Info) Description 05/01/2024 1:30 PM SHIPPING HAND Office Visit [facility] Weight Management Services [address] [place] [address], [address] [address] Melisa Fortune, PLANT SUPERVISOR-ALARM SECURITY OR SURVEILLANCE MONITOR [address] [facility] [address] [place] [address] 10/27/2024 1:30 PM CDT Office Visit [facility] Weight Management Services [address] [place] [address], [facility] [address] [place] [address] Melisa Fortune, PLANT SUPERVISOR-ALARM SECURITY OR SURVEILLANCE MONITOR [address] [facility] [address] [place] [phone] documented as of this encounter Visit Diagnoses Diagnosis Morbid obesity (HCC)- Primary Morbid obesity documented in this encounter Care Teams Air Duct Mechanic Relationship Specialty Start Date End Date Howard Damon MD [address] [place] [address] PCP - General Family Medicine 03/08/23 documented as of this encounter
--- OUTSIDE RECORDS SUMMARY | 2024-04-25 09:30 | XMS_ITS | Encounter Summary ---
Author Organization [facility] Address [address] [place] [address] Care Team Providers Care Shoe Parts Molder Name Role Phone Howard Damon MD Primary Care Provider [phone] Reason for Visit * Reason Comments Diet Encounter Details Date Type Department Care Team (Late st Contact Info) Description 06/07/2023 10:45 AM BULLET CHARGING MACHINE OPERATOR Video Visit [facility] [address] [facility], [address] [place] [address] Morbid obesity (HCC) Social History [...] - Inhaled Oxygen Concentration - - Weight 127.4 kg (280 lb 12.8 oz) 2023 11:01 AM BULLET CHARGING MACHINE OPERATOR Height 165 cm (5' 4.96 ) 06/07/2023 11: 01 AM BULLET CHARGING MACHINE OPERATOR Body Mass Index 46.78 06/07/2023 11:01 AM BULLET CHARGING MACHINE OPERATOR documented in this encounter Progress Notes * Destiny Duran RD/PATIENCE - 06/07/2023 11:02 AM CST Today's visit was conducted virtually. The patient has given verbal consent to have today's visit conducted virtually and understands the risks, benefits and alternatives associated with telemedicine. Patient location: Home This encounter was performed using: audio and video Total time spent on visit on date of encounter is: 20 minutes with 20 minutes spent in medical discussion. Weight Management Medical Nutrition Therapy Session 4 Date: 06/07/2023 Patient: Syeda Christian Date of : 1965 (58 year old) PCP Physician: Howard Damon MD Referring Physician: Michael Pedraza MD Progress towards previous goals: 1. Track protein intake, aim for at least 80 grams per day- goal met Assessment: Pt planning RNY. 4 lb weight loss from previous visit / 8 lb net weight loss from initial RD visit. Pt appears to be making positive changes towards surgery. She has been focused on her protein intake and fluid intake over the past month. She states she has been cosistently consuming 64oz of water and 60-80 grams of protein per day. She continues to eat 3 meals per day and been trying to be mindful of eating and drinking more slowly and avoiding drinking while eating. Discussed vitamins and minerals today, plan to discuss pre-op diet at next appointment. All pt questions were answered at this time. Past Medical History: Diagnosis Date ??? Cardiac arrhythmia ??? GERD (gastroesophageal reflux disease) ??? Neuropathy ??? Osteoarthritis Patient participates in exercise: 0 times per week Patient is participating in the following exercise program: ADLs Pertinent Nutrition Medications: Reviewed Pertinent Nutrition Labs: Reviewed Clinical Data: Height: 165 cm (5' 4.96 ) Weight: 127.4 kg (280 lb 12.8 oz) BMI (Calculated): 46.[address] visit: 288.8 Diagnostic Statement: Obesity related to excess energy intake and decreased physical activity AEB elevated BMI. Interventions: Bariatric Nutrition Guide provided and reviewed, including: previous food records, adequate hydration, protein requirements and bariatric multivitamin/mineral supplementation recommendations Materials Provided: Bariatric Nutrition Guide, Support Group [...] surgery. Evaluation of Overall Compliance Potential: Good Nutritional Review ?? Cleared, no additional RD visits required ___ ?? Not cleared, additional RD visit(s) required ___ ?? Continue with Medically Managed Diet visits __x_ ?? Bariatric Case Conference review required ___ Session Information Session date: 06/07/2023 Session total minutes: [address]/PATIENCE ET CHARGING MACHINE OPERATOR documented in this encounter Plan of Treatment Upcoming Encounters Date Type Department Care Team (Late st Contact Info) Description 05/01/2024 1:30 PM BULLET CHARGING MACHINE OPERATOR Office Visit [facility] Weight Management Services [address] [place] [address], [address] [address] Melisa Fortune, CONSERVATION SCIENCE TEACHER-CANDLE MOLDER HAND [address] [facility] [address] [phone] 10/27/2024 1:30 PM CDT Office Visit [facility] Weight Management Services [address] [place] [address], [address] [address] Melisa Fortune, CONSERVATION SCIENCE TEACHER-CANDLE MOLDER HAND [address] [facility] [address] [phone] documented as of this encounter Visit Diagnoses Diagnosis Morbid obesity (HCC)- Primary Morbid obesity documented in this encounter Care Teams Shoe Parts Molder Relationship Specialty Start Date End Date Howard Damon MD [address] [place] [address] PCP - General Family Medicine 03/08/23 documented as of this encounter
--- OUTSIDE RECORDS SUMMARY | 2024-04-25 09:30 | XMS_ITS | Encounter Summary ---
Author Organization [facility] Address [address] [facility] [place] [address] Care Team Providers Care Peer Health Promoter Name Role Phone Howard Damon MD Primary Care Provider [phone] Reason for Visit * Reason Comments Diet Encounter Details Date Type Department Care Team (Late st Contact Info) Description 07/08/2023 4:15 PM HAND EDGER Video Visit [facility] [address] [facility], [address] [place] [address] Morbid obesity (HCC) Social History [...] - Inhaled Oxygen Concentration - - Weight 124.3 kg (274 lb) 07/09/2023 5:46 AM HAND EDGER Height 165 cm (5' 4.96 ) 07/09/2023 5:46 AM HAND EDGER Body Mass Index 45.65 07/09/2023 5:46 AM HAND EDGER documented in this encounter Progress Notes * Destiny Duran RD/PATIENCE - 07/09/2023 5:47 AM CST Today's visit was conducted virtually. The patient has given verbal consent to have today's visit conducted virtually and understands the risks, benefits and alternatives associated with telemedicine. Patient location: Home This encounter was performed using: audio and video Total time spent on visit on date of encounter is: 25 minutes with 25 minutes spent in medical discussion. Weight Management Medical Nutrition Therapy Session 5 Date: 07/09/2023 Patient: Syeda Christian Date of : 1965 (58 year old) PCP Physician: Howard Damon MD Referring Physician: Michael Pedrzaa MD Assessment: Pt planning RNY. 6 lb weight loss from previous visit / 14 lb net weight loss from initial RD visit. Pt continues making positive changes towards bariatric surgery. She has been focusing on making healthy food choices, limiting snacking, and consuming an adequate amount of protein and water. She has also been mindful of her eating habits and has been eating more slowly and consuming her protein foods first. Discussed pre-op liquid diet today, plan to discuss diet progression at nextvisit. All pt questions were answered at this time. B: protein shake+benefiber, fruit L: ham and [...] Height: 165 cm (5' 4.96 ) Weight: 124.3 kg (274 lb) BMI (Calculated): 45.[address] visit: 288 Diagnostic Statement: Obesity related to excess energy intake and decreased physical activity AEB elevated BMI. Interventions: Bariatric Nutrition Guide provided and reviewed, including: previous food records, proper eating habits/behavior modification tips, pre op liquid diet and goals for lifetime success Materials Provided: Bariatric Nutrition Guide, Support Group [...] review required ___ Session Information Session date: 07/09/2023 Session total minutes: [address]/PATIENCE EDGER documented in this encounter Plan of Treatment Upcoming Encounters Date Type Department Care Team (Late st Contact Info) Description 05/01/2024 1:30 PM HAND EDGER Office Visit [facility] Health Weight Management Services [address] [place] [address], [address] [address] Melisa Fortune, WORKFORCE DEVELOPMENT SPECIALIST-SWIMMING INSTRUCTOR [address] [facility] [address] [phone] 10/27/2024 1:30 PM CDT Office Visit [facility] Weight Management Services [address] [place] [address], [address] [address] Melisa Fortune, WORKFORCE DEVELOPMENT SPECIALIST-SWIMMING INSTRUCTOR [address] [facility] [address] [place] [phone] documented as of this encounter Visit Diagnoses Diagnosis Morbid obesity (HCC)- Primary Morbid obesity documented in this encounter Care Teams Peer Health Promoter Relationship Specialty Start Date End Date Howard Damon MD [address] [place] [address] PCP - General Family Medicine 03/08/23 documented as of this encounter
--- OUTSIDE RECORDS SUMMARY | 2024-04-25 09:30 | XMS_ITS | Referral Summary ---
Author Organization [facility] [address] Address [address] [place] [address] Care Team Providers Care General Labor Forklift Operator Name Role Phone Howard Damon MD [...] w/r/t gut microbiome. Referred to ADA and [facility] websites for additional information on topics [...] 11:01 AM CDT): Labs. Consider sleep study. Social History Tobacco Use Types Packs/Day Years Used Date Smoking Tobacco: Never Alcohol Use Standard Drinks/Week Comments Yes 0 (1 standard drink = 0.6 oz pur e alcohol) Personal Safety Answer Date Recorded Getting School Help Needed Not on file 07/20 Comments Unknown Sex and Gender Information Value Date Recorded Sex Assigned at Not on file Legal Sex Female 3:12 AM PRODUCT DESIGNER Gender Identity Not on file Sexual Orientation [...] Plan of Treatment Not on file Insurance T SIG [id number] [facility] Care Teams General Labor Forklift Operator Relationship Specialty Start Date End Date Howard Damon MD [address] [facility] [address] [place] [address] PCP - General Family Medicine 08/21/18
--- OUTSIDE RECORDS SUMMARY | 2024-04-25 09:30 | XMS_ITS | Encounter Summary ---
Author Organization [facility] Address [address] [facility] [place] [address] Care Team Providers Care Braiding Operator Name Role Phone Howard Damon MD Primary Care Provider [phone] Encounter Details Date Type Department Care Team (Late st Contact Info) Description 03/08/2023 10:00 AM CDT Office Visit [facility] Services [address] [place] [address] Morbid obesity (HCC) (Primary Dx) Social History Tobacco Use Types Packs/Day Years Used Date Smoking Tobacco: Never Smokeless Tobacco: Never Sex and Gender Information Value Date Recorded Sex Assigned at Not on file Gender Identity Not on file Sexual Orientation Not on file documented as of this encounter Progress Notes * Dominga Murguia, COPPING MACHINE OPERATOR - 03/07/2023 8:09 AM CDT Name: Syeda Christian Date of : 63 Surgeon: Michael Pedraza Date: 03/08/23 Reason for visit: Pre-Surgery Psychological Evaluation Surgical decision and reason for surgery: The pt is seeking weight loss surgery but is unsure whichone she will have. She did note that she already has GERD and provider mentioned the surgeon will discuss which surgery would be best for her. The pt has made the decision to have weight loss surgerybecause she has been fighting her weight her whole adult life (since first ) . She noted her is going to retire in a couple of years and they would like to move to property with acreage and she would like to be able to do more activities there that she can now. She also would like to improve her health. She noted having 2 hips replacements already and she may need a knee replacement but would have to lose weight first. She noted being able to lose some weight but only so much and always seems to regain it. The pt reported comorbid conditions of GERD, irregular heart beat, osteoarthritis, insulin resistance and PCOS. Current Weight: 288 lbs 12.8 oz BMI: 48.12 Goal Weight: Would like to lose 100- 110 lbs. Beyond weight related conditions, patients health hx is otherwise unremarkable. No previous hx of non-compliance with medical care. Family/Home/Support Environment: The pt is supported in her decision to have weight loss surgery by her and two sons. She has 32 year old twins and her daughter requires total care (has mentality of a one year old). Her younger son who is 22 lives at home with her and her along with her disabled daughter. She had ason who passed at age 9 from the same disease her daughter has. No marital, family, parenting, grand-parenting or home environment issues or concerns identified Job Functioning: Pt is not working outside the home but takes care of her daughter 26/11 as well as watching her grand kids Patient has no hx of work-adjustment difficulties on any of her jobs. Mental Health Issues: Patient reported having a hard time with the passing of her son in 1994. She was prescribed Lexaproback then and continues to take it today. She takes 20 mg per day and is not sure it is doing much for her at this time because she has been on it so long. She denied feeling like she has any currentSx of depression. She was informed that if she does the RYGB she may need to have her dose adjustedas she will not be absorbing all of her medication. Patient denied auditory or visual hallucinations; and denied losing blocks of time where she can not remember who or where she is. Patient has never been hospitalized for psychiatric reasons, and there is no history of prior suicide/homicide ideation or attempt. The patient was informed that the surgery can produce mild symptoms of anxiety and depression. The patient was asked to utilize support resources if necessary or if symptoms persist orincrease in severity. Substance Use Issues: Current alcohol use: none (has some alcoholism and drug addiction in her family) Current medical/recreational drugs use: CBD and THC products for arthritic pain Current tobacco use: none The pt has no problems related to alcohol, drug or prescription mis-use. The patient was informed of addiction transference and that the absorption rate of alcohol will be much higher after surgery. The patient is aware that alcohol is not to be consumed for at least one year after surgery and thatcarbonated beverages are to be eliminated entirely. Weight and Gcwfdk-Ahzq-Reuketl History: Previous Weight Loss Efforts: seeing a silk screen painter, counting carbs and calories, protein drinks She noted her son played base ball all through [employer] and college and they traveled a lot and so eatingout was very frequent. She noted that her and son are meat and potatoes kind of people which makes it hard for her. She was making two different meals for them and her but got tired of it. She has discussed this with her family and they are on board for making changes now. Pt noted she likes coffee with a lot of creamer and does not drink soda. Mental Status Patient appearance: appropriate Orientation: Time, Place, Person, Situation Behavior: Within normal limits Speech: appropriate Affect: appropriate Mood: euthymic Memory: in tact Mental Awareness: clear Intelligence: average Attitude: cooperative Attention: focused Reasoning: good Judgement: good Impulse Control: good Insight: good Self-perception: realistic Thought Process: Logical Thought Content: Within Normal Limits DSM-5: E66.01 Obesity Summery/Recommendations Time did not allow for completion of evaluation. Psychological Clearance is therefore Postponed. Dominga Murguia LPC, [facility] Licensed Professional Counselor Board Certified Bariatric Counselor Psychological Review ?? Cleared__ ?? Not cleared, additional visit(s) required _X__ can be a video appt ?? Bariatric Case Conference review required ___ ?? Follow up scheduled ____ documented in this encounter Plan of Treatment Upcoming Encounters Date Type Department Care Team (Late st Contact Info) Description 05/01/2024 1:30 PM BRUSH TRIMMING MACHINE SETTER Office Visit [facility] [address] [facility] [address] [place] [address] Melisa Fortune, EXPERIMENTAL PREFLIGHT MECHANIC-FINISHER [employer] [address] [facility] [address] [place] [phone] 10/27/2024 1:30 PM CDT Office Visit [facility] [address] [facility] [address] [place] [address] Melisa Fortune, [facility] [address] [facility] [address] [place] [phone] documented as of this encounter Visit Diagnoses Diagnosis Morbid obesity (HCC)- Primary Morbid obesity documented in this encounter Care Teams Braiding Operator Relationship Specialty Start Date End Date Howard Damon MD [address] [place] [address] PCP - General Family Medicine 03/08/23 documented as of this encounter
--- OUTSIDE RECORDS SUMMARY | 2024-04-25 09:30 | XMS_ITS | Encounter Summary ---
Author Organization [facility] Address [address] [facility] [place] [address] Care Team Providers Care Leisure Travel Agent Name Role Phone Howard Damon MD Primary Care Provider [phone] Encounter Details Date Type Department Care Team (Late st Contact Info) Description 10/28/2023 Orders Only [facility] [address] [facility] [address] [place] [address] Melisa Fortune, OBSTETRICS TECHNICIAN-LOT WORKER [address] [facility] [address] [place] [address] Morbid obesity (HCC) Social History Tobacco Use [...] and heating? Not hard at all 10/28/2023 [facility] - Occupational Stress [...] place to sleep or slept in a fci (including now)? No 10/28/2023 Sex and Gender [...] st Contact Info) Description 05/01/2024 1:30 PM SINGING MESSENGER Office Visit [facility] [address] [facility] [address] [place] [address] Melisa Fortune, OBSTETRICS TECHNICIAN-LOT WORKER [address] [place] [address] 10/27/2024 1:30 PM CDT Office Visit [facility] [address] [facility] [place] [address] Melisa Fortune, OBSTETRICS TECHNICIAN-LOT WORKER [address] [place] [address] documented as of this encounter Visit Diagnoses Diagnosis Morbid obesity (HCC)- Primary Morbid obesity documented in this encounter Care Teams Leisure Travel Agent Relationship Specialty Start Date End Date Howard Damon MD [address] [place] [address] PCP - General Family Medicine 03/08/23 documented as of this encounter
--- OUTSIDE RECORDS SUMMARY | 2024-04-25 09:30 | XMS_ITS | Encounter Summary ---
Author Organization [facility] Address [address] [facility] [place] [address] Care Team Providers Care Commercial Loan Officer Name Role Phone Howard Damon MD Primary Care Provider [phone] Reason for Visit * Auth/Cert (Routine) Specialty Diagnoses / Procedures Referred By Contrichard t Referred To Contact Procedures OR ED EGD FLEX TRANSORAL DX ESOPHAGOGASTRODUODENOSCOPY (EGD) DIAGNOSTIC Referral ID Status Reason Start Date Expiration Date Visits Re quested Visits Authorized [id number] 1 1 Encounter Details Date Type Department Care Team (Latest Contact Info) Description 04/04/2023 8:40 AM ARCHITECT - 04/04/2023 9:00 AM ARCHITECT Surgery [facility] [id number] [place] [address] [place] [address] [phone] ESOPHAGOGASTRODUODENOSCOPY (EGD) DIAGNOSTIC Surgery Details Date/Time Status Location OR Service Patient Class Case Class Case Type Trauma Case? 04/04/2023 8:40 AM Posted [facility] ENDO 01 Gastroenterology Surgery Day Care Elective > 5 days Panel 1 Procedure LRB Anes Op Region Wound Class Comments ESOPHAGOGASTRODUODENOSCOPY ( EGD) DIAGNOSTIC N/A MAC Clean Contaminated Surgeon Surgeon Role Service Panel Michael Pedraza MD Primary Gastroenterology 1 documented in this encounter Social History [...] Comments Blood Pressure 142/91 04/04/2023 9:00 AM ARCHITECT Pulse 54 04/04/2023 9:00 AM ARCHITECT Temperature 36.7 ??C (98 ??F) 04/04/2023 8:00 AM ARCHITECT Respiratory Rate 29 04/04/2023 9:00 AM ARCHITECT Oxygen Saturation 99% 04/04/2023 9:00 AM ARCHITECT Inhaled Oxygen Concentration - - Weight 130.6 kg (288 lb) 04/04/2023 8:00 AM ARCHITECT Height 165.1 cm (5' 5 ) 04/04/2023 8:00 AM ARCHITECT Body Mass Index 47.93 04/04/2023 8:00 AM ARCHITECT documented in this encounter Medications at Time of Discharge Medication Sig Dispensed Refills Start Date End Date escitalopram (Lexapro) 20 MG tablet Take 1 (one) tablet by mouth at bedtime 02/08/2023 gabapentin (Neurontin) 300 MG capsule at bedtime 12/23/2022 vitamin D, ergocalciferol, (Drisdol) 1.25 MG (49102 UT) capsule Take 1 (one) capsule by [...] ENDOSCOPY PRE-PROCEDURE MEDICAL HISTORY & PHYSICAL Syeda Polancorob 04/04/2023 There were no vitals taken for [...] ??? vitamin D, ergocalciferol, (Drisdol) 1.25 MG (57560 UT) capsule Take 1 (one) capsule by mouth No Known Allergies Physicial Exam: General appearance: alert, cooperative, no distress Lungs: exam not performed Heart: exam not performed Abdomen: soft without mass, non-tender, with normal bowel sounds Extremities: no clubbing, no cyanosis ASA Evaluation and Anesthesia Plan: Anesthesia administered per Anesthesia Department Indication(s) for Procedure: Heartburn Procedure Planned: EGD Michael Pedraza MD ITECT documented in this encounter Procedure Notes * [...] to discuss surgical options Michael Pedraza MD ITECT documented in this encounter Plan of Treatment Upcoming Encounters Date Type Department Care Team (Late st Contact Info) Description 05/01/2024 1:30 PM ARCHITECT Office Visit [facility] [address] [facility], [address] [place] [address] Melisa Fortune, FOUNTAIN SUPERVISOR-PANEL BUILDER [address] [place] [address] 10/27/2024 1:30 PM CDT Office Visit [facility] [address] [facility], [address] [place], [place] [id number] Melisa Fortune, FOUNTAIN SUPERVISOR-PANEL BUILDER [address] [place] [address] documented as of this encounter Procedures Procedure Name Priority Date/Time Associated Diagnosis Comments HELICOBACTER PYLORI UREASE (STL) STAT 04/04/2023 8:46 AM ARCHITECT Preop examination OR ED EGD FLEX TRANSORAL DX 04/04/2023 8:40 AM ARCHITECT EGD Routine 04/04/2023 8:21 AM ARCHITECT Morbid obesity (HCC) Preop testing BMI 45.0-49.9, adult (HCC) Gastroesophageal reflux disease, unspecified whether esophagitis present documented in this encounter Results * HELICOBACTER PYLORI UREASE (STL) (04/04/2023 8:46 AM ARCHITECT) Helicobacter pylori Urease Initial Negative Negative 04/05/2023 9:43 AM ARCHITECT [facility] Helicobacter pylori Urease Final Negative Negative 04/05/2023 9:43 AM ARCHITECT [facility] Comment:This is an appended report. These results have been appended to a previously preliminary verified report. Microbiology GASTRIC ANTRAL BIOPSY SPECIMEN / Unknown 04/04/2023 8:46 AM ARCHITECT 04/04/2023 1:24 PM ARCHITECT Michael Pedraza MD LAB - MICROBIOLOGY O RDERABLES [facility] [address] [place], [place] [id number] * EGD (04/04/2023 8:21 AM ARCHITECT) Report Endoscopy POC __ _ Patient Name: [...] Procedure Code(s): ? --- Professional --- ? 86109, Esophagogastroduode noscopy, flexible, transoral; with biopsy, ? single or multiple ? --- Technical --- ? 46558, Esophagogastroduode noscopy, flexible, transoral; with biopsy, ? [...] bleeding ? R12, Heartburn CPT copyright 2020 [employer]. All rights reserved. The codes documented in this report are preliminary and upon surgical coder review may be revised to meet current compliance requirements. Michael Pedraza _ Michael Pedraza MD 04/04/2023 8:48:09 AM This report has been signed electronically. Number of Addenda: 0 Note Initiated On: 04/04/2023 8:21 AM [facility] 04/04/2023 8:21 AM ARCHITECT Narrative Procedure Note Michael Pedraza MD - [...] Michael Pedraza MD GI PROCEDURE ORDERAB LES [facility] [place] [address] documented in this encounter Visit Diagnoses Not on filedocumented in this encounter Administered Medications Inactive Administered Medications - up to 3 most recent administrations Medication Order MAR Action Action Date Dose Rate Site 0.9% NaCl infusion at 20 mL/hr, Intravenous, CONTINUOUS, Starting on Cassandra 04/04/23 at 0800, Until Cassandra 04/04/23 at 1025, Pre-procedure (GI) $ New Bag/Syringe 04/04/2023 8:23 AM ARCHITECT 0.9% NaCl injection 3 mL 3 mL, Intracatheter, PRE-PROCEDURE MULTIPLE, Starting on Cassandra 04/04/23 at 0751, Until Cassandra 04/04/23 at 1025, For Saline Lock flushes if one is inserted for Bronchoscopy/Endoscopy procedure., Pre-procedure (GI) documented in this encounter Active and Recently Administered Medications Times are shown in ARCHITECT. Scheduled Medication Order 04/02/2023 04/03/2023 04/04/2023 0.9% NaCl injection 3 mL 3 mL, Intracatheter, PRE-PROCEDURE MULTIPLE, Starting on Cassandra 04/04/23 at 0751, Until Cassandra 04/04/23 at 1025, For Saline Lock flushes if one is inserted for Bronchoscopy/Endoscopy procedure., Pre-procedure (GI) Continuous Medication Order 04/02/2023 04/03/2023 04/04/2023 0.9% NaCl infusion at 20 mL/hr, Intravenous, CONTINUOUS, Starting on Cassandra 04/04/23 at 0800, Until Cassanrda 04/04/23 at 1025, Pre-procedure (GI) 0823 ($ New Bag/Syri nge - Provider: Zaid Giron APRN-IRON WORKER APPRENTICE)0845 (Anesthesia Volume Adjustment - Provider: Zaid Giron APRN-YESENIA) documented in this encounter Care Teams Commercial Loan Officer Relationship Specialty Start Date End Date Howard Damon MD [address] [place] [address] PCP - General Family Medicine 03/08/23 documented as of this encounter
--- OUTSIDE RECORDS SUMMARY | 2024-04-25 09:30 | XMS_ITS | Encounter Summary ---
Author Organization [facility] Address [address] [place] [address] Care Team Providers Care Fulfillment Representative Name Role Phone Howard Damon MD Primary Care Provider [phone] Reason for Visit * Reason Comments Pre-op Consult Encounter Details Date Type Department Care Team (Late st Contact Info) Description 10/16/2023 2:30 PM CDT Office Visit [facility] Weight Management Services [address] [facility] [address] [place] [address] Chrissie Mckinney, LINUX PROGRAMMER-DIRECTOR OF EMAIL MARKETING [address] [facility] [address] [place], [place] [id number] Morbid obesity (HCC) (Primary Dx); BMI 45.0-49.9, adult (HCC) Social History Tobacco [...] Sign Reading Time Taken Comments Blood Pressure 138/84 10/16/2023 12:11 PM CDT Pulse 73 10/16/2023 12:11 PM CDT Temperature 36.2 ??C (97.1 ??F) 10/16/2023 12:11 PM C DT Respiratory Rate - - Oxygen Saturation 98% 10/16/2023 12:11 PM CDT Inhaled Oxygen Concentration - - Weight 125 kg (275 lb 9.6 oz) 10/16/2023 12:11 P M CDT Height 165 cm (5' 4.96 ) 10/16/2023 12:11 PM CDT Body Mass Index 45.92 10/16/2023 12:11 PM CDT documented in this encounter Progress Notes * Chrissie Mckinney APRN-CNP - 10/16/2023 2:30 PM CDT Bariatric surgery Final Consult Syeda Christian 10/16/2023 Vitals: 10/16/23 1211 BP: 138/84 Pulse: 73 Temp: 97.1 ??F (36.2 ??C) SpO2: 98% Weight: 125 kg (275 lb 9.6 oz) Height: 1.65 m (5' 4.96 ) BMI (Calculated): 45.92 CHIEF COMPLAINT: Morbid Obesity HPI : Patient is here today for their final consult prior to surgery Pt is a 58 year old year old female with a hx of morbid obesity who presents for surgical tx. Pt has attempted multiple weight loss regimens in the past including medical, exercise and dietary without extermination supervisor success. Pt has developed multiple comorbid conditions that include Gastroesophageal reflux disease, Heart trouble, Multiple arthropathies, Depression and Osteoarthritis. These comorbid condition(s) have progressively worsened due to the patients morbid obesity and no other contributing factors. Pt has now attained a 45.92 and has failed multiple non surgical weight loss regimens for >5yrs. Medical Review: Patient reports since their last visit they have been in the hospital, no ER visits or traumas Patient denies any new medications. Dietitian recommendations were reviewed : Patient is following a higher protein Fluid intake per day: Patient has been getting in 64 oz of calorie free fluids. Patient has been re educated on preferred drinks Patient has been educated on the need to stop all carbonated beverages. Patient is participating in the following Physical Activity: Daily activities Change in weight since last visit: down 13 lbs Patient verbalizes understanding of fats, carbohydrates and protein: yes Patient is disabled and unable to participate in physical activity: no BP 138/84 Pulse 73 Temp 97.1 ??F (36.2 ??C) (Temporal) Ht 1.65 m (5' 4.96 ) Wt 125 kg (275 lb 9.6 oz) SpO2 98% BMI (Calculated): 45.92 Current Outpatient Medications Medication cetirizine (ZyrTEC) 10 MG tablet escitalopram (Lexapro) 20 MG tablet gabapentin (Neurontin) 300 MG capsule meloxicam (Mobic) 15 MG tablet metoprolol succinate XL 24hr (Toprol XL) 25 MG tablet pantoprazole EC (Protonix) 40 MG tablet vitamin D, ergocalciferol, (Drisdol) 1.25 MG (53510 UT) capsule No current facility-administered medications for this visit. Past Medical History: Diagnosis Date Cardiac arrhythmia tachycardia GERD (gastroesophageal reflux disease) Neuropathy Osteoarthritis Past Surgical History: Procedure Laterality Date Cholecystectomy, Laparoscopic ENDOSCOPY, UPPER 04/04/2023 ENDOSCOPY, UPPER N/A 04/04/2023 N/A; ESOPHAGOGASTRODUODENOSCOPY (EGD) DIAGNOSTIC Hip Replacement Bilateral Review of Systems: ROS HEENT: Normal Cardiovascular: Normal Respiratory: Normal Gastrointestinal: Normal Genitourinary: Normal Musculoskeletal: Normal Skin / Breast / Axillae: Normal Endocrine: Normal Neuro / Psych: Normal Physical Exam General: Awake, alert and no acute distress Abdomen: Soft, nontender, Ext: No edema x4 Assessment and Plan: Morbid Obesity: Plan is for : Laparoscopic Gastric Bypass and Laparoscopic Hiatal Hernia Repair - patient will be on a 1 week liquid diet prior to surgery - patient has been instructed to start on the recommended daily vitamins while on the liquid diet - we reviewed the recommended daily vitamins, - patient has been instructed to stop the vitamins the day of surgery and not to take any more vitamins until seen in the office at their 1 week follow up. - we reviewed the 1 week post phase 1 diet, questions answered - we reviewed the activity restrictions for 1 week postop - we reviewed the importance of getting in 64 oz of fluid and protein requirements after surgery and when to call the office - we reviewed post operatve pain and nausea and how we manage symptoms GI: hx of GERD, on PPI and morbid obesity with increased risk of silent heartburn and hiatal hernia -EGD: Milo - gastritis, EOE, HH 2 cm, hill 3, H pylori - NEG -UGI: no HH, no reflux, rapid transit to colon CV: hx of tachycardia, metabolic syndrome -pcp clearance under media Pulmonary: none Renal: none Endocrine: no diabetes [...] 6 weeks Preoperative Labs: CBC, CMP, B1, B12: reviewed during the visit Preoperative weight loss: Yes -decrease from baseline as class, initial 288 Weight check at Class: Yes REED Wilburn documented in this encounter Plan of Treatment Upcoming Encounters Date Type Department Care Team (Late st Contact Info) Description 05/01/2024 1:30 PM CAMP ADVISOR Office Visit [facility] Services [address] [place] [address], [facility] [address] [place] [address] Melisa Fortune APRN-CNP [address] [place] [phone] 10/27/2024 1:30 PM CDT Office Visit [facility] Management Services [id number] [place] [address], [address] [place] [address] Melisa Fortune APRN-CNP [address] [facility] [address] [place] [address] documented as of this encounter Visit Diagnoses Diagnosis Morbid obesity (HCC)- Primary Morbid obesity BMI 45.0-49.9, adult (HCC) Body Mass Index 45.0-49.9, adult documented in this encounter Care Teams Fulfillment Representative Relationship Specialty Start Date End Date Howard Damon MD [address] [place] [address] PCP - General Family Medicine 03/08/23 documented as of this encounter
--- OUTSIDE RECORDS SUMMARY | 2024-04-25 09:30 | XMS_ITS | Encounter Summary ---
Author Organization [facility] Address [address] [facility] [place] [address] Care Team Providers Care Manager Storage Name Role Phone Howard Damon MD Primary Care Provider [phone] Encounter Details Date Type Department Care Team (Latest Contact Info) Description 04/04/2023 Travel Social History Tobacco Use Types Packs/Day [...] st Contact Info) Description 05/01/2024 1:30 PM LUBRICATING ENGINEER Office Visit [facility] Weight Management Services [address] [place] [address] Melisa Fortune, FLIGHT MECHANIC-CHIEF PORT DIRECTOR [address] [address] 10/27/2024 1:30 PM CDT Office Visit [facility] Weight Management Services [address] [place] [address] Melisa Fortune APRN-CHIEF PORT DIRECTOR [address] [phone] documented as of this encounter Visit Diagnoses Not on filedocumented in this encounter Care Teams Manager Storage Relationship Specialty Start Date End Date Howard Damon MD [address] [place] [address] PCP - General Family Medicine 03/08/23 documented as of this encounter
--- OUTSIDE RECORDS SUMMARY | 2024-04-25 09:30 | XMS_ITS | Encounter Summary ---
Author Organization [facility] Address [address] [place] [address] Care Team Providers Care Social Services Manager Name Role Phone Howard Damon MD Primary Care Provider [phone] Encounter Details Date Type Department Care Team (Latest Contact Info) Description 10/16/2023 Travel Social History Tobacco Use Types Packs/Day [...] st Contact Info) Description 05/01/2024 1:30 PM GROUTMAN Office Visit [facility] [address] [place] [id number] Melisa Fortune, IMPLEMENTATION LEAD-DAIRY HUSBANDRY WORKER [address] [address] [phone] 10/27/2024 1:30 PM CDT Office Visit [facility] [address] [place] [address] Melisa Fortune APRN-DAIRY HUSBANDRY WORKER [address] [address] [phone] documented as of this encounter Visit Diagnoses Not on filedocumented in this encounter Care Teams Social Services Manager Relationship Specialty Start Date End Date Howard Damon MD [address] [place] [id number] PCP - General Family Medicine 03/08/23 documented as of this encounter
--- OUTSIDE RECORDS SUMMARY | 2024-04-25 09:31 | XMS_ITS | Encounter Summary ---
Author Organization [facility] Healthcare Address [address] [place] [address] Care Team Providers Care Compensation Manager Name Role Phone Unavailable Primary Care Provider Unavailabl e Encounter Details Date Type Department Care Team (Late st Contact Info) Description 01/12/2011 9:46 AM CDT - 01/12/2011 11:59 PM CDT Hospital Encounter [facility] Kike Elise MD [address] [place] [id number] Other screening mammogram Social History Tobacco Use Types Packs/Day Years Used Date Smoking Tobacco: Never Assessed Comments Unknown Sex and Gender Information Value Date Recorded Sex Assigned at Not on file 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
--- OUTSIDE RECORDS SUMMARY | 2024-04-25 09:31 | XMS_ITS | Encounter Summary ---
Author Organization [facility] Facility Care Team Providers Care Napper Fixer Name Role Phone Unavailable Primary Care Provider Unavailabl e Encounter Details Date Type Department Care Team (Late st Contact Info) Description 11/06/2011 - 11/06/2011 11:59 PM CDT Hospital Encounter [facility] Uamng Ovalles MD [address] [place] [address] Aftercare following joint replacement Social History Tobacco Use Types Packs/Day Years Used Date Smoking Tobacco: Never Assessed Comments Unknown Sex and Gender Information Value Date Recorded Sex Assigned at Not on file 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
--- OUTSIDE RECORDS SUMMARY | 2024-04-25 09:31 | XMS_ITS | Encounter Summary ---
Author Organization [facility] Facility Care Team Providers Care Hand Cigar Maker Name Role Phone Unavailable Primary Care Provider Unavailabl e Encounter Details Date Type Department Care Team (Late st Contact Info) Description 11/11/2012 - 11/11/2012 11:59 PM CDT Hospital Encounter [facility] Umang Ovalles MD [address] [place] [address] Aftercare following joint replacement; Knee joint replaced by other means Social History Tobacco Use Types Packs/Day Years Used Date Smoking Tobacco: Never Assessed Comments Unknown Sex and Gender Information Value Date Recorded Sex Assigned at Not on file 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 JODY MCKEON M.D. HO FINAL REPORT The radiology attending physician has personally reviewed this study, and has reviewed and/or edited this written report and agrees with it. ACC# ??Date Time ??Exam [id number] Nov 11, 2012 10:45:00 [id number] Hip Unilateral 1 view R [id number] Nov 11, 2012 10:45:00 [id number] Pelvis 1 or 2 views EXAMINATION: 1. Pelvis 1 or 2 views 2. Right hip unilateral one view HISTORY: Right hip osteoarthritis FINDINGS: AP view of the pelvis excluding the iliac crests, and crosstable lateral view of the right hip are compared to 11/06/2011. 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 The acetabular component is near anatomic. There is unchanged mild varus position of the femoral component. There is no polyethylene liner wear. A pre-existing subchondral cyst is present in the supra-acetabular iliac bone. There is no fracture. The left hip is normal. ?? IMPRESSION: 1. Unchanged total right hip arthroplasty. ?? Requested By: JAM HIGH Dictated By: ?? Jia SMITH ??on Nov ??2012 11:36A This document has been electronically signed by: JASMIN FORD M.D. on Nov 12 2012 ??1:15P Procedure Note Provider, MD Wandy - 08/26/2016 JASMIN FORD M.D. JODY MCKEON M.D. HO FINAL REPORT The radiology attending physician has personally reviewed this study, and has reviewed and/or edited this written report and agrees with it. ACC# Date Time Exam [id number] Nov 11, 2012 10:45:00 [id number] Hip Unilateral 1 view R [id number] Nov 11, 2012 10:45:00 [id number] Pelvis 1 or 2 views EXAMINATION: 1. Pelvis 1 or 2 views 2. Right hip unilateral one view HISTORY: Right hip osteoarthritis FINDINGS: AP view of the pelvis excluding the iliac crests, and crosstable lateral view of the right hip are compared to 11/06/2011. 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 The acetabular component is near anatomic. There is unchanged mild varus position of the femoral component. There is no polyethylene liner wear. A pre-existing subchondral cyst is present in the supra-acetabular iliac bone. There is no fracture. The left hip is normal. IMPRESSION: 1. Unchanged total right hip arthroplasty. Requested By: JAM HIGH Dictated By: Jia SMITH on Nov 11 2012 11:36A This document has been electronically signed by: JASMIN FORD M.D. on Nov 12 2012 1:15P us Historical Provider IMEndy XR PROCEDURES Final R esult * XR Hip (Radlink) 1 View (11/11/2012 10:45 AM CDT) Anatomical Region Laterality Modality Lower Extremities, Hip, Pelvis N/A R adiographic Imaging 11/11/2012 10:4 5 AM CDT Narrative 11/12/2012 1:15 PM CDT Jia GAINES M.D. HO FINAL REPORT The radiology attending physician has personally reviewed this study, and has reviewed and/or edited this written report and agrees with it. ACC# ??Date Time ??Exam [id number] Nov 11, 2012 10:45:00 [id number] Hip Unilateral 1 view R [id number] Nov 11, 2012 10:45:00 [id number] Pelvis 1 or 2 views EXAMINATION: 1. Pelvis 1 or 2 views 2. Right hip unilateral one view HISTORY: Right hip osteoarthritis FINDINGS: AP view of the pelvis excluding the iliac crests, and crosstable lateral view of the right hip are compared to 11/06/2011. 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 The acetabular component is near anatomic. There is unchanged mild varus position of the femoral component. There is no polyethylene liner wear. A pre-existing subchondral cyst is present in the supra-acetabular iliac bone. There is no fracture. The left hip is normal. ?? IMPRESSION: 1. Unchanged total right hip arthroplasty. ?? Requested By: JAM HIGH Dictated By: ?? Jia SMITH ??on Nov?2012 11:36A This document has been electronically signed by: JASMIN FORD M.D. on Nov 12 2012 ??1:15P Procedure Note Provider, MD Wandy - 08/26/2016 JASMIN FORD M.D. Jia SMITH FINAL REPORT The radiology attending physician has personally reviewed this study, and has reviewed and/or edited this written report and agrees with it. ACC# Date Time Exam [id number] Nov 11, 2012 10:45:00 [id number] Hip Unilateral 1 view R [id number] Nov 11, 2012 10:45:00 [id number] Pelvis 1 or 2 views EXAMINATION: 1. Pelvis 1 or 2 views 2. Right hip unilateral one view HISTORY: Right hip osteoarthritis FINDINGS: AP view of the pelvis excluding the iliac crests, and crosstable lateral view of the right hip are compared to 11/06/2011. 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 The acetabular component is near anatomic. There is unchanged mild varus position of the femoral component. There is no polyethylene liner wear. A pre-existing subchondral cyst is present in the supra-acetabular iliac bone. There is no fracture. The left hip is normal. IMPRESSION: 1. Unchanged total right hip arthroplasty. Requested By: JAM HIGH Dictated By: Jia SMITH on Nov 11 2012 11:36A This document has been electronically signed by: JASMIN FORD M.D. on Nov 12 2012 1:15P us Historical Provider MD REED XR PROCEDURES Final R esult documented in this encounter Visit Diagnoses Diagnosis Aftercare following joint replacement Knee joint replaced by other means documented in this encounter
--- OUTSIDE RECORDS SUMMARY | 2024-04-25 09:31 | XMS_ITS | Encounter Summary ---
Author Organization [facility] Facility Care Team Providers Care Commodities Clerk Name Role Phone Unavailable Primary Care Provider Unavailabl e Encounter Details Date Type Department Care Team (Late st Contact Info) Description 11/19/2014 8:57 AM CDT - 11/19/2014 4:00 PM CDT [facility] [address] [place] [address] Pain in joint, pelvic region and thigh Social History Tobacco Use Types Packs/Day Years Used Date Smoking Tobacco: Never Alcohol Use Standard Drinks/Week Comments Yes 0 (1 standard drink = 0.6 oz pur e alcohol) Comments Unknown Sex and Gender Information Value Date Recorded Sex Assigned at Not on file 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 Gender Identity Not on file Sexual Orientation Not on file documented as of this encounter Medications at Time of Discharge escitalopram (LEXAPRO) 20 mg tablet take 1 tablet by oral route every day 0 0 07/22/2013 metoprolol (LOPRESSOR) 50 mg tablet take 1 tablet by oral route 2 times every day with meals 0 0 07/22/2013 documented as of this encounter Plan of Treatment Not on file documented as of this encounter Procedures Procedure Name Priority Date/Time Associated Diagnosis Comments FLUORO GUIDED NEEDLE PLACEMENT Routine 11/19/2014 8:38 AM CDT documented in this encounter Results * FLUORO GUIDED NEEDLE PLACEMENT (11/19/2014 8:38 AM CDT) Anatomical Region Laterality Modality Body N/A Radiographic Michell ging 11/19/2014 8:38 AM CDT Narrative 11/19/2014 11:29 AM CDT This examination was converted from a legacy system and did not match a report, either due to it being a non-reportable examination, or a duplicate entry Procedure Note Provider, MD Wandy - 12/10/2016 This examination was converted from a legacy system and did not match areport, either due to it being a non-reportable examination, or aduplicate entry Historical Provider MD REED FLUOROSCOPY PROCEDURE S Final Result documented in this encounter Visit Diagnoses Diagnosis Pain in joint, pelvic region and thigh documented in this encounter
--- OUTSIDE RECORDS SUMMARY | 2024-04-25 09:31 | XMS_ITS | Encounter Summary ---
Author Organization [facility] Facility Care Team Providers Care Motor Vehicle Salesperson Name Role Phone Unavailable Primary Care Provider Unavailabl e Encounter Details Date Type Department Care Team (Latest Contact Info) Description 10/07/2015 - 10/07/2015 11:59 PM CDT Hospital Encounter [facility] Reed Ovalles MD [address] [place] [address] Primary osteoarthritis of left hip Social History Tobacco Use Types Packs/Day Years Used Date Smoking Tobacco: Never Alcohol Use Standard Drinks/Week Comments Yes 0 (1 standard drink = 0.6 oz pur e alcohol) Comments Unknown Sex and Gender Information Value Date Recorded Sex Assigned at Not on file 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 30 0 06/08/2015 docusate sodium (COLACE) 100 mg capsule take 1 capsule by oral route twice daily as needed for constipation 30 1 06/08/2015 escitalopram (LEXAPRO) 20 mg tablet take 1 tablet by oral route every day 0 0 07/22/2013 HYDROcodone-acet aminophen (NORCO) 5-325 mg per tablet take 1-2 tablets by oral route ever 4-6 hours PRN 43 0 06/08/2015 meloxicam (MOBIC) 15 mg tablet take 1 tablet by oral route every day 30 1 2015 metoprolol (LOPRESSOR) 50 mg tablet take 1 tablet by oral route 2 times every day with meals 0 0 07/22/2013 naproxen (NAPROSYN) 500 mg tablet take 1 tablet by oral route every day with food 90 3 07/26/2015 promethazine (PHENERGAN) 25 mg tablet take 1 tablet by oral route every 4 - 6 hours as needed 30 1 06/08/2015 documented as of this encounter Plan of Treatment Not on file documented as of this encounter Procedures Procedure Name Priority Date/Time Associated Diagnosis Comments FLUORO GUIDED NEEDLE PLACEMENT Routine 10/07/2015 12:22 PM CDT FLUORO GUIDED NEEDLE PLACEMENT Routine 10/07/2015 12:22 PM CDT documented in this encounter Results * FLUORO GUIDED NEEDLE PLACEMENT (10/07/2015 12:22 PM CDT) Anatomical Region Laterality Modality Body N/A Radiographic Michell ging 10/07/2015 12:2 2 PM CDT Narrative 10/07/2015 5:11 PM CDT SUHA CAM M.D. REED CHARLES M.D. FINAL REPORT The radiology attending physician has personally reviewed this study, and has reviewed and/or edited this written report and agrees with it. ACC# ??Date Time ??Exam [id number] Oct 07, 2015 12:22:00 [id number] Asp/Inj Lg Jnt L [id number] Oct 07, 2015 12:22:00 12165S Fluoro Gd for Ndl (MSK) EXAMINATION: ?? Left hip joint injection under fluoroscopic guidance HISTORY: 50-year-old woman with severe left hip osteoarthritis with collapse of the femoral head. Therapeutic left hip injection is requested. ATTENDING PRESENCE: Dr. Cam, the attending radiologist, was present from the beginning to the end of the procedure. Dr. Charles also participated in this examination. SEDATION: The patient did not require conscious sedation for the procedure. TECHNIQUE: ??The risks, benefits and alternatives were discussed and informed consent was obtained. ??Prior to beginning the procedure, [place] Protocol was performed to confirm the patients identity and the planned procedure. The fluoroscopy time has been recorded in the electronic medical record. Sterile barriers used during the procedure included cap, mask, hand hygiene, sterile gloves, and sterile drape. ??Chloraprep was used for cutaneous antisepsis. The patient was placed supine on the fluoroscopy table. ??The injection site was localized under fluoroscopic guidance. ??The ipsilateral femoral artery was palpated and marked. ??Local anesthesia was achieved with subcutaneous injection of 1% lidocaine 2 mL. ??A 22-gauge spinal needle was inserted into the left hip under fluoroscopic guidance from an anterior approach. ??The position of the needle tip was confirmed by the injection of 6 mL of a 2:1 mixture of Omnipaque-300 and 0.25% bupivacaine. ??A ??3 mL therapeutic injectate, consisting of 1 mL of bupivacaine 0.25%, 1 mL of Kenalog (40 mg/mL), and 1 mL of Omnipaque-300 was then injected into the left hip. ??The needle was removed, the skin was cleansed with hydrogen peroxide, and a bandage was placed. ?? ESTIMATED BLOOD LOSS: Minimal CONDITION: Stable condition. There were no complications of the procedure. DISCHARGED TO: ??Home. FINDINGS: Initial fluoroscopic images showed markedly progressed severe left hip osteoarthritis, with collapse of the femoral head. Subsequent fluoroscopic images confirm the needle and contrast within the left hip joint. Prior to the procedure, the patient reported 10/10 left hip pain. After the procedure, the patient reported a reduction in presenting symptoms. IMPRESSION: ?? 1. ??Injection of the left hip under fluoroscopic guidance. The patient had reduction of symptoms at the end of the procedure. 2. Marked progression of severe left hip osteoarthritis, with collapse of the left femoral head. Requested By: Dictated By: ?? REED CHARLES M.D. ??on Oct ??2015 ??2:27P This document has been electronically signed by: SUHA CAM M.D. on Oct ??2015 ??5:11P [id number] Procedure Note Provider, MD Wandy - 08/26/2016 SUHA CAM M.D. REED CHARLES M.D. FINAL REPORT The radiology attending physician has personally reviewed this study, and has reviewed and/or edited this written report and agrees with it. ACC# Date Time Exam [id number] Oct 07, 2015 12:22:00 [id number] Asp/Inj Lg Jnt L [id number] Oct 07, 2015 12:22:00 43311D Fluoro Gd for Ndl (SELINA) EXAMINATION: Left hip joint injection under fluoroscopic guidance HISTORY: 50-year-old woman with severe left hip osteoarthritis with collapse of the femoral head. Therapeutic left hip injection isrequested. ATTENDING PRESENCE: Dr. Cam, the attending radiologist, was present from the beginning to the end of the procedure. Dr. Charles also participated in this examination. SEDATION: The patient did not require conscious sedation for the procedure. TECHNIQUE: The risks, benefits and alternatives were discussed and informed consent was obtained. Prior to beginning the procedure, [place] Protocol was performed to confirm the patients identity and the planned procedure. The fluoroscopy time has been recorded in the electronic medical record. Sterile barriers used during the procedure included cap, mask, hand hygiene, sterile gloves, and sterile drape. Chloraprep was used for cutaneous antisepsis. The patient was placed supine on the fluoroscopy table. The injection site was localized under fluoroscopic guidance. The ipsilateral femoral artery was palpated and marked. Local anesthesia was achieved with subcutaneous injection of 1% lidocaine 2 mL. A 22-gauge spinal needle was inserted into the left hip under fluoroscopic guidance from an anterior approach. The position of the needle tip was confirmed by the injection of 6 mL of a 2:1 mixture of Omnipaque-300 and 0.25% bupivacaine. A 3 mL therapeutic injectate, consisting of 1 mL of bupivacaine 0.25%, 1 mL of Kenalog (40 mg/mL), and 1 mL of Omnipaque-300 was then injected into the left hip. The needle was removed, the skin was cleansed with hydrogen peroxide, and a bandage was placed. ESTIMATED BLOOD LOSS: Minimal CONDITION: Stable condition. There were no complications of the procedure. DISCHARGED TO: Home. FINDINGS: Initial fluoroscopic images showed markedly progressed severe left hip osteoarthritis, with collapse of the femoral head. Subsequent fluoroscopic images confirm the needle and contrast within the left hip joint. Prior to the procedure, the patient reported 10/10 left hip pain. After the procedure, the patient reported a reduction in presenting symptoms. IMPRESSION: 1. Injection of the left hip under fluoroscopic guidance. The patient had reduction of symptoms at the end of the procedure. 2. Marked progression of severe left hip osteoarthritis, with collapse of the left femoral head. Requested By: Dictated By: REED CHARLES M.D. on Oct 07 2015 2:27P This document has been electronically signed by: SUHA CAM M.D. on Oct 07 2015 5:11P [id number] us Historical Provider MD REED FLUOROSCOPY PROCEDURE S Final Result * FLUORO GUIDED NEEDLE PLACEMENT (10/07/2015 12:22 PM CDT) Anatomical Region Laterality Modality Body N/A Radiographic Michell ging 10/07/2015 12:2 2 PM CDT Narrative 10/07/2015 5:11 PM CDT Jia BURNS M.D. FINAL REPORT The radiology attending physician has personally reviewed this study, and has reviewed and/or edited this written report and agrees with it. ACC# ??Date Time ??Exam [id number] Oct 07, 2015 12:22:00 [id number] Asp/Inj Lg Jnt L [id number] Oct 07, 2015 12:22:00 40492S Fluoro Gd for Ndl (MSK) EXAMINATION: ?? Left hip joint injection under fluoroscopic guidance HISTORY: 50-year-old woman with severe left hip osteoarthritis with collapse of the femoral head. Therapeutic left hip injection is requested. ATTENDING PRESENCE: Dr. Cam, the attending radiologist, was present from the beginning to the end of the procedure. Dr. Charles also participated in this examination. SEDATION: The patient did not require conscious sedation for the procedure. TECHNIQUE: ??The risks, benefits and alternatives were discussed and informed consent was obtained. ??Prior to beginning the procedure, [place] Protocol was performed to confirm the patients identity and the planned procedure. The fluoroscopy time has been recorded in the electronic medical record. Sterile barriers used during the procedure included cap, mask, hand hygiene, sterile gloves, and sterile drape. ??Chloraprep was used for cutaneous antisepsis. The patient was placed supine on the fluoroscopy table. ??The injection site was localized under fluoroscopic guidance. ??The ipsilateral femoral artery was palpated and marked. ??Local anesthesia was achieved with subcutaneous injection of 1% lidocaine 2 mL. ??A 22-gauge spinal needle was inserted into the left hip under fluoroscopic guidance from an anterior approach. ??The position of the needle tip was confirmed by the injection of 6 mL of a 2:1 mixture of Omnipaque-300 and 0.25% bupivacaine. ??A ??3 mL therapeutic injectate, consisting of 1 mL of bupivacaine 0.25%, 1 mL of Kenalog (40 mg/mL), and 1 mL of Omnipaque-300 was then injected into the left hip. ??The needle was removed, the skin was cleansed with hydrogen peroxide, and a bandage was placed. ?? ESTIMATED BLOOD LOSS: Minimal CONDITION: Stable condition. There were no complications of the procedure. DISCHARGED TO: ??Home. FINDINGS: Initial fluoroscopic images showed markedly progressed severe left hip osteoarthritis, with collapse of the femoral head. Subsequent fluoroscopic images confirm the needle and contrast within the left hip joint. Prior to the procedure, the patient reported 10/10 left hip pain. After the procedure, the patient reported a reduction in presenting symptoms. IMPRESSION: ?? 1. ??Injection of the left hip under fluoroscopic guidance. The patient had reduction of symptoms at the end of the procedure. 2. Marked progression of severe left hip osteoarthritis, with collapse of the left femoral head. Requested By: Dictated By: ?? REED CHARLES M.D. ??on Oct ??2015 ??2:27P This document has been electronically signed by: SUHA CAM M.D. on Oct ??3 2016 ??5:11P Procedure Note Provider, MD Wandy - 08/26/2016 SUHA CAM M.D. REED CHARLES M.D. FINAL REPORT The radiology attending physician has personally reviewed this study, and has reviewed and/or edited this written report and agrees with it. ACC# Date Time Exam [id number] Oct 07, 2015 12:22:00 [id number] Asp/Inj Lg Jnt L [id number] Oct 07, 2015 12:22:00 57634P Fluoro Gd for Ndl (MSK) EXAMINATION: Left hip joint injection under fluoroscopic guidance HISTORY: 50-year-old woman with severe left hip osteoarthritis with collapse of the femoral head. Therapeutic left hip injection isrequested. ATTENDING PRESENCE: Dr. Cam, the attending radiologist, was present from the beginning to the end of the procedure. Dr. Charles also participated in this examination. SEDATION: The patient did not require conscious sedation for the procedure. TECHNIQUE: The risks, benefits and alternatives were discussed and informed consent was obtained. Prior to beginning the procedure, [place] Protocol was performed to confirm the patients identity and the planned procedure. The fluoroscopy time has been recorded in the electronic medical record. Sterile barriers used during the procedure included cap, mask, hand hygiene, sterile gloves, and sterile drape. Chloraprep was used for cutaneous antisepsis. The patient was placed supine on the fluoroscopy table. The injection site was localized under fluoroscopic guidance. The ipsilateral femoral artery was palpated and marked. Local anesthesia was achieved with subcutaneous injection of 1% lidocaine 2 mL. A 22-gauge spinal needle was inserted into the left hip under fluoroscopic guidance from an anterior approach. The position of the needle tip was confirmed by the injection of 6 mL of a 2:1 mixture of Omnipaque-300 and 0.25% bupivacaine. A 3 mL therapeutic injectate, consisting of 1 mL of bupivacaine 0.25%, 1 mL of Kenalog (40 mg/mL), and 1 mL of Omnipaque-300 was then injected into the left hip. The needle was removed, the skin was cleansed with hydrogen peroxide, and a bandage was placed. ESTIMATED BLOOD LOSS: Minimal CONDITION: Stable condition. There were no complications of the procedure. DISCHARGED TO: Home. FINDINGS: Initial fluoroscopic images showed markedly progressed severe left hip osteoarthritis, with collapse of the femoral head. Subsequent fluoroscopic images confirm the needle and contrast within the left hip joint. Prior to the procedure, the patient reported 10/10 left hip pain. After the procedure, the patient reported a reduction in presenting symptoms. IMPRESSION: 1. Injection of the left hip under fluoroscopic guidance. The patient had reduction of symptoms at the end of the procedure. 2. Marked progression of severe left hip osteoarthritis, with collapse of the left femoral head. Requested By: Dictated By: REED CHARLES M.D. on Oct 07 2015 2:27P This document has been electronically signed by: SUHA CAM M.D. on Oct 07 2015 5:11P us Historical Provider MD REED FLUOROSCOPY PROCEDURE S Final Result documented in this encounter Visit Diagnoses Diagnosis Primary osteoarthritis of left hip documented in this encounter
--- OUTSIDE RECORDS SUMMARY | 2024-04-25 09:31 | XMS_ITS | Encounter Summary ---
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 FINAL REPORT ACC# ??Date Time ??Exam [id number] Apr 24, 2016 09:55:00 [id number] Hip Uni & Pel if done 2-3v L EXAMINATION: ?Left hip 2 or 3 views HISTORY: ??Left hip osteoarthritis FINDINGS: ?? Two view examination of the pelvis and left hip is compared with the study from 02/29/2016. Left total hip arthroplasty remains in unchanged, near-anatomic position. Soft tissue gas has resolved. There is no fracture or component migration. Right total hip arthroplasty is unchanged. IMPRESSION: ?? 1. Left total hip arthroplasty in unchanged, near-anatomic position. Requested By: REED FARIAS M.D. Dictated By: ?? GILBERT CANCHOLA M.D. ??on Apr 24 2016 10:04A This document has been electronically signed by: GILBERT CANCHOLA M.D. on Apr 24 2016 10:04A [id number] Procedure Note Provider, MD Wandy - 09/12/2016 GILBERT CANCHOLA M.D. FINAL REPORT ACC# Date Time Exam [id number] Apr 24, 2016 09:55:00 [id number] Hip Uni & Pel if done 2-3v L EXAMINATION: Left hip 2 or 3 views HISTORY: Left hip osteoarthritis FINDINGS: Two view examination of the pelvis and left hip is compared with the study from 02/29/2016. Left total hip arthroplasty remains in unchanged, near-anatomic position. Soft tissue gas has resolved. There is no fracture or component migration. Right total hip arthroplasty is unchanged. IMPRESSION: 1. Left total hip arthroplasty in unchanged, near-anatomic position. Requested By: REED FARIAS M.D. Dictated By: GILBERT CANCHOLA M.D. on Apr 24 2016 10:04A This document has been electronically signed by: GILBERT CANCHOLA M.D. on Apr 24 2016 10:04A [id number] Historical Provider MD REED XR PROCEDURES Final R esult documented in this encounter Visit Diagnoses Diagnosis Aftercare following joint replacement surgery Presence of left artificial hip joint documented in this encounter
--- OUTSIDE RECORDS SUMMARY | 2024-04-25 09:31 | XMS_ITS | Encounter Summary ---
Author Organization [facility] Address [address] [place] [address] Phone Care Team Providers Care Job Honer Name Role Phone Howard Damon MD Primary Care Provider Encounter Details Date Type Department Care Team (Late st Contact Info) Description 06/17/2020 Telephone [facility] [address] [place] [id number] Kamala Calloway RMA Social History Tobacco Use Types Packs/Day Years Used Date Smoking Tobacco: Never Alcohol Use Standard Drinks/Week Comments Yes 0 (1 standard drink = 0.6 oz pur e alcohol) Comments Unknown Sex and Gender Information Value Date Recorded Sex Assigned at Not on file Legal Sex Female 3:12 AM 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 Gender Identity Not on file Sexual Orientation Not on file documented as of this encounter Miscellaneous Notes * Telephone Encounter - Kamala Calloway RMA - 06/17/2020 11:45 AM MACARONI MAKER lmor to contact office ( new patient appointment) RONI MAKER documented in this encounter Plan of Treatment Not on file documented as of this encounter Visit Diagnoses Not on filedocumented in this encounter Care Teams Job Honer Relationship Specialty Start Date End Date Howard Damon MD [address] [facility] [address] [place] [address] PCP - General Family Medicine 08/21/18 documented as of this encounter
--- OUTSIDE RECORDS SUMMARY | 2024-04-25 09:31 | XMS_ITS | Encounter Summary ---
Author Organization [facility] Facility Care Team Providers Care Pigment Pumper Name Role Phone Unavailable Primary Care Provider Unavailabl e Encounter Details Date Type Department Care Team (Latest Contact Info) Description 12/20/2015 2:37 PM CDT - 12/20/2015 11:59 PM CDT Hospital Encounter [facility] Reed Ovalles MD [address] [place] [address] Primary osteoarthritis of left hip; Presence of right artificial hip joint Social History Tobacco Use Types Packs/Day Years Used Date Smoking Tobacco: Never Alcohol Use Standard Drinks/Week Comments Yes 0 (1 standard drink = 0.6 oz pur e alcohol) Comments Unknown Sex and Gender Information Value Date Recorded Sex Assigned at Not on file 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 KENYA SIDDIQUI M.D. FINAL REPORT The radiology attending physician has personally reviewed this study, and has reviewed and/or edited this written report and agrees with it. ACC# ??Date Time ??Exam [id number] Dec 20, 2015 15:16:00 [id number] HipBilat & Pel if done3-4V ACC# ??Date Time ??Exam [id number] Dec 20, 2015 15:16:00 [id number] HipBilat & Pel if done3-4V EXAMINATION: ?Hips bilateral, with pelvis if performed, 3 or 4 views. HISTORY: ??Bilateral hip osteoarthritis, primary FINDINGS: ??An AP and right posterior oblique projection of the pelvis and a crosstable lateral examination of each hip is compared to a pelvis examination dated 09 July 2014. 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 Left hip osteoarthritis has progressed and is now end-stage with collapse of the femoral head representing osteonecrosis. There is no fracture. ?? IMPRESSION: 1. Unchanged right hip total arthroplasty in near anatomic position. 2. Progressive, severe left hip osteoarthritis and femoral head osteonecrosis. ?? Requested By: REED FARIAS M.D. Dictated By: ?? KENYA SIDDIQUI M.D. ??on Dec 20 2015 ??3:48P This document has been electronically signed by: JASMIN FORD M.D. on Dec 21 2015 ??2:46P [id number] Procedure Note Provider, Wandy, - 08/26/2016 JASMIN FORD M.D. KENYA SIDDIQUI M.D. FINAL REPORT The radiology attending physician has personally reviewed this study, and has reviewed and/or edited this written report and agrees with it. ACC# Date Time Exam [id number] Dec 20, 2015 15:16:00 [id number] HipBilat & Pel if done3-4V ACC# Date Time Exam [id number] Dec 20, 2015 15:16:00 [id number] HipBilat & Pel if done3-4V EXAMINATION: Hips bilateral, with pelvis if performed, 3 or 4 views. HISTORY: Bilateral hip osteoarthritis, primary FINDINGS: An AP and right posterior oblique projection of the pelvis and a crosstable lateral examination of each hip is compared to a pelvis examination dated 09 July 2014. 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 Left hip osteoarthritis has progressed and is now end-stage with collapse of the femoral head representing osteonecrosis. There is no fracture. IMPRESSION: 1. Unchanged right hip total arthroplasty in near anatomic position. 2. Progressive, severe left hip osteoarthritis and femoral head osteonecrosis. Requested By: REED FARIAS M.D. Dictated By: KENYA SIDDIQUI M.D. on Dec 20 2015 3:48P This document has been electronically signed by: JASMIN FORD M.D. on Dec 21 2015 2:46P [id number] Historical Provider MD REED XR PROCEDURES Final R esult documented in this encounter Visit Diagnoses Diagnosis Primary osteoarthritis of left hip Presence of right artificial hip joint documented in this encounter
--- OUTSIDE RECORDS SUMMARY | 2024-04-25 09:31 | XMS_ITS | Encounter Summary ---
Author Organization [facility] Address [address] [place] [address] Phone Care Team Providers Care Casino Cage Manager Name Role Phone Howard Damon MD Primary Care Provider Encounter Details Date Type Department Care Team (Late st Contact Info) Description 07/13/[address] 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 Angeles. GANIC CHEMISTRY PROFESSOR * Telephone Encounter - Kamala Calloway RMA - 07/13/2020 10:47 AM INORGANIC CHEMISTRY PROFESSOR lmor to contact office regarding new patient appointment. GANIC CHEMISTRY PROFESSOR documented in this encounter Plan of Treatment Not on file documented as of this encounter Visit Diagnoses Not on filedocumented in this encounter Care Teams Casino Cage Manager Relationship Specialty Start Date End Date Howard Damon MD [address] [facility] [address] [place] [address] PCP - General Family Medicine 08/21/18 documented as of this encounter
--- OUTSIDE RECORDS SUMMARY | 2024-04-25 09:31 | XMS_ITS | Encounter Summary ---
Author Organization [facility] Facility Care Team Providers Care Stock Plan Administrator Name Role Phone Unavailable Primary Care Provider Unavailabl e Encounter Details Date Type Department Care Team (Latest Contact Info) Description 02/29/2016 7:17 AM CDT - 03/01/2016 12:47 PM CDT Hospital Encounter [facility] Umang Ovalles MD [address] [place] [address] Primary osteoarthritis of left hip; Other obesity due to excess calories; Polycystic ovarian syndrome; Anemia; Gastro-esophageal reflux disease without esophagitis; Body mass index (BMI) of 38.0-38.9 in adult Social History Tobacco Use Types Packs/Day Years Used Date Smoking Tobacco: Never Alcohol Use Standard Drinks/Week Comments Yes 0 (1 standard drink = 0.6 oz pur e alcohol) Comments Unknown Sex and Gender Information Value Date Recorded Sex Assigned at Not on file 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 Gender Identity Not on file Sexual Orientation Not on file documented as of this encounter Last Filed Vital Signs Vital Sign Reading Time Taken Comments Blood Pressure 93/52 03/01/2016 11:19 AM CDT Pulse 53 03/01/2016 11:19 AM CDT Temperature - - Respiratory Rate - - Oxygen Saturation 95% 03/01/2016 11: 19 AM CDT Inhaled Oxygen Concentration - - Weight 112.5 kg (247 lb 15.9 oz) 02/29/2016 1:17 PM CDT Height 172.7 cm (5' 8 ) 02/29/2016 1:17 PM CDT Body Mass Index 37.71 02/29/2016 1:17 PM CDT documented in this encounter Medications at Time [...] 1 06/08/2015 documented as of this encounter Miscellaneous Notes * Op Note - Provider, MD Wandy - 02/29/2016 12:00 AM CDT Patient: SYEDA DE LA TORRE Reg No: [id number] H #: [id number] Admit Dt.: 02/29/2016 : 1965 Pt Type: Room No: 7466-01 Attending: Umang Clifford M.D. Surgeon: Umang Clifford M.D. Dictating: Umang Clifford M.D. Service Dt: 02/29/2016 OPERATIVE REPORT [facility]AC[facility] ID[facility] Umang Clifford MD SECOND ENTERTAINMENT DANCER GABBY Montes De Oca ENTERTAINMENT DANCER #1 Dr. Gerard Masters ENTERTAINMENT DANCER #2 GABBY Montes De [place]ca PREOPERATIVE DIAGNOSIS Osteoarthritis of the left hip. POSTOPERATIVE DIAGNOSIS Osteoarthritis of the left hip. PROCEDURE Left posterior total hip replacement. IMPLANTS Acetabular component -Rivas Biomet system 50 continuum socket Acetabular screws - 3 Acetabular liner - 32 inner diameter liner Femoral component - 6 high offset Taperloc stem Femoral head - 32+3 Biolox head SURGICAL DETAILS 1. Crystalloid replacement -2 L 2. Anesthesia type: Spinal 3. Complications: None INDICATIONS FOR PROCEDURE This is a 51-year-old female, end-stage osteoarthritis of the left hip presents today left total arthroplasty. We have discussed risks, complications, benefits. All questions answered. OPERATIVE FINDINGS Inspection of the joint revealed synovitis and full thickness cartilage defects indicating endstage degeneration of the joint. PROCEDURE The patient was brought to the operating room and placed on the operating room table in the supine position. After anesthesia was established, the patient was positioned in the lateral decubitus position with the operative side up. All bony prominences and peripheral nerves were padded. A surgical time out was taken to confirm the operative side. The patient was given prophylactic antibiotics. The hip was prepped and draped in usual sterile fashion. We made a posterolateral approach to the hip. The incision was carried through the subcutaneous tissue to the underlying fascia georgette and G- max fascia. These were incised. The Charnley retractor was placed. The piriformis and external rotators were released. The hip was dislocated. Femoral neck cut was made according to the preoperative plan. The acetabulum was exposed. The acetabulum was reamed to give a 2 mm press fit. The acetabular component was impacted into position targeting 45 degrees of abduction and 20 degrees of anteversion. Screw fixation was utilized to enhance acetabular component fixation. The acetabular liner was placed and impacted into position. The liner locking mechanism engaged. We then turned to the femoral side. Femoral preparation was started with a box osteotome and Charnley awl. The canal was prepared for the final broach. The final broach was impacted into position in approximately 15-20 degrees of anteversion. The trial head was placed and the hip reduced. Leg length measurements on the table demonstrated good reconstruction of the leg lengths according to our preoperative plan. The hip stability was assessed. The hip was stable in extension and external rotation. The hip was stable in flexion, adduction of 20 degrees and internal rotation to 60 degrees. The hip was stable at 90 degrees of flexion and internal rotation to 60 degrees. The hip was stable in full flexion. The hip was dislocated, the trial broach was removed. The final stem was inserted in routine fashion. After placement of the stem, the prosthetic head was placed and the hip reduced. Again, leg length assessment and stability assessment of the hip were excellent. I was pleased with the reconstruction. The wound was irrigated, and a deep drain placed. The posterior capsule was repaired with #5 Ethibond through drill holes in the greater trochanter. The piriformis was repaired with #5 Ethibond through the gluteus medius insertion into the greater trochanter. Fascia georgette was repaired with #1 Vicryl. Subcutaneous tissue, 2-0 Monocryl and running 3-0 Monocryl. The wound was cleansed and dressed with Dermabond and a Tegaderm dressing. The patient tolerated the procedure well. There were no complications. The patient was delivered to the recovery room in good condition. The sponge and needle counts were correct. Dr. Clifford was present for all critical portions of the case including assessment of bone cuts, implantation of prothesis, and final trialing after the prothesis was in place. Dr. Clifford was immediately available for all noncritical portions of the procedure. ADDITIONAL COMMENTS (copy of this operative note to orthopedic billing service) Electronically Authenticated and Edited by: Umang Clifford MD On 03/12/2016 04:32 PM BRIDGE GAME DIRECTOR Umang Clifford M.D. [facility] #[id number] Editing MT: TD: 03/11/2016 09:47 PM Jia Bianchi M.D. documented in this encounter Plan of Treatment Not on file documented as of this encounter Procedures Procedure Name Priority Date/Time Associated Diagnosis Comments DISCHARGE LABORATORY CUMULATIVE REPORT 03/01/2016 SERUM LIPID PANEL Routine 02/29/2016 10: 58 PM CDT PLASMA BASIC METABOLIC PANEL Routine 02/29/2016 10:58 PM CDT BLOOD CELL COUNT (CBC) Routine 02/29/2016 10:58 PM CDT BLOOD CELL MORPHOLOGIC EXAM Routine 02/29/2016 10:58 PM CDT XR PELVIS 1 OR 2 VIEWS Routine 02/29/2016 11:47 AM CDT SERUM LIPID PANEL Routine 02/29/2016 10: 55 AM CDT PLASMA BASIC METABOLIC PANEL Routine 02/29/2016 10:55 AM CDT BLOOD CELL COUNT (CBC) Routine 02/29/2016 10:55 AM CDT BLOOD CELL MORPHOLOGIC EXAM Routine 02/29/2016 10:55 AM CDT BLOOD ABO, RH, INDIRECT AB SCREEN Routine 02/29/2016 7:40 AM CDT BLOOD GLUCOSE, POC Routine 02/29/2016 7: 39 AM CDT URINE CHORIONIC GONADOTROPIN (HCG) Routine 02/29/2016 7:17 AM CDT documented in this encounter Results * DISCHARGE LABORATORY CUMULATIVE REPORT (03/01/2016) Narrative 03/01/2016 Ordered by an unspecified provider. us Historical Provider LAB BLOOD ORDERABLES Naheed l Result * (ABNORMAL) Serum lipid panel (02/29/2016 10:58 PM CDT) [facility] Signature Cholesterol 137 30 - 200 mg/dl CDR HISTORICAL RESULTS Comment: Interpretive Data Desirable: ?<200 mg/dL Borderline high: ??200-239 mg/dL High: ? > or = 240 mg/dL Literature Reference: National Cholesterol Education Program (NCEP) Expert Panel on Detection, Evaluation, and Treatment of High Blood Cholesterol in Adults (Adult Treatment Panel III). ??Circulation 2004; 110:227. Current interpretive data was last revised on 2015. Triglycerides 116 0 - 150 mg/dl CDR HISTORICAL RESULTS Comment: Interpretive Data Desirable: ? < 150 mg/dL Borderline High: ? 150 - 199 mg/dL High: ?200 - 499 mg/dL Very High: ? > or = 499 mg/dL Literature Reference: See Cholesterol Current interpretive data was last revised on 2015. HDL 36(L) >=40 mg/dl CDR HISTO RICAL RESULTS Comment: Interpretive Data Less than 40 mg/dL - low; A major risk factor for heart disease. Greater than or equal to 60 mg/dL - High; ??considered protective of heart disease. Literature Reference: See Cholesterol Current interpretive data was last revised on 2015. LDL 78 10 - 129 mg/dl CDR HISTORICAL RESULTS Comment: Interpretive Data Optimal: ? < 100 mg/dL Near Optimal: ?100 - 129 mg/dL Borderline High: ?? 130 - 159 mg/dL High: ?160 - 189 mg/dL Very high: ? > or = 190 mg/dL Literature Reference: See Cholesterol Current interpretive data was last revised on 2015. Non-HDL cholesterol, calculated 101 mg/dl CDR HISTORICAL RESULTS Comment: Interpretive Data When triglycerides are >200 mg/dL, non-HDL C is a secondary target of therapy, with a goal 30 mg/dL higher than the identified LDL-C goal. Reference: ??See Cholesterol Reference. Current interpretive data was last revised 2015. Serum 02/29/2016 10:5 8 PM CDT us Tomas Masters MD LAB BLOOD ORDERABLES Naheed l Result CDR HISTORICAL RESULTS * (ABNORMAL) Plasma basic metabolic panel (02/29/2016 10:58 PM CDT) Sodium 139 135 - 145 mmol/L CDR HISTORICAL RESULTS K, pl 3.8 3.3 - 4.9 mmol/L CDR HISTORICAL RESULTS Chloride 106 97 - 110 mmol/L CDR HISTORICAL RESULTS CO2 26 22 - 32 mmol/L CDR HISTORICAL RESULTS A. gap 7 2 - 15 mmol/L CDR HISTORICAL RESULTS Glucose 107 70 - 199 mg/dl CDR HISTORICAL RESULTS BUN 15 8 - 25 mg/dl CDR HISTORICAL RESULTS Creatinine 0.86 0.60 - 1.10 mg/dl CDR HISTORICAL RESULTS Calcium 8.2(L) 8.5 - 10.3 mg/dl CDR HISTORICAL RESULTS Plasma 02/29/2016 10:5 8 PM CDT Tomas Masters MD LAB BLOOD ORDERABLES Naheed l Result Performing Organization Address [facility] Co de Phone Number CDR HISTORICAL RESULTS * (ABNORMAL) Blood cell count (CBC) (02/29/2016 10:58 PM CDT) WBC 8.9 3.8 - 9.9 K/cumm CDR HISTORICAL RESULTS RBC 3.01(L) 3.90 - 5.20 M/cumm CDR HISTORICAL RESULTS Hgb 8.4(L) 11.9 - 15.5 g/dl CDR HISTORICAL RESULTS Hct 26.5(L) 35.6 - 45.5 % CDR HISTORICAL RESULTS MCV 88.0 81.3 - 96.4 fl CDR HISTORICAL RESULTS MCH 27.9 27.1 - 33.3 pg CDR HISTORICAL RESULTS MCHC 31.7(L) 32.3 - 35.7 g/dl CDR HISTORICAL RESULTS Rdw 14.3 11.1 - 14.9 % CDR HISTORICAL RESULTS RDW 45.4 35.7 - 48.1 fl CDR HISTORICAL RESULTS Platelets 263 150 - 400 K/cumm CDR HISTORICAL RESULTS MPV 10.3 9.1 - 12.3 fl CDR HISTORICAL RESULTS NRBC 0.0 0.0 - 0.2 % CDR HIST ORICAL RESULTS NRBC, abs 0.00 0.00 - 0.01 K/cumm CDR HISTORICAL RESULTS Blood specimen (specimen) 02/29/2016 10:58 PM CDT Tomas Masters MD LAB BLOOD ORDERABLES Naheed l Result Performing Organization Address [facility]/ZIP Co de Phone Number CDR HISTORICAL RESULTS * (ABNORMAL) Blood cell morphologic exam (02/29/2016 10:58 PM CDT) Neutrophils 81.1 % CDR HIST ORICAL RESULTS Immature granulocytes 0.3 % CDR HISTORICAL RESULTS Lymphocytes 12.5 % CDR HIST ORICAL RESULTS Monos 5.2 % CDR HISTOR ICAL RESULTS Eosinophils 0.6 % CDR HIST ORICAL RESULTS Basophils 0.3 % CDR HISTOR ICAL RESULTS Neutrophils, abs 7.2(H) 1.7 - 6.5 K/cumm CDR HISTORICAL RESULTS Immature granulocyte, abs 0.0 0.0 - 0.1 K/cumm CDR HISTORICAL RESULTS Lymphocytes, abs 1.1 0.8 - 3.3 K/cumm CDR HISTORICAL RESULTS Monocytes, absolute 0.5 0.2 - 0.8 K/cumm CDR HISTORICAL RESULTS Eosinophils, abs 0.0 0.0 - 0.5 K/cumm CDR HISTORICAL RESULTS Basophils, abs 0.0 0.0 - 0.1 K/cumm CDR HISTORICAL RESULTS Blood specimen (specimen) 02/29/2016 10:58 PM CDT Tomas Masters MD LAB BLOOD ORDERABLES Naheed l Result CDR HISTORICAL RESULTS * Xr Pelvis 1 or 2 Views (02/29/2016 11:47 AM CDT) Anatomical Region Laterality Modality Body, Pelvis N/A Radiographic Michell ging 02/29/2016 11:4 7 AM CDT Narrative 02/29/2016 11:50 AM CDT KELVIN HESTER M.D. 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 Portable AP view of the pelvis is submitted for interpretation and compared to the prior examination dated 12/20/2015. There has been interval placement of a left total hip arthroplasty in near-anatomic position. Soft tissue gas is present about the left hip joint. There is no fracture seen. A right total hip arthroplasty is unchanged. IMPRESSION: ?? Interval placement of a left total hip arthroplasty. Requested By: TOMAS MASTERS M.D. Dictated By: ?? KELVIN HESTER M.D. F ??on Feb 29 2016 11:50A This document has been electronically signed by: Jia PATEL on Feb 29 2016 11:50A [id number] Procedure Note Provider, MD Wandy - 09/12/2016 Jia PATEL FINAL REPORT ACC# Date Time Exam [id number] Feb 29, 2016 11:47:00 [id number] Pelvis 1 or 2 views EXAMINATION: Pelvis 1 or 2 views HISTORY: Left femoral head osteonecrosis and hip osteoarthritis FINDINGS: Portable AP view of the pelvis is submitted for interpretation and compared to the prior examination dated 12/20/2015. There has been interval placement of a left total hip arthroplasty in near-anatomic position. Soft tissue gas is present about the left hip joint. There is no fracture seen. A right total hip arthroplasty is unchanged. IMPRESSION: Interval placement of a left total hip arthroplasty. Requested By: TOMAS MASTERS M.D. Dictated By: Jia PATEL on Feb 29 2016 11:50A This document has been electronically signed by: Jia PATEL on Feb 29 2016 11:50A [id number] us Historical Provider MD REED XR PROCEDURES Final R esult * (ABNORMAL) Serum lipid panel (02/29/2016 10:55 AM CDT) Cholesterol 159 30 - 200 mg/dl CDR HISTORICAL RESULTS Comment: Interpretive Data Desirable: ?<200 mg/dL Borderline high: ??200-239 mg/dL High: ? > or = 240 mg/dL Literature Reference: National Cholesterol Education Program (NCEP) Expert Panel on Detection, Evaluation, and Treatment of High Blood Cholesterol in Adults (Adult Treatment Panel III). ??Circulation 2004; 110:227. Current interpretive data was last revised on 2015. HDL 38(L) >=40 mg/dl CDR HISTORICAL RESULTS Comment: Interpretive Data Less than 40 mg/dL - low; A major risk factor for heart disease. Greater than or equal to 60 mg/dL - High; ??considered protective of heart disease. Literature Reference: See Cholesterol Current interpretive data was last revised on 2015. Non-HDL cholesterol, calculated 121 mg/dl CDR HISTORICAL RESULTS Comment: Interpretive Data When triglycerides are >200 mg/dL, non-HDL C is a secondary target of therapy, with a goal 30 mg/dL higher than the identified LDL-C goal. Reference: ??See Cholesterol Reference. Current interpretive data was last revised 2015. Triglycerides 159(H) 0 - 150 mg/dl CDR HISTORICAL RESULTS Comment: Interpretive Data Desirable: ? < 150 mg/dL Borderline High: ? 150 - 199 mg/dL High: ?200 - 499 mg/dL Very High: ? > or = 499 mg/dL Literature Reference: See Cholesterol Current interpretive data was last revised on 2015. LDL 91 10 - 129 mg/dl CDR HISTORICAL RESULTS Comment: Interpretive Data Optimal: ? < 100 mg/dL Near Optimal: ?100 - 129 mg/dL Borderline High: ?? 130 - 159 mg/dL High: ?160 - 189 mg/dL Very high: ? > or = 190 mg/dL Literature Reference: See Cholesterol Current interpretive data was last revised on 2015. Serum 02/29/2016 10:5 5 AM CDT us Tomas Masters MD LAB BLOOD ORDERABLES Naheed reveles Result CDR HISTORICAL RESULTS * Plasma basic metabolic panel (02/29/2016 10:55 AM CDT) Sodium 139 135 - 145 mmol/L CDR HISTORICAL RESULTS K, pl 4.5 3.3 - 4.9 mmol/L CDR HISTORICAL RESULTS Chloride 107 97 - 110 mmol/L CDR HISTORICAL RESULTS CO2 24 22 - 32 mmol/L CDR HISTORICAL RESULTS A. gap 8 2 - 15 mmol/L CDR HISTORICAL RESULTS Glucose 101 70 - 199 mg/dl CDR HISTORICAL RESULTS BUN 14 8 - 25 mg/dl CDR HISTORICAL RESULTS Creatinine 0.73 0.60 - 1.10 mg/dl CDR HISTORICAL RESULTS Calcium 8.6 8.5 - 10.3 mg/dl CDR HISTORICAL RESULTS Plasma 02/29/2016 10:5 5 AM CDT Tomas Masters MD LAB BLOOD ORDERABLES Naheed l Result Performing Organization Address [facility] de Phone Number CDR HISTORICAL RESULTS * (ABNORMAL) Blood cell count (CBC) (02/29/2016 10:55 AM CDT) WBC 7.1 3.8 - 9.9 K/cumm CDR HISTORICAL RESULTS RBC 3.37(L) 3.90 - 5.20 M/cumm CDR HISTORICAL RESULTS Hgb 9.6(L) 11.9 - 15.5 g/dl CDR HISTORICAL RESULTS Hct 29.6(L) 35.6 - 45.5 % CDR HISTORICAL RESULTS MCV 87.8 81.3 - 96.4 fl CDR HISTORICAL RESULTS MCH 28.5 27.1 - 33.3 pg CDR HISTORICAL RESULTS MCHC 32.4 32.3 - 35.7 g/dl CDR HISTORICAL RESULTS Rdw 14.1 11.1 - 14.9 % CDR HISTORICAL RESULTS RDW 45.2 35.7 - 48.1 fl CDR HISTORICAL RESULTS Platelets 261 150 - 400 K/cumm CDR HISTORICAL RESULTS MPV 9.8 9.1 - 12.3 fl CDR HISTORICAL RESULTS NRBC 0.0 0.0 - 0.2 % CDR HIST ORICAL RESULTS NRBC, abs 0.00 0.00 - 0.01 K/cumm CDR HISTORICAL RESULTS Blood specimen (specimen) 02/29/2016 10:55 AM CDT Tomas Masters MD LAB BLOOD ORDERABLES Naheed l Result Performing Organization Address [facility] de Phone Number CDR HISTORICAL RESULTS * Blood cell morphologic exam (02/29/2016 10:55 AM CDT) Neutrophils 80.0 % CDR HIST ORICAL RESULTS Immature granulocytes 1.1 % CDR HISTORICAL RESULTS Lymphocytes 13.0 % CDR HIST ORICAL RESULTS Monos 4.9 % CDR HISTOR ICAL RESULTS Eosinophils 0.6 % CDR HIST ORICAL RESULTS Basophils 0.4 % CDR HISTOR ICAL RESULTS Neutrophils, abs 5.7 1.7 - 6.5 K/cumm CDR HISTORICAL RESULTS Immature granulocyte, abs 0.1 0.0 - 0.1 K/cumm CDR HISTORICAL RESULTS Lymphocytes, abs 0.9 0.8 - 3.3 K/cumm CDR HISTORICAL RESULTS Monocytes, absolute 0.4 0.2 - 0.8 K/cumm CDR HISTORICAL RESULTS Eosinophils, abs 0.0 0.0 - 0.5 K/cumm CDR HISTORICAL RESULTS Basophils, abs 0.0 0.0 - 0.1 K/cumm CDR HISTORICAL RESULTS Blood specimen (specimen) 02/29/2016 10:55 AM CDT Tomas Masters MD LAB BLOOD ORDERABLES Naheed l Result Performing Organization Address [facility] de Phone Number CDR HISTORICAL RESULTS * Blood ABO, Rh, indirect ab screen (02/29/2016 7:40 AM CDT) ABO, Rho(D) A Negative CDR HIS TORICAL RESULTS Fletcher, indirect Negative CDR HISTORICAL RESULTS Blood specimen (specimen) 02/29/2016 7:40 AM CDT Umang Clifford MD LAB BLOOD ORDERABLES Final Re sult Performing Organization Address [facility] de Phone Number CDR HISTORICAL RESULTS * Blood glucose, POC (02/29/2016 7:39 AM CDT) Glucose, POC, bld 75 70 - 199 mg/dl CDR HISTORICAL RESULTS Blood specimen (specimen) 02/29/2016 7:39 AM CDT Umang Clifford MD LAB BLOOD ORDERABLES Final Re sult Performing Organization Address [facility] de Phone Number CDR HISTORICAL RESULTS * Urine chorionic gonadotropin (HCG) (02/29/2016 7:17 AM CDT) HCG, ur Negative CDR HISTOR ICAL RESULTS Urine 02/29/2016 7:17 AM CDT us Umang Clifford MD LAB BLOOD ORDERABLES Final Re sult CDR HISTORICAL RESULTS documented in this encounter Visit Diagnoses Diagnosis Primary osteoarthritis of left hip Other obesity due to excess calories Polycystic ovarian syndrome Polycystic ovaries Anemia Unspecified anemia Gastro-esophageal reflux disease without esophagitis Body mass index (BMI) of 38.0-38.9 in adult documented in this encounter
--- OUTSIDE RECORDS SUMMARY | 2024-04-25 09:31 | XMS_ITS | Encounter Summary ---
Author Organization [facility] Address [address] [place] [address] Care Team Providers Care Pipefitter Helper Name Role Phone Howard Damon MD Primary Care Provider Reason for Visit * Cardiology (Routine) - Closed Specialty Diagnoses / Procedures Referred By Contac t Referred To Contact Cardiology Imaging Diagnoses Chest pain, unspecified type EKG, abnormal Procedures NM MPI SPECT (Rest and/or Stress) Multiple Studies Howard Damon MD Phone: tel: fax: [facility] Cardiology [address] [place] [phone] Phone: tel: fax: Referral ID Status Reason Start Date Expiration Date Visits Re quested Visits Authorized [id number] Closed 08/21/2018 03/01/2020 5 5 Encounter Details Date Type Department Care Team (Latest Contact Info) Description 09/05/2018 9:15 AM CDT Ancillary Procedure [facility] Cardiology [address] [facility] [address] [place] [phone] Chest pain, unspecified type Social History Tobacco Use Types Packs/Day Years Used Date Smoking Tobacco: Never Alcohol Use Standard Drinks/Week Comments Yes 0 (1 standard drink = 0.6 oz pur e alcohol) Comments Unknown Sex and Gender Information Value Date Recorded Sex Assigned at Not on file Legal Sex Female 3:12 AM DIRECTOR PEDIATRIC Gender Identity Not on file Sexual Orientation Not on file documented as of this encounter Plan of Treatment Not on file documented as of this encounter Procedures Procedure Name Priority Date/Time Associated Diagnosis Comments NM MPI SPECT (REST AND/OR STRESS) MULTIPLE STUDIES Schedule Routine, Read Routine (OP Routine) 09/05/2018 10:58 AM CDT Chest pain, unspecified type documented in this encounter Results * NM MPI SPECT (Rest and/or Stress) Multiple Studies (09/05/2018 10:58 AM CDT) Anatomical Region Laterality Modality Body N/A Nuclear Medicine 09/05/2018 10:5 3 AM CDT Narrative 09/05/2018 4:42 PM CDT [facility] [address] [facility] [address] [address] [address] [facility] [address], [place] [address] P:[phone] P:[phone] MPI Imaging Report Patient Name: SYEDA DE LA TORRE K : 10 Study Date: 09/05/2018 10:53:14 AM Gender: F Tech: JOSE MARIA De Oliveira Location: [facility] Ref.Provider: HOWARD DAMON Height(Cm): 172.7 BSA: Weight(Kg): 134.1 BMI: 44.96Order Provider: HOWARD DAMON Physician: Referring Physician: Dr. Damon. HCG Physician: none. Interpreting Physician: Kendrick Martinez M.D. Stress Supervision: Kendrick Martinez M.D. Procedures: Myocardial perfusion imaging with Tc99M Sestamibi SPECT at rest and stress post regadenoson (Lexiscan) infusion. Indications: Abnormal ECG, and Chest Pain. Findings: Procedural Findings: One day rest/stress was used. Tc99m Sestamibi injected IV at rest was 12.7 millicuries. 38.8 millicuries of Tc99M Sestamibi injected IV during Lexiscan stress. Lexiscan 0.4mg given IV over 10 seconds with low level exercise: 1.2 MPH. Patient had no symptoms during stress test. Baseline heart rate was 60 BPM. Maximum Heart Rate Achieved was: 112 BPM. Baseline blood pressure was 132/80 mmHg. Post Stress Blood Pressure was 110/64 mmHg. Termination: Protocol complete. Resting ECG: Normal sinus rhythm, low voltage. Nonspecific T wave abnormality. Cannot r/o anterior infarct - age uncertain. Post ECG: No diagnostic ST changes. Arrhythmia: No arrhythmias seen. Perfusion Findings: Normal perfusion imaging. No definite fixed or reversible defects. Technical quality of study is excellent. Prone imaging was performed. Left ventricle cavity size at rest is mildly enlarged. Left ventricle cavity size with stress is unchanged. A TID of 0.89 was automatically calculated. LV Function: Global left ventricular function is normal. Left ventricular ejection fraction is 70 %. Conclusions: Global left ventricular function is normal. Left ventricular ejection fraction is 70 %. Myocardial perfusion imaging is normal. Negative EKG portion of stress test. Mild LV enlargement is seen with both rest and stress imaging. Anterior/anterolateral breast attenuation artifact is seen which normalizes with prone imaging. Electronically Signed By: Malvin Martinez MD 2018-09-05 16:42:32 CDT Electronically Signed By: Malvin Martinez MD 2018-09-05 16:42:32 CDT Procedure Note Malvin Martinez MD - 09/05/2018 [facility] [address] [facility] [address] [id number] [address] [facility] [address], [place] [address] P:[phone] P:[phone] MPI Imaging Report Patient Name: SYEDA DE LA TORRE KPatient ID: [id number] : [id number] Date: 09/05/2018 10:53:14 AM Gender: FAccession #: [id number] Tech: Katherine Gray [facility] Ref.Provider: HOWARD DAMONHeight(Cm): 172.7 BSA: Weight(Kg): 134.1 BMI: 44.96Order Provider: HOWARD DAMON Physician: Referring Physician: Dr. Damon. HCG Physician: none. Interpreting Physician: Kendrick Martinez M.D. Stress Supervision: Kendrick Martinez M.D. Procedures: Myocardial perfusion imaging with Tc99M Sestamibi SPECT at rest and stresspost regadenoson (Lexiscan) infusion. Indications: Abnormal ECG, and Chest Pain. Findings: Procedural Findings: One day rest/stress was used. Tc99m Sestamibi injected IV at rest was 12.7millicuries. 38.8 millicuries of Tc99M Sestamibi injected IV during Lexiscan stress.Lexiscan 0.4mg given IV over 10 seconds with low level exercise: 1.2 MPH. Patient had nosymptoms during stress test. Baseline heart rate was 60 BPM. Maximum Heart Rate Achievedwas: 112 BPM. Baseline blood pressure was 132/80 mmHg. Post Stress Blood Pressure rfi780/64 mmHg. Termination: Protocol complete. Resting ECG: Normal sinus rhythm, low voltage. Nonspecific T wave abnormality. Cannotr/o anterior infarct - age uncertain. Post ECG: No diagnostic ST changes. Arrhythmia: No arrhythmias seen. Perfusion Findings: Normal perfusion imaging. No definite fixed or reversible defects.Technical quality of study is excellent. Prone imaging was performed. Left ventricle cavitysize at rest is mildly enlarged. Left ventricle cavity size with stress is unchanged. ATID of 0.89 was automatically calculated. LV Function: Global left ventricular function is normal. Left ventricular ejectionfraction is 70 %. Conclusions: Global left ventricular function is normal. Left ventricular ejectionfraction is 70 %. Myocardial perfusion imaging is normal. Negative EKG portion of stress test. Mild LV enlargement is seen with both rest and stress imaging. Anterior/anterolateral breast attenuation artifact is seen whichnormalizes with prone imaging. Electronically Signed By: Malvin Martinez MD 2018-09-05 16:42:32 CDT Electronically Signed By: Malvin Martinez MD 2018-09-05 16:42:32 CDT Howard Damon MD [facility] [place] PROCEDURES Final Result documented in this encounter Visit Diagnoses Diagnosis Chest pain, unspecified type documented in this encounter Administered Medications Inactive Administered Medications - up to 3 most recent administrations Medication Order MAR Action Action Date Dose Rate Site regadenoson (LEXISCAN) 0.4 mg/5 mL injection 0.4 mg 0.4 mg, intravenous, Once, On Sat09/05/18 at 1130, For 1 dose, Administer IV push over 10 seconds., Indications: Myocardial Perfusion Imaging AdjunctIndications:Myocard ial Perfusion Imaging Adjunct Given 09/05/2018 10:58 AM CDT 0.4 mg tc-99m sestamibi unit dose injection 12.7 millicurie 12.7 millicurie, intravenous, Once in imaging, radiopharmaceutical, Starting on Sat09/05/18 at 0952, For 1 dose, Indications: Diagnostic RadiographyIndications:Jaz gnostic Radiography Given 09/05/2018 9:53 AM CDT 12.7 millicuries tc-99m sestamibi unit dose injection 38.8 millicurie 38.8 millicurie, intravenous, Once in imaging, radiopharmaceutical, Starting on Sat09/05/18 at 1058, For 1 dose, Indications: Diagnostic RadiographyIndications:Jaz gnostic Radiography Given 09/05/2018 10:58 AM CDT 38.8 millicuries documented in this encounter Care Teams Pipefitter Helper Relationship Specialty Start Date End Date Howard Damon MD [address] [address] PCP - General Family Medicine 08/21/18 documented as of this encounter
--- OUTSIDE RECORDS SUMMARY | 2024-04-25 09:31 | XMS_ITS | Encounter Summary ---
Author Organization [facility] Healthcare Address [address] [place] [address] Care Team Providers Care Stenographic Court Reporter Name Role Phone Unavailable Primary Care Provider Unavailabl e Encounter Details Date Type Department Care Team (Latest Contact Info) Description 06/21/2015 6:56 AM FUEL DOCK ATTENDANT - 06/21/2015 12:05 PM FUEL DOCK ATTENDANT Hospital Encounter [facility] Ayad Best MD [address] [place] [address] DR HAWKINS [address] [address] Primary osteoarthritis of first carpometacarpal joint of right hand; Cardiac arrhythmia; Gastro-esophageal reflux disease without esophagitis; Presence of right artificial hip joint Social History Tobacco Use Types Packs/Day Years Used Date Smoking Tobacco: Never Alcohol Use Standard Drinks/Week Comments Yes 0 (1 standard drink = 0.6 oz pur e alcohol) Comments Unknown Sex and Gender Information Value Date Recorded Sex Assigned at Not on file Legal Sex Female 3:12 AM FUEL DOCK ATTENDANT Gender Identity Not on file Sexual Orientation [...] every day with meals 0 0 07/22/2013 promethazine (PHENERGAN) 25 mg tablet take 1 tablet by oral route every 4 - 6 hours as needed 30 1 06/08/2015 documented as of this encounter Miscellaneous Notes * Op Note - Provider, MD Wandy - 06/21/2015 12:00 AM CST OPERATIVE REPORT Patient: SYEDA DE LA TORRE Account: [id number] Room No: 175-06 : 1965 Patient Type: [facility] Attend.: Ayad Vickers M.D. Admit Date: 06/21/2015 Surg.: Ayad Vickers M.D. Disch. Date: 06/21/2015 PREOPERATIVE DIAGNOSIS Right CMC arthrosis. PROCEDURE PERFORMED Right CMC arthroplasty with suspension, Arthrex mini-tightrope, hematomaplasty. ANESTHESIA General. FINDINGS CMC joint arthritis. SPECIMEN Sent. ESTIMATED BLOOD LOSS Minimal. COMPLICATIONS None. CONDITION ON DISCHARGE Stable. TOURNIQUET TIME Approximately 65 minutes at 250 mmHg. OPERATIVE INDICATION The patient failed conservative management of right CMC joint arthritis and elected to have the above-named procedure. INFORMED CONSENT Informed consent was obtained from the patient. The patient understood the risks and benefits of the procedure including but not limited to , stroke, bleeding, infection, damage to nerves, arteries, veins and tendons, loss of limb, loss of life, and need for additional procedures. Informed consent was obtained. Consent form was also signed. The patient also failed bracing with a Hand Lab brace and other braces in the past. OPERATION IN DETAIL The patient was taken to the operating room and general anesthetic was performed. The operative extremity was cleaned with alcohol, and prepped and draped in standard sterile technique with ChloraPrep. Standard time-out was performed and the operative extremity was identified. It was also marked preoperatively. A dorsal incision was marked over the CMC joint and the right upper extremity was exsanguinated. The tourniquet was inflated to 250 mmHg. A skin incision was made. Neurovascular structures were carefully protected. An additional incision was made over the base of the second metacarpal. A Kenton retractor was placed. The CMC guide was placed in the base of the first metacarpal to the metaphyseal/diaphyseal junction of the second metacarpal. A K-wire was passed and the tightrope was passed through this, confirmed under fluoroscopy. This was tied down with several half-hitches and then complete excision. The trapezium was excised and we checked under Y fluoroscopy the suspension system. The half-hitch was removed and tensioned a little further to confirm appropriate tension on the tightrope. Once the appropriate tension was obtained, additional half-hitches were placed and sutures were cut. The wound was thoroughly irrigated. In the dorsal incision the fiber tape was cut long and pushed down underneath the soft tissue, and 3-0 Vicryl was used to tie down over the knots and fiber tape and then the 3-0 Vicryl used to close the skin. 4-0 Monocryl for the skin. The capsule was closed with a running 3-0 Vicryl and then the skin was closed with 3-0 Vicryl and a running 4-0 Monocryl. Dermabond was placed. A bulky thumb spica splint was placed. The patient was extubated and taken to the recovery room in stable condition. Needle, sponge, and instrument counts were correct at the end of the case. POSTOPERATIVE PLAN We will keep her in the splint for the next six weeks, off in two weeks for a wound check and then placed in a removable thumb spica splint and once again we will keep her splinted for six weeks. Thank you for allowing me to participate in this patient's care. Electronically Authenticated by: Ayad Vickers MD On 06/22/2015 09:34 PM FUEL DOCK ATTENDANT Ayad Vickers M.D. ISAIAH/ TD: 06/21/2015 13:32 documented in this encounter Plan of Treatment Not on file documented as of this encounter Procedures Procedure Name Priority Date/Time Associated Diagnosis Comments HAND RADIOGRAPHY Routine 06/21/2015 9:38 AM FUEL DOCK ATTENDANT URINE CHORIONIC GONADOTROPIN (HCG) Routine 06/21/2015 7:10 AM FUEL DOCK ATTENDANT DISCHARGE LABORATORY CUMULATIVE REPORT 06/21/2015 SURGICAL PATHOLOGY 06/21/2015 documented in this encounter Results * HAND RADIOGRAPHY (06/21/2015 9:38 AM FUEL DOCK ATTENDANT) Anatomical Region Laterality Modality N/A Radiographic Michell ging 06/21/2015 9:38 AM FUEL DOCK ATTENDANT Narrative 06/21/2015 3:08 PM FUEL DOCK ATTENDANT XR Hand R ?[id number] ??Acc#: ??[id number] XR NO CHARGE FLUORO >THAN 1HR ??Acc#: ??[id number] DATE OF EXAM: ??Jun 21 2015 CLINICAL HISTORY: Metacarpal arthroplasty. RESULT: Fluoroscopic images of the right hand submitted from the Operating Room demonstrate trapeziectomy of the right hand with suture anchors at the base of the thumb and index metacarpals. ??There is no evidence of fracture. ??The soft tissues appear normal. IMPRESSION: 1. STATUS POST RIGHT HAND TRAPEZIECTOMY. 2. NO EVIDENCE OF FRACTURE. Interpreting Physician: ??DR DOC CALDWELL M.D. ??Read on: ??Jun 21 2015 3:02P Transcribed by: ??vaburt ??On: Jun 21 2015 ??3:02P Approved Electronically by: ??JAVI Ro, DR ROACH ??on: ??Jun 21 2015 3:08P Attending: ??AYAD VICKERS Requesting: ??AYAD VICKERS Requesting Fax: ??[phone] Attending Fax: ??[phone] Attending ID: ??[id number] Requesting ID: ??[id number] Report To 1 ID: ??[id number] Report To 1 Name: ??AYAD VICKERS Report To 1 FAX: ??[phone] NextGen Order #: Procedure Note Provider, Historical, MD - 09/12/2016 XR Hand R [id number] Acc#: [id number] XR NO CHARGE FLUORO >THAN 1HR Acc#: [id number] DATE OF EXAM: Jun 21 2015 CLINICAL HISTORY: Metacarpal arthroplasty. RESULT: Fluoroscopic images of the right hand submitted from the Operating Roomdemonstrate trapeziectomy of the right hand with suture anchors at thebase of the thumb and index metacarpals. There is no evidence offracture. The soft tissues appear normal. IMPRESSION: 1. STATUS POST RIGHT HAND TRAPEZIECTOMY. 2. NO EVIDENCE OF FRACTURE. Interpreting Physician: DR DOC CALDWELL M.D. Read on: Jun 21 20153:02P Transcribed by: [email or web address] On: Jun 21 2015 3:02P Approved Electronically by: JAVI Ro, DR ROACH on: Jun 21 20153:08P Attending: AYAD VICKERS Requesting: AYAD VICKERS Requesting Attending Attending ID: [id number] Requesting ID: [id number] Report To 1 ID: [id number] Report To 1 Name: AYAD VICKERS Report To 1 FAX: [phone] NextGen Order #: Historical Provider MD REED XR PROCEDURES Final R esult * Urine chorionic gonadotropin (HCG) (06/21/2015 7:10 AM FUEL DOCK ATTENDANT) HCG, ur Negative Negative HISTORICAL RESULTS Urine 06/21/2015 7:10 AM FUEL DOCK ATTENDANT Historical Provider LAB BLOOD ORDERABLES Naheed l Result HISTORICAL RESULTS * DISCHARGE LABORATORY CUMULATIVE REPORT (06/21/2015) Narrative 06/21/2015 Ordered by an unspecified provider. Historical Provider LAB BLOOD ORDERABLES Naheed l Result * Surgical pathology (06/21/2015) Narrative 06/21/2015 Ordered by an unspecified provider. us Historical Provider MD LAB PATHOLOGY ORDERABLES Final Result documented in this encounter Visit Diagnoses Diagnosis Primary osteoarthritis of first carpometacarpal joint of right hand Cardiac arrhythmia Unspecified cardiac dysrhythmia Gastro-esophageal reflux disease without esophagitis Presence of right artificial hip joint documented in this encounter
--- OUTSIDE RECORDS SUMMARY | 2024-04-25 09:31 | XMS_ITS | Encounter Summary ---
Author Organization [facility] Facility Care Team Providers Care Analytical Clerk Name Role Phone Unavailable Primary Care Provider Unavailabl e Encounter Details Date Type Department Care Team (Late st Contact Info) Description 05/16/2010 - 05/16/2010 11:59 PM WIND TURBINE MECHANICAL ENGINEER Hospital Encounter [facility] ADRIAN Johns, Umang Brunson MD [address] [place] [address] Osteoarthrosis, pelvic region and thigh Social History Tobacco Use Types Packs/Day Years Used Date Smoking Tobacco: Never Assessed Comments Unknown Sex and Gender Information Value Date Recorded Sex Assigned at Not on file Legal Sex Female 3:12 AM WIND TURBINE MECHANICAL ENGINEER Gender Identity Not on file Sexual Orientation Not on file documented as of this encounter Plan of Treatment Not on file documented as of this encounter Visit Diagnoses Diagnosis Osteoarthrosis, pelvic region and thigh documented in this encounter
--- OUTSIDE RECORDS SUMMARY | 2024-04-25 09:31 | XMS_ITS | Encounter Summary ---
Author Organization [facility] Facility Care Team Providers Care Physician Assistant Primary Care Name Role Phone Unavailable Primary Care Provider Unavailabl e Encounter Details Date Type Department Care Team (Late st Contact Info) Description 10/18/2009 - 10/18/2009 11:59 PM CDT [facility] [place] [address] [place] [address] Localized osteoarthrosis, pelvic region and thigh; Pain in joint, lower leg Social History Tobacco Use Types Packs/Day Years Used Date Smoking Tobacco: Never Assessed Comments Unknown Sex and Gender Information Value Date Recorded Sex Assigned at Not on file Legal Sex Female 3:12 AM AVIAN KEEPER Gender Identity Not on file Sexual Orientation Not on file documented as of this encounter Plan of Treatment Not on file documented as of this encounter Visit Diagnoses Diagnosis Localized osteoarthrosis, pelvic region and thigh Pain in joint, lower leg documented in this encounter
--- OUTSIDE RECORDS SUMMARY | 2024-04-25 09:31 | XMS_ITS | Encounter Summary ---
Author Organization [facility] Facility Care Team Providers Care Measurement Coordinator Name Role Phone Unavailable Primary Care Provider Unavailabl e Encounter Details Date Type Department Care Team (Late st Contact Info) Description 11/01/2010 8:55 AM CDT - 11/03/2010 1:30 PM CDT Hospital Encounter [facility] Umang Ovalles MD [address] [place] [address] Localized osteoarthrosis, pelvic region and thigh; Body mass index (BMI) of 45.0-49.9 in adult (HCC); Obesity; Other depressive disorder; Constipation; Anemia Social History Tobacco Use Types Packs/Day Years Used Date Smoking Tobacco: Never Assessed Comments Unknown Sex and Gender Information Value Date Recorded Sex Assigned at Not on file Legal Sex Female 3:12 AM ASSISTED SALES REPRESENTATIVE Gender Identity Not on file Sexual Orientation Not on file documented as of this encounter Plan of Treatment Not on file documented as of this encounter Visit Diagnoses Diagnosis Localized osteoarthrosis, pelvic region and thigh Body mass index (BMI) of 45.0-49.9 in adult (HCC) Obesity Obesity, unspecified Other depressive disorder Constipation Unspecified constipation Anemia Unspecified anemia documented in this encounter
--- OUTSIDE RECORDS SUMMARY | 2024-04-25 09:31 | XMS_ITS | Encounter Summary ---
Author Organization [facility] Facility Care Team Providers Care Dust Mill Operator Name Role Phone Unavailable Primary Care Provider Unavailabl e Encounter Details Date Type Department Care Team (Late st Contact Info) Description 10/11/2010 9:28 AM CDT - 10/11/2010 4:00 PM T Hospital Encounter [facility] Umang Ovalles MD [address] [place] [address] Other specified pre-operative examination; Pain in joint, pelvic region and thigh; Obesity; Osteoarthrosis; Cardiac dysrhythmia Social History Tobacco Use Types Packs/Day Years Used Date Smoking Tobacco: Never Assessed Comments Unknown Sex and Gender Information Value Date Recorded Sex Assigned at Not on file Legal Sex Female 3:12 AM HOME MANAGER Gender Identity Not on file Sexual Orientation Not on file documented as of this encounter Plan of Treatment Not on file documented as of this encounter Visit Diagnoses Diagnosis Other specified pre-operative examination Pain in joint, pelvic region and thigh Obesity Obesity, unspecified Osteoarthrosis Osteoarthrosis, unspecified whether generalized or localized, unspecified site Cardiac dysrhythmia Unspecified cardiac dysrhythmia documented in this encounter
--- OUTSIDE RECORDS SUMMARY | 2024-04-25 09:31 | XMS_ITS | Encounter Summary ---
Author Organization [facility] Facility Care Team Providers Care Tube And Rod Straightener Name Role Phone Unavailable Primary Care Provider Unavailabl e Encounter Details Date Type Department Care Team (Late st Contact Info) Description 04/25/2010 - 04/25/2010 11:59 PM EXPORT AGENT Hospital Encounter [facility] Umang Ovalles MD [address] [place] [address] Other orthopedic aftercare Social History Tobacco Use Types Packs/Day Years Used Date Smoking Tobacco: Never Assessed Comments Unknown Sex and Gender Information Value Date Recorded Sex Assigned at Not on file Legal Sex Female 3:12 AM EXPORT AGENT Gender Identity Not on file Sexual Orientation Not on file documented as of this encounter Plan of Treatment Not on file documented as of this encounter Visit Diagnoses Diagnosis Other orthopedic aftercare documented in this encounter
--- OUTSIDE RECORDS SUMMARY | 2024-04-25 09:31 | XMS_ITS | Encounter Summary ---
Author Organization [facility] Facility Care Team Providers Care Informaticist Name Role Phone Unavailable Primary Care Provider Unavailabl e Encounter Details Date Type Department Care Team (Late st Contact Info) Description 07/09/2014 9:39 AM MELT SUPERVISOR - 07/09/2014 4:00 PM MELT SUPERVISOR Hospital Encounter [facility] Julián Coronado, PA [address] [facility] [address] [place] [address] Pain in joint, pelvic region and thigh; History of hip joint replacement by other means; Localized osteoarthrosis, pelvic region and thigh Social History Tobacco Use Types Packs/Day Years Used Date Smoking Tobacco: Never Alcohol Use Standard Drinks/Week Comments Yes 0 (1 standard drink = 0.6 oz pur e alcohol) Comments Unknown Sex and Gender Information Value Date Recorded Sex Assigned at Not on file Legal Sex Female 3:12 AM MELT SUPERVISOR Gender Identity Not on file Sexual Orientation [...] Diagnosis Comments XR HIP (RADLINK) 1V Routine 07/09/2014 9 :51 AM MELT SUPERVISOR XR PELVIS 1 OR 2 VIEWS Routine 07/09/2014 9:51 AM MELT SUPERVISOR documented in this encounter Results * XR Pelvis (RadLink) 1 View (07/09/2014 9:51 AM MELT SUPERVISOR) Anatomical Region Laterality Modality Body, Pelvis N/A Radiographic Michell ging 07/09/2014 9:51 AM MELT SUPERVISOR Narrative 07/09/2014 10:58 AM MELT SUPERVISOR SHANTEL PERSAUD M.D. JASMIN MESSINA M.D. FINAL REPORT The radiology attending physician has personally reviewed this study, and has reviewed and/or edited this written report and agrees with it. ACC# ??Date Time ??Exam [id number] Jul 09, 2014 09:51:00 [id number] Hip Unilateral 1 view L [id number] Jul 09, 2014 09:51:00 [id number] Pelvis 1 or 2 views ACC# ??Date Time ??Exam [id number] Jul 09, 2014 09:51:00 [id number] Hip Unilateral 1 view L [id number] Jul 09, 2014 09:51:00 [id number] Pelvis 1 or 2 views EXAMINATION: 1. Left hip unilateral minimal one view. 2. Pelvis 1 or 2 views. HISTORY: ??Hip osteoarthritis. FINDINGS: ?? AP view the pelvis excluding the iliac crests as well as a crosstable lateral radiograph of the left hip on 2 exposures are interpreted with comparison to prior examination dated 11/11/2012. There is a right total arthroplasty is noted with unchanged, near anatomic position of the acetabular component. Mild varus position of the femoral component is unchanged. There is no asymmetric liner wear or periprosthetic fracture noted. A pre-existing subchondral cyst is again noted in the supra-acetabular right iliac bone, not substantially changed from prior exam of 04/25/2010. There is unchanged mild left hip osteoarthritis. ?? IMPRESSION: 1. Unchanged right total hip arthroplasty. 2. Unchanged mild left hip osteoarthritis. ?? Requested By: JULIÁN ARTHUR PA-C Dictated By: ?? JASMIN MESSINA M.D. ??on Jul ??2014 10:50A This document has been electronically signed by: SHANTEL PERSAUD M.D. on Jul ??2014 10:58A Procedure Note Provider, MD Wandy - 08/26/2016 SHANTEL PERSAUD M.D. JASMIN MESSINA M.D. FINAL REPORT The radiology attending physician has personally reviewed this study, and has reviewed and/or edited this written report and agrees with it. ACC# Date Time Exam [id number] Jul 09, 2014 09:51:00 [id number] Hip Unilateral 1 view L [id number] Jul 09, 2014 09:51:00 [id number] Pelvis 1 or 2 views ACC# Date Time Exam [id number] Jul 09, 2014 09:51:00 [id number] Hip Unilateral 1 view L [id number] Jul 09, 2014 09:51:00 [id number] Pelvis 1 or 2 views EXAMINATION: 1. Left hip unilateral minimal one view. 2. Pelvis 1 or 2 views. HISTORY: Hip osteoarthritis. FINDINGS: AP view the pelvis excluding the iliac crests as well as a crosstable lateral radiograph of the left hip on 2 exposures are interpreted with comparison to prior examination dated 11/11/2012. There is a right total arthroplasty is noted with unchanged, near anatomic position of the acetabular component. Mild varus position of the femoral component is unchanged. There is no asymmetric liner wear or periprosthetic fracture noted. A pre-existing subchondral cyst is again noted in the supra-acetabular right iliac bone, not substantially changed from prior exam of 04/25/2010. There is unchanged mild left hip osteoarthritis. IMPRESSION: 1. Unchanged right total hip arthroplasty. 2. Unchanged mild left hip osteoarthritis. Requested By: JULIÁN ARTHUR PA-C Dictated By: JASMIN MESSINA M.D. on Jul 09 2014 10:50A This document has been electronically signed by: SHANTEL PERSAUD M.D. on Jul 09 2014 10:58A us Historical Provider IMEndy XR PROCEDURES Final R esult * XR Hip (Radlink) 1 View (07/09/2014 9:51 AM MELT SUPERVISOR) Anatomical Region Laterality Modality Lower Extremities, Hip, Pelvis N/A R adiographic Imaging 07/09/2014 9:51 AM MELT SUPERVISOR Narrative 07/09/2014 10:58 AM MELT SUPERVISOR Jia LARA M.D. FINAL REPORT The radiology attending physician has personally reviewed this study, and has reviewed and/or edited this written report and agrees with it. ACC# ??Date Time ??Exam [id number] Jul 09, 2014 09:51:00 [id number] Hip Unilateral 1 view L [id number] Jul 09, 2014 09:51:00 [id number] Pelvis 1 or 2 views ACC# ??Date Time ??Exam [id number] Jul 09, 2014 09:51:00 [id number] Hip Unilateral 1 view L [id number] Jul 09, 2014 09:51:00 [id number] Pelvis 1 or 2 views EXAMINATION: 1. Left hip unilateral minimal one view. 2. Pelvis 1 or 2 views. HISTORY: ??Hip osteoarthritis. FINDINGS: ?? AP view the pelvis excluding the iliac crests as well as a crosstable lateral radiograph of the left hip on 2 exposures are interpreted with comparison to prior examination dated 11/11/2012. There is a right total arthroplasty is noted with unchanged, near anatomic position of the acetabular component. Mild varus position of the femoral component is unchanged. There is no asymmetric liner wear or periprosthetic fracture noted. A pre-existing subchondral cyst is again noted in the supra-acetabular right iliac bone, not substantially changed from prior exam of 04/25/2010. There is unchanged mild left hip osteoarthritis. ?? IMPRESSION: 1. Unchanged right total hip arthroplasty. 2. Unchanged mild left hip osteoarthritis. ?? Requested By: JULIÁN ARTHUR PA-C Dictated By: ?? JASMIN MESSINA M.D. ??on Jul ??2014 10:50A This document has been electronically signed by: SHANTEL PERSAUD M.D. on Jul ??2014 10:58A Procedure Note Provider, MD Wandy - 08/26/2016 SHANTEL PERSAUD M.D. JASMIN MESSINA M.D. FINAL REPORT The radiology attending physician has personally reviewed this study, and has reviewed and/or edited this written report and agrees with it. ACC# Date Time Exam [id number] Jul 09, 2014 09:51:00 [id number] Hip Unilateral 1 view L [id number] Jul 09, 2014 09:51:00 [id number] Pelvis 1 or 2 views ACC# Date Time Exam [id number] Jul 09, 2014 09:51:00 [id number] Hip Unilateral 1 view L [id number] Jul 09, 2014 09:51:00 [id number] Pelvis 1 or 2 views EXAMINATION: 1. Left hip unilateral minimal one view. 2. Pelvis 1 or 2 views. HISTORY: Hip osteoarthritis. FINDINGS: AP view the pelvis excluding the iliac crests as well as a crosstable lateral radiograph of the left hip on 2 exposures are interpreted with comparison to prior examination dated 11/11/2012. There is a right total arthroplasty is noted with unchanged, near anatomic position of the acetabular component. Mild varus position of the femoral component is unchanged. There is no asymmetric liner wear or periprosthetic fracture noted. A pre-existing subchondral cyst is again noted in the supra-acetabular right iliac bone, not substantially changed from prior exam of 04/25/2010. There is unchanged mild left hip osteoarthritis. IMPRESSION: 1. Unchanged right total hip arthroplasty. 2. Unchanged mild left hip osteoarthritis. Requested By: JULIÁN ARTHUR PA-C Dictated By: JASMIN MESSINA M.D. on Jul 09 2014 10:50A This document has been electronically signed by: SHANTEL PERSAUD M.D. on Jul 09 2014 10:58A us Historical Provider MD REED XR PROCEDURES Final R esult documented in this encounter Visit Diagnoses Diagnosis Pain in joint, pelvic region and thigh History of hip joint replacement by other means Localized osteoarthrosis, pelvic region and thigh documented in this encounter
--- OUTSIDE RECORDS SUMMARY | 2024-04-25 09:31 | XMS_ITS | Encounter Summary ---
Author Organization [facility] Facility Care Team Providers Care Mammalogy Teacher Name Role Phone Unavailable Primary Care Provider Unavailabl e Encounter Details Date Type Department Care Team (Late st Contact Info) Description 01/02/2011 - 01/02/2011 11:59 PM CDT Hospital Encounter [facility] Umang Ovalles MD [address] [place] [address] Aftercare following joint replacement; History of hip joint replacement by other means Social History Tobacco Use Types Packs/Day Years Used Date Smoking Tobacco: Never Assessed Comments Unknown Sex and Gender Information Value Date Recorded Sex Assigned at Not on file 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
--- OUTSIDE RECORDS SUMMARY | 2024-04-25 09:31 | XMS_ITS | Encounter Summary ---
Author Organization [facility] Facility Care Team Providers Care Pianos And Organs Salesperson Name Role Phone Unavailable Primary Care Provider Unavailabl e Encounter Details Date Type Department Care Team (Latest Contact Info) Description 02/13/2016 12:37 PM CDT - 02/13/2016 11:59 PM CDT Hospital Encounter [facility] Umang Ovalles MD [address] [place] [address] Encounter for preprocedural laboratory examination; Primary osteoarthritis of left hip; Obesity; Body mass index (BMI) of 38.0-38.9 in adult; Gastro-esophageal reflux disease without esophagitis; Personal history of diseases of the blood and blood-forming organs and certain disorders involving the immune mechanism; Cardiac arrhythmia; Major depressive disorder, single episode (CMS/HCC); Polycystic ovarian syndrome; group home current use of non-steroidal anti-inflammatories (NSAID); Other chcf (current) drug therapy Social History Tobacco Use Types Packs/Day Years Used Date Smoking Tobacco: Never Alcohol Use Standard Drinks/Week Comments Yes 0 (1 standard drink = 0.6 oz pur e alcohol) Comments Unknown Sex and Gender Information Value Date Recorded Sex Assigned at Not on file Legal Sex Female 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 HEATER Gender Identity Not on file Sexual Orientation [...] Procedure Name Priority Date/Time Associated Diagnosis Comments PLASMA BASIC METABOLIC PANEL Routine 02/13/2016 2:56 PM CDT BLOOD CELL COUNT Routine 02/13/2016 2:56 PM CDT BLOOD ABO, RH, INDIRECT AB SCREEN Routine 02/13/2016 2:56 PM CDT DISCHARGE LABORATORY CUMULATIVE REPORT 02/13/2016 documented in this encounter Results * Blood ABO, Rh, indirect ab screen (02/13/2016 2:56 PM CDT) ABO, Rho(D) A Negative CDR HIS TORICAL RESULTS Fletcher, indirect Negative CDR HISTORICAL RESULTS Blood specimen (specimen) 02/13/2016 2:56 PM CDT us Eloina Christina CHILD DAY CARE PROVIDER LAB BLOOD ORDERABLES Naheed reveles Result CDR HISTORICAL RESULTS * (ABNORMAL) Plasma basic metabolic panel (02/13/2016 2:56 PM CDT) Sodium 143 135 - 145 mmol/L CDR HISTORICAL RESULTS K, pl 4.1 3.3 - 4.9 mmol/L CDR HISTORICAL RESULTS Chloride 109 97 - 110 mmol/L CDR HISTORICAL RESULTS CO2 24 22 - 32 mmol/L CDR HISTORICAL RESULTS A. gap 10 2 - 15 mmol/L CDR HISTORICAL RESULTS Glucose 88 70 - 199 mg/dl CDR HISTORICAL RESULTS BUN 35(H) 8 - 25 mg/dl CDR HISTORICAL RESULTS Creatinine 1.16(H) 0.60 - 1.10 mg/dl CDR HISTORICAL RESULTS Calcium 9.4 8.5 - 10.3 mg/dl CDR HISTORICAL RESULTS Plasma 02/13/2016 2:56 PM CDT Eloina Christina CHILD DAY CARE PROVIDER LAB BLOOD ORDERABLES Naheed reveles Result Performing Organization Address City/State/[facility] Co de Phone Number CDR HISTORICAL RESULTS * (ABNORMAL) Blood cell count [CBC] express (02/13/2016 2:56 PM CDT) WBC 10.3(H) 3.8 - 9.9 K/cumm CDR HISTORICAL RESULTS RBC 3.79(L) 3.90 - 5.20 M/cumm CDR HISTORICAL RESULTS Hgb 10.4(L) 11.9 - 15.5 g/dl CDR HISTORICAL RESULTS Hct 32.9(L) 35.6 - 45.5 % CDR HISTORICAL RESULTS MCV 86.8 81.3 - 96.4 fl CDR HISTORICAL RESULTS MCH 27.4 27.1 - 33.3 pg CDR HISTORICAL RESULTS MCHC 31.6(L) 32.3 - 35.7 g/dl CDR HISTORICAL RESULTS Rdw 14.1 11.1 - 14.9 % CDR HISTORICAL RESULTS RDW 43.8 35.7 - 48.1 fl CDR HISTORICAL RESULTS NRBC 0.0 0.0 - 0.2 % CDR HIST ORICAL RESULTS NRBC, abs 0.00 0.00 - 0.01 K/cumm CDR HISTORICAL RESULTS Platelets 319 150 - 400 K/cumm CDR HISTORICAL RESULTS MPV 10.8 9.1 - 12.3 fl CDR HISTORICAL RESULTS Blood specimen (specimen) 02/13/2016 2:56 PM CDT Eloina Christina CHILD DAY CARE PROVIDER LAB BLOOD ORDERABLES Naheed l Result CDR HISTORICAL RESULTS * DISCHARGE LABORATORY CUMULATIVE REPORT (02/13/2016) Narrative 02/13/2016 Ordered by an unspecified provider. us Historical Provider LAB BLOOD ORDERABLES Naheed l Result documented in this encounter Visit Diagnoses Diagnosis Encounter for preprocedural laboratory examination Primary osteoarthritis of left hip Obesity Obesity, unspecified Body mass index (BMI) of 38.0-38.9 in adult Gastro-esophageal reflux disease without esophagitis Personal history of diseases of the blood and blood-forming organs and certain disorders involving the immune mechanism Cardiac arrhythmia Unspecified cardiac dysrhythmia Major depressive disorder, single episode Major depressive disorder, single episode, unspecified Polycystic ovarian syndrome Polycystic ovaries group home current use of non-steroidal anti-inflammatories (NSAID) Other intermediate card tender (current) drug therapy documented in this encounter
--- OUTSIDE RECORDS SUMMARY | 2024-04-25 09:31 | XMS_ITS | Encounter Summary ---
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
== END 2024-04-20 17:23 | disposition home or self-care (01) ==
PROVIDERS: PCP Family Medicine; Visit Provider Orthopaedic Surgery
PROC: (CPT 27447; principal; 2024-04-20 12:00)
DX: M17.12 Unilateral primary osteoarthritis, left knee (principal); E78.5 Hyperlipidemia, unspecified; K21.9 Gastro-esophageal reflux disease without esophagitis; F41.9 Anxiety disorder, unspecified; F32.A Depression, unspecified; Z98.84 Bariatric surgery status; E66.9 Obesity, unspecified; Z68.35 Body mass index [BMI] 35.0-35.9, adult
CPT/HCPCS: 27447; 36415; 73560; 80307; 82040; 82565; 82947; 85025; 86850; 86900; 86901; 87641; 97110; 97161; C1776; A9270; C1713; J0171; J0690; J1100; J1171; J1885; J2270; J2405; J2704; J2795; J7030; J7120

== ENCOUNTER 2024-05-04 13:02 | Outpatient (RCR) | payer OTHER, SELFPAY ==
--- NOTE | 2024-05-04 14:20 | OPREHPOC ---
Outpatient Therapy Plan of Care This is a Multidisciplinary Plan of Care that may contain components documented by all disciplines (PT, OT, and ST.) PT Problem 1 PT Problem #1 Knowledge Deficit PT Goal 1 Goal / Goal Update *indep with HEP Target Visit 8 PT Problem 2 PT Problem #2 Pain PT Goal 1 Goal / Goal Update * pt report pain rating at worst of 3/10 Target Visit 8 PT Goal 2 Goal / Goal Update *pt report sleeping without awakening due to knee pain Target Visit 8 PT Problem 3 PT Problem #3 Impaired Flexibility PT Goal 1 Goal / Goal Update *increase L knee ROM for improved walking, stair and transfer skill: active in sittin*extension 0' 2* flexion 120' Target Visit 8 PT Problem 4 PT Problem #4 Impaired Functional Mobility PT Goal 1 Goal / Goal Update * 5 reps sit/stand without use of UE in 18 seconds Target Visit 8 PT Goal 2 Goal / Goal Update * 2 minute walking test distance of 450' without assistive device Target Visit 8 PT Problem 5 PT Problem #5 Impaired Strength PT Goal 1 Goal / Goal Update increase strength of L knee/LE to improve walking and mobility skills: * single leg standing 10 seconds * pt ambulate with good weight shift onto L LE Target Visit 8 PT Goal 2 Goal / Goal Update * pt perform mat exercises 20 reps Target Visit 8
--- NOTE | 2024-05-04 14:20 | PTOPEVAL1 ---
Assessment and note entered by Roseanna Vizcaino, PT Evaluation Information Assessment Status Evaluation ICD-10 Condition Codes (PT) Encounter for other orthopedic aftercare Z47.89, Aftercare following joint replacement surgery Z47. 1 Onset 04-20-24 Subjective Information had L TKR on 04-20-24; cane PRN and no device in home; doing the exercises from the hospital--struggle with some of them, only doing 6-7 reps; using ice on her knee; have not gone into the basement yet; family is going down for laundry; she has not driven yet. Activity: not working outside of home; watches grand children 2 & 4 daily; has special needs daughter and pt is assisting her daughter with care; Reported Pain Level Pain Score Self Report Additional Pain Score Comments pain range of 0-5/10 in the past few days: decrease pain: ice, elevation, rest, meds- tylenol increase pain: activity with home standing/ walking 15-20 min; with sleeping, awaken 2x/night due to knee pain; not taken any oxycodone in the past week; Assessment PT Clinical Summary Malgorzata is s/p L TKR 2 weeks ago. Her history includes R and L THR. LE functional scale rating of 63% limitation in activity level. Her family is assisting at home with heavy home tasks and doing laundry in the basement. Prior to surgery, she was active and cared for her daughter and baby sat grand children 2 & 4 years old. With the evaluation: active sitting knee ROM is (-3') to 115'; 5 reps sit/stand time of 27 seconds without use of UE's; 2 minute walking test distance of 300' with cane; on 4 steps requires use of cane and one hand railing. Skilled PT services are indicated for modalities PRN for swelling and pain of knee, therapeutic exercises to increase L knee ROM and strength with progression of activity and gait without assistive device, and education for HEP and gait pattern. Plan of Care Interventions Electrical Stimulation,Hot Pack/Cold Pack,Manual Therapy,Neuro Re-education,Patient/Caregiver Education,Therapeutic Activities,Therapeutic Exercise,Other Other Interventions taping PT Services Indicated Yes Treatment Frequency and 2x/wk for 8 visits Duration These treatments will address the objective and functional deficits as defined above. The patient will be advanced safely and appropriately in order for the patient to progress towards his/her prior level of function. Additional exercises will be introduced and as well as a comprehensive home exercise program upon discharge, if needed, ?to ensure carryover of functional gains achieved in the clinic. This treatment plan has been reviewed and agreement upon by the patient.
--- NOTE | 2024-05-15 14:46 | PTOPDC ---
Assessment and note entered by Roseanna Vizcaino, PT Assessment Status Discharge - Pt Not Present ICD-10 Condition Codes (PT) Encounter for other orthopedic aftercare Z47.89, Aftercare following joint replacement surgery Z47. 1 Onset 04-20-24 Subjective Information pt called and canceled PT, stated she was doing well and not need PT. Assessment PT Clinical Summary Malgorzata received the PT evaluation on May 04 and called to cancel therapy, due to doing well. Discharge PT. The goals were not addressed. Plan of Care PT Services Indicated No
== END 2024-05-15 16:27 | disposition home or self-care (01) ==
LOC: ANHPT 13:02
PROVIDERS: PCP Family Medicine; Visit Provider Orthopaedic Surgery
DX: Z47.1 Aftercare following joint replacement surgery (principal); Z96.652 Presence of left artificial knee joint
CPT/HCPCS: 97110; 97116; 97161

== ENCOUNTER 2025-01-12 18:02 | Emergency (ER) | payer OTHER, SELFPAY ==
--- OUTSIDE RECORDS SUMMARY | 2025-01-12 18:04 | XMS_ITS | Clinical Summary ---
Author Organization [facility] Care Team Providers Care Licensed Sales Producer Name Role Phone Unavailable Primary Care Provider [...] Virus (HCV) Screening 1964 TdaP Immunization 1964 Pap Smear 1985 Cervical Cancer Screening (CCS) 1994 HPV/Cotest 1994 Cologuard 2009 Colonoscopy 2009 Colorectal Cancer Screening 2009 Immunochemical Fecal Occult Blood 2009 Pneumococcal Immunization (5 0+ years) (1 of 1 - PCV) 2014 Zoster Immunization (1 of 2) 2014 SARS-COV-2 Immunization ( - 2023- season) 2024 Influenza Immunization (#1) 2025 Respiratory Syncytial Virus (RSV) Immunization (Adult) (1 - 1-dose 75+ series) 2039 Hepatitis B Immunization Aged Out No longer eligible based on patient's age to complete this topic Human Papillomavirus (HPV) Immunization Aged Out No longer eligible b ased on patient's age to complete this topic Meningococcal Immunization (ACWY) Aged Out No longer eligible based on patient's age to complete this topic Rotavirus Immunization Aged Out No lo nger eligible based on patient's age to complete this topic
--- OUTSIDE RECORDS SUMMARY | 2025-01-12 18:04 | XMS_ITS | Clinical Summary ---
Author Organization [facility] [address] Address [address] [place] [address] Care Team Providers Care Geologist Name Role Phone Howard Damon MD Primary [...] w/r/t gut microbiome. 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
--- OUTSIDE RECORDS SUMMARY | 2025-01-12 18:04 | XMS_ITS | Clinical Summary ---
Author Organization [facility] Address [address] [place] [address] Care Team Providers Care Shoe Lay Out Planner Name Role Phone Howard Damon MD Primary Care Provider [phone] Source Comments [facility],non-owned Affiliates and Associated Physician Practices is amultiple site organization consisting of ambulatory clinics and hospital sitesin [place], [place], [place] and [place]. This disclosure is being madepursuant to the Care Everywhere program and may not contain all information available regarding this patient. Last updated 18.Caterna Allergies No known active allergies Medications * Be aware that medications may not be up to date on this document. Alwaysverify current medications with the patient. vitamin D, ergocalciferol , (Drisdol) 1.25 MG (73595 UT) capsule Take 1 (one) capsule by mouth every 7 days Mondays 3 Active escitalopram (Lexapro) 20 MG tablet Take 1 (one) tablet by mouth at bedtime 3 Active gabapentin (Neurontin) 300 MG capsule at bedtime 3 Active cetirizine (ZyrTEC) 10 MG tablet Take 1 (one) tablet by mouth once daily Active acetaminophen (Tylenol) 160 MG/5ML solution Take 31.25 mL by mouth every 8 hours 4 Active Additional Information Patient not taking.Reported on 12/16/2024 metoprolol tartrate IR (Lopressor) 25 MG tablet Take 0.5 (one-half) tablet by mouth 2 times daily 30 tablet 4 Active Additional Information Patient taking differently:12.5 mg OralDAILY, Reported on 12/16/2024 amoxicillin (Amoxil) 500 MG tablet TAKE 4 TABLETS BY MOUTH 1 HOUR BEFORE DENTAL APPOINTMENT 5 Active Wheat Dextrin (BENEFIBER DRINK MIX PO) 12/17/19 Discontin ued(List Clean-Up) pantoprazole EC (Protonix) 40 MG tablet Take 1 (one) tablet by mouth 2 times daily 60 tablet 3 4 12/17/19 25 Discontin ued(List Clean-Up) oxyCODONE-acet aminophen (Percocet) 5-325 MG tablet TAKE 1 TO 2 TABLETS BY MOUTH EVERY 4 TO 6 HOURS NEEDED 4 12/17/19 Discontin ued(List Clean-Up) predniSONE (Deltasone) 5 MG tablet TAKE 1 TABLET BY MOUTH DAILY FOR 3 WEEKS 4 12/17/19 Discontin ued(List Clean-Up) meloxicam (Mobic) 15 MG tablet 4 12/17/19 25 Discontin ued(List Clean-Up) aspirin (Aspirin) 81 MG chew tablet Take 1 (one) tablet by mouth once daily 12/17/19 25 Discontin ued(List Clean-Up) ondansetron, disintegrating , (Zofran ODT) 4 MG tablet Take 1 (one) tablet by mouth every 6 hours as needed for Nausea/Vomiting Allow tablet to dissolve on the tongue 20 tablet 5 12/17/19 25 Discontin ued(List Clean-Up) hyoscyamine (Levsin SL) 0.125 MG sublingual tablet Dissolve 1 (one) tablet under the tongue every 4 hours as needed for Spasms 30 tablet 5 12/17/19 25 Discontin ued(List Clean-Up) Active Problems Problem Noted Date Diagnosed Date Morbid obesity 10/28/2023 Encounters Date Type Department Care Team Description 12/16/2024 1:30 PM CDT Office Visit [facility] [address] [place] [address], [address] [place] [address] Michael Pedraza MD Morbid obesity (HCC) (Primary Dx); S/P bariatric surgery 12/10/2024 Telephone [facility] [address] [place] [address], [address] [place] [address] Melisa Fortune, PATTERN CHANGER-BURRER MARK[employer] AXLE Request Lab Order from Last 3 Months Family History Medical History Relation Name Comments [...] and heating? Not hard at all 10/28/2023 [facility] - Occupational Stress [...] place to sleep or slept in a long-term (including now)? No 10/28/2023 Comments No Sex and Gender Information Value Date Recorded Sex Assigned at Not on file Legal Sex Female 6:39 AM CDT Gender Identity Not on file Sexual Orientation Not on file Last Filed Vital Signs Vital Sign Reading Time Taken Comments Blood Pressure 100/58 12/16/2024 1:18 PM CDT Pulse 50 12/16/2024 1:18 PM CDT Temperature 36.6 C (97.9 F) 12/16/2024 1:18 PM CDT Respiratory Rate 16 12/16/2024 1:18 PM CDT Oxygen Saturation 99% 12/16/2024 1:18 PM CDT Inhaled Oxygen Concentration - - Weight 81.3 kg (179 lb 3.2 oz) 12/16/2024 1:18 P M CDT Height 162.6 cm (5' 4.02) 12/16/2024 1:18 PM CD T Body Mass Index 30.74 12/16/2024 1:18 PM CDT Plan of Treatment Upcoming Encounters Date Type Department Care Team (Late st Contact Info) Description 12/14/2025 1:40 PM CDT Office Visit [facility] [address] [facility] [address] [place] [address] [place] [address] [facility] [address] [place] [address] Health Maintenance Due Date Last Done Comments COLON MONITORING 1964 COLONOSCOPY - COLON CA SCREENING 1964 CT COLONOGRAPHY - COLON CA SCREENING 1964 FIT - COLON CA SCREENING 1964 FLEX SIG - COLON CA SCREENING 1964 LIPID TESTING 1964 MAMMOGRAM 1964 HIV SCREENING 1979 HEPATITIS C SCREENING 02/27/1982 DTAP/TDAP/TD VACCINES (1 - Tdap) 1983 PAP SMEAR 1985 PNEUMOCOCCAL VACCINE 50+ (1 of 1 - PCV) 2014 ZOSTER VACCINE (1 of 2) 2014 DEPRESSION SCREENING 05/06/2024 COVID-19 VACCINE (2023- season) 2025 INFLUENZA VACCINE (#1) 2025 COLOGUARD (AGES 45-75) - COLON CA SCREENING 07/09/2027 07/08/2024, 11/02/2020 Colorectal Cancer Screening 07/09/2027 SCREENING FOR DIABETES 12/12/2027 , 09/01/2024, 10/29/2023, Additional history exists Respiratory Syncytial Virus (RSV) Vaccine Pt: or over 60 yrs (1 - 1-dose 75+ series) 2039 HEPATITIS B VACCINE Aged Out No longe r eligible based on patient's age to complete this topic HIB VACCINE Aged Out No longer eligi ble based on patient's age to complete this topic HPV VACCINE Aged Out No longer eligi ble based on patient's age to complete this topic MENINGOCOCCAL (Group B) VACCINE SHARED DECISION-MAKING Aged Out No longer eligible based on patient's age to complete this topic MENINGOCOCCAL GROUPS A/C/Y/W VACCINE Aged Out No longer eligible based on patient's age to complete this topic Procedures Procedure Name Priority Date/Time Associated Diagnosis Comments VITAMIN K1 Routine 12/11/2024 8:34 AM CDT Intestinal malabsorption, unspecified type (HCC) Morbid obesity (HCC) VITAMIN E Routine 12/11/2024 8:34 AM CDT Intestinal malabsorption, unspecified type (HCC) Morbid obesity (HCC) VITAMIN A Routine 12/11/2024 8:34 AM CDT Intestinal malabsorption, unspecified type (HCC) Morbid obesity (HCC) PREALBUMIN Routine 12/11/2024 8:34 AM CDT Intestinal malabsorption, unspecified type (HCC) Morbid obesity (HCC) IRON + TIBC PANEL Routine 12/11/2024 8:3 2 AM CDT Intestinal malabsorption, unspecified type (HCC) Morbid obesity (HCC) ZINC BLOOD Routine 12/11/2024 8:32 AM CDT Mineral deficiency Intestinal malabsorption, unspecified type (HCC) Morbid obesity (HCC) VITAMIN D 25-HYDROXY Routine 12/11/2024 8:32 AM CDT Vitamin D deficiency Intestinal malabsorption, unspecified type (HCC) Morbid obesity (HCC) VITAMIN B12 Routine 12/11/2024 8:32 AM CDT Vitamin B deficiency Intestinal malabsorption, unspecified type (HCC) Morbid obesity (HCC) VITAMIN B1 Routine 12/11/2024 8:32 AM CDT Vitamin B deficiency Intestinal malabsorption, unspecified type (HCC) Morbid obesity (HCC) PTH INTACT Routine 12/11/2024 8:32 AM CDT Intestinal malabsorption, unspecified type (HCC) Morbid obesity (HCC) MAGNESIUM BLOOD Routine 12/11/2024 8:32 AM CDT Mineral deficiency Intestinal malabsorption, unspecified type (HCC) Morbid obesity (HCC) FOLATE RBC Routine 12/11/2024 8:32 AM CDT Intestinal malabsorption, unspecified type (HCC) Morbid obesity (HCC) FERRITIN Routine 12/11/2024 8:32 AM CDT Intestinal malabsorption, unspecified type (HCC) Morbid obesity (HCC) COPPER BLOOD Routine 12/11/2024 8:32 AM CDT Mineral deficiency Intestinal malabsorption, unspecified type (HCC) Morbid obesity (HCC) COMPREHENSIVE METABOLIC PANEL Routine 12/11/2024 8:32 AM CDT Intestinal malabsorption, unspecified type (HCC) Morbid obesity (HCC) CBC W/O DIFFERENTIAL Routine 12/11/2024 8:32 AM CDT Intestinal malabsorption, unspecified type (HCC) Morbid obesity (HCC) from Last 3 Months Results * VITAMIN K1 (12/11/2024 8:34 AM CDT) Vitamin K 210 130 - 1500 pg/mL [facility] Comment: This test was developed and its analytical performance characteristics have been determined by [facility] [place], [place]. It has not been cleared or approved by the U.S. Food and Drug Administration. This assay has been validated pursuant to the CLIA regulations and is used for clinical purposes. Test Performed at: [facility] [address] [place], [place] NORA POWER MD,PHD Blood BLOOD SPECIMEN / Unknown 12/11/2024 8:34 AM CDT 12/11/2024 8:35 AM CDT Melisa Fortune APRN-[facility] - CHEMISTRY O RDERABLES Final Result Performing Organization Address [facility] Co de Phone Number [facility] [address] [place] [address] * VITAMIN A (12/11/2024 8:34 AM CDT) [facility] Vitamin A 40 38 - 98 mcg/dL [facility] Comment: (Note) Clin Chem Vol. 34.No.8. [id number]. 1998 Vitamin supplementation within 24 hours prior to blood draw may affect the accuracy of results. This test was developed and its analytical performance characteristics have been determined by [facility]. It has not been cleared or approved by the FDA. This assay has been validated pursuant to the CLIA regulations and is used for clinical purposes. [facility] [address] [address],[address] [facility] [address] Aida Skinner MD, PhD Test Performed at: [facility] [address] [address] [address] [place] [address] AIDA KSINNER MD,PHD Blood BLOOD SPECIMEN / Unknown 12/11/2024 8:34 AM CDT 12/11/2024 8:35 AM CDT Melisa Fortune APRN-[facility] LAB - CHEMISTRY O RDERABLES Final Result Performing Organization Address [facility] Co de Phone Number [place] [phone] * VITAMIN E (12/11/2024 8:34 AM CDT) Alpha-Tocopherol 15.8 5.7 - 19.9 mg/L [facility] Comment: Levels of alpha-tocopherol <5 mg/L are consistent with Vitamin E deficiency in adults. Beta-Gamma Tocopherol <1.0 <4.4 mg/L [facility] Comment: (Note) Vitamin supplementation within 24 hours prior to blood draw may affect the accuracy of results. This test was developed and its analytical performance characteristics have been determined by [facility]. It has not been cleared or approved by the FDA. This assay has been validated pursuant to the CLIA regulations and is used for clinical purposes. [facility] [address] [place] [address],[address] [facility] [address] Aida Skinner MD, PhD REPORT COMMENT: FASTING:YES Test Performed at: [facility] [address] [place] [address] [place] [phone] AIDA SKINNER MD,PHD Blood BLOOD SPECIMEN / Unknown 12/11/2024 8:34 AM CDT 12/11/2024 8:35 AM CDT Melisa Fortune APRN-[facility] LAB - CHEMISTRY O RDERABLES Final Result Performing Organization Address [facility] Co de Phone Number [address] [address] * PREALBUMIN (12/11/2024 8:34 AM CDT) Pathologist [facility] Prealbumin 18 17 - 34 mg/dL [facility] Comment: Test Performed at: [facility] [place] [address] [place] [address] OSITO BRYANT MD Blood BLOOD SPECIMEN / Unknown 12/11/2024 8:34 AM CDT 12/11/2024 8:35 AM CDT Melisa Fortune APRN-[facility] LAB - CHEMISTRY [place] [address] * ZINC BLOOD (12/11/2024 8:32 AM CDT) Zinc 62 60 - 130 mcg/dL [facility] Comment: (Note) This test was developed and its analytical performance characteristics have been determined by [facility]. It has not been cleared or approved by the FDA. This assay has been validated pursuant to the CLIA regulations and is used for clinical purposes. [facility] [address] [address],[address] [place] [address] Aida Skinner MD, PhD Test Performed at: [facility] [address] [place] [address] [place] [phone] AIDA SKINNER MD,PHD Blood BLOOD SPECIMEN / Unknown 12/11/2024 8:32 AM CDT 12/11/2024 8:33 AM CDT Melisa MCBRIDE LAB - CHEMISTRY O RDERABLES Final Result [facility] [address] [place] [address] * VITAMIN B1 (12/11/2024 8:32 AM CDT) [facility] Vitamin B1 Whole Blood 145 78 - 185 nmol/L [facility] Comment: (Note) Vitamin supplementation within 24 hours prior to blood draw may affect the accuracy of the results. This test was developed and its analytical performance characteristics have been determined by [facility]. It has not been cleared or approved by FDA. This assay has been validated pursuant to the CLIA regulations and is used for clinical purposes. [facility] [address] [address],[address] [place] [address] Aida Skinner MD, PhD Test Performed at: [facility] [address] [place] [address] [place] [phone] AIDA SKINNER MD,PHD Blood BLOOD SPECIMEN / Unknown 12/11/2024 8:32 AM CDT 12/11/2024 8:33 AM CDT Melisa MCBRIDE LAB - CHEMISTRY O RDERABLES Final Result Performing Organization Address [facility] de Phone Number [facility] [phone] [place] [address] * PTH INTACT (12/11/2024 8:32 AM CDT) PTH Intact 33 16 - 77 pg/mL [facility] Comment: Interpretive Guide Intact PTH Calcium ------- Normal Parathyroid Normal Normal Hypoparathyroidism Low or Low Normal Low Hyperparathyroidism Primary Normal or High High Secondary High Normal or Low Tertiary High High Non-Parathyroid Hypercalcemia Low or Low Normal High Test Performed at: [facility] [address] [place] [phone] OSITO BRYANT MD Blood BLOOD SPECIMEN / Unknown 12/11/2024 8:32 AM CDT 12/11/2024 8:33 AM CDT Melisa Sahuvanessa PATTERN CHANGER-[facility] LAB - CHEMISTRY O RDERABLES Final Result Performing Organization Address [facility] de Phone Number [facility] [address] [place] [address] * COPPER BLOOD (12/11/2024 8:32 AM CDT) Pathologist [facility] Copper 123 70 - 175 mcg/dL [facility] Comment: (Note) This test was developed and its analytical performance characteristics have been determined by [facility]. It has not been cleared or approved by the FDA. This assay has been validated pursuant to the CLIA regulations and is used for clinical purposes. [facility] [address] [facility] [place] [address],[address] [facility] [id number] Aida Skinner MD, PhD REPORT COMMENT: FASTING:YES Test Performed at: [facility] [address] [address] [address] [place] [address] AIDA SKINNER MD,PHD Blood BLOOD SPECIMEN / Unknown 12/11/2024 8:32 AM CDT 12/11/2024 8:33 AM CDT Melisa Coty Fortune [facility] - CHEMISTRY O RDERABLES Final Result Performing Organization Address [facility]/ZIP Co de Phone Number [facility] [phone] [place] [address] * FOLATE RBC (12/11/2024 8:32 AM CDT) Folate RBC 624 >280 ng/mL RBC [facility] Comment: Test Performed at: [place] [address] OSITO BRYANT MD Blood BLOOD SPECIMEN / Unknown 12/11/2024 8:32 AM CDT 12/11/2024 8:33 AM CDT Melisa [facility] - CHEMISTRY O RDERABLES Final Result Performing Organization Address [facility] [place] [address] * VITAMIN D 25-HYDROXY (12/11/2024 8:32 AM CDT) Pathologist [facility] Vitamin D, 25 Hydroxy 92 30 - 100 ng/mL [facility] Comment: Vitamin D Status 25-OH Vitamin D: Deficiency: <20 ng/mL Insufficiency: 20 - 29 ng/mL Optimal: > or = 30 ng/mL For 25-OH Vitamin D testing on patients on D2-supplementation and patients for whom quantitation of D2 and D3 fractions is required, the [facility]() 25-OH VIT D, (D2,D3), LC/MS/MS is recommended: order code 51362 (patients >2yrs). See Note 1 Note 1 For additional information, please refer to http://education.Altimet.Mark Forged/faq/NWT202 (This link is being provided for informational/ educational purposes only.) Test Performed at: [facility] [address] [address] OSITO BRYANT MD Blood BLOOD SPECIMEN / Unknown 12/11/2024 8:32 AM CDT 12/11/2024 8:33 AM CDT Melisa Cotyantoine Fortune [facility] - CHEMISTRY O RDERABLES Final Result Performing Organization Address [facility] Co de Phone Number [facility] [address] [place] [address] * (ABNORMAL) CBC W/O DIFFERENTIAL (12/11/2024 8:32 AM CDT) Pathologist [facility] White Blood Cell Count 4.9 3.8 - 10.8 Thousand/u L [facility] RBC 4.27 3.80 - 5.10 Million/uL [facility] Hemoglobin 13.0 11.7 - 15.5 g/dL [facility] Hematocrit 41.0 35.0 - 45.0 % [facility] MCV 96.0 80.0 - 100.0 fL [facility] MCH 30.4 27.0 - 33.0 pg [facility] MCHC 31.7(L) 32.0 - 36.0 g/dL [facility] Comment: For adults, a slight decrease in the calculated MCHC value (in the range of 30 to 32 g/dL) is most likely not clinically significant; however, it should be interpreted with caution in correlation with other red cell parameters and the patient's clinical condition. RDW 13.8 11.0 - 15.0 % [facility] Platelet Count 220 140 - 400 Thousand/u L [facility] MPV 10.6 7.5 - 12.5 fL [facility] Comment: Test Performed at: [facility] [address] OSITO BRYANT MD Blood BLOOD SPECIMEN / Unknown 12/11/2024 8:32 AM CDT 12/11/2024 8:33 AM CDT Melisa Coty Fortune [facility] - HEMATOLOGY ORDERABLES Final Result Performing Organization Address [facility] Co de Phone Number [facility] [address] [place] [address] * (ABNORMAL) COMPREHENSIVE METABOLIC PANEL (12/11/2024 8:32 AM CDT) [facility] Glucose 87 65 - 99 mg/dL [facility] Comment: Fasting reference interval BUN 14 7 - 25 mg/dL [facility] Creatinine 0.81 0.50 - 1.05 mg/dL [facility] eGFR by Cystatin C 83 > OR = 60 mL/min/1. 73m2 [facility] BUN/Creatinine Ratio SEE NOTE: 6 - 22 (calc) [facility] Comment: Not Reported: BUN and Creatinine are within reference range. Sodium 141 135 - 146 mmol/L [facility] Potassium 3.6 3.5 - 5.3 mmol/L [facility] Chloride 106 98 - 110 mmol/L [facility] CO2 29 20 - 32 mmol/L [facility] Calcium 9.2 8.6 - 10.4 mg/dL [facility] Protein Total 6.0(L) 6.1 - 8.1 g/dL [facility] Albumin 4.0 3.6 - 5.1 g/dL [facility] Globulin Total 2.0 1.9 - 3.7 g/dL (calc) [facility] Albumin/Globulin Ratio 2.0 1.0 - 2.5 (calc) [facility] Bilirubin Total 0.5 0.2 - 1.2 mg/dL [facility] Alkaline Phosphatase 44 37 - 153 U/L [facility] AST 46(H) 10 - 35 U/L [facility] ALT 48(H) 6 - 29 U/L [facility] Comment: Test Performed at: [place] [address] OSITO BRYANT MD Blood BLOOD SPECIMEN / Unknown 12/11/2024 8:32 AM CDT 12/11/2024 8:33 AM CDT Melisa Fortune [facility] - CHEMISTRY O RDERABLES Final Result Performing Organization Address [facility] de Phone Number [facility] [address] [place] [address] * MAGNESIUM BLOOD (12/11/2024 8:32 AM CDT) Pathologist [facility] Magnesium 2.0 1.5 - 2.5 mg/dL [facility] Comment: Test Performed at: [facility] [address] [place] [address] OSITO BRYANT MD Blood BLOOD SPECIMEN / Unknown 12/11/2024 8:32 AM CDT 12/11/2024 8:33 AM CDT Melisa Fortune [facility] - CHEMISTRY O RDERABLES Final Result Performing Organization Address [facility] Co de Phone Number [facility] [phone] [place] [address] * IRON + TIBC PANEL (12/11/2024 8:32 AM CDT) Iron 74 45 - 160 mcg/dL [facility] TIBC 276 250 - 450 mcg/dL (calc) [facility] % Saturation 27 16 - 45 % (calc) [facility] Comment: Test Performed at: [facility] [address] [facility] [employer] [address] OSITO BRYANT MD Blood BLOOD SPECIMEN / Unknown 12/11/2024 8:32 AM CDT 12/11/2024 8:33 AM CDT Melisa [facility] - CHEMISTRY O RDERABLES Final Result Performing Organization Address [facility] de Phone Number [place] [phone] * VITAMIN B12 (12/11/2024 8:32 AM CDT) Vitamin B12 727 200 - 1100 pg/mL [facility] Comment: Test Performed at: [facility] [address] [facility] [place] [place] [address] OSITO BRYANT MD Blood BLOOD SPECIMEN / Unknown 12/11/2024 8:32 AM CDT 12/11/2024 8:33 AM CDT Melisa Fortune [facility] - CHEMISTRY O RDERABLES Final Result Performing Organization Address [facility] de Phone Number [facility] [phone] [place] [address] * FERRITIN (12/11/2024 8:32 AM CDT) Ferritin 69 16 - 232 ng/mL [facility] Comment: Test Performed at: [facility] [address] [facility] [employer] [address] OSITO BRYANT MD Blood BLOOD SPECIMEN / Unknown 12/11/2024 8:32 AM CDT 12/11/2024 8:33 AM CDT Melisa Fortune PATTERN CHANGER-[facility] LAB - CHEMISTRY O RDERABLES Final Result [facility] [address] [place] [address] from Last 3 Months Insurance [employer] Advance Directives * Full Code (Latest Code Status on File) Date Activated Date Inactivated Comments 10/28/2023 2:43 PM 10/29/2023 3:58 PM Care Teams Shoe Lay Out Planner Relationship Specialty Start Date End Date Howard Damon MD [address] [place] [address] PCP - General Family Medicine 03/08/23
[2025-01-12 18:14] VITALS: BP 129/79; PULSE 53; RESP 18; TEMP 36.8; O2SAT 100
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
== END 2025-01-12 19:11 | disposition home or self-care (01) ==
PROVIDERS: Emergency Provider Nurse Practitioner; PCP Family Medicine
DX: S29.012A Strain of muscle and tendon of back wall of thorax, initial encounter (principal); V49.40XA Driver injured in collision with unspecified motor vehicles in traffic accident, initial encounter; E78.5 Hyperlipidemia, unspecified; E28.2 Polycystic ovarian syndrome; M15.9 Polyosteoarthritis, unspecified; R73.01 Impaired fasting glucose; Z98.84 Bariatric surgery status; Z96.643 Presence of artificial hip joint, bilateral
CPT/HCPCS: 99213; G0463

== ENCOUNTER 2025-03-17 14:56 | Outpatient (CLI) | payer OTHER, SELFPAY ==
--- NOTE | ~2025-03-17 | MM_ITS ---
EXAMINATION: MM screening heather BI w zakia HISTORY: Screening TECHNIQUE: Craniocaudal and mediolateral oblique 3-D tomosynthesis images were obtained and synthetic 2-D images were generated. CAD analysis was submitted and interpreted. COMPARISON: Comparison to multiple prior studies sequentially, with oldest reviewed study dated 09/24/2018. BREAST PARENCHYMAL COMPOSITION: There are scattered areas of fibroglandular density. FINDINGS: There is no evidence of suspicious mass, calcification, or architectural distortion to suggest malignancy in either breast. There has been no suspicious interval change. IMPRESSION: 1. No mammographic evidence of malignancy. 2. Recommend routine screening mammography in one year. BI-RADS Category 1: Negative Reviewed, dictated and finalized at location B. [employer] DAT[employer] SPECIALIST
--- OUTSIDE RECORDS SUMMARY | 2025-03-17 15:51 | XMS_ITS | Clinical Summary ---
Author Organization [facility] [employer] Address [address] [place] [address] Care Team Providers Care Litigation Legal Secretary Name Role Phone Howard Damon MD Primary Care Provider [phone] Source Comments [facility],non-owned Affiliates and Associated Physician Practices is amultiple site organization consisting of ambulatory clinics and hospital sitesin [place], [place], [place] and [place]. This disclosure is being madepursuant to the Care Everywhere program and may not contain all information available regarding this patient. Last updated 18.[employer]happy Allergies No known active allergies Medications * Be aware that medications may not be up to date on this document. Alwaysverify current medications with the patient. vitamin D, ergocalciferol, (Drisdol) 1.25 MG (23285 UT) capsule Take 1 (one) capsule by [...] 1 HOUR BEFORE DENTAL APPOINTMENT 5 Active omeprazole (PriLOSEC) 20 MG capsule Take 1 (one) capsule by mouth once daily 30 capsule 2 5 Active sucralfate (Carafate) 1 GM/10ML suspension Take 10 mL by mouth 3 times daily for 30 days 900 mL 5 03/11/20 25 Active Problems Problem Noted Date Diagnosed Date Morbid obesity 10/28/2023 Encounters Date Type Department Care Team Description 02/09/2025 Orders Only [facility] [id number] [place] [address], [facility] [address] [place] [address] Melisa Fortune APRN-CNP 12/16/2024 1:30 PM CDT Office Visit [facility] [address] [place] [address], [facility] [address] [place] [address] Michael Pedraza MD Morbid obesity (HCC) (Primary Dx); S/P bariatric surgery from Last 3 Months Family History Medical [...] you are drinking? Patient does not drink 4 Q3: How often do you have si x or more drinks on one occasion? Never 10/28/2023 Overall Financial Resource Strain (CARDIA) Answe r Date Recorded How hard is it for you to pa y for the very basics like food, housing, medical care, and heating? Not hard at all 10/28/2023 [facility] [place] [facility] Occupat ional Health - Occupational Stress [...] in a longterm (including now)? No 10/28/2023 Comments No Sex [...] Description 12/14/2025 1:40 PM CDT Office Visit [facility] [address], [address] [place] [address] [place] [address] [facility] [address] [place] [phone] Health Maintenance Due Date Last Done Comments COLON MONITORING 1964 COLONOSCOPY - COLON CA SCREENING 1964 CT COLONOGRAPHY - COLON CA SCREENING 1964 FIT - COLON CA SCREENING 1964 FLEX SIG - COLON CA SCREENING 1964 LIPID TESTING 1964 MAMMOGRAM 1964 HIV SCREENING 1979 HEPATITIS C SCREENING 02/27/1982 DTAP/TDAP/TD VACCINES (1 - Tdap) 1983 Cervical Cancer Screening 1985 PAP SMEAR 1985 PAP with HPV 1994 PNEUMOCOCCAL VACCINE 50+ (1 of 1 - PCV) 2014 ZOSTER VACCINE (1 of 2) 2014 DEPRESSION SCREENING 05/06/2024 COVID-19 VACCINE (1 - 2024- season) 2025 INFLUENZA VACCINE (#1) 2025 COLOGUARD [...] Procedure Name Priority Date/Time Associated Diagnosis Comments COMPREHENSIVE METABOLIC PANEL Routine 12/11/2024 8:32 AM CDT Intestinal malabsorption, unspecified type (HCC) Morbid obesity (HCC) from Last 3 Months or Most Recently Relevant to Health Maintenance Results * (ABNORMAL) COMPREHENSIVE METABOLIC PANEL (12/11/2024 8:32 AM CDT) Glucose 87 65 - 99 mg/dL [facility] [...] 29 U/L [facility] Comment: Test Performed at: [facility] [id number] [place] [id number] OSITO BRYANT MD Blood BLOOD SPECIMEN / Unknown 12/11/2024 8:32 AM CDT 12/11/2024 8:33 AM CDT us Melisa Fortune FIREPERSON-JUDICIAL ASSISTANT LAB - CHEMISTRY O RDERABLES Final Result [facility] [id number] [place] [address] from Last 3 Months or Most Recently Relevant to Health Maintenance Insurance [employer] Advance Directives * Full Code (Latest Code Status on File) Date Activated Date Inactivated Comments 10/28/2023 2:43 PM 10/29/2023 3:58 PM Care Teams Litigation Legal Secretary Relationship Specialty Start Date End Date Howard Damon MD [address] [place] [address] PCP - General Family Medicine 03/08/23
--- OUTSIDE RECORDS SUMMARY | 2025-03-17 15:51 | XMS_ITS | Clinical Summary ---
Author Organization [facility] [address] Address [address] [place] [address] Care Team Providers Care Fish Culturist Name Role Phone Howard Damon MD Primary [...] w/r/t gut microbiome. 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
--- OUTSIDE RECORDS SUMMARY | 2025-03-17 15:51 | XMS_ITS | Clinical Summary ---
Author Organization [facility] Care Team Providers Care Booth Usher Name Role Phone Unavailable Primary Care Provider [...] 2014 Zoster Immunization (1 of 2) 2014 Influenza Immunization (#1) 2025 SARS-COV-2 Immunization ( season) 2025 Respiratory Syncytial Virus (RSV) Immunization (Adult) [...]
== END 2025-03-17 14:57 | disposition home or self-care (01) ==
LOC: ANHFOHIMG 14:58
PROVIDERS: PCP Family Medicine; Visit Provider Family Medicine
DX: Z12.31 Encounter for screening mammogram for malignant neoplasm of breast (principal)
CPT/HCPCS: 77063; 77067